=== PATIENT | male | born 1960 | race Caucasian/White ===

== ENCOUNTER 2016-06-24 04:11 | Outpatient (CLI) | payer MEDICAID | END 2016-06-24 04:12 | disposition critical access hospital (66) | DX: R41.0 Disorientation, unspecified (principal); R53.1 Weakness | CPT/HCPCS: A0425; A0427 ==

== ENCOUNTER 2016-06-24 04:16 | Inpatient (IN) | payer MEDICAID ==
[2016-06-24] MEDS ORDERED: POTASSIUM CHLOR 20 MEQ/100 ML 100 ML IV ONE (05:54)
[2016-06-24] MEDS ORDERED: POTASSIUM CHLORIDE INJ 40 MEQ in SODIUM CHLORIDE 0.9% 480 ML IV ONE (05:55)
[2016-06-24] MEDS ORDERED: POTASSIUM CHLOR 10 MEQ/100 ML 100 ML IV ONE ×3 (06:01→06:13)
[2016-06-24] MEDS ORDERED: SODIUM CHLORIDE 0.9% 1,000 ML IV ONE (06:20)
[2016-06-24] MEDS ORDERED: ONDANSETRON 4 MG/2 ML VIAL IVP PRN (06:27)
[2016-06-24] MEDS: NS W/20 MEQ KCL 1,000 ML IV SCH ×2 (07:50→22:11)
[2016-06-24] MEDS: PANTOPRAZOLE 40 MG VIAL IVP SCH (07:59)
[2016-06-24] MEDS: POTASSIUM CHLOR 10 MEQ/100 ML 100 ML IV SCH ×8 (08:00→15:23)
[2016-06-24] MEDS: LACTULOSE 10 GM/15 ML BOTTLE PR SCH ×3 (08:09→22:11)
[2016-06-24] MEDS ORDERED: POTASSIUM PHOSPHATE 15 MMOL in SODIUM CHLORIDE 0.9% 250 ML IV ONE (09:00)
[2016-06-24] MEDS ORDERED: TRACE ELEMENTS V CONC 1 ML VIAL IV SCH (09:00)
[2016-06-24] MEDS: FOLIC ACID IV SCH (09:50)
[2016-06-24] MEDS: [UNRECOGNIZED DRUG - OTHER] IV SCH (09:50)
[2016-06-24] MEDS: THIAMINE IV SCH (09:50)
[2016-06-24] MEDS: MULTIVITAMIN IV SCH (09:50)
[2016-06-24] MEDS: SODIUM CHLORIDE FLUSH 0.9% 10 ML SYRINGE IVP SCH ×2 (18:23→22:07)
[2016-06-25] MEDS ORDERED: MIN OIL/DIMETHICON/COCONUT OIL 92 GM TUBE TOP ONE (04:02)
[2016-06-25] MEDS ORDERED: MIN OIL/DIMETHICON/COCONUT OIL 92 GM TUBE TOP PRN (04:49)
[2016-06-25] MEDS: POTASSIUM CHLOR 10 MEQ/100 ML 100 ML IV SCH ×5 (06:11→09:57)
[2016-06-25] MEDS: LACTULOSE 10 GM/15 ML BOTTLE PR SCH (06:11)
[2016-06-25] MEDS: PANTOPRAZOLE 40 MG VIAL IVP SCH (06:11)
[2016-06-25] MEDS: SODIUM CHLORIDE FLUSH 0.9% 10 ML SYRINGE IVP SCH ×3 (06:11→20:57)
[2016-06-25] MEDS ORDERED: POTASSIUM PHOSPHATE 15 MMOL in SODIUM CHLORIDE 0.9% 250 ML IV ONE (06:26)
[2016-06-25] MEDS: FUROSEMIDE 40 MG/4 ML VIAL IVP SCH (08:54)
[2016-06-25] MEDS: MULTIVITAMIN IV SCH (09:00)
[2016-06-25] MEDS: FOLIC ACID IV SCH (09:00)
[2016-06-25] MEDS: THIAMINE IV SCH (09:00)
[2016-06-25] MEDS ORDERED: POTASSIUM CHLORIDE 20 MEQ TABLET PO SCH (09:00)
[2016-06-25] MEDS: [UNRECOGNIZED DRUG - OTHER] IV SCH (09:00)
[2016-06-25] MEDS ORDERED: PANTOPRAZOLE 40 MG TABLET PO SCH (09:00)
[2016-06-25] MEDS: LACTULOSE 10 GM /15 ML UDC PO SCH ×4 (09:07→20:56)
[2016-06-25] MEDS: NEUTRA-PHOS 250 MG TABLET PO SCH ×2 (09:07→11:56)
[2016-06-25] MEDS: SPIRONOLACTONE 25 MG TABLET PO SCH (09:25)
[2016-06-25] MEDS: POTASSIUM CHLORIDE 10 MEQ CAPSULE PO SCH ×4 (09:56→20:57)
[2016-06-25] MEDS: MORPHINE ER 15 MG TABLET PO SCH (16:51)
[2016-06-25] MEDS: SODIUM CHLORIDE FLUSH 0.9% 10 ML SYRINGE IVP PRN (17:14)
[2016-06-25] MEDS: MIRTAZAPINE 15 MG TABLET PO SCH (20:51)
[2016-06-25] MEDS: PRAMIPEXOLE 0.25 MG TABLET PO SCH (20:52)
[2016-06-25] MEDS: ATORVASTATIN 40 MG TABLET PO SCH (20:52)
[2016-06-25] MEDS: CARVEDILOL 12.5 MG TABLET PO SCH (20:52)
[2016-06-26] MEDS: MORPHINE ER 15 MG TABLET PO SCH ×3 (00:12→17:52)
[2016-06-26] MEDS: SODIUM CHLORIDE FLUSH 0.9% 10 ML SYRINGE IVP SCH ×3 (06:21→21:05)
[2016-06-26] MEDS: PANTOPRAZOLE 40 MG TABLET PO SCH (06:21)
[2016-06-26] MEDS: CARVEDILOL 12.5 MG TABLET PO SCH ×2 (08:24→21:06)
[2016-06-26] MEDS: SPIRONOLACTONE 25 MG TABLET PO SCH (08:24)
[2016-06-26] MEDS: POTASSIUM CHLORIDE 10 MEQ CAPSULE PO SCH ×4 (08:24→21:08)
[2016-06-26] MEDS: FUROSEMIDE 40 MG/4 ML VIAL IVP SCH (08:25)
[2016-06-26] MEDS: SODIUM CHLORIDE FLUSH 0.9% 10 ML SYRINGE IVP PRN (08:25)
[2016-06-26] MEDS: LACTULOSE 10 GM /15 ML UDC PO SCH ×4 (08:25→21:08)
[2016-06-26] MEDS: PRENATAL VITAMIN TABLET PO SCH (12:22)
[2016-06-26] MEDS: FERROUS SULFATE 325 MG TABLET PO SCH (16:52)
[2016-06-26] MEDS: PRAMIPEXOLE 0.25 MG TABLET PO SCH (21:05)
[2016-06-26] MEDS: ATORVASTATIN 40 MG TABLET PO SCH (21:06)
[2016-06-26] MEDS: MIRTAZAPINE 15 MG TABLET PO SCH (21:06)
[2016-06-27] MEDS: MORPHINE ER 15 MG TABLET PO SCH ×3 (01:05→16:32)
[2016-06-27] MEDS: PANTOPRAZOLE 40 MG TABLET PO SCH (06:48)
[2016-06-27] MEDS: SODIUM CHLORIDE FLUSH 0.9% 10 ML SYRINGE IVP SCH ×3 (06:48→21:07)
[2016-06-27] MEDS: SPIRONOLACTONE 25 MG TABLET PO SCH (08:17)
[2016-06-27] MEDS: SODIUM CHLORIDE FLUSH 0.9% 10 ML SYRINGE IVP PRN (08:18)
[2016-06-27] MEDS: CARVEDILOL 12.5 MG TABLET PO SCH ×2 (08:18→21:07)
[2016-06-27] MEDS: PRENATAL VITAMIN TABLET PO SCH (08:18)
[2016-06-27] MEDS: FUROSEMIDE 40 MG/4 ML VIAL IVP SCH (08:18)
[2016-06-27] MEDS: LACTULOSE 10 GM /15 ML UDC PO SCH ×2 (08:18→13:50)
[2016-06-27] MEDS: FERROUS SULFATE 325 MG TABLET PO SCH ×2 (08:18→16:32)
[2016-06-27] MEDS: POTASSIUM CHLORIDE 10 MEQ CAPSULE PO SCH ×2 (09:28→13:51)
[2016-06-27] MEDS: LACTULOSE 10 GM/15 ML BOTTLE PO SCH ×2 (16:33→21:07)
[2016-06-27] MEDS: ATORVASTATIN 40 MG TABLET PO SCH (21:07)
[2016-06-27] MEDS: PRAMIPEXOLE 0.25 MG TABLET PO SCH (21:07)
[2016-06-27] MEDS: MIRTAZAPINE 15 MG TABLET PO SCH (21:07)
[2016-06-28] MEDS: MORPHINE ER 15 MG TABLET PO SCH ×2 (00:19→08:06)
[2016-06-28] MEDS: PANTOPRAZOLE 40 MG TABLET PO SCH (07:19)
[2016-06-28] MEDS: SODIUM CHLORIDE FLUSH 0.9% 10 ML SYRINGE IVP SCH ×2 (07:20→08:18)
[2016-06-28] MEDS: PRENATAL VITAMIN TABLET PO SCH (08:06)
[2016-06-28] MEDS: SPIRONOLACTONE 25 MG TABLET PO SCH (08:06)
[2016-06-28] MEDS: FERROUS SULFATE 325 MG TABLET PO SCH (08:06)
[2016-06-28] MEDS: CARVEDILOL 12.5 MG TABLET PO SCH (08:06)
[2016-06-28] MEDS: FUROSEMIDE 40 MG/4 ML VIAL IVP SCH (08:07)
[2016-06-28] MEDS: LACTULOSE 10 GM/15 ML BOTTLE PO SCH (08:19)
== END 2016-06-28 10:57 | disposition home or self-care (01) | DRG 443 ==
DX: K72.90 Hepatic failure, unspecified without coma (principal); K74.60 Unspecified cirrhosis of liver; F15.10 Other stimulant abuse, uncomplicated; D50.9 Iron deficiency anemia, unspecified; D69.6 Thrombocytopenia, unspecified; E87.6 Hypokalemia; K59.00 Constipation, unspecified; K76.0 Fatty (change of) liver, not elsewhere classified; E66.01 Morbid (severe) obesity due to excess calories; I10 Essential (primary) hypertension; E78.5 Hyperlipidemia, unspecified; I25.10 Atherosclerotic heart disease of native coronary artery without angina pectoris; J44.9 Chronic obstructive pulmonary disease, unspecified; K21.9 Gastro-esophageal reflux disease without esophagitis; F41.8 Other specified anxiety disorders; G25.81 Restless legs syndrome; G89.29 Other chronic pain; M54.9 Dorsalgia, unspecified; G47.33 Obstructive sleep apnea (adult) (pediatric); F17.210 Nicotine dependence, cigarettes, uncomplicated; I25.2 Old myocardial infarction; Z79.82 Long term (current) use of aspirin; Z79.891 Long term (current) use of opiate analgesic; Z86.79 Personal history of other diseases of the circulatory system; Z68.38 Body mass index [BMI] 38.0-38.9, adult; Z63.72 Alcoholism and drug addiction in family; Z87.898 Personal history of other specified conditions

== ENCOUNTER 2016-07-19 15:09 | Outpatient (CLI) | payer MEDICAID | END 2016-07-19 15:10 | disposition home or self-care (01) | DX: E87.6 Hypokalemia (principal); E83.42 Hypomagnesemia ==

== ENCOUNTER 2016-07-30 16:14 | Outpatient (CLI) | payer MEDICAID | END 2016-07-30 16:15 | disposition home or self-care (01) | DX: F11.20 Opioid dependence, uncomplicated (principal); E87.6 Hypokalemia ==

== ENCOUNTER 2016-08-10 16:11 | Outpatient (CLI) | payer MEDICAID | END 2016-08-10 16:12 | disposition home or self-care (01) | DX: E87.6 Hypokalemia (principal); R79.89 Other specified abnormal findings of blood chemistry ==

== ENCOUNTER 2016-10-23 13:41 | Outpatient (CLI) | payer MEDICAID | END 2016-10-23 13:42 | disposition critical access hospital (66) | DX: M54.5 Low back pain (principal) | CPT/HCPCS: A0425; A0429 ==

== ENCOUNTER 2016-10-23 13:48 | Emergency (ER) | payer MEDICAID ==
[2016-10-23 13:57] VITALS: BP 112/67
--- NOTE | 2016-10-23 14:29 | ED Physician Documentation ---
History of Present Illness - Stated complaint Stated Complaint: BACK PX - Chief complaint Chief Complaint: Back Pain - History obtained from History obtained from: Patient, Family - History of Present Illness Timing: Chronic Pain level max: 10 Pain level now: 10 Improved by: morphine, oxycodone Worsened by: movement Associated symptoms: no numbness, no tingling - Additonal information Additional information: Patient states that he was recently released from [facility] [place] [place] for liver issues and states that he was not prescribed his usual morphine and oxycodone. Now out of pain meds. Has chronic back pain. No recent injuries. No new pain. No fevers. Patient's arrived in the emergency department and states that he sees a new primary care provider tomorrow and on Friday sees a new pain management clinic. Review of Systems Constitutional: denies: Fever, Chills Cardiac: denies: Chest pain / pressure Respiratory: denies: Cough GI: denies: Abdominal Pain, Nausea, Vomiting : denies: Dysuria, Frequency, Hesitancy, Incontinent Musculoskeletal: reports: Back pain (chronic) PD PAST MEDICAL HISTORY - Past Medical History Past Medical History: Yes Cardiovascular: Congestive heart failure, Hypertension, High cholesterol, Coronary artery disease, Angina, [place] Respiratory: COPD, Sleep apnea Neuro: None Endocrine/Autoimmune: None GI: GERD, Cirrhosis, Other : None HEENT: None Psych: Depression Musculoskeletal: Chronic back pain Derm: None - Past Surgical History Past Surgical History: Yes Ortho: Spine surgery - Present Medications Home Medications: Ambulatory Orders Medication Instructions Recorded Confirmed ALPRAZolam [Xanax] 2 mg PO BID PRN 06/24/16 06/24/16 Carvedilol 12.5 mg PO BID 06/24/16 10/23/16 Docusate Sodium 250Mg Capsule 250 mg PO BID 06/24/16 06/24/16 [Colace 250Mg Capsule] Furosemide 40 mg PO BID 06/24/16 10/23/16 Mirtazapine 15 mg PO QPM 06/24/16 10/23/16 Nortriptyline [Pamelor] 150 mg PO QPM 06/24/16 10/23/16 Omeprazole 20 mg PO DAILY 06/24/16 10/23/16 Potassium Chloride 8 meq PO TIDWM 06/24/16 06/24/16 Pramipexole Di-HCl [Mirapex] 0.25 mg PO QPM 06/24/16 10/23/16 Senna [Senokot] 17.2 mg PO BID 06/24/16 06/24/16 Temazepam 30 mg PO QPM 06/24/16 10/23/16 Ferrous Sulfate [Feosol] 325 mg PO BIDWM #60 tablet 06/28/16 10/23/16 Lactulose 40 gm PO QID #475 ml 06/28/16 Vitamin [Trinatal Rx 1] 1 tab PO DAILYWM tablet 06/28/16 Carvedilol 10/23/16 oxyCODONE [Roxicodone] 5 - 10 mg PO Q6H PRN #10 tablet 10/23/16 - Allergies Allergies/Adverse Reactions: Allergies Allergy/AdvReac Type Severity Reaction Status Date / Time No Known Drug Allergies Allergy Verified 07/06/15 08:57 - Social History Does the pt smoke?: Yes Smoking Status: Current every day smoker Does the pt drink ETOH?: No Does the pt have substance abuse?: No - Immunizations Immunizations are current?: No - POLST Patient has POLST: No PD ED PE NORMAL - Vitals Vital signs reviewed: Yes - General General: Alert and oriented X 3, Well developed/nourished - HEENT HEENT: Moist mucous membranes - Neck Neck: Supple, no meningeal sign, No bony TTP - Cardiac Cardiac: RRR - Respiratory Respiratory: No respiratory distress, Clear bilaterally - Abdomen Abdomen: Soft, Non tender, Non distended - Back Back: No spinal TTP - Derm Derm: Warm and dry - Extremities Extremities: No tenderness to palpate - Neuro Neuro: Alert and oriented X 3, No motor deficit, No sensory deficit - Psych Psych: Normal mood, Normal affect Results - Vitals Vitals: Vital Signs - 24 hr 10/23/16 13:54 Temperature 36.7 C Heart Rate 72 Respiratory 16 Rate Blood Pressure 112/67 O2 Saturation 96 Oxygen O2 Source [With Activity] Nasal cannula O2 Source [Without Activity] Nasal cannula O2 Source Room air PD MEDICAL DECISION MAKING - ED course Complexity details: reviewed old records, re-evaluated patient, considered differential (no cauda equina, no spinal epidural abscess, no fracture, no aortic dissection or evidence of aneursym rupture), d/w patient, d/w family ED course: Patient is a 55-year-old gentleman with chronic back pain. Out of his pain medications. Does see a new primary care provider tomorrow and a new pain management clinic on Friday. He has been on these pain medications since 2008. Will prescribe a small amount of pain medications to last him until he sees pain management. Patient and were informed that this will not be a regular occurrence and that we normally do not refill pain medications for people. Patient is ambulating quite well in the emergency department. Patient and family counseled regarding signs and symptoms for which I believe and urgent re-evaluation would be necessary. Patient with good understanding of and agreement to plan and is comfortable going home at this time This document was made in part using voice recognition software. While efforts are made to proofread this document, sound alike and grammatical errors may occur. Departure - Departure Disposition: Home, Self Care Clinical Impression: Back pain Qualifiers: Back pain location: low back pain Chronicity: chronic Back pain laterality: bilateral Sciatica presence: without sciatica Qualified Code(s): M54.5 - Low back pain Condition: Good Instructions: ED Chronic Pain Management Follow-Up: DAMION HART [Physician No Access] - Tomorrow Prescriptions: oxyCODONE [Roxicodone] 5 - 10 mg PO Q6H PRN #10 tablet PRN Reason: back pain Comments: Return if you worsen. You need to follow-up with your doctor tomorrow as scheduled as well as her pain management doctor on Friday as scheduled for further pain medication refills. As we discussed we do not typically refill narcotic pain prescriptions for people, but will make an exception for you this 1 time. Do not drink alcohol or drive while on narcotic pain medicine. Note that many narcotic pain relievers also contain tylenol/acetaminophen. Please ensure that your total dose of acetaminophen from all sources does not exceed 3 grams (3000mg) per day. You may constipated on this medication, take a stool softener such as "Colace" twice a day while you are on it. Also recommend a dmie-bcj-alupfle laxative such as senna or MiraLAX any day that you do not have a bowel movement. If you received narcotic pain medication in the emergency department, do not drive or operate machinery for the next 24 hours. Discharge Date/Time: 10/23/16 15:10
[2016-10-23] MEDS ORDERED: oxyCODONE 5 MG TABLET PO STA (15:03)
[2016-10-23] MEDS ORDERED: oxyCODONE 5 MG TABLET ONE (15:04)
== END 2016-10-23 15:10 | disposition home or self-care (01) ==
LOC: EDUNIT# → ED 13:48
DX: M54.5 Low back pain (principal); G89.29 Other chronic pain; I11.0 Hypertensive heart disease with heart failure; I50.9 Heart failure, unspecified; E78.00 Pure hypercholesterolemia, unspecified; I25.10 Atherosclerotic heart disease of native coronary artery without angina pectoris; I25.2 Old myocardial infarction; J44.9 Chronic obstructive pulmonary disease, unspecified; G47.30 Sleep apnea, unspecified; K21.9 Gastro-esophageal reflux disease without esophagitis; K74.60 Unspecified cirrhosis of liver; F17.200 Nicotine dependence, unspecified, uncomplicated
CPT/HCPCS: 99283; 99284; A9270

== ENCOUNTER 2016-11-16 16:14 | Outpatient (CLI) | payer MEDICAID | END 2016-11-16 16:15 | disposition critical access hospital (66) | LOC: EMS 16:14 | PROVIDERS: ATTEND Surgery | DX: R40.4 Transient alteration of awareness (principal) | CPT/HCPCS: A0425; A0429 ==

== ENCOUNTER 2016-11-16 16:19 | Inpatient (IN) | payer MEDICAID ==
--- NOTE | 2016-11-16 16:41 | ED Physician Documentation ---
History of Present Illness - Stated complaint Stated Complaint: ALOC - Chief complaint Chief Complaint: General - History obtained from History obtained from: Patient, EMS - History of Present Illness Timing: Other (55-year-old gentleman arrives by ambulance for altered mental status. History from him is basically unobtainable, I did review the chart and took report from the paramedics. He has a history of it looks like cirrhosis for unclear reasons and hepatic encephalopathy. He also has a history of drug use. He is not taking his lactulose per report from the paramedics from the who is not available on initial arrival.) Review of Systems Unable to obtain: Confused PD PAST MEDICAL HISTORY - Past Medical History Cardiovascular: Congestive heart failure, Hypertension, High cholesterol, Coronary artery disease, Angina, [place] Respiratory: COPD, Sleep apnea Neuro: None Endocrine/Autoimmune: None GI: GERD, Cirrhosis, Other : None HEENT: None Psych: Depression Musculoskeletal: Chronic back pain Derm: None - Past Surgical History Past Surgical History: Yes Ortho: Spine surgery - Present Medications Home Medications: Ambulatory Orders Medication Instructions Recorded Confirmed ALPRAZolam [Xanax] 2 mg PO BID PRN 06/24/16 06/24/16 Carvedilol 12.5 mg PO BID 06/24/16 10/23/16 Docusate Sodium 250Mg Capsule 250 mg PO BID 06/24/16 06/24/16 [Colace 250Mg Capsule] Furosemide 40 mg PO BID 06/24/16 10/23/16 Mirtazapine 15 mg PO QPM 06/24/16 10/23/16 Nortriptyline [Pamelor] 150 mg PO QPM 06/24/16 10/23/16 Omeprazole 20 mg PO DAILY 06/24/16 10/23/16 Potassium Chloride 8 meq PO TIDWM 06/24/16 06/24/16 Pramipexole Di-HCl [Mirapex] 0.25 mg PO QPM 06/24/16 10/23/16 Senna [Senokot] 17.2 mg PO BID 06/24/16 06/24/16 Temazepam 30 mg PO QPM 06/24/16 10/23/16 Ferrous Sulfate [Feosol] 325 mg PO BIDWM #60 tablet 06/28/16 10/23/16 Lactulose 40 gm PO QID #475 ml 06/28/16 Vitamin [Trinatal Rx 1] 1 tab PO DAILYWM tablet 06/28/16 Carvedilol 10/23/16 oxyCODONE [Roxicodone] 5 - 10 mg PO Q6H PRN #10 tablet 10/23/16 - Allergies Allergies/Adverse Reactions: Allergies Allergy/AdvReac Type Severity Reaction Status Date / Time No Known Drug Allergies Allergy Verified 07/06/15 08:57 - Social History Does the pt smoke?: Yes Smoking Status: Current every day smoker Does the pt drink ETOH?: No Does the pt have substance abuse?: No - Immunizations Immunizations are current?: No - POLST Patient has POLST: No PD ED PE NORMAL - Vitals Vital signs reviewed: Yes - General General: Other (Lethargic, oriented to person only. Very slow to answer questions.) - HEENT HEENT: PERRL, Other (Unable to check extraocular movements because he is not cooperative with it.) - Neck Neck: Supple, no meningeal sign, No bony TTP - Cardiac Cardiac: RRR, No murmur - Respiratory Respiratory: No respiratory distress, Clear bilaterally - Abdomen Abdomen: Soft, Non tender - Back Back: No CVA TTP, No spinal TTP - Derm Derm: Normal color, Warm and dry, Other (Nonicteric) - Extremities Extremities: No deformity, No tenderness to palpate, Other (Moderate pitting pedal edema) - Neuro Neuro: Other (Slow to answer questions but does follow commands, I do not see clear asterixis, but both his hands drop fairly rapidly. He does move all 4 extremities with at least some strength. Seems symmetric.) Results - Vitals Vitals: Vital Signs - 24 hr 11/16/16 11/16/16 16:20 17:07 Temperature 36.7 C Heart Rate 76 66 Respiratory 12 10 L Rate Blood Pressure 108/56 L 92/45 L O2 Saturation 96 96 Oxygen O2 Source [With Activity] Nasal cannula O2 Source [Without Activity] Nasal cannula O2 Source Room air - Labs Labs: Laboratory Tests 11/16/16 11/16/16 11/16/16 16:48 16:48 16:48 WBC 5.7 RBC 3.83 L Hgb 13.4 L Hct 38.9 L MCV 101.5 H MCH 34.9 H MCHC 34.4 RDW 16.2 H Plt Count 88 L MPV 9.1 Neut # 2.9 Lymph # 1.9 Dougherty # 0.6 Eos # 0.2 Baso # 0.0 Absolute Nucleated RBC 0.00 Nucleated RBCs 0.1 PT 16.6 H INR 1.5 H Sodium 137 Potassium 2.5 L* Chloride 100 L Carbon Dioxide 32 Anion Gap 5.0 L BUN 6 Creatinine 0.9 Estimated GFR (MDRD) 87 L Glucose 117 H Calcium 8.2 L Total Bilirubin 2.9 H AST 143 H ALT 54 Alkaline Phosphatase 174 H Ammonia Total Protein 6.7 Albumin 2.8 L Globulin 3.9 Albumin/Globulin Ratio 0.7 L Lipase 21 L Urine Color Urine Clarity Urine pH Ur Specific [place] Urine Protein Urine Glucose (UA) Urine Ketones Urine Occult Blood Urine Nitrite Urine Bilirubin Urine Urobilinogen Ur Leukocyte Esterase Ur Microscopic Review Urine Culture Comments Ethyl Alcohol < 5.0 11/16/16 11/16/16 16:48 17:01 WBC RBC Hgb Hct MCV MCH MCHC RDW Plt Count MPV Neut # Lymph # [place] # Eos # Baso # Absolute Nucleated RBC Nucleated RBCs PT INR Sodium Potassium Chloride Carbon Dioxide Anion Gap BUN Creatinine Estimated GFR (MDRD) Glucose Calcium Total Bilirubin AST ALT Alkaline Phosphatase Ammonia 109.9 H* Total Protein Albumin Globulin Albumin/Globulin Ratio Lipase Urine Color YELLOW Urine Clarity CLEAR Urine pH 7.5 Ur Specific [place] 1.010 Urine Protein NEGATIVE Urine Glucose (UA) NEGATIVE Urine Ketones NEGATIVE Urine Occult Blood NEGATIVE Urine Nitrite NEGATIVE Urine Bilirubin NEGATIVE Urine Urobilinogen 0.2 (NORMAL) Ur Leukocyte Esterase NEGATIVE Ur Microscopic Review NOT INDICATED Urine Culture Comments NOT INDICATED Ethyl Alcohol PD MEDICAL DECISION MAKING - ED course ED course: 55-year-old gentleman with history of cirrhosis, hepatic encephalopathy presents with altered mental status, likely due to hepatic encephalopathy, ammonia 109. Given lactulose and IV potassium. Called to Dr. Lancaster, the hospitalist for admission at 5:25 PM. Departure - Departure Disposition: 66 [facility] DC/Xfer Clinical Impression: Confusion, Encephalopathy, Hepatic encephalopathy, Hypokalemia Altered mental status Qualifiers: Altered mental status type: delirium Qualified Code(s): R41.0 - Disorientation , unspecified Condition: Serious
[2016-11-16 16:55] LABS: BASOPHILS % (AUTO) 0.8 %; EOSINOPHILS # (AUTO) 0.2 10^3/uL (0.0-0.7); EOSINOPHILS % (AUTO) 4.3 %; HCT - HEMATOCRIT 38.9 % (42.0-52.0); HGB - HEMOGLOBIN 13.4 g/dL (14.0-18.0); LYMPHOCYTES # (AUTO) 1.9 10^3/uL (1.5-3.5); LYMPHOCYTES % (AUTO) 32.9 %; MEAN CORPUSCULAR HEMOGLOBIN 34.9 pg (27.0-31.0); MEAN CORPUSCULAR HGB CONC 34.4 g/dL (32.0-36.0); MEAN CORPUSCULAR VOLUME 101.5 fL (80.0-94.0); MEAN PLATELET VOLUME 9.1 fL (7.4-11.4); MONOCYTES # (AUTO) 0.6 10^3/uL (0.0-1.0); MONOCYTES % (AUTO) 10.6 %; NEUTROPHILS # (AUTO) 2.9 10^3/uL (1.5-6.6); NEUTROPHILS % (AUTO) 51.4 %; NUCLEATED RED BLOOD CELLS AUTO 0.1 /100WBC; RED BLOOD COUNT 3.83 10^6/uL (4.70-6.10); RED CELL DISTRIBUTION WIDTH 16.2 % (12.0-15.0); UNCORRECTED WHITE BLOOD COUNT 5.7 x10^3/uL; WHITE BLOOD COUNT 5.7 x10^3/uL (4.8-10.8)
[2016-11-16 17:01] LABS: INR 1.5 (0.8-1.2); PT - PROTHROMBIN TIME 16.6 secs (9.9-12.6)
[2016-11-16] MEDS ORDERED: SODIUM CHLORIDE 0.9% 500 ML IV ONE (17:05)
[2016-11-16 17:17] LABS: ALBUMIN/GLOBULIN RATIO 0.7 (1.0-2.2); BILIRUBIN,TOTAL 2.9 mg/dL (0.2-1.0); BUN - BLOOD UREA NITROGEN 6 mg/dL (6-20); CALCIUM 8.2 mg/dL (8.5-10.3); CARBON DIOXIDE - CO2 32 mmol/L (21-32); CHLORIDE 100 mmol/L (101-111); CREATININE 0.9 mg/dL (0.6-1.2); GFR - MDRD 87 (>89); GLUCOSE 117 mg/dL (70-100); LIPASE 21 U/L (22-51); SODIUM 137 mmol/L (135-145); TOTAL PROTEIN 6.7 g/dL (6.7-8.2)
[2016-11-16 17:18] LABS: BILIRUBIN,URINE NEGATIVE (NEGATIVE); PH,URINE 7.5 PH (5.0-7.5)
[2016-11-16 17:18] LABS: POTASSIUM 2.5 mmol/L (3.5-5.0)
[2016-11-16 17:20] LABS: UA CHARGE (STRIP ONLY) YES; UR CULTURE IF IND NOT INDICATED
[2016-11-16] MEDS ORDERED: POTASSIUM CHLOR 20 MEQ/100 ML 100 ML IV ONE (17:24)
[2016-11-16] MEDS ORDERED: LACTULOSE 10 GM /15 ML UDC PO STA (17:24)
--- NOTE | 2016-11-16 17:37 | CT Preliminary Report ---
Exam: CT Head W/O IMPRESSION: 1. No acute intracranial abnormality is identified. 2. Parenchymal volume loss and chronic white matter changes. [facility] SITE ID: [id number]
--- NOTE | 2016-11-16 17:39 | CT Report ---
EXAM: CT HEAD EXAM DATE: 11/16/2016 05:20 PM. CLINICAL HISTORY: Altered mental status. COMPARISON: 06/24/2016. 03/24/2016. TECHNIQUE: Multiaxial CT images were obtained from the foramen magnum to the vertex. IV contrast: Non e. Reformats: Coronal. In accordance with CT protocol optimization, one or more of the following dose reduction techniques w ere utilized for this exam: automated exposure control, adjustment of mA and/or KV based on patient s ize, or use of iterative reconstructive technique. FINDINGS: Parenchyma: Parenchymal volume loss with periventricular regions of low attenuation. No evidence of a n acute vascular insult or acute parenchymal hemorrhage. No midline shift. No mass effect. Extraaxial Spaces: Extra-axial spaces are prominent. No acute extra-axial fluid collections. Ventricles: Ventricles are symmetric. No hydrocephalus. Sinuses: Imaged paranasal sinuses, orbits, and mastoids show no significant abnormality. Bones: No evidence of fracture or calvarial defect. Other: Globes and orbits are unremarkable. IMPRESSION: 1. No acute intracranial abnormality is identified. 2. Parenchymal volume loss and chronic white matter changes. [facility] Referring Provider Line: [phone] SITE ID: [id number]
--- NOTE | 2016-11-16 17:40 | HISTORY & PHYSICAL EXAMINATION ---
Chief Complaint - Chief Complaint Chief Complaint: altered mental status with liver chirrosis History of Present Illness - Admitted From Admitted From:: ER - History Obtained From Records Reviewed: yes History obtained from: patient and records Exam Limitations: altered from elevated ammonia level - History of Present Illness HPI Comment/Other: Patient is a 55 year male who looks older than stated age who stopped taking his lactulose about 3 days ago. His medical history includes chronic hepatic encephalopathy, cirrhosis of liver, low potassium, iron deficiency anemai, tobacco abuse, depression and chronic pain. He was a past drinker and abuses marajuana, benzos and other unknown substances. He was brought to the ER by his . She was not present at bedside when patient was evaluated. He states he does not remember coming to the hospital but does know his name and his wifes name. he was being given lactulose by the ER staff during assessment. He admits to belly discomfort. He denies chest pain or shortness of breath. He is jaundiced and admits to having a past drinking problem. He will be admitted for AMS due to hepatic encephalopathy. Review of Systems - Constitutional Constitutional: reports: Fatigue, Malaise, Weakness - Gastrointestinal Gastrointestinal: reports: Abdominal pain, Abdominal distention, Change in bowel habits - Genitourinary Genitourinary: reports: Incontinence - Neurological Neurological: reports: General weakness. denies: Seizures - Psychiatric Psychiatric: reports: Depression, Anxiety - Hematologic/Lymphatic Hematologic/Lymphatic: reports: Bleeding tendencies - All Other Systems All Other Systems: reports: Reviewed and negative, Other (reviewed with records and staff) History - Past Medical History Cardiovascular: reports: Congestive heart failure, Hypertension, High cholesterol, Coronary artery disease, Angina, [place] Respiratory: reports: COPD, Sleep apnea Neuro: reports: None Endocrine/Autoimmune: reports: None GI: reports: GERD, GI bleed, Cirrhosis, Other : reports: None HEENT: reports: None Psych: reports: Depression, Anxiety Musculoskeletal: reports: Chronic back pain Derm: reports: None MRSA Hx?: No - Past Surgical History Ortho: reports: Spine surgery - Family & Social History Family History: Mother: , Obesity, Father: Obesity, Sister: Alive and Well Living arrangement: At home Living Situation: With spouse/s.o. - Substance History Use: Uses substance without health or social issues: Tobacco, Alcohol, Amphetamine, Cannabis, Opioid, Sedative Use Issues: Anxiety Disorder, Opioid Induced Psychotic, Other Abuse: Recurrent use of substance despite neg consequences: Alcohol, Cannabis, Sedative Abuse Issues: Intoxication, Anxiety Disorder, Opioid Induced Psychotic Dependence: Experiences withdrawal or developed tolerances: Tobacco, Alcohol, Cannabis, Opioid, Sedative Dependence Issues: Intoxication, Anxiety Disorder, Opioid Induced Psychotic, Withdrawal Tobacco Details: Cigarettes - POLST Patient has POLST: No POLST Status: Full Code Meds/Allgy - Home Medications Home Medications: Ambulatory Orders Medication Instructions Recorded Confirmed ALPRAZolam [Xanax] 2 mg PO BID PRN 06/24/16 06/24/16 Carvedilol 12.5 mg PO BID 06/24/16 10/23/16 Docusate Sodium 250Mg Capsule 250 mg PO BID 06/24/16 06/24/16 [Colace 250Mg Capsule] Furosemide 40 mg PO BID 06/24/16 10/23/16 Mirtazapine 15 mg PO QPM 06/24/16 10/23/16 Nortriptyline [Pamelor] 150 mg PO QPM 06/24/16 10/23/16 Omeprazole 20 mg PO DAILY 06/24/16 10/23/16 Potassium Chloride 8 meq PO TIDWM 06/24/16 06/24/16 Pramipexole Di-HCl [Mirapex] 0.25 mg PO QPM 06/24/16 10/23/16 Senna [Senokot] 17.2 mg PO BID 06/24/16 06/24/16 Temazepam 30 mg PO QPM 06/24/16 10/23/16 Ferrous Sulfate [Feosol] 325 mg PO BIDWM #60 tablet 06/28/16 10/23/16 Lactulose 40 gm PO QID #475 ml 06/28/16 Vitamin [Trinatal Rx 1] 1 tab PO DAILYWM tablet 06/28/16 Carvedilol 10/23/16 oxyCODONE [Roxicodone] 5 - 10 mg PO Q6H PRN #10 tablet 10/23/16 - Allergies Allergies/Adverse Reactions: Allergies Allergy/AdvReac Type Severity Reaction Status Date / Time No Known Drug Allergies Allergy Verified 07/06/15 08:57 Exam - Vital Signs Reviewed Vital Signs: Yes Vital Signs: Vital Signs x48h Temp Pulse Resp BP Pulse Ox 11/16/16 17:07 66 10 L 92/45 L 96 11/16/16 16:20 36.7 C 76 12 108/56 L 96 - Physical Exam General Appearance: positive: No acute distress, Alert, Lethargic Eyes Bilateral: positive: PERRL, Other (yellow jaundice). negative: No scleral icterus ENT: positive: Pharynx nml, No signs of dehydration Neck: positive: Thyroid nml, Trachea midline Respiratory: positive: Chest non-tender, Breath sounds nml Cardiovascular: positive: Regular rate & rhythm, No murmur Peripheral Pulses: positive: 2+ Abdomen: positive: Tenderness, Hepatomegaly, Splenomegaly, Abnml bowel sounds. negative: Guarding, Rebound Rectal: negative: Bloody stool Back: negative: CVA tenderness (R) Skin: positive: No rash, Warm, Dry, Other (jaundiced). negative: Decubitus Extremities: positive: Full ROM. negative: Calf tenderness Neurologic/Psychiatric: positive: Disoriented to time, Weakness. negative: Facial droop, Slurred/abnml speech Conclusion/Plan - Problem List (1) Hepatic encephalopathy Conclusion/Plan: acute on chronic. with elevated ammonia levels. give lactulose and continue to monitor mental status. IVF for hydration. continue to monitor electrolytes and replace. CIWA (2) Hypokalemia Conclusion/Plan: acute on chronic. plan to replace with potassium oral and IV and repeat lab values with daily lab draws. (3) Polysubstance abuse Conclusion/Plan: acute on chronic secondary to electrolyte imbalances. cotinue to monitor kidney function and counseling recommended. social work support - Lab Results Lab results reviewed: Yes Fish Bones: 11/17/16 07:41 11/16/16 16:48 Other Lab Results: Abnormal Lab Results 11/16/16 11/16/16 11/16/16 16:48 16:48 16:48 RBC 3.83 10^6/uL L 10^6/uL (4.70-6.10) Hgb 13.4 g/dL L g/dL (14.0-18.0) Hct 38.9 % L % (42.0-52.0) MCV 101.5 fL H fL (80.0-94.0) MCH 34.9 pg H pg (27.0-31.0) RDW 16.2 % H % (12.0-15.0) Plt Count 88 10^3/uL L 10^3/uL (130-450) PT 16.6 secs H secs (9.9-12.6) INR 1.5 H (0.8-1.2) Potassium 2.5 mmol/L L* mmol/L (3.5-5.0) Chloride 100 mmol/L L mmol/L (101-111) Anion Gap 5.0 L (6-13) Estimated GFR (MDRD) 87 L (>89) Glucose 117 mg/dL H mg/dL (70-100) Calcium 8.2 mg/dL L mg/dL (8.5-10.3) Total Bilirubin 2.9 mg/dL H mg/dL (0.2-1.0) AST 143 IU/L H IU/L (10-42) Alkaline Phosphatase 174 IU/L H IU/L (42-121) Ammonia Albumin 2.8 g/dL L g/dL (3.2-5.5) Albumin/Globulin Ratio 0.7 L (1.0-2.2) Lipase 21 U/L L U/L (22-51) Urine Opiates Screen Ur Tricyclics Screen U Benzodiazepines Scrn U Cannabinoids Screen 11/16/16 11/16/16 16:48 17:01 RBC Hgb Hct MCV MCH RDW Plt Count PT INR Potassium Chloride Anion Gap Estimated GFR (MDRD) Glucose Calcium Total Bilirubin AST Alkaline Phosphatase Ammonia 109.9 umol/L H* umol/L (7-35) Albumin Albumin/Globulin Ratio Lipase Urine Opiates Screen POSITIVE H (NEGATIVE) Ur Tricyclics Screen POSITIVE H (NEGATIVE) U Benzodiazepines Scrn POSITIVE H (NEGATIVE) U Cannabinoids Screen POSITIVE H (NEGATIVE) - EKG Results EKG Interpreted Independently: No Issues/Core Measures - Anticipated LOS Anticipated Stay Length: 2 or more midnights - Issues Hospital Issues and Management Plan: Patient has been seen multiple times in the ER and inpatient. will need social work consult and counseling with outpatient if available. Time spent with patient for assessment and planning was 40 minutes. - DVT/VTE - Prophylaxis VTE/DVT Device ordered at admit?: Yes VTE/DVT Prophylaxis med ordered at admit?: No Not Ordered - Medical Reason: Contraindicated (liver and alcohol abuse)
[2016-11-16] MEDS ORDERED: LACTULOSE 10 GM /15 ML UDC ONE ×2 (17:43→20:40)
[2016-11-16] MEDS ORDERED: POTASSIUM CHLOR 10 MEQ/100 ML 100 ML IV ONE ×2 (18:04→18:08)
[2016-11-16] MEDS ORDERED: ONDANSETRON ODT 4 MG TABLET TL PRN (18:19)
[2016-11-16] MEDS ORDERED: SODIUM CHLORIDE FLUSH 0.9% 10 ML SYRINGE IVP PRN (18:19)
[2016-11-16] MEDS ORDERED: ALPRAZolam 0.25 MG TABLET PO PRN (18:24)
[2016-11-16] MEDS ORDERED: NICOTINE 21 MG PATCH TOP STA ×2 (18:27)
[2016-11-16] MEDS ORDERED: PANTOPRAZOLE 40 MG VIAL IVP SCH (19:00)
[2016-11-16] MEDS ORDERED: LACTULOSE 10 GM/15 ML BOTTLE PO SCH (19:00)
[2016-11-16] MEDS ORDERED: NS W/20 MEQ KCL 1,000 ML IV SCH (19:00)
[2016-11-16] MEDS: NS W/20 MEQ KCL 1,000 ML IV SCH (20:41)
[2016-11-16] MEDS: CARVEDILOL 12.5 MG TABLET PO SCH (20:48)
[2016-11-16] MEDS: FUROSEMIDE 40 MG TABLET PO SCH (20:48)
[2016-11-16] MEDS: LACTULOSE 10 GM/15 ML BOTTLE PO SCH (20:49)
[2016-11-16] MEDS: SODIUM CHLORIDE FLUSH 0.9% 10 ML SYRINGE IVP SCH (20:49)
[2016-11-16] MEDS ORDERED: FUROSEMIDE 40 MG TABLET PO SCH (21:00)
[2016-11-16] MEDS ORDERED: CARVEDILOL 12.5 MG PO SCH (21:00)
[2016-11-16] MEDS ORDERED: SODIUM CHLORIDE FLUSH 0.9% 10 ML SYRINGE IVP SCH (22:00)
[2016-11-17] MEDS: PANTOPRAZOLE 40 MG VIAL IVP SCH ×2 (06:05→17:41)
[2016-11-17] MEDS: SODIUM CHLORIDE FLUSH 0.9% 10 ML SYRINGE IVP SCH ×3 (06:05→20:53)
[2016-11-17] MEDS: NS W/20 MEQ KCL 1,000 ML IV SCH (06:05)
[2016-11-17 07:48] LABS: BASOPHILS % (AUTO) 0.7 %; EOSINOPHILS # (AUTO) 0.2 10^3/uL (0.0-0.7); EOSINOPHILS % (AUTO) 4.4 %; HGB - HEMOGLOBIN 12.2 g/dL (14.0-18.0); LYMPHOCYTES # (AUTO) 1.6 10^3/uL (1.5-3.5); LYMPHOCYTES % (AUTO) 32.2 %; MEAN CORPUSCULAR HEMOGLOBIN 34.5 pg (27.0-31.0); MEAN CORPUSCULAR HGB CONC 33.9 g/dL (32.0-36.0); MEAN CORPUSCULAR VOLUME 101.9 fL (80.0-94.0); MEAN PLATELET VOLUME 9.6 fL (7.4-11.4); MONOCYTES # (AUTO) 0.5 10^3/uL (0.0-1.0); MONOCYTES % (AUTO) 11.2 %; NEUTROPHILS # (AUTO) 2.5 10^3/uL (1.5-6.6); NEUTROPHILS % (AUTO) 51.5 %; NUCLEATED RED BLOOD CELLS AUTO 0.1 /100WBC; RED BLOOD COUNT 3.53 10^6/uL (4.70-6.10); RED CELL DISTRIBUTION WIDTH 16.3 % (12.0-15.0); UNCORRECTED WHITE BLOOD COUNT 4.8 x10^3/uL; WHITE BLOOD COUNT 4.8 x10^3/uL (4.8-10.8)
[2016-11-17 07:59] LABS: MAGNESIUM 1.7 mg/dL (1.7-2.8); PHOSPHORUS 2.5 mg/dL (2.5-4.6)
[2016-11-17] MEDS ORDERED: FERROUS SULFATE 325 MG TABLET PO SCH (08:00)
[2016-11-17] MEDS ORDERED: PRENATAL VITAMIN TABLET PO SCH (08:00)
[2016-11-17] MEDS ORDERED: POLYETHYLENE GLYCOL 3350 17 GM PACKET PO SCH (09:00)
[2016-11-17] MEDS: FERROUS SULFATE 325 MG TABLET PO SCH ×2 (09:08→17:41)
[2016-11-17] MEDS: POLYETHYLENE GLYCOL 3350 17 GM PACKET PO SCH (09:08)
[2016-11-17] MEDS: CARVEDILOL 12.5 MG TABLET PO SCH ×2 (09:09→20:45)
[2016-11-17] MEDS: PRENATAL VITAMIN TABLET PO SCH (09:09)
[2016-11-17] MEDS: FUROSEMIDE 40 MG TABLET PO SCH ×2 (09:09→20:45)
[2016-11-17] MEDS: LACTULOSE 10 GM/15 ML BOTTLE PO SCH ×4 (09:15→20:51)
--- NOTE | 2016-11-17 15:47 | PROVIDER PROGRESS NOTE ---
Assessment/Plan - Problem List (1) Hepatic encephalopathy Assessment/Plan: acute.continue with lactulose and monitoring of liver enzymes and ammonia level (2) Transaminitis Assessment/Plan: acute on chronic. patient has history of alcohol abuse and drug usage and has elevated liver enzymes on most occassions. will continue to follow with daily lab draws. continue to monitor ammonia levels. (3) Hypokalemia Assessment/Plan: acute. give replacement of potassium with oral and IV and recheck levels in daily labs (4) Polysubstance abuse Assessment/Plan: acute on chronic. patient is on marajuana, benzos and opiods. He has been noncompliant with medications for years and in assisted for selling. counseling attempted with each admission. monitor for withdrawal and ativan ordered as needed (5) Low blood magnesium level Assessment/Plan: acute on chronic. continue to monitor levels in daily labs and replace with IV magnesium (6) Obesity (BMI 30-39.9) Assessment/Plan: chronic. low fat low calorie diet and encourage ambulation. daily weights - Current Meds Current Meds: Current Medications Generic Name Dose Route Start Last Admin Trade Name Jaydenq PRN Reason Stop Dose Admin Carvedilol 12.5 mg 11/16/16 21:00 11/17/16 09:09 Coreg PO 12.5 mg BID NILE Administration Ferrous Sulfate 325 mg 11/17/16 08:00 11/17/16 09:08 Feosol PO 325 mg BIDWM NILE Administration Furosemide 40 mg 11/16/16 21:00 11/17/16 09:09 Lasix PO 40 mg BID NILE Administration Potassium Chloride/Sodium Chloride 1,000 mls @ 100 mls/hr 11/16/16 19:00 06:05 Normal Saline 0.9% W/20 Meq Kcl IV 100 mls/hr .Q10H NILE Administration Lactulose 40 gm 11/16/16 19:00 11/17/16 13:43 Lactulose PO 40 gm QID NILE Administration Pantoprazole Sodium 40 mg 11/16/16 19:00 11/17/16 06:05 Protonix IVP 40 mg BIDAC NILE Administration Polyethylene Glycol 17 gm 11/17/16 09:00 11/17/16 09:08 Miralax PO 17 gm DAILY NILE Administration Multivit/Folic Acid/Iron 1 tab 11/17/16 08:00 11/17/16 09:09 Trinatal Rx 1 PO 1 tab DAILYWM NILE Administration Sodium Chloride 10 ml 11/16/16 22:00 11/17/16 13:43 Normal Saline Flush 0.9% IVP Not Given Q8HR NILE - Lab Result Lab results reviewed: Yes Fish Bone Diagrams: 11/17/16 07:41 11/16/16 16:48 Other Lab Results: Abnormal Lab Results 11/16/16 11/16/16 11/16/16 16:48 16:48 16:48 RBC 3.83 10^6/uL L 10^6/uL (4.70-6.10) Hgb 13.4 g/dL L g/dL (14.0-18.0) Hct 38.9 % L % (42.0-52.0) MCV 101.5 fL H fL (80.0-94.0) MCH 34.9 pg H pg (27.0-31.0) RDW 16.2 % H % (12.0-15.0) Plt Count 88 10^3/uL L 10^3/uL (130-450) PT 16.6 secs H secs (9.9-12.6) INR 1.5 H (0.8-1.2) Potassium 2.5 mmol/L L* mmol/L (3.5-5.0) Chloride 100 mmol/L L mmol/L (101-111) Anion Gap 5.0 L (6-13) Estimated GFR (MDRD) 87 L (>89) Glucose 117 mg/dL H mg/dL (70-100) Calcium 8.2 mg/dL L mg/dL (8.5-10.3) Total Bilirubin 2.9 mg/dL H mg/dL (0.2-1.0) AST 143 IU/L H IU/L (10-42) Alkaline Phosphatase 174 IU/L H IU/L (42-121) Ammonia Total Creatine Kinase Albumin 2.8 g/dL L g/dL (3.2-5.5) Albumin/Globulin Ratio 0.7 L (1.0-2.2) Lipase 21 U/L L U/L (22-51) Urine Opiates Screen Ur Tricyclics Screen U Benzodiazepines Scrn U Cannabinoids Screen 11/16/16 11/16/1617 16:48 16:48 17:01 RBC Hgb Hct MCV MCH RDW Plt Count PT INR Potassium Chloride Anion Gap Estimated GFR (MDRD) Glucose Calcium Total Bilirubin AST Alkaline Phosphatase Ammonia 109.9 umol/L H* umol/L (7-35) Total Creatine Kinase 423 IU/L H IU/L (22-269) Albumin Albumin/Globulin Ratio Lipase Urine Opiates Screen POSITIVE H (NEGATIVE) Ur Tricyclics Screen POSITIVE H (NEGATIVE) U Benzodiazepines Scrn POSITIVE H (NEGATIVE) U Cannabinoids Screen POSITIVE H (NEGATIVE) 11/17/16 11/17/16 07:41 09:41 RBC 3.53 10^6/uL L 10^6/uL (4.70-6.10) Hgb 12.2 g/dL L g/dL (14.0-18.0) Hct 36.0 % L % (42.0-52.0) MCV 101.9 fL H fL (80.0-94.0) MCH 34.5 pg H pg (27.0-31.0) RDW 16.3 % H % (12.0-15.0) Plt Count 75 10^3/uL L 10^3/uL (130-450) PT INR Potassium Chloride Anion Gap Estimated GFR (MDRD) Glucose Calcium Total Bilirubin AST Alkaline Phosphatase Ammonia 118.4 umol/L H* umol/L (7-35) Total Creatine Kinase Albumin Albumin/Globulin Ratio Lipase Urine Opiates Screen Ur Tricyclics Screen U Benzodiazepines Scrn U Cannabinoids Screen - EKG Results EKG Interpreted Independently: Yes - Additional Planning Condition/Complexity: Stable My Orders: My Active Orders 11/16/16 18:20 Activity Orders [RC] Routine IO [RC] IOSHIFT Initiate Bowel Care Protocol [RC] .protocol Initiate Line Care Protocol [RC] .protocol Initiate Personal Care Protoco [RC] .protocol Vital Signs [RC] Q8HR Code Status [OTHERS] Routine Condition of Patient [OTHERS] Routine DVT Prophylaxis [OTHERS] Routine 11/16/16 18:22 SCDs [RC] QSHIFT Evaluate and Treat OT [OT] Routine Evaluate and Treat PT [PT] Routine 11/16/16 19:00 Lactulose 40 gm PO QID Ns W/20 Meq KCl [Normal Saline 0.9% W/20 Meq KCl] 1,000 ml IV 100 mls/hr Pantoprazole [Protonix] 40 mg IVP BIDAC 11/16/16 19:08 ALPRAZolam [Xanax] 2 mg PO BID PRN Ondansetron Odt [Zofran Odt] 4 mg TL Q6HR PRN Sodium Chloride Flush 0.9% [Normal Saline Flush 0.9%] 10 ml IVP PRN PRN 11/16/16 21:00 Carvedilol [Coreg] 12.5 mg PO BID Furosemide [Lasix] 40 mg PO BID 11/16/16 22:00 Sodium Chloride Flush 0.9% [Normal Saline Flush 0.9%] 10 ml IVP Q8HR 11/17/16 08:00 Ferrous Sulfate [Feosol] 325 mg PO BIDWM Vitamin [Trinatal Rx 1] 1 tab PO DAILYWM 11/17/16 09:00 Polyethylene Glycol 3350 [Miralax] 17 gm PO DAILY 11/17/16 15:45 MAGNESIUM SULFATE 2 GRAMS IV X1 Magnesium Sulfate 2 Gram [Magnesium Sulfate] 50 ml IV ONCE Consult/Specialty: OT, PT Plan Discussed with:: Patient, Case Management Time Spent: 31-60 minutes Subjective - Subjective Patient Reports: Abdominal Pain, Pain Nursing Reports: Confused (patient still is confused and having abdominal pain with distention today. has not had a BM today), Pain Objective Vital Signs: Vital Signs - 24 hr 11/16/16 11/16/16 11/16/16 17:39 17:52 18:19 Temperature Heart Rate 66 65 65 Heart Rate [ Brachial] Heart Rate [ Sitting] Heart Rate [ Standing] Heart Rate [ Supine] Respiratory 12 12 12 Rate Blood Pressure 105/64 102/55 L 96/58 L Blood Pressure [Left Brachial artery] Blood Pressure [Sitting] Blood Pressure [Standing] Blood Pressure [Supine] O2 Saturation 96 96 96 O2 Saturation [ With Activity] 11/16/16 11/16/16 11/17/16 18:33 19:14 01:52 Temperature 36.5 C 36.4 C L Heart Rate 68 Heart Rate [ 64 91 Brachial] Heart Rate [ Sitting] Heart Rate [ Standing] Heart Rate [ Supine] Respiratory 18 Rate Blood Pressure 117/66 Blood Pressure 110/67 121/67 [Left Brachial artery] Blood Pressure [Sitting] Blood Pressure [Standing] Blood Pressure [Supine] O2 Saturation 96 99 O2 Saturation [ With Activity] 11/17/16 11/17/16 11/17/16 08:00 10:15 11:01 Temperature Heart Rate Heart Rate [ 76 Brachial] Heart Rate [ 84 Sitting] Heart Rate [ 91 Standing] Heart Rate [ 83 Supine] Respiratory 16 Rate Blood Pressure Blood Pressure 102/58 L 119/80 [Left Brachial artery] Blood Pressure 110/49 L [Sitting] Blood Pressure 119/80 [Standing] Blood Pressure 104/58 L [Supine] O2 Saturation 95 O2 Saturation [ 96 With Activity] 11/17/16 13:37 Temperature 36.6 C Heart Rate Heart Rate [ 77 Brachial] Heart Rate [ Sitting] Heart Rate [ Standing] Heart Rate [ Supine] Respiratory 16 Rate Blood Pressure Blood Pressure 112/76 [Left Brachial artery] Blood Pressure [Sitting] Blood Pressure [Standing] Blood Pressure [Supine] O2 Saturation 95 O2 Saturation [ With Activity] Oxygen O2 Source [With Activity] Room air O2 Source Room air I&O (Last 24 Hrs): Intake and Output Totals x24h 11/15/16 11/16/16 11/17/16 23:59 23:59 23:59 Intake Total 270 2643 Output Total 925 Balance 270 1718 General: Alert, Cooperative, No acute distress HEENT: PERRLA Neck: Supple, No JVD, No thyromegaly Lymphatic: no adenopathy Neuro: Alert, Disoriented Cardiovascular: Normal S1, Normal S2 Respiratory: Chest non-tender, No respiratory distress, Breath sounds nml Abdomen: Other (tenden with distention and hypoactive bowel sounds.) Genitourinary: No Mass Rectal: Tenderness, Stool - Heme NEG Extremities: No clubbing, No cyanosis, Normal pulses, Other (edema to lower extremitites) Skin: No rashes, No breakdown, No significant lesion - Results Results: Laboratory Results WBC 4.8 x10^3/uL (4.8-10.8) 11/17/16 07:41 RBC 3.53 10^6/uL (4.70-6.10) L 11/17/16 07:41 Hgb 12.2 g/dL (14.0-18.0) L 11/17/16 07:41 Hct 36.0 % (42.0-52.0) L 11/17/16 07:41 MCV 101.9 fL (80.0-94.0) H 11/17/16 07:41 MCH 34.5 pg (27.0-31.0) H 11/17/16 07:41 MCHC 33.9 g/dL (32.0-36.0) 11/17/16 07:41 RDW 16.3 % (12.0-15.0) H 11/17/16 07:41 Plt Count 75 10^3/uL (130-450) L 11/17/16 07:41 MPV 9.6 fL (7.4-11.4) 11/17/16 07:41 Neut # 2.5 10^3/uL (1.5-6.6) 11/17/16 07:41 Lymph # 1.6 10^3/uL (1.5-3.5) 11/17/16 07:41 [place] # 0.5 10^3/uL (0.0-1.0) 11/17/16 07:41 Eos # 0.2 10^3/uL (0.0-0.7) 11/17/16 07:41 Baso # 0.0 10^3/uL (0.0-0.1) 11/17/16 07:41 Absolute Nucleated RBC 0.00 x10^3/uL 11/17/16 07:41 Nucleated RBCs 0.1 /100WBC 11/17/16 07:41 PT 16.6 secs (9.9-12.6) H 11/16/16 16:48 INR 1.5 (0.8-1.2) H 11/16/16 16:48 Sodium 137 mmol/L (135-145) 11/16/16 16:48 Potassium 2.5 mmol/L (3.5-5.0) L* 11/16/16 16:48 Chloride 100 mmol/L (101-111) L 11/16/16 16:48 Carbon Dioxide 32 mmol/L (21-32) 11/16/16 16:48 Anion Gap 5.0 (6-13) L 11/16/16 16:48 BUN 6 mg/dL (6-20) 11/16/16 16:48 Creatinine 0.9 mg/dL (0.6-1.2) 11/16/16 16:48 Estimated GFR (MDRD) 87 (>89) L 11/16/16 16:48 Glucose 117 mg/dL (70-100) H 11/16/16 16:48 Calcium 8.2 mg/dL (8.5-10.3) L 11/16/16 16:48 Phosphorus 2.5 mg/dL (2.5-4.6) 11/17/16 07:41 Magnesium 1.7 mg/dL (1.7-2.8) 11/17/16 07:41 Total Bilirubin 2.9 mg/dL (0.2-1.0) H 11/16/16 16:48 AST 143 IU/L (10-42) H 11/16/16 16:48 ALT 54 IU/L (10-60) 11/16/16 16:48 Alkaline Phosphatase 174 IU/L (42-121) H 11/16/16 16:48 Ammonia 118.4 umol/L (7-35) H* 11/17/16 09:41 Total Creatine Kinase 423 IU/L (22-269) H 11/16/16 16:48 Total Protein 6.7 g/dL (6.7-8.2) 11/16/16 16:48 Albumin 2.8 g/dL (3.2-5.5) L 11/16/16 16:48 Globulin 3.9 g/dL (2.1-4.2) 11/16/16 16:48 Albumin/Globulin Ratio 0.7 (1.0-2.2) L 11/16/16 16:48 Lipase 21 U/L (22-51) L 11/16/16 16:48 Urine Color YELLOW 11/16/16 17:01 Urine Clarity CLEAR (CLEAR) 11/16/16 17:01 Urine pH 7.5 PH (5.0-7.5) 11/16/16 17:01 Ur Specific [place] 1.010 (1.002-1.030) 11/16/16 17:01 Urine Protein NEGATIVE mg/dL (NEGATIVE) 11/16/16 17:01 Urine Glucose (UA) NEGATIVE mg/dL (NEGATIVE) 11/16/16 17:01 Urine Ketones NEGATIVE mg/dL (NEGATIVE) 11/16/16 17:01 Urine Occult Blood NEGATIVE (NEGATIVE) 11/16/16 17:01 Urine Nitrite NEGATIVE (NEGATIVE) 11/16/16 17:01 Urine Bilirubin NEGATIVE (NEGATIVE) 11/16/16 17:01 Urine Urobilinogen 0.2 (NORMAL) E.U./dL (NORMAL) 11/16/16 17:01 Ur Leukocyte Esterase NEGATIVE (NEGATIVE) 11/16/16 17:01 Ur Microscopic Review NOT INDICATED 11/16/16 17:01 Urine Culture Comments NOT INDICATED 11/16/16 17:01 Urine Opiates Screen POSITIVE (NEGATIVE) H 11/16/16 17:01 Ur Oxycodone Screen NEGATIVE (NEGATIVE) 11/16/16 17:01 Urine Methadone Screen NEGATIVE (NEGATIVE) 11/16/16 17:01 Ur Propoxyphene Screen NEGATIVE (NEGATIVE) 11/16/16 17:01 Ur Barbiturates Screen NEGATIVE (NEGATIVE) 11/16/16 17:01 Ur Tricyclics Screen POSITIVE (NEGATIVE) H 11/16/16 17:01 Ur Phencyclidine Scrn NEGATIVE (NEGATIVE) 11/16/16 17:01 Ur Amphetamine Screen NEGATIVE (NEGATIVE) 11/16/16 17:01 U Methamphetamines Scrn NEGATIVE (NEGATIVE) 11/16/16 17:01 U Benzodiazepines Scrn POSITIVE (NEGATIVE) H 11/16/16 17:01 Urine Cocaine Screen NEGATIVE (NEGATIVE) 11/16/16 17:01 U Cannabinoids Screen POSITIVE (NEGATIVE) H 11/16/16 17:01 Ethyl Alcohol < 5.0 mg/dL 11/16/16 16:48 - Procedures Procedures: Procedures DRAINAGE OF RIGHT WRIST REGION, PERCUTANEOUS APPROACH (07/04/15) EXTRACTION OF RIGHT HAND SKIN, EXTERNAL APPROACH (07/04/15) INSERTION OF INFUSION DEV INTO SUP VENA CAVA, PERC APPROACH (04/02/16)
[2016-11-17 16:12] LABS: EOSINOPHILS # (AUTO) 0.2 10^3/uL (0.0-0.7); EOSINOPHILS % (AUTO) 3.9 %; HCT - HEMATOCRIT 36.8 % (42.0-52.0); HGB - HEMOGLOBIN 12.4 g/dL (14.0-18.0); LYMPHOCYTES # (AUTO) 1.4 10^3/uL (1.5-3.5); LYMPHOCYTES % (AUTO) 29.7 %; MEAN CORPUSCULAR HEMOGLOBIN 34.5 pg (27.0-31.0); MEAN CORPUSCULAR HGB CONC 33.7 g/dL (32.0-36.0); MEAN CORPUSCULAR VOLUME 102.4 fL (80.0-94.0); MEAN PLATELET VOLUME 9.8 fL (7.4-11.4); MONOCYTES # (AUTO) 0.5 10^3/uL (0.0-1.0); MONOCYTES % (AUTO) 10.2 %; NEUTROPHILS # (AUTO) 2.6 10^3/uL (1.5-6.6); NEUTROPHILS % (AUTO) 55.2 %; NUCLEATED RED BLOOD CELLS AUTO 0.1 /100WBC; RED CELL DISTRIBUTION WIDTH 16.3 % (12.0-15.0); UNCORRECTED WHITE BLOOD COUNT 4.7 x10^3/uL; WHITE BLOOD COUNT 4.7 x10^3/uL (4.8-10.8)
[2016-11-17 16:27] LABS: ALBUMIN/GLOBULIN RATIO 0.6 (1.0-2.2); BILIRUBIN,TOTAL 2.3 mg/dL (0.2-1.0); CALCIUM 8.4 mg/dL (8.5-10.3); CREATININE 0.8 mg/dL (0.6-1.2); TOTAL PROTEIN 6.4 g/dL (6.7-8.2)
[2016-11-17 16:56] LABS: HEMOGLOBIN A1C 0.36 g/dL
[2016-11-17] MEDS ORDERED: LACTULOSE 10 GM /15 ML UDC PO SCH (17:00)
[2016-11-17] MEDS ORDERED: MAGNESIUM SULFATE 2 GRAM 50 ML IV SCH (17:00)
[2016-11-17] MEDS: INSULIN ASPART 300 UNIT/3 ML PEN SUBQ SCH ×2 (17:25→20:51)
[2016-11-17] MEDS: POTASSIUM CHLOR 10 MEQ/100 ML 100 ML IV SCH ×4 (17:41→21:56)
[2016-11-17] MEDS: ALPRAZolam 0.25 MG TABLET PO PRN (17:53)
[2016-11-18] MEDS: NS W/20 MEQ KCL 1,000 ML IV SCH ×4 (00:08→20:51)
[2016-11-18] MEDS: ONDANSETRON ODT 4 MG TABLET TL PRN (01:34)
[2016-11-18] MEDS: SODIUM CHLORIDE FLUSH 0.9% 10 ML SYRINGE IVP SCH ×3 (05:20→20:51)
[2016-11-18 05:54] LABS: BASOPHILS % (AUTO) 0.6 %; EOSINOPHILS # (AUTO) 0.2 10^3/uL (0.0-0.7); EOSINOPHILS % (AUTO) 2.6 %; HCT - HEMATOCRIT 34.2 % (42.0-52.0); HGB - HEMOGLOBIN 11.6 g/dL (14.0-18.0); LYMPHOCYTES % (AUTO) 32.1 %; MEAN CORPUSCULAR HEMOGLOBIN 34.7 pg (27.0-31.0); MEAN CORPUSCULAR HGB CONC 33.9 g/dL (32.0-36.0); MEAN CORPUSCULAR VOLUME 102.1 fL (80.0-94.0); MONOCYTES # (AUTO) 0.6 10^3/uL (0.0-1.0); MONOCYTES % (AUTO) 9.4 %; NEUTROPHILS # (AUTO) 3.4 10^3/uL (1.5-6.6); NEUTROPHILS % (AUTO) 55.3 %; RED BLOOD COUNT 3.35 10^6/uL (4.70-6.10); RED CELL DISTRIBUTION WIDTH 16.1 % (12.0-15.0); UNCORRECTED WHITE BLOOD COUNT 6.2 x10^3/uL; WHITE BLOOD COUNT 6.2 x10^3/uL (4.8-10.8)
[2016-11-18 06:05] LABS: ALBUMIN/GLOBULIN RATIO 0.7 (1.0-2.2); BILIRUBIN,TOTAL 1.7 mg/dL (0.2-1.0); BUN - BLOOD UREA NITROGEN 5 mg/dL (6-20); CARBON DIOXIDE - CO2 26 mmol/L (21-32); CHLORIDE 106 mmol/L (101-111); CREATININE 0.8 mg/dL (0.6-1.2); GFR - MDRD 100 (>89); GLUCOSE 135 mg/dL (70-100); PHOSPHORUS 1.8 mg/dL (2.5-4.6); POTASSIUM 2.8 mmol/L (3.5-5.0); SODIUM 138 mmol/L (135-145); TOTAL PROTEIN 5.9 g/dL (6.7-8.2)
[2016-11-18 06:14] LABS: CALCIUM, IONIZED 1.08 mmol/L (1.15-1.33); VBG PH 7.466 (7.31-7.41)
[2016-11-18] MEDS: PANTOPRAZOLE 40 MG VIAL IVP SCH ×2 (06:26→16:37)
[2016-11-18] MEDS: SODIUM CHLORIDE FLUSH 0.9% 10 ML SYRINGE IVP PRN (06:26)
[2016-11-18] MEDS: ALPRAZolam 0.25 MG TABLET PO PRN ×2 (06:26→17:08)
[2016-11-18] MEDS: POLYETHYLENE GLYCOL 3350 17 GM PACKET PO SCH (07:57)
[2016-11-18] MEDS: LACTULOSE 10 GM/15 ML BOTTLE PO SCH ×5 (07:58→20:51)
[2016-11-18] MEDS: FERROUS SULFATE 325 MG TABLET PO SCH ×2 (08:00→16:38)
[2016-11-18] MEDS: FUROSEMIDE 40 MG TABLET PO SCH ×2 (08:01→20:50)
[2016-11-18] MEDS: INSULIN ASPART 300 UNIT/3 ML PEN SUBQ SCH ×4 (08:01→20:49)
[2016-11-18] MEDS: CARVEDILOL 12.5 MG TABLET PO SCH ×2 (08:01→20:50)
[2016-11-18] MEDS: PRENATAL VITAMIN TABLET PO SCH (08:01)
--- NOTE | 2016-11-18 08:25 | PROVIDER PROGRESS NOTE ---
Assessment/Plan - Problem List (1) Hepatic encephalopathy Assessment/Plan: acute with monitoring of ammonia levels. continue on lactulose oral daily. will give an additional dosage this morning. (2) Transaminitis Assessment/Plan: acute. patient is a chronic alcoholic and LFT will change. continue to monitor with daily lab draws. (3) Hypophosphatasia Assessment/Plan: aute. replace with neutraphos and continue to monitor with daily lab draws. (4) Hypokalemia Assessment/Plan: acute and ongoing. continue to monitor potassium level with daily lab draws. will give an additional dosage of oral 40meq and monitor (5) Polysubstance abuse Assessment/Plan: chronic. continue to offer counseling and education regarding cessation. Ativan for agitation and monitor for withdrawal (6) Low blood magnesium level Assessment/Plan: resolved. continue to monitor magnesium level with daily lab draws (7) Obesity (BMI 30-39.9) Assessment/Plan: chronic. stable. continue on low fat lower calorie diet and monitor daily weight - Current Meds Current Meds: Current Medications Generic Name Dose Route Start Last Admin Trade Name Freq PRN Reason Stop Dose Admin Alprazolam 2 mg 11/16/16 19:08 11/18/16 06:26 Xanax PO 2 mg BID PRN Administration Anxiety Carvedilol 12.5 mg 11/16/16 21:00 11/18/16 08:01 Coreg PO 12.5 mg BID NILE Administration Ferrous Sulfate 325 mg 11/17/16 08:00 11/18/16 08:00 Feosol PO 325 mg BIDWM NILE Administration Furosemide 40 mg 11/16/16 21:00 11/18/16 08:01 Lasix PO 40 mg BID NILE Administration Potassium Chloride/Sodium Chloride 1,000 mls @ 100 mls/hr 11/16/16 19:00 00:08 Normal Saline 0.9% W/20 Meq Kcl IV 100 mls/hr .Q10H NILE Administration Insulin Aspart 1 - 5 unit 11/17/16 17:00 11/18/16 08:01 Novolog SUBQ Not Given 0800,1200,1700,2100 NILE Protocol Lactulose 40 gm 11/16/16 19:00 11/18/16 07:58 Lactulose PO 40 gm QID NILE Administration Ondansetron HCl 4 mg 11/16/16 19:08 11/18/16 01:34 Zofran Odt TL 4 mg Q6HR PRN Administration Nausea / Vomiting Pantoprazole Sodium 40 mg 11/16/16 19:00 11/18/16 06:26 Protonix IVP 40 mg BIDAC NILE Administration Polyethylene Glycol 17 gm 11/17/16 09:00 11/18/16 07:57 Miralax PO 17 gm DAILY NILE Administration Multivit/Folic Acid/Iron 1 tab 11/17/16 08:00 11/18/16 08:01 Trinatal Rx 1 PO 1 tab DAILYWM NILE Administration Sodium Chloride 10 ml 11/16/16 19:08 11/18/16 06:26 Normal Saline Flush 0.9% IVP 10 ml PRN PRN Administration NEEDED PER PROVIDER ORDERS Sodium Chloride 10 ml 11/16/16 22:00 11/18/16 05:20 Normal Saline Flush 0.9% IVP Not Given Q8HR NILE - Lab Result Lab results reviewed: Yes Fish Bone Diagrams: 11/18/16 05:45 11/18/16 05:45 Other Lab Results: Abnormal Lab Results 11/16/16 11/16/16 11/16/16 16:48 16:48 16:48 WBC RBC 3.83 10^6/uL L 10^6/uL (4.70-6.10) Hgb 13.4 g/dL L g/dL (14.0-18.0) Hct 38.9 % L % (42.0-52.0) MCV 101.5 fL H fL (80.0-94.0) MCH 34.9 pg H pg (27.0-31.0) RDW 16.2 % H % (12.0-15.0) Plt Count 88 10^3/uL L 10^3/uL (130-450) Lymph # PT 16.6 secs H secs (9.9-12.6) INR 1.5 H (0.8-1.2) VBG pH Ionized Calcium Potassium 2.5 mmol/L L* mmol/L (3.5-5.0) Chloride 100 mmol/L L mmol/L (101-111) Anion Gap 5.0 L (6-13) BUN Estimated GFR (MDRD) 87 L (>89) Glucose 117 mg/dL H mg/dL (70-100) Calcium 8.2 mg/dL L mg/dL (8.5-10.3) Phosphorus Total Bilirubin 2.9 mg/dL H mg/dL (0.2-1.0) AST 143 IU/L H IU/L (10-42) Alkaline Phosphatase 174 IU/L H IU/L (42-121) Ammonia Total Creatine Kinase Total Protein Albumin 2.8 g/dL L g/dL (3.2-5.5) Albumin/Globulin Ratio 0.7 L (1.0-2.2) Lipase 21 U/L L U/L (22-51) Urine Opiates Screen Ur Tricyclics Screen U Benzodiazepines Scrn U Cannabinoids Screen 11/16/16 11/16/16 11/16/16 16:48 16:48 17:01 WBC RBC Hgb Hct MCV MCH RDW Plt Count Lymph # PT INR VBG pH Ionized Calcium Potassium Chloride Anion Gap BUN Estimated GFR (MDRD) Glucose Calcium Phosphorus Total Bilirubin AST Alkaline Phosphatase Ammonia 109.9 umol/L H* umol/L (7-35) Total Creatine Kinase 423 IU/L H IU/L (22-269) Total Protein Albumin Albumin/Globulin Ratio Lipase Urine Opiates Screen POSITIVE H (NEGATIVE) Ur Tricyclics Screen POSITIVE H (NEGATIVE) U Benzodiazepines Scrn POSITIVE H (NEGATIVE) U Cannabinoids Screen POSITIVE H (NEGATIVE) 11/17/16 11/17/16 11/17/16 07:41 09:41 16:03 WBC 4.7 x10^3/uL L x10^3/uL (4.8-10.8) RBC 3.53 10^6/uL L 10^6/uL 3.60 10^6/uL L 10^6/uL (4.70-6.10) (4.70-6.10) Hgb 12.2 g/dL L g/dL 12.4 g/dL L g/dL (14.0-18.0) (14.0-18.0) Hct 36.0 % L % 36.8 % L % (42.0-52.0) (42.0-52.0) MCV 101.9 fL H fL 102.4 fL H fL (80.0-94.0) (80.0-94.0) MCH 34.5 pg H pg 34.5 pg H pg (27.0-31.0) (27.0-31.0) RDW 16.3 % H % 16.3 % H % (12.0-15.0) (12.0-15.0) Plt Count 75 10^3/uL L 10^3/uL 89 10^3/uL L 10^3/uL (130-450) (130-450) Lymph # 1.4 10^3/uL L 10^3/uL (1.5-3.5) PT INR VBG pH Ionized Calcium Potassium Chloride Anion Gap BUN Estimated GFR (MDRD) Glucose Calcium Phosphorus Total Bilirubin AST Alkaline Phosphatase Ammonia 118.4 umol/L H* umol/L (7-35) Total Creatine Kinase Total Protein Albumin Albumin/Globulin Ratio Lipase Urine Opiates Screen Ur Tricyclics Screen U Benzodiazepines Scrn U Cannabinoids Screen 11/17/16 11/18/16 11/18/16 16:03 05:45 05:45 WBC RBC 3.35 10^6/uL L 10^6/uL (4.70-6.10) Hgb 11.6 g/dL L g/dL (14.0-18.0) Hct 34.2 % L % (42.0-52.0) MCV 102.1 fL H fL (80.0-94.0) MCH 34.7 pg H pg (27.0-31.0) RDW 16.1 % H % (12.0-15.0) Plt Count 78 10^3/uL L 10^3/uL (130-450) Lymph # PT INR VBG pH Ionized Calcium Potassium 3.0 mmol/L L mmol/L 2.8 mmol/L L mmol/L (3.5-5.0) (3.5-5.0) Chloride Anion Gap BUN 5 mg/dL L mg/dL 5 mg/dL L mg/dL (6-20) (6-20) Estimated GFR (MDRD) Glucose 155 mg/dL H mg/dL 135 mg/dL H mg/dL (70-100) (70-100) Calcium 8.4 mg/dL L mg/dL 8.0 mg/dL L mg/dL (8.5-10.3) (8.5-10.3) Phosphorus 1.8 mg/dL L mg/dL (2.5-4.6) Total Bilirubin 2.3 mg/dL H mg/dL 1.7 mg/dL H mg/dL (0.2-1.0) (0.2-1.0) AST 144 IU/L H IU/L 113 IU/L H IU/L (10-42) (10-42) Alkaline Phosphatase 170 IU/L H IU/L 156 IU/L H IU/L (42-121) (42-121) Ammonia Total Creatine Kinase Total Protein 6.4 g/dL L g/dL 5.9 g/dL L g/dL (6.7-8.2) (6.7-8.2) Albumin 2.5 g/dL L g/dL 2.4 g/dL L g/dL (3.2-5.5) (3.2-5.5) Albumin/Globulin Ratio 0.6 L 0.7 L (1.0-2.2) (1.0-2.2) Lipase Urine Opiates Screen Ur Tricyclics Screen U Benzodiazepines Scrn U Cannabinoids Screen 11/18/16 11/18/16 05:45 05:45 WBC RBC Hgb Hct MCV MCH RDW Plt Count Lymph # PT INR VBG pH 7.466 H (7.31-7.41) Ionized Calcium 1.08 mmol/L L mmol/L (1.15-1.33) Potassium Chloride Anion Gap BUN Estimated GFR (MDRD) Glucose Calcium Phosphorus Total Bilirubin AST Alkaline Phosphatase Ammonia 75.7 umol/L H umol/L (7-35) Total Creatine Kinase Total Protein Albumin Albumin/Globulin Ratio Lipase Urine Opiates Screen Ur Tricyclics Screen U Benzodiazepines Scrn U Cannabinoids Screen - EKG Results EKG Interpreted Independently: No - Additional Planning Condition/Complexity: Stable My Orders: My Active Orders 11/17/16 08:00 Ferrous Sulfate [Feosol] 325 mg PO BIDWM Vitamin [Trinatal Rx 1] 1 tab PO DAILYWM 11/17/16 09:00 Polyethylene Glycol 3350 [Miralax] 17 gm PO DAILY 11/17/16 16:29 Blood Glucose Checks - Eating [RC] 0800,1200,1700,2100 Initiate Hypoglycemia Protocol [RC] .protocol 11/17/16 17:00 Insulin Aspart [NovoLOG] 1 - 5 unit SUBQ 0800,1200,1700,2100 Consult/Specialty: OT, PT Plan Discussed with:: Case Management Time Spent: 31-60 minutes (patient is improving and will need another 24-48 hours of inpatient stay. His ammonia is decreasing and becoming more alert.) Subjective - Subjective Patient Reports: Resting Comfortably, Other (patient still having some memory problems and a little disoriented. he is on the phone with . no chest pain or shortness of breath) Nursing Reports: No Complaints, Confused Objective Vital Signs: Vital Signs - 24 hr 11/17/16 11/17/16 11/17/16 10:15 11:01 13:37 Temperature 36.6 C Heart Rate [ 77 Brachial] Heart Rate [ 84 Sitting] Heart Rate [ 91 Standing] Heart Rate [ 83 Supine] Respiratory 16 Rate Blood Pressure 119/80 112/76 [Left Brachial artery] Blood Pressure 110/49 L [Sitting] Blood Pressure 119/80 [Standing] Blood Pressure 104/58 L [Supine] O2 Saturation 95 O2 Saturation [ 96 With Activity] 11/17/16 11/17/16 11/18/16 16:33 23:50 07:32 Temperature 36.5 C 36.8 C 36.7 C Heart Rate [ 85 86 81 Brachial] Heart Rate [ Sitting] Heart Rate [ Standing] Heart Rate [ Supine] Respiratory 16 18 20 Rate Blood Pressure 106/67 115/54 L 109/56 L [Left Brachial artery] Blood Pressure [Sitting] Blood Pressure [Standing] Blood Pressure [Supine] O2 Saturation 100 97 95 O2 Saturation [ With Activity] Oxygen O2 Source [With Activity] Room air O2 Source Room air I&O (Last 24 Hrs): Intake and Output Totals x24h 11/16/16 11/17/16 11/18/16 23:59 23:59 23:59 Intake Total 270 7423 674 Output Total 925 Balance 270 2348 674 General: Alert, Cooperative, No acute distress HEENT: PERRLA Neck: Supple, No JVD Lymphatic: no adenopathy Neuro: Alert, Disoriented, Non Focal Cardiovascular: Regular rate, Normal S1, Normal S2 Respiratory: Chest non-tender, No respiratory distress, Breath sounds nml Abdomen: No masses, Other (distended and nontender with palpation) Genitourinary: Normal Inspection Extremities: No clubbing, No cyanosis, Normal pulses, Other (edema to lower extremities) Skin: No rashes, No breakdown, No significant lesion - Results Results: Laboratory Results WBC 6.2 x10^3/uL (4.8-10.8) 11/18/16 05:45 RBC 3.35 10^6/uL (4.70-6.10) L 11/18/16 05:45 Hgb 11.6 g/dL (14.0-18.0) L 11/18/16 05:45 Hct 34.2 % (42.0-52.0) L 11/18/16 05:45 MCV 102.1 fL (80.0-94.0) H 11/18/16 05:45 MCH 34.7 pg (27.0-31.0) H 11/18/16 05:45 MCHC 33.9 g/dL (32.0-36.0) 11/18/16 05:45 RDW 16.1 % (12.0-15.0) H 11/18/16 05:45 Plt Count 78 10^3/uL (130-450) L 11/18/16 05:45 MPV 9.0 fL (7.4-11.4) 11/18/16 05:45 Neut # 3.4 10^3/uL (1.5-6.6) 11/18/16 05:45 Lymph # 2.0 10^3/uL (1.5-3.5) 11/18/16 05:45 [place] # 0.6 10^3/uL (0.0-1.0) 11/18/16 05:45 Eos # 0.2 10^3/uL (0.0-0.7) 11/18/16 05:45 Baso # 0.0 10^3/uL (0.0-0.1) 11/18/16 05:45 Absolute Nucleated RBC 0.00 x10^3/uL 11/18/16 05:45 Nucleated RBCs 0.0 /100WBC 11/18/16 05:45 PT 16.6 secs (9.9-12.6) H 11/16/16 16:48 INR 1.5 (0.8-1.2) H 11/16/16 16:48 VBG pH 7.466 (7.31-7.41) H 11/18/16 05:45 Ionized Calcium 1.08 mmol/L (1.15-1.33) L 11/18/16 05:45 Sodium 138 mmol/L (135-145) 11/18/16 05:45 Potassium 2.8 mmol/L (3.5-5.0) L 11/18/16 05:45 Chloride 106 mmol/L (101-111) 11/18/16 05:45 Carbon Dioxide 26 mmol/L (21-32) 11/18/16 05:45 Anion Gap 6.0 (6-13) 11/18/16 05:45 BUN 5 mg/dL (6-20) L 11/18/16 05:45 Creatinine 0.8 mg/dL (0.6-1.2) 11/18/16 05:45 Estimated GFR (MDRD) 100 (>89) 11/18/16 05:45 Glucose 135 mg/dL (70-100) H 11/18/16 05:45 Glycated Hemoglobin 4.7 % (4.6-6.2) 11/17/16 16:03 Estim Average Glucose 88 (70-100) 11/17/16 16:03 Calcium 8.0 mg/dL (8.5-10.3) L 11/18/16 05:45 Ionized Calcium YES 11/18/16 05:45 Phosphorus 1.8 mg/dL (2.5-4.6) L 11/18/16 05:45 Magnesium 2.0 mg/dL (1.7-2.8) 11/18/16 05:45 Total Bilirubin 1.7 mg/dL (0.2-1.0) H 11/18/16 05:45 AST 113 IU/L (10-42) H 11/18/16 05:45 ALT 46 IU/L (10-60) 11/18/16 05:45 Alkaline Phosphatase 156 IU/L (42-121) H 11/18/16 05:45 Ammonia 75.7 umol/L (7-35) H 11/18/16 05:45 Total Creatine Kinase 423 IU/L (22-269) H 11/16/16 16:48 Total Protein 5.9 g/dL (6.7-8.2) L 11/18/16 05:45 Albumin 2.4 g/dL (3.2-5.5) L 11/18/16 05:45 Globulin 3.5 g/dL (2.1-4.2) 11/18/16 05:45 Albumin/Globulin Ratio 0.7 (1.0-2.2) L 11/18/16 05:45 Lipase 21 U/L (22-51) L 11/16/16 16:48 Urine Color YELLOW 11/16/16 17:01 Urine Clarity CLEAR (CLEAR) 11/16/16 17:01 Urine pH 7.5 PH (5.0-7.5) 11/16/16 17:01 Ur Specific [place] 1.010 (1.002-1.030) 11/16/16 17:01 Urine Protein NEGATIVE mg/dL (NEGATIVE) 11/16/16 17:01 Urine Glucose (UA) NEGATIVE mg/dL (NEGATIVE) 11/16/16 17:01 Urine Ketones NEGATIVE mg/dL (NEGATIVE) 11/16/16 17:01 Urine Occult Blood NEGATIVE (NEGATIVE) 11/16/16 17:01 Urine Nitrite NEGATIVE (NEGATIVE) 11/16/16 17:01 Urine Bilirubin NEGATIVE (NEGATIVE) 11/16/16 17:01 Urine Urobilinogen 0.2 (NORMAL) E.U./dL (NORMAL) 11/16/16 17:01 Ur Leukocyte Esterase NEGATIVE (NEGATIVE) 11/16/16 17:01 Ur Microscopic Review NOT INDICATED 11/16/16 17:01 Urine Culture Comments NOT INDICATED 11/16/16 17:01 Urine Opiates Screen POSITIVE (NEGATIVE) H 11/16/16 17:01 Ur Oxycodone Screen NEGATIVE (NEGATIVE) 11/16/16 17:01 Urine Methadone Screen NEGATIVE (NEGATIVE) 11/16/16 17:01 Ur Propoxyphene Screen NEGATIVE (NEGATIVE) 11/16/16 17:01 Ur Barbiturates Screen NEGATIVE (NEGATIVE) 11/16/16 17:01 Ur Tricyclics Screen POSITIVE (NEGATIVE) H 11/16/16 17:01 Ur Phencyclidine Scrn NEGATIVE (NEGATIVE) 11/16/16 17:01 Ur Amphetamine Screen NEGATIVE (NEGATIVE) 11/16/16 17:01 U Methamphetamines Scrn NEGATIVE (NEGATIVE) 11/16/16 17:01 U Benzodiazepines Scrn POSITIVE (NEGATIVE) H 07/29/17 17:01 Urine Cocaine Screen NEGATIVE (NEGATIVE) 11/16/16 17:01 U Cannabinoids Screen POSITIVE (NEGATIVE) H 11/16/16 17:01 Ethyl Alcohol < 5.0 mg/dL 11/16/16 16:48 - Procedures Procedures: Procedures DRAINAGE OF RIGHT WRIST REGION, PERCUTANEOUS APPROACH (07/04/15) EXTRACTION OF RIGHT HAND SKIN, EXTERNAL APPROACH (07/04/15) INSERTION OF INFUSION DEV INTO SUP VENA CAVA, PERC APPROACH (04/02/16)
[2016-11-18] MEDS ORDERED: LACTULOSE 10 GM /15 ML UDC PO SCH (09:00)
[2016-11-18] MEDS ORDERED: POTASSIUM CHLORIDE 20 MEQ/15 ML UDC PO SCH (09:00)
[2016-11-18] MEDS: NEUTRA-PHOS 250 MG TABLET PO SCH ×2 (12:36→16:38)
[2016-11-18] MEDS ORDERED: OLANZapine 10 MG VIAL IM SCH (21:48)
[2016-11-18] MEDS ORDERED: WATER FOR INJECTION,STERILE 10 ML ONE (21:55)
[2016-11-18] MEDS ORDERED: LORazepam 2 MG/ML SYRINGE IVP SCH (23:01)
[2016-11-19] MEDS: SODIUM CHLORIDE FLUSH 0.9% 10 ML SYRINGE IVP PRN (00:11)
[2016-11-19] MEDS: PANTOPRAZOLE 40 MG VIAL IVP SCH ×2 (06:23→16:47)
[2016-11-19] MEDS: SODIUM CHLORIDE FLUSH 0.9% 10 ML SYRINGE IVP SCH ×3 (06:23→16:47)
[2016-11-19] MEDS: NS W/20 MEQ KCL 1,000 ML IV SCH ×2 (06:32→17:44)
[2016-11-19 06:49] LABS: BASOPHILS % (AUTO) 0.5 %; EOSINOPHILS # (AUTO) 0.1 10^3/uL (0.0-0.7); EOSINOPHILS % (AUTO) 2.3 %; HCT - HEMATOCRIT 34.3 % (42.0-52.0); HGB - HEMOGLOBIN 11.6 g/dL (14.0-18.0); LYMPHOCYTES # (AUTO) 1.9 10^3/uL (1.5-3.5); LYMPHOCYTES % (AUTO) 33.3 %; MEAN CORPUSCULAR HEMOGLOBIN 35.1 pg (27.0-31.0); MEAN CORPUSCULAR HGB CONC 33.9 g/dL (32.0-36.0); MEAN CORPUSCULAR VOLUME 103.5 fL (80.0-94.0); MEAN PLATELET VOLUME 9.8 fL (7.4-11.4); MONOCYTES # (AUTO) 0.5 10^3/uL (0.0-1.0); MONOCYTES % (AUTO) 9.6 %; NEUTROPHILS # (AUTO) 3.1 10^3/uL (1.5-6.6); NEUTROPHILS % (AUTO) 54.3 %; NUCLEATED RED BLOOD CELLS AUTO 0.1 /100WBC; RED BLOOD COUNT 3.31 10^6/uL (4.70-6.10); RED CELL DISTRIBUTION WIDTH 16.2 % (12.0-15.0); UNCORRECTED WHITE BLOOD COUNT 5.7 x10^3/uL; WHITE BLOOD COUNT 5.7 x10^3/uL (4.8-10.8)
[2016-11-19 07:10] LABS: ALBUMIN/GLOBULIN RATIO 0.7 (1.0-2.2); BILIRUBIN,TOTAL 3.2 mg/dL (0.2-1.0); BUN - BLOOD UREA NITROGEN 5 mg/dL (6-20); CALCIUM 8.1 mg/dL (8.5-10.3); CARBON DIOXIDE - CO2 23 mmol/L (21-32); CHLORIDE 109 mmol/L (101-111); CREATININE 0.7 mg/dL (0.6-1.2); GFR - MDRD 116 (>89); GLUCOSE 98 mg/dL (70-100); MAGNESIUM 1.8 mg/dL (1.7-2.8); PHOSPHORUS 2.7 mg/dL (2.5-4.6); POTASSIUM 3.1 mmol/L (3.5-5.0); SODIUM 140 mmol/L (135-145); TOTAL PROTEIN 6.3 g/dL (6.7-8.2)
[2016-11-19 07:30] LABS: CALCIUM, IONIZED 1.05 mmol/L (1.15-1.33); VBG PH 7.503 (7.31-7.41)
[2016-11-19] MEDS: INSULIN ASPART 300 UNIT/3 ML PEN SUBQ SCH ×4 (07:41→21:25)
[2016-11-19] MEDS ORDERED: POTASSIUM CHLORIDE 20 MEQ TABLET PO SCH (09:00)
[2016-11-19] MEDS ORDERED: LACTULOSE 10 GM /15 ML UDC ONE (10:07)
[2016-11-19] MEDS: PRENATAL VITAMIN TABLET PO SCH (10:21)
[2016-11-19] MEDS: POLYETHYLENE GLYCOL 3350 17 GM PACKET PO SCH (10:21)
[2016-11-19] MEDS: FERROUS SULFATE 325 MG TABLET PO SCH ×2 (10:21→17:36)
[2016-11-19] MEDS: CARVEDILOL 12.5 MG TABLET PO SCH ×2 (10:21→21:24)
[2016-11-19] MEDS: FUROSEMIDE 40 MG TABLET PO SCH ×2 (10:21→21:24)
[2016-11-19] MEDS: NEUTRA-PHOS 250 MG TABLET PO SCH ×3 (10:21→17:36)
[2016-11-19] MEDS: LACTULOSE 10 GM/15 ML BOTTLE PO SCH ×4 (10:23→21:25)
--- NOTE | 2016-11-19 17:26 | PROVIDER PROGRESS NOTE ---
Subjective - Subjective Pt reports feeling: No change Subjective: patient state he want to D/C to home. Patient denies chest pain, SOB, headache, abdominal pain, fever, chill, nausea, vomiting, diarrhea. Objective - Vital Signs/Intake & Output Vital Signs: Vital Signs x48h Temp Pulse Resp BP Pulse Ox 11/19/16 16:00 36.5 C 71 16 123/50 L 100 Intake & Output: Intake & Output 11/16/16 11/17/16 11/18/16 11/19/16 23:59 23:59 23:59 23:59 Intake Total 270 3533 2877 2327 Output Total 925 575 Balance 270 2608 2877 1752 - Objective General Appearance: positive: No acute distress, Alert, Anxious. negative: Lethargic Eyes Bilateral: positive: Normal inspection, PERRL. negative: No lid inflammation, Conjunctivae nml ENT: positive: ENT inspection nml, Pharynx nml, No signs of dehydration. negative: Purulent nasal drainage, Pharyngeal erythema, Oral lesions Neck: positive: Nml inspection, Thyroid nml, Trachea midline. negative: Lymphadenopathy (R), Lymphadenopathy (L), Stiff neck Respiratory: positive: Chest non-tender, No respiratory distress, Breath sounds nml. negative: Wheezes, Rales, Rhonchi Cardiovascular: positive: Regular rate & rhythm, No murmur, No gallop. negative : Tachycardia, Bradycardia, Systolic murmur, Diastolic murmur Peripheral Pulses: 2+ Radial (R), 2+ Radial (L), 2+ Dorsalis pedis (R), 2+ Dorsalis pedis (L) Abdomen: positive: Non-tender, Nml bowel sounds. negative: Tenderness, Guarding , Rebound, Other (mild to moderate distention) Back: positive: Nml inspection. negative: CVA tenderness (R), CVA tenderness (L ) Skin: positive: Color nml, No rash, Warm. negative: Diaphoresis, Laceration (cm ) Extremities: positive: Non-tender, Full ROM, Nml appearance, Pedal edema. negative: Calf tenderness, Joint swelling, Arthur's sign/cords Neurologic/Psychiatric: positive: CN's nml (2-12), Motor nml, Sensation nml, Disoriented to place, Disoriented to time. negative: Sensory loss, Facial droop , Slurred/abnml speech - Lab Results Fish Bones: 11/19/16 06:00 11/19/16 06:00 Other Labs: Lab Results x24hrs 11/19/16 11/19/16 11/19/16 Range/Units 06:40 06:00 06:00 WBC (4.8-10.8) x10^3/uL RBC (4.70-6.10) 10^6/uL Hgb (14.0-18.0) g/dL Hct (42.0-52.0) % MCV (80.0-94.0) fL MCH (27.0-31.0) pg MCHC (32.0-36.0) g/dL RDW (12.0-15.0) % Plt Count (130-450) 10^3/uL MPV (7.4-11.4) fL Neut # (1.5-6.6) 10^3/uL Lymph # (1.5-3.5) 10^3/uL [place] # (0.0-1.0) 10^3/uL Eos # (0.0-0.7) 10^3/uL Baso # (0.0-0.1) 10^3/uL Absolute Nucleated RBC x10^3/uL Nucleated RBCs /100WBC VBG pH 7.503 H (7.31-7.41) Ionized Calcium 1.05 L YES (1.15-1.33) mmol/L Sodium 140 (135-145) mmol/L Potassium 3.1 L (3.5-5.0) mmol/L Chloride 109 (101-111) mmol/L Carbon Dioxide 23 (21-32) mmol/L Anion Gap 8.0 (6-13) BUN 5 L (6-20) mg/dL Creatinine 0.7 (0.6-1.2) mg/dL Estimated GFR (MDRD) 116 (>89) Glucose 98 (70-100) mg/dL Calcium 8.1 L (8.5-10.3) mg/dL Phosphorus 2.7 (2.5-4.6) mg/dL Magnesium 1.8 (1.7-2.8) mg/dL Total Bilirubin 3.2 H (0.2-1.0) mg/dL AST 104 H (10-42) IU/L ALT 45 (10-60) IU/L Alkaline Phosphatase 151 H (42-121) IU/L Ammonia 49.8 H (7-35) umol/L Total Protein 6.3 L (6.7-8.2) g/dL Albumin 2.6 L (3.2-5.5) g/dL Globulin 3.7 (2.1-4.2) g/dL Albumin/Globulin Ratio 0.7 L (1.0-2.2) 11/19/16 Range/Units 06:00 WBC 5.7 (4.8-10.8) x10^3/uL RBC 3.31 L (4.70-6.10) 10^6/uL Hgb 11.6 L (14.0-18.0) g/dL Hct 34.3 L (42.0-52.0) % MCV 103.5 H (80.0-94.0) fL MCH 35.1 H (27.0-31.0) pg MCHC 33.9 (32.0-36.0) g/dL RDW 16.2 H (12.0-15.0) % Plt Count 82 L (130-450) 10^3/uL MPV 9.8 (7.4-11.4) fL Neut # 3.1 (1.5-6.6) 10^3/uL Lymph # 1.9 (1.5-3.5) 10^3/uL [place] # 0.5 (0.0-1.0) 10^3/uL Eos # 0.1 (0.0-0.7) 10^3/uL Baso # 0.0 (0.0-0.1) 10^3/uL Absolute Nucleated RBC 0.01 x10^3/uL Nucleated RBCs 0.1 /100WBC VBG pH (7.31-7.41) Ionized Calcium (1.15-1.33) mmol/L Sodium (135-145) mmol/L Potassium (3.5-5.0) mmol/L Chloride (101-111) mmol/L Carbon Dioxide (21-32) mmol/L Anion Gap (6-13) BUN (6-20) mg/dL Creatinine (0.6-1.2) mg/dL Estimated GFR (MDRD) (>89) Glucose (70-100) mg/dL Calcium (8.5-10.3) mg/dL Phosphorus (2.5-4.6) mg/dL Magnesium (1.7-2.8) mg/dL Total Bilirubin (0.2-1.0) mg/dL AST (10-42) IU/L ALT (10-60) IU/L Alkaline Phosphatase (42-121) IU/L Ammonia (7-35) umol/L Total Protein (6.7-8.2) g/dL Albumin (3.2-5.5) g/dL Globulin (2.1-4.2) g/dL Albumin/Globulin Ratio (1.0-2.2) Assessment/Plan - Problem List (1) Encephalopathy Impression: patient's ammonia lever is continuing drop, today it is 49.8, continue treating with lactose, daily test ammonia lever, CMP, CBC, neurological check (2) Hypokalemia Impression: replace potassium, daily check CMP (3) Chronic alcohol abuse Impression: consult with social work add CIWA, folic acid and B1 daily check liver function, CBC, CMP (4) Elevated bilirubin Impression: closely monitor daily with CMP, CBC, advise pt void alcohol
[2016-11-19] MEDS: ALPRAZolam 0.25 MG TABLET PO PRN (17:36)
[2016-11-19] MEDS ORDERED: LORazepam 2 MG/ML SYRINGE IVP SCH (23:44)
[2016-11-20] MEDS: NS W/20 MEQ KCL 1,000 ML IV SCH (03:27)
[2016-11-20] MEDS: ALPRAZolam 0.25 MG TABLET PO PRN ×2 (05:41→15:50)
[2016-11-20] MEDS: SODIUM CHLORIDE FLUSH 0.9% 10 ML SYRINGE IVP SCH ×2 (05:46→13:44)
[2016-11-20] MEDS: PANTOPRAZOLE 40 MG VIAL IVP SCH ×2 (05:46→18:51)
[2016-11-20 06:32] LABS: BASOPHILS % (AUTO) 0.6 %; EOSINOPHILS # (AUTO) 0.2 10^3/uL (0.0-0.7); EOSINOPHILS % (AUTO) 2.6 %; HCT - HEMATOCRIT 35.7 % (42.0-52.0); HGB - HEMOGLOBIN 12.2 g/dL (14.0-18.0); LYMPHOCYTES # (AUTO) 2.1 10^3/uL (1.5-3.5); LYMPHOCYTES % (AUTO) 33.5 %; MEAN CORPUSCULAR HEMOGLOBIN 35.2 pg (27.0-31.0); MEAN CORPUSCULAR HGB CONC 34.1 g/dL (32.0-36.0); MEAN CORPUSCULAR VOLUME 103.2 fL (80.0-94.0); MONOCYTES # (AUTO) 0.6 10^3/uL (0.0-1.0); MONOCYTES % (AUTO) 10.4 %; NEUTROPHILS # (AUTO) 3.3 10^3/uL (1.5-6.6); NEUTROPHILS % (AUTO) 52.9 %; RED BLOOD COUNT 3.46 10^6/uL (4.70-6.10); RED CELL DISTRIBUTION WIDTH 16.4 % (12.0-15.0); UNCORRECTED WHITE BLOOD COUNT 6.2 x10^3/uL; WHITE BLOOD COUNT 6.2 x10^3/uL (4.8-10.8)
[2016-11-20 06:36] LABS: INR 1.6 (0.8-1.2); PT - PROTHROMBIN TIME 18.3 secs (9.9-12.6)
[2016-11-20 06:38] LABS: ALBUMIN/GLOBULIN RATIO 0.6 (1.0-2.2); BILIRUBIN,TOTAL 3.2 mg/dL (0.2-1.0); BUN - BLOOD UREA NITROGEN 5 mg/dL (6-20); CALCIUM 8.1 mg/dL (8.5-10.3); CARBON DIOXIDE - CO2 23 mmol/L (21-32); CHLORIDE 111 mmol/L (101-111); CREATININE 0.7 mg/dL (0.6-1.2); GFR - MDRD 116 (>89); GLUCOSE 92 mg/dL (70-100); MAGNESIUM 1.8 mg/dL (1.7-2.8); PHOSPHORUS 2.5 mg/dL (2.5-4.6); SODIUM 140 mmol/L (135-145); TOTAL PROTEIN 6.4 g/dL (6.7-8.2)
[2016-11-20 06:45] LABS: VBG PH 7.486 (7.31-7.41)
[2016-11-20 06:46] LABS: CALCIUM, IONIZED 1.04 mmol/L (1.15-1.33)
[2016-11-20] MEDS ORDERED: POTASSIUM CHLORIDE 20 MEQ TABLET PO SCH (08:00)
[2016-11-20] MEDS: THIAMINE 100 MG TABLET PO SCH (08:36)
[2016-11-20] MEDS: CARVEDILOL 12.5 MG TABLET PO SCH ×2 (08:36→21:22)
[2016-11-20] MEDS: FERROUS SULFATE 325 MG TABLET PO SCH ×2 (08:36→18:51)
[2016-11-20] MEDS: POLYETHYLENE GLYCOL 3350 17 GM PACKET PO SCH (08:36)
[2016-11-20] MEDS: FUROSEMIDE 20 MG TABLET PO SCH (08:36)
[2016-11-20] MEDS: NEUTRA-PHOS 250 MG TABLET PO SCH ×3 (08:36→19:43)
[2016-11-20] MEDS: PRENATAL VITAMIN TABLET PO SCH (08:36)
[2016-11-20] MEDS: INSULIN ASPART 300 UNIT/3 ML PEN SUBQ SCH ×4 (08:37→21:27)
[2016-11-20] MEDS: LACTULOSE 10 GM/15 ML BOTTLE PO SCH ×4 (08:39→21:24)
[2016-11-20] MEDS ORDERED: LORazepam 2 MG/ML SYRINGE IVP PRN (13:46)
--- NOTE | 2016-11-20 13:56 | PROVIDER PROGRESS NOTE ---
Subjective - Subjective Pt reports feeling: No change Subjective: Pt state he feel better, and want to d/c to home. Pt denies chest pain, Short of breathing, headache, nausea, vomiting, diarrhea, fever, chill. Pt report he had chronic upper mild epigastric pain for many years, no changing. pt wants to D/C to home. explain pt his Ammonia level is still high now, advise pt to stay hospital now. Pt is alert but oriented only himself Objective - Vital Signs/Intake & Output Vital Signs: Vital Signs x48h Temp Pulse Resp BP Pulse Ox 11/20/16 12:08 82 124/64 11/20/16 07:51 37.1 C 76 20 115/48 L 96 Intake & Output: Intake & Output 11/17/16 11/18/16 11/19/16 11/20/16 23:59 23:59 23:59 23:59 Intake Total 3533 2877 2627 2306 Output Total 925 575 Balance 2608 2877 2052 2306 - Objective General Appearance: positive: No acute distress, Alert, Anxious Eyes Bilateral: positive: Normal inspection, PERRL, EOMI. negative: No lid inflammation, Conjunctivae nml ENT: positive: ENT inspection nml, Pharynx nml, No signs of dehydration. negative: Purulent nasal drainage, Pharyngeal erythema, Oral lesions, Dry mucous membranes Neck: positive: Nml inspection, Thyroid nml, Trachea midline. negative: Lymphadenopathy (R), Lymphadenopathy (L), Stiff neck Respiratory: positive: Chest non-tender, No respiratory distress, Breath sounds nml. negative: Wheezes, Rales, Rhonchi Cardiovascular: positive: Regular rate & rhythm, No murmur, No gallop. negative : Irregularly irregular, Tachycardia, Bradycardia, Systolic murmur, Diastolic murmur Peripheral Pulses: 2+ Radial (R), 2+ Radial (L), 2+ Dorsalis pedis (R), 2+ Dorsalis pedis (L) Abdomen: positive: Non-tender, Nml bowel sounds, No distention. negative: Tenderness, Guarding, Rebound Back: positive: Nml inspection. negative: CVA tenderness (R), CVA tenderness (L ) Skin: positive: Color nml, Warm, Dry. negative: Diaphoresis, Skin rash Extremities: positive: Non-tender, Full ROM, Nml appearance. negative: No pedal edema, Calf tenderness Neurologic/Psychiatric: positive: Motor nml, Sensation nml, Disoriented to person. negative: Disoriented to place, Disoriented to time, Facial droop, Slurred/abnml speech - Lab Results Fish Bones: 11/20/16 06:18 11/20/16 06:18 Other Labs: Lab Results x24hrs 11/20/16 11/20/16 11/20/16 Range/Units 06:18 06:18 06:18 WBC (4.8-10.8) x10^3/uL RBC (4.70-6.10) 10^6/uL Hgb (14.0-18.0) g/dL Hct (42.0-52.0) % MCV (80.0-94.0) fL MCH (27.0-31.0) pg MCHC (32.0-36.0) g/dL RDW (12.0-15.0) % Plt Count (130-450) 10^3/uL MPV (7.4-11.4) fL Neut # (1.5-6.6) 10^3/uL Lymph # (1.5-3.5) 10^3/uL [place] # (0.0-1.0) 10^3/uL Eos # (0.0-0.7) 10^3/uL Baso # (0.0-0.1) 10^3/uL Absolute Nucleated RBC x10^3/uL Nucleated RBCs /100WBC PT 18.3 H (9.9-12.6) secs INR 1.6 H (0.8-1.2) VBG pH 7.486 H (7.31-7.41) Ionized Calcium 1.04 L (1.15-1.33) mmol/L Sodium (135-145) mmol/L Potassium (3.5-5.0) mmol/L Chloride (101-111) mmol/L Carbon Dioxide (21-32) mmol/L Anion Gap (6-13) BUN (6-20) mg/dL Creatinine (0.6-1.2) mg/dL Estimated GFR (MDRD) (>89) Glucose (70-100) mg/dL Calcium (8.5-10.3) mg/dL Phosphorus (2.5-4.6) mg/dL Magnesium (1.7-2.8) mg/dL Total Bilirubin (0.2-1.0) mg/dL AST (10-42) IU/L ALT (10-60) IU/L Alkaline Phosphatase (42-121) IU/L Ammonia 60.9 H (7-35) umol/L Total Protein (6.7-8.2) g/dL Albumin (3.2-5.5) g/dL Globulin (2.1-4.2) g/dL Albumin/Globulin Ratio (1.0-2.2) 11/20/16 11/20/16 Range/Units 06:18 06:18 WBC 6.2 (4.8-10.8) x10^3/uL RBC 3.46 L (4.70-6.10) 10^6/uL Hgb 12.2 L (14.0-18.0) g/dL Hct 35.7 L (42.0-52.0) % MCV 103.2 H (80.0-94.0) fL MCH 35.2 H (27.0-31.0) pg MCHC 34.1 (32.0-36.0) g/dL RDW 16.4 H (12.0-15.0) % Plt Count 81 L (130-450) 10^3/uL MPV 9.0 (7.4-11.4) fL Neut # 3.3 (1.5-6.6) 10^3/uL Lymph # 2.1 (1.5-3.5) 10^3/uL [place] # 0.6 (0.0-1.0) 10^3/uL Eos # 0.2 (0.0-0.7) 10^3/uL Baso # 0.0 (0.0-0.1) 10^3/uL Absolute Nucleated RBC 0.00 x10^3/uL Nucleated RBCs 0.0 /100WBC PT (9.9-12.6) secs INR (0.8-1.2) VBG pH (7.31-7.41) Ionized Calcium YES (1.15-1.33) mmol/L Sodium 140 (135-145) mmol/L Potassium 3.0 L (3.5-5.0) mmol/L Chloride 111 (101-111) mmol/L Carbon Dioxide 23 (21-32) mmol/L Anion Gap 6.0 (6-13) BUN 5 L (6-20) mg/dL Creatinine 0.7 (0.6-1.2) mg/dL Estimated GFR (MDRD) 116 (>89) Glucose 92 (70-100) mg/dL Calcium 8.1 L (8.5-10.3) mg/dL Phosphorus 2.5 (2.5-4.6) mg/dL Magnesium 1.8 (1.7-2.8) mg/dL Total Bilirubin 3.2 H (0.2-1.0) mg/dL AST 98 H (10-42) IU/L ALT 45 (10-60) IU/L Alkaline Phosphatase 153 H (42-121) IU/L Ammonia (7-35) umol/L Total Protein 6.4 L (6.7-8.2) g/dL Albumin 2.5 L (3.2-5.5) g/dL Globulin 3.9 (2.1-4.2) g/dL Albumin/Globulin Ratio 0.6 L (1.0-2.2) Assessment/Plan - Problem List (1) Encephalopathy Impression: pt's ammonia level is increased although keep the same regime medication Lactulose to him, pt is still confused. pt need continue to be monitored in hospital. add rifaximin 550mg daily continue to monitor ammonia level (2) Hypokalemia Impression: replacement of potassium, daily CMP (3) Chronic alcohol abuse Impression: continue treatment with folic acid, B1, CIWA (4) Elevated bilirubin Impression: chronic, continue monitor (5) Anxiety Impression: pt is confused, want to d/c to home, ativan could cause pt more confused. hold it now
[2016-11-20] MEDS: rifAXIMin 550 MG TABLET PO SCH (19:43)
[2016-11-21] MEDS: SODIUM CHLORIDE FLUSH 0.9% 10 ML SYRINGE IVP SCH ×2 (00:23→05:46)
[2016-11-21] MEDS: ONDANSETRON ODT 4 MG TABLET TL PRN (01:42)
[2016-11-21] MEDS: PANTOPRAZOLE 40 MG VIAL IVP SCH (05:46)
[2016-11-21 06:25] LABS: BASOPHILS % (AUTO) 0.6 %; EOSINOPHILS # (AUTO) 0.2 10^3/uL (0.0-0.7); EOSINOPHILS % (AUTO) 2.8 %; HCT - HEMATOCRIT 35.1 % (42.0-52.0); HGB - HEMOGLOBIN 12.1 g/dL (14.0-18.0); LYMPHOCYTES # (AUTO) 1.9 10^3/uL (1.5-3.5); LYMPHOCYTES % (AUTO) 34.8 %; MEAN CORPUSCULAR HEMOGLOBIN 35.1 pg (27.0-31.0); MEAN CORPUSCULAR HGB CONC 34.3 g/dL (32.0-36.0); MEAN CORPUSCULAR VOLUME 102.2 fL (80.0-94.0); MEAN PLATELET VOLUME 9.1 fL (7.4-11.4); MONOCYTES # (AUTO) 0.6 10^3/uL (0.0-1.0); MONOCYTES % (AUTO) 10.7 %; NEUTROPHILS # (AUTO) 2.7 10^3/uL (1.5-6.6); NEUTROPHILS % (AUTO) 51.1 %; NUCLEATED RED BLOOD CELLS AUTO 0.1 /100WBC; RED BLOOD COUNT 3.44 10^6/uL (4.70-6.10); RED CELL DISTRIBUTION WIDTH 15.4 % (12.0-15.0); UNCORRECTED WHITE BLOOD COUNT 5.4 x10^3/uL; WHITE BLOOD COUNT 5.4 x10^3/uL (4.8-10.8)
[2016-11-21 06:40] LABS: ALBUMIN/GLOBULIN RATIO 0.7 (1.0-2.2); BILIRUBIN,TOTAL 3.6 mg/dL (0.2-1.0); BUN - BLOOD UREA NITROGEN 5 mg/dL (6-20); CALCIUM 8.4 mg/dL (8.5-10.3); CARBON DIOXIDE - CO2 23 mmol/L (21-32); CHLORIDE 111 mmol/L (101-111); CREATININE 0.7 mg/dL (0.6-1.2); GFR - MDRD 116 (>89); GLUCOSE 92 mg/dL (70-100); MAGNESIUM 1.8 mg/dL (1.7-2.8); PHOSPHORUS 3.2 mg/dL (2.5-4.6); POTASSIUM 3.3 mmol/L (3.5-5.0); SODIUM 140 mmol/L (135-145); TOTAL PROTEIN 6.5 g/dL (6.7-8.2)
[2016-11-21] MEDS: INSULIN ASPART 300 UNIT/3 ML PEN SUBQ SCH (07:47)
[2016-11-21] MEDS: POLYETHYLENE GLYCOL 3350 17 GM PACKET PO SCH (07:51)
[2016-11-21] MEDS ORDERED: POTASSIUM CHLORIDE 20 MEQ TABLET PO SCH (08:00)
[2016-11-21] MEDS: FUROSEMIDE 20 MG TABLET PO SCH (08:29)
[2016-11-21] MEDS: FERROUS SULFATE 325 MG TABLET PO SCH (08:29)
[2016-11-21] MEDS: THIAMINE 100 MG TABLET PO SCH (08:29)
[2016-11-21] MEDS: CARVEDILOL 12.5 MG TABLET PO SCH (08:29)
[2016-11-21] MEDS: NEUTRA-PHOS 250 MG TABLET PO SCH (08:29)
[2016-11-21] MEDS: PRENATAL VITAMIN TABLET PO SCH (08:29)
[2016-11-21] MEDS: rifAXIMin 550 MG TABLET PO SCH (08:29)
[2016-11-21] MEDS: LACTULOSE 10 GM/15 ML BOTTLE PO SCH (08:31)
[2016-11-21 09:39] VITALS: BP 122/71
--- NOTE | 2016-11-21 10:37 | Discharge Plan ---
Discharge Plan Disposition: 01 Home, Self Care Condition: Stable Diet: Cardiac Activity Restrictions: Activity as Tolerated Shower Restrictions: No Weight Bearing: Full Weight Follow-Up Care: Dietitian, [facility] - Cardiac, Home Health - RN, [facility] - PT, Home Health - OT No Smoking: If you smoke, Please STOP! Call for help.
--- NOTE | 2016-11-21 15:39 | DISCHARGE SUMMARY ---
DATE OF ADMISSION: 11/16/2016 DATE OF DISCHARGE: 11/21/2016 DISCHARGE DIAGNOSES: 1. Hepatic encephalopathy. 2. Patient has chronic congestive heart failure. 3. Hypertension. 4. Hyperlipidemia. 5. Coronary artery disease. 6. Angina. 7. Myocardial infarction. For hepatic encephalopathy his ammonia level down to 46.7 from 110. HOSPITAL COURSE: This is a 56-year-old male. He refused to take his lactulose 3 days at home and then patient more confused. The patient's significant other cannot take care of the patient because he chinchilla s refused to take the medication, confused, so patient was sent to the emergency department. On the edical floor service patient continued schedule for his home dosage of lactulose. Patient's ammonia l melyssa went from 110 down to today 46.7. Patient had baseline confused and today patient's significant other came to have the meeting and she is willing to take care of patient, and therefore, scheduled t he patient's medications, and also patient agreed to take his medication as scheduled. HOME MEDICATIONS: 1. Morphine 30 mg p.o. t.i.d. 2. Potassium 10 meq p.o. t.i.d. 3. Ferrous sulfate 325 mg p.o. b.i.d. 4. Docusate 250 mg b.i.d. 5. Carvedilol 12.5 mg p.o. daily. 6. Xanax 2 mg p.o. b.i.d. 7. Mirapex 0.25 mg p.o. q. p.m. 8. Omeprazole 20 mg p.o. daily. 9. Pamelor 150 p.o. q. p.m. 10. Lactulose 40 grams p.o. q.i.d. 11. Lasix 40 mg p.o. b.i.d. 12. Roxicodone 5 to 10 mg p.o. q. 6 p.r.n. 13. Temazepam 30 mg p.o. q. p.m. DISCHARGE PLANNING: The patient advised see PCP and blood work in 1 week. Patient will arrange for [facility] with physical therapy. The patient will be discharged to home. The patient and patient's si gnificant others all questions were answered. JOB #: [id number] EXT JOB #:[id number]
== END 2016-11-21 11:06 | disposition home or self-care (01) | DRG 442 ==
LOC: EDUNIT# → ED 16:19 → MS2 17:37 → ED 18:53
PROVIDERS: ADMIT Nurse Practitioner; ATTEND Nurse Practitioner Gerontology
DX: K72.00 Acute and subacute hepatic failure without coma (principal); F11.259 Opioid dependence with opioid-induced psychotic disorder, unspecified; F13.280 Sedative, hypnotic or anxiolytic dependence with sedative, hypnotic or anxiolytic-induced anxiety disorder; E87.6 Hypokalemia; T47.3X6A Underdosing of saline and osmotic laxatives, initial encounter; E83.39 Other disorders of phosphorus metabolism; F12.280 Cannabis dependence with cannabis-induced anxiety disorder; I11.0 Hypertensive heart disease with heart failure; I50.9 Heart failure, unspecified; I25.119 Atherosclerotic heart disease of native coronary artery with unspecified angina pectoris; J44.9 Chronic obstructive pulmonary disease, unspecified; K21.9 Gastro-esophageal reflux disease without esophagitis; E78.5 Hyperlipidemia, unspecified; K74.60 Unspecified cirrhosis of liver; F32.9 Major depressive disorder, single episode, unspecified; E66.9 Obesity, unspecified; F17.210 Nicotine dependence, cigarettes, uncomplicated; D50.9 Iron deficiency anemia, unspecified; G89.29 Other chronic pain; M54.9 Dorsalgia, unspecified; I25.2 Old myocardial infarction; Z87.898 Personal history of other specified conditions; Z68.34 Body mass index [BMI] 34.0-34.9, adult; Z72.89 Other problems related to lifestyle
CPT/HCPCS: 36415; 51701; 70450; 80053; 80306; 80320; 81001; 81003; 82140; 82330; 82550; 83036; 83690; 83735; 84100; 85025; 85610; 87086; 96361; 96374; 99284; 99285

== ENCOUNTER 2016-12-03 13:37 | Outpatient (CLI) | payer MEDICAID | END 2016-12-03 13:38 | disposition critical access hospital (66) | LOC: EMS 13:37 | PROVIDERS: ATTEND Surgery | DX: R53.1 Weakness (principal) | CPT/HCPCS: A0425; A0429 ==

== ENCOUNTER 2016-12-03 13:39 | Inpatient (IN) | payer MEDICAID ==
[2016-12-03] MEDS ORDERED: THIAMINE INJ 100 MG, FOLIC ACID INJ 1 MG in SODIUM CHLORIDE 0.9% 100ML 100 ML IV STA (13:59)
[2016-12-03] MEDS ORDERED: MAGNESIUM SULFATE 2 GRAM 50 ML IV STA (13:59)
--- NOTE | 2016-12-03 14:00 | ED Physician Documentation ---
History of Present Illness - Stated complaint Stated Complaint: WEAK - Chief complaint Chief Complaint: Abd Pain - History obtained from History obtained from: Patient, EMS - History of Present Illness Timing: Today - Additonal information Additional information: 56-year-old male with cirrhosis has developed weakness and his girlfriend called the ambulance when he was not willing to go on a walk today. At least that is the history given by the patient. He appears somewhat encephalopathic and he is not able to provide adequate history. He has not been taking his lactulose and he has had 2 falls in the past week. He has similar presentations for encephalopathy over the past 3 years.His cirrhosis is presumed to be due to a past alcohol problem which the patient denies. The patient's is not present for history here she did provide some history at the scene at home and this is conveyed by medics. He also has a sound assistant at [facility] who indicates that he is aware the patient has not been taking his lactulose, he is confused and that he has had falls. Review of Systems Unable to obtain: Confused Constitutional: denies: Fever Eyes: denies: Decreased vision Ears: denies: Ear pain Nose: denies: Congestion Throat: denies: Sore throat Cardiac: denies: Chest pain / pressure, Palpitations Respiratory: denies: Dyspnea, Cough GI: denies: Abdominal Pain, Nausea, Vomiting : denies: Dysuria, Frequency Skin: denies: Rash Musculoskeletal: denies: Neck pain, Back pain PD PAST MEDICAL HISTORY - Past Medical History Cardiovascular: Congestive heart failure, Hypertension, High cholesterol, Coronary artery disease, Angina, [place] Respiratory: COPD, Sleep apnea Neuro: None Endocrine/Autoimmune: None GI: GERD, GI bleed, Cirrhosis, Other : None HEENT: None Psych: Depression, Anxiety Musculoskeletal: Chronic back pain Derm: None - Past Surgical History Past Surgical History: Yes Ortho: Spine surgery - Present Medications Home Medications: Ambulatory Orders Medication Instructions Recorded Confirmed ALPRAZolam [Xanax] 2 mg PO BID PRN 06/24/16 11/18/16 Carvedilol 12.5 mg PO BID 06/24/16 12/03/16 Docusate Sodium 250Mg Capsule 250 mg PO BID 06/24/16 11/18/16 [Colace 250Mg Capsule] Furosemide 40 mg PO BID 06/24/16 12/03/16 Nortriptyline [Pamelor] 150 mg PO QPM 06/24/16 12/03/16 Omeprazole 20 mg PO DAILY 06/24/16 12/03/16 Pramipexole Di-HCl [Mirapex] 0.25 mg PO QPM 06/24/16 12/03/16 Temazepam 30 mg PO QPM 06/24/16 12/03/16 Ferrous Sulfate [Feosol] 325 mg PO BIDWM #60 tablet 06/28/16 12/03/16 Lactulose 40 gm PO QID #475 ml 06/28/16 11/18/16 oxyCODONE [Roxicodone] 5 - 10 mg PO Q6H PRN #10 tablet 10/23/16 12/03/16 Morphine Sulfate [Morphine Sulfate 30 mg PO TID 11/18/16 12/03/16 ER] Potassium Chloride 10 meq PO TID 11/18/16 12/03/16 - Allergies Allergies/Adverse Reactions: Allergies Allergy/AdvReac Type Severity Reaction Status Date / Time No Known Drug Allergies Allergy Verified 07/06/15 08:57 - Social History Does the pt smoke?: Yes Smoking Status: Current every day smoker Does the pt drink ETOH?: No Does the pt have substance abuse?: No - Immunizations Immunizations are current?: No - POLST Patient has POLST: No POLST Status: Full Code PD ED PE NORMAL - Vitals Vital signs reviewed: Yes (tachy ) - General General: No acute distress, Well developed/nourished - HEENT HEENT: Atraumatic, PERRL, EOMI - Neck Neck: Supple, no meningeal sign - Cardiac Cardiac: No murmur, Other (tachy to 100) - Respiratory Respiratory: No respiratory distress, Clear bilaterally - Abdomen Abdomen: Soft, Non tender, Other (umbilical hernia is present. There is not tense acites. ) - Back Back: No CVA TTP, No spinal TTP - Derm Derm: Normal color, Warm and dry, No rash - Extremities Extremities: No deformity, No edema - Neuro Neuro: No motor deficit, No sensory deficit, Other (mild dysarthria of hepatic encephalopathy. ) - Psych Psych: Normal mood, Normal affect Results - Vitals Vitals: Vital Signs - 24 hr 12/03/16 13:44 Temperature 37.2 C Heart Rate 103 H Respiratory 16 Rate Blood Pressure 120/75 O2 Saturation 98 Oxygen O2 Source [] Room air O2 Source [] Nasal cannula O2 Source Room air - Labs Labs: Laboratory Tests 12/03/16 12/03/16 12/03/16 14:15 14:15 14:15 WBC 7.3 RBC 3.72 L Hgb 12.9 L Hct 37.5 L MCV 100.8 H MCH 34.6 H MCHC 34.4 RDW 15.7 H Plt Count 93 L MPV 8.9 Neut # 4.8 Lymph # 1.6 [place] # 0.6 Eos # 0.2 Baso # 0.1 Absolute Nucleated RBC 0.00 Nucleated RBCs 0.0 PT 16.1 H INR 1.4 H Sodium 138 Potassium 2.7 L Chloride 102 Carbon Dioxide 27 Anion Gap 9.0 BUN 6 Creatinine 0.8 Estimated GFR (MDRD) 100 Glucose 132 H Calcium 8.4 L Total Bilirubin 3.8 H AST 86 H ALT 43 Alkaline Phosphatase 179 H Ammonia Troponin I Total Protein 7.1 Albumin 2.7 L Globulin 4.4 H Albumin/Globulin Ratio 0.6 L Lipase 27 12/03/16 12/03/16 14:15 14:15 WBC RBC Hgb Hct MCV MCH MCHC RDW Plt Count MPV Neut # Lymph # [place] # Eos # Baso # Absolute Nucleated RBC Nucleated RBCs PT INR Sodium Potassium Chloride Carbon Dioxide Anion Gap BUN Creatinine Estimated GFR (MDRD) Glucose Calcium Total Bilirubin AST ALT Alkaline Phosphatase Ammonia 92.1 H* Troponin I < 0.04 Total Protein Albumin Globulin Albumin/Globulin Ratio Lipase Procedures - IVC sono (time) 1400 Bedside IVC sono: IVC measures (cm) (0.99), IVC collapsed c insp (cm) (complete) , Dehydration (mild) PD MEDICAL DECISION MAKING - ED course Complexity details: reviewed old records, reviewed results, re-evaluated patient , considered differential, d/w patient ED course: 56-year-old male with cirrhosis and prior episodes of hepatic encephalopathy has developed encephalopathy again and does admit to not taking his lactulose. Here in the emergency department he is administered lactulose and potassium as well as IV fluid in the form of a banana bag. Departure - Departure Disposition: 66 [facility] DC/Xfer Clinical Impression: Hepatic encephalopathy, Hypokalemia, Weakness generalized, Dehydration
[2016-12-03 14:24] LABS: BASOPHILS # (AUTO) 0.1 10^3/uL (0.0-0.1); BASOPHILS % (AUTO) 0.9 %; EOSINOPHILS # (AUTO) 0.2 10^3/uL (0.0-0.7); EOSINOPHILS % (AUTO) 2.5 %; HCT - HEMATOCRIT 37.5 % (42.0-52.0); HGB - HEMOGLOBIN 12.9 g/dL (14.0-18.0); LYMPHOCYTES # (AUTO) 1.6 10^3/uL (1.5-3.5); LYMPHOCYTES % (AUTO) 22.4 %; MEAN CORPUSCULAR HEMOGLOBIN 34.6 pg (27.0-31.0); MEAN CORPUSCULAR HGB CONC 34.4 g/dL (32.0-36.0); MEAN CORPUSCULAR VOLUME 100.8 fL (80.0-94.0); MEAN PLATELET VOLUME 8.9 fL (7.4-11.4); MONOCYTES # (AUTO) 0.6 10^3/uL (0.0-1.0); MONOCYTES % (AUTO) 8.3 %; NEUTROPHILS # (AUTO) 4.8 10^3/uL (1.5-6.6); NEUTROPHILS % (AUTO) 65.9 %; RED BLOOD COUNT 3.72 10^6/uL (4.70-6.10); RED CELL DISTRIBUTION WIDTH 15.7 % (12.0-15.0); UNCORRECTED WHITE BLOOD COUNT 7.3 x10^3/uL; WHITE BLOOD COUNT 7.3 x10^3/uL (4.8-10.8)
[2016-12-03 14:30] LABS: INR 1.4 (0.8-1.2); PT - PROTHROMBIN TIME 16.1 secs (9.9-12.6)
[2016-12-03 14:34] LABS: ALBUMIN/GLOBULIN RATIO 0.6 (1.0-2.2); BILIRUBIN,TOTAL 3.8 mg/dL (0.2-1.0); CALCIUM 8.4 mg/dL (8.5-10.3); CREATININE 0.8 mg/dL (0.6-1.2); POTASSIUM 2.7 mmol/L (3.5-5.0); TOTAL PROTEIN 7.1 g/dL (6.7-8.2)
[2016-12-03] MEDS: MULTIVITAMIN 10 ML in SODIUM CHLORIDE 0.9% 1,000 ML IV STA ×2 (15:05→15:08)
[2016-12-03] MEDS ORDERED: POTASSIUM BICARB 25 MEQ TABLET PO STA (15:15)
[2016-12-03] MEDS ORDERED: LACTULOSE 10 GM /15 ML UDC PO STA (15:15)
[2016-12-03] MEDS ORDERED: LACTULOSE 10 GM /15 ML UDC ONE (15:52)
[2016-12-03] MEDS ORDERED: SODIUM BICARBONATE ABBOJECT 50 MEQ/50 ML SYRINGE ONE (15:52)
[2016-12-03] MEDS ORDERED: MAGNESIUM SULFATE 2 GM IV ONE (15:53)
[2016-12-03] MEDS ORDERED: MAGNESIUM SULFATE 2 GRAM 50 ML IV ONE (15:53)
[2016-12-03] MEDS ORDERED: POTASSIUM BICARB 25 MEQ TABLET PO ONE (16:02)
[2016-12-03] MEDS ORDERED: SODIUM CHLORIDE FLUSH 0.9% 10 ML SYRINGE IVP PRN (17:02)
[2016-12-03] MEDS ORDERED: ONDANSETRON 4 MG/2 ML VIAL IVP PRN (17:02)
[2016-12-03] MEDS ORDERED: POTASSIUM CHLORIDE 20 MEQ TABLET PO SCH (17:31)
--- NOTE | 2016-12-03 18:11 | HISTORY & PHYSICAL EXAMINATION ---
Chief Complaint - Chief Complaint Chief Complaint: altered mental status with elevated ammonia level History of Present Illness - Admitted From Admitted From:: emergence department - History Obtained From Records Reviewed: yes History obtained from: patient - History of Present Illness HPI Comment/Other: This is a 56-year-old male with significant past medical history of chronic hepatic encephalopathy, medical non-compliance, cirrhosis, chronic hypokalemia, tobacco abuse, depression, chronic pain, who present emergence department for evaluation of altered mental status. Patient is alert but oriented only himself. He is not able to provide adequate history. Patient does state he did not take lactulose for two days because "it was nasty taste." patient is familiar with our service because of his medical non-compliance with the similar problem and symptoms. Patient has developed weakness in the recent several days. Patient's girlfriend called the ambulance when he was not willing to go on a walk today. Patient also report in the emergence department he had two falls in the home. Patient denies any injury or pain from the fall. Patient denies to drink any alcohol recently " not even any beer." His cirrhosis is presumed to be due to a past alcohol problem but the patient denies. Patient also has a construction electrician at [facility] who present at emergence department with ED provider, and indicates that he is aware the patient has not been taking his lactulose, he is confused and that he has had falls. Patient denies chest pain, shortness of breathing, headache. Lab test reveal patient has significant elevated ammonia to 92, potassium level at 2.7, Plt 93, elevated bilibrubin 3.8, elevated liver enzyme which is similar as previous admission. Patient is admitted for elevation of altered metal status Review of Systems - Constitutional Constitutional: denies: Fever, Chills, Night sweats, Weight gain, Weight loss - Eyes Eyes: denies: Pain, Irritation, Blurred vision - Ears, Nose & Throat Ears, Nose & Throat: reports: Mouth lesions. denies: Ear pain, Hearing loss, Hearing aids, Tinnitus, Vertigo, Nosebleeds - Cardiovascular Cariovascular: denies: Irregular heart rate, Palpitations, Chest pain, Lightheadedness, Syncope, Exertional dyspnea, Orthopnea - Respiratory Respiratory: denies: Cough, Sputum production, Wheezing, Hemoptysis, Orthopnea, SOB at rest, SOB with exertion, Apnea - Gastrointestinal Gastrointestinal: denies: Abdominal pain, Abdominal distention, Constipation, Diarrhea, Rectal bleeding, Black stools, Bloody stools, Nausea, Vomiting, Mendel blood emesis, Coffee grounds emesis - Genitourinary Genitourinary: denies: Dysuria, Frequency, Urgency, Hematuria, Incontinence, Flank pain - Musculoskeletal Musculoskeletal: reports: Back pain. denies: Muscle pain, Muscle aches, Stiffness, Limited range of motion, Gout, Joint pain, Joint swelling - Integumentary Integumentary: denies: Rash, Pruritis, Lesions, Pigment changes - Neurological Neurological: denies: General weakness, Focal weakness, Headache, Dizziness, Numbness, Abnormal gait, Seizures, Slurred speech - Psychiatric Psychiatric: denies: Anxiety, Suicidal, Hallucinations, Homicidal - Endocrine Endocrine: denies: Polyuria, Polydypsia, Polyphagia - Hematologic/Lymphatic Hematologic/Lymphatic: denies: Bruising, Petechiae, Lymphadenopathy History - Past Medical History Cardiovascular: reports: Congestive heart failure, Hypertension, High cholesterol, Coronary artery disease, Angina, [place] Respiratory: reports: COPD, Sleep apnea Neuro: reports: None Endocrine/Autoimmune: reports: None GI: reports: GERD, GI bleed, Cirrhosis, Other : reports: None HEENT: reports: None Psych: reports: Depression, Anxiety Musculoskeletal: reports: Chronic back pain Derm: reports: None MRSA Hx?: No - Past Surgical History Ortho: reports: Spine surgery - Substance History Use: Uses substance without health or social issues: Tobacco, Alcohol, Amphetamine, Cannabis, Opioid, Sedative - POLST Patient has POLST: No POLST Status: Full Code Meds/Allgy - Home Medications Home Medications: Ambulatory Orders Medication Instructions Recorded Confirmed ALPRAZolam [Xanax] 2 mg PO BID PRN 06/24/16 12/03/16 Carvedilol 12.5 mg PO BID 06/24/16 12/03/16 Docusate Sodium 250Mg Capsule 250 mg PO BID 06/24/16 11/18/16 [Colace 250Mg Capsule] Furosemide 40 mg PO BID 06/24/16 12/03/16 Nortriptyline [Pamelor] 150 mg PO QPM 06/24/16 12/03/16 Omeprazole 20 mg PO DAILY 06/24/16 12/03/16 Pramipexole Di-HCl [Mirapex] 0.25 mg PO QPM 06/24/16 12/03/16 Temazepam 15 mg PO QPM 06/24/16 12/03/16 Ferrous Sulfate [Feosol] 325 mg PO BIDWM #60 tablet 06/28/16 12/03/16 Lactulose 40 gm PO QID #475 ml 06/28/16 11/18/16 oxyCODONE [Roxicodone] 5 - 10 mg PO Q6H PRN #10 tablet 10/23/16 12/03/16 Morphine Sulfate [Morphine Sulfate 30 mg PO TID 11/18/16 12/03/16 ER] Potassium Chloride 10 meq PO TID 11/18/16 12/03/16 - Allergies Allergies/Adverse Reactions: Allergies Allergy/AdvReac Type Severity Reaction Status Date / Time No Known Drug Allergies Allergy Verified 07/06/15 08:57 Exam - Vital Signs Reviewed Vital Signs: Yes Vital Signs: Vital Signs x48h Temp Pulse Pulse Resp BP BP Pulse Ox 12/03/16 17:55 36.8 C 95 18 136/75 H 97 12/03/16 16:53 101 H 16 130/82 H 97 12/03/16 13:44 37.2 C 103 H 16 120/75 98 - Physical Exam General Appearance: positive: No acute distress, Alert. negative: Lethargic Eyes Bilateral: positive: Normal inspection, PERRL. negative: No lid inflammation, Conjunctivae nml ENT: positive: ENT inspection nml, Pharynx nml, No signs of dehydration. negative: Purulent nasal drainage, Pharyngeal erythema, Oral lesions Neck: positive: Nml inspection, Thyroid nml, No JVD, Trachea midline. negative : Lymphadenopathy (R), Lymphadenopathy (L), Stiff neck, Carotid bruit Respiratory: positive: Chest non-tender, No respiratory distress, Breath sounds nml. negative: Wheezes, Rales, Rhonchi Cardiovascular: positive: Regular rate & rhythm, No murmur, No gallop. negative : Irregularly irregular, Tachycardia, Bradycardia, Systolic murmur, Diastolic murmur Peripheral Pulses: positive: 2+ Abdomen: positive: Non-tender, No organomegaly, Nml bowel sounds, No distention. negative: Tenderness, Guarding, Rebound Back: positive: Nml inspection. negative: CVA tenderness (R), CVA tenderness (L ) Skin: positive: Color nml, No rash, Warm, Dry. negative: Diaphoresis, Skin rash Extremities: positive: Non-tender, Full ROM, Nml appearance. negative: Calf tenderness, Arthur's sign/cords Neurologic/Psychiatric: positive: Motor nml, Sensation nml, Disoriented to time. negative: Disoriented to person, Disoriented to place, Sensory loss, Facial droop, Slurred/abnml speech, Depressed mood/affect Conclusion/Plan - Problem List (1) Hepatic encephalopathy Conclusion/Plan: pt did not take Lactulose at home, Ammonia level is elevated to 92 resume home lactulose schedule continue monitor Ammonia level CMP liver enzyme level neurological check, vital check (2) Hypokalemia Conclusion/Plan: pt's K is 2.7, asymptomatic EKG PRN replacement K recheck BNP (3) Altered mental status Conclusion/Plan: it appear etiology from hepatic encephalopathy, neurocheck, vital check continue to treat with Lactulose continue to check ammonia level daily CMP check Qualifiers: Altered mental status type: delirium Qualified Code(s): R41.0 - Disorientation, unspecified (4) Medical non-compliance Conclusion/Plan: set up home health RN to manage pt's medication schedule advise pt the importance, and following medical management plan (5) Anxiety Conclusion/Plan: stable, continue home medication Xanax (6) Back pain Conclusion/Plan: chronic back pain, continue home pain medication Qualifiers: Back pain location: low back pain Chronicity: chronic Back pain laterality: bilateral Sciatica presence: without sciatica Qualified Code(s) : M54.5 - Low back pain; G89.29 - Other chronic pain (7) Elevated bilirubin Conclusion/Plan: stable at the bili level, hepatic cirrhosis, daily CMP monitor (8) Transaminitis Conclusion/Plan: chronic, stable at liver enzyme level. history of alcoholic abuse, hepatic cirrhosis. daily lab monitor - Lab Results Fish Bones: 12/03/16 14:15 12/03/16 14:15 Issues/Core Measures - Anticipated LOS Anticipated Stay Length: 2 or more midnights - Issues Hospital Issues and Management Plan: pt with SCD now, since pt's plt is lower, and pt walks and not bed-bound. - DVT/VTE - Prophylaxis VTE/DVT Device ordered at admit?: Yes
[2016-12-03] MEDS: LACTULOSE 10 GM/15 ML BOTTLE PO SCH ×2 (18:25→22:03)
[2016-12-03] MEDS: SODIUM CHLORIDE FLUSH 0.9% 10 ML SYRINGE IVP SCH (21:14)
[2016-12-03] MEDS: PRAMIPEXOLE 0.25 MG TABLET PO SCH (21:31)
[2016-12-03] MEDS: CARVEDILOL 12.5 MG TABLET PO SCH (21:31)
[2016-12-03] MEDS: FUROSEMIDE 40 MG TABLET PO SCH (21:31)
[2016-12-03] MEDS: NORTRIPTYLINE 25 MG CAPSULE PO SCH (21:32)
[2016-12-03] MEDS: POTASSIUM CHLORIDE 10 MEQ CAPSULE PO SCH (21:32)
[2016-12-03] MEDS: TEMAZEPAM 15 MG CAPSULE PO SCH (21:32)
[2016-12-03] MEDS: oxyCODONE 5 MG TABLET PO PRN (22:03)
[2016-12-03] MEDS ORDERED: MIN OIL/DIMETHICON/COCONUT OIL 92 GM TUBE TOP PRN (22:35)
[2016-12-04 03:52] LABS: BILIRUBIN,URINE NEGATIVE (NEGATIVE)
[2016-12-04 04:10] LABS: UR CULTURE IF IND NOT INDICATED; WBC,URINE 0-3 /HPF (0-3)
[2016-12-04] MEDS: FUROSEMIDE 40 MG TABLET PO SCH ×2 (05:49→14:04)
[2016-12-04] MEDS: POTASSIUM CHLORIDE 10 MEQ CAPSULE PO SCH ×3 (05:49→21:04)
[2016-12-04] MEDS: SODIUM CHLORIDE FLUSH 0.9% 10 ML SYRINGE IVP SCH ×3 (05:50→21:11)
[2016-12-04] MEDS ORDERED: ALPRAZolam 0.25 MG TABLET PO PRN (08:32)
--- NOTE | 2016-12-04 08:44 | PROVIDER PROGRESS NOTE ---
Subjective - Prog Note Date Prog Note Date: 12/04/16 - Subjective Pt reports feeling: Improved Subjective: pt is comfortably sleeping at bed. no events is reported from last night. check morning ammonia level test result Current Medications - Current Medications Current Medications: Active Medications Alprazolam (Xanax) 2 mg PO BID PRN PRN Reason: Anxiety Carvedilol (Coreg) 12.5 mg PO BID [facility] Last Admin: 12/03/16 21:31 Dose: 12.5 mg Famotidine (Pepcid) 20 mg PO DAILY [facility] Ferrous Sulfate (Feosol) 325 mg PO BIDWM [facility] Folic Acid () 1 mg PO DAILY [facility] Furosemide (Lasix) 40 mg PO BIDDIURETIC [facility] Last Admin: 12/04/16 05:49 Dose: 40 mg Lactulose (Lactulose) 40 gm PO QID [facility] Last Admin: 12/03/16 22:03 Dose: 40 gm Mineral Oil (Cavilon) 1 applic TOP PRN PRN PRN Reason: Skin Care Nortriptyline HCl (Pamelor) 150 mg PO QPM [facility] Last Admin: 12/03/16 21:32 Dose: 150 mg Ondansetron HCl (Zofran Inj) 4 mg IVP Q6HR PRN PRN Reason: Nausea / Vomiting Oxycodone HCl (Roxicodone) 10 mg PO Q6H PRN PRN Reason: back pain Last Admin: 12/03/16 22:03 Dose: 10 mg Polyethylene Glycol (Miralax) 17 gm PO DAILY [facility] Potassium Chloride (Micro-K) 10 meq PO TID [facility] Last Admin: 12/04/16 05:49 Dose: 10 meq Pramipexole Dihydrochloride (Mirapex) 0.25 mg PO QPM [facility] Last Admin: 12/03/16 21:31 Dose: 0.25 mg Sodium Chloride (Normal Saline Flush 0.9%) 10 ml IVP PRN PRN PRN Reason: NEEDED PER PROVIDER ORDERS Sodium Chloride (Normal Saline Flush 0.9%) 10 ml IVP Q8HR [facility] Last Admin: 12/04/16 05:50 Dose: 10 ml Temazepam (Restoril) 30 mg PO QPM [facility] Last Admin: 12/03/16 21:32 Dose: 30 mg Thiamine HCl (Vitamin B-1) 100 mg PO DAILY [facility] ALPRAZolam [Xanax] 2 mg PO BID PRN 06/24/16 Carvedilol 12.5 mg PO BID 06/24/16 Docusate Sodium 250Mg Capsule [Colace 250Mg Capsule] 250 mg PO BID 06/24/16 Furosemide 40 mg PO BID 06/24/16 Nortriptyline [Pamelor] 150 mg PO QPM 06/24/16 Omeprazole 20 mg PO DAILY 06/24/16 Pramipexole Di-HCl [Mirapex] 0.25 mg PO QPM 06/24/16 Temazepam 15 mg PO QPM 06/24/16 Morphine Sulfate [Morphine Sulfate ER] 30 mg PO TID 11/18/16 Potassium Chloride 10 meq PO TID 11/18/16 Objective - Vital Signs/Intake & Output Vital Signs: Vital Signs x48h Temp Pulse Resp BP Pulse Ox 12/04/16 07:58 36.4 C L 80 17 100/50 L 97 12/04/16 05:59 36.6 C 69 18 111/56 L 96 Intake & Output: Intake & Output 12/01/16 12/02/16 12/03/16 12/04/16 23:59 23:59 23:59 23:59 Intake Total 1644 650 Output Total 350 Balance 1644 300 - Objective General Appearance: positive: No acute distress, Alert. negative: Lethargic Eyes Bilateral: positive: Normal inspection, PERRL. negative: No lid inflammation, Conjunctivae nml ENT: positive: ENT inspection nml, Pharynx nml. negative: Purulent nasal drainage, Pharyngeal erythema Neck: positive: Nml inspection, Thyroid nml, Trachea midline. negative: Lymphadenopathy (R), Lymphadenopathy (L), Stiff neck, Swelling/bruising, Tracheal deviation Respiratory: positive: Chest non-tender, No respiratory distress, Breath sounds nml. negative: Wheezes, Rales, Rhonchi Cardiovascular: positive: Regular rate & rhythm, No murmur, No gallop. negative : Tachycardia, Bradycardia, Systolic murmur, Diastolic murmur Peripheral Pulses: 2+ Radial (R), 2+ Radial (L), 2+ Dorsalis pedis (R), 2+ Dorsalis pedis (L) Abdomen: positive: Non-tender, Nml bowel sounds, No distention. negative: Tenderness, Guarding, Rebound Back: positive: Nml inspection. negative: CVA tenderness (R), CVA tenderness (L ) Skin: positive: Color nml, Warm, Dry. negative: Diaphoresis Extremities: positive: Non-tender, Full ROM, Nml appearance. negative: Calf tenderness, Arthur's sign/cords Neurologic/Psychiatric: positive: Motor nml, Sensation nml, Disoriented to time. negative: Disoriented to person, Disoriented to place, Weakness, Sensory loss, Facial droop, Slurred/abnml speech - Lab Results Fish Bones: 12/04/16 09:27 12/04/16 09:27 Other Labs: Lab Results x24hrs 12/04/16 Range/Units 02:27 Urine Color ORANGE Urine Clarity HAZY (CLEAR) Urine pH 6.0 (5.0-7.5) PH Ur Specific [place] 1.020 (1.002-1.030) Urine Protein NEGATIVE (NEGATIVE) mg/dL Urine Glucose (UA) NEGATIVE (NEGATIVE) mg/dL Urine Ketones NEGATIVE (NEGATIVE) mg/dL Urine Occult Blood NEGATIVE (NEGATIVE) Urine Nitrite NEGATIVE (NEGATIVE) Urine Bilirubin NEGATIVE (NEGATIVE) Urine Urobilinogen 1 (NORMAL) (NORMAL) E.U./dL Ur Leukocyte Esterase NEGATIVE (NEGATIVE) Urine RBC 0-5 (0-5) /HPF Urine WBC 0-3 (0-3) /HPF Ur Squamous Epith Cells NONE SEEN (<= Few) Urine Crystals 3-5 Calcium Oxalate /LPF Amorphous Sediment Rare /LPF Urine Bacteria None Seen (None Seen) /HPF Urine Casts 3-5 Hyaline Casts /LPF Urine Starch PRESENT Urine Mucus Few Strands Urine Culture Comments NOT INDICATED Urine Opiates Screen NEGATIVE (NEGATIVE) Ur Oxycodone Screen POSITIVE H (NEGATIVE) Urine Methadone Screen NEGATIVE (NEGATIVE) Ur Propoxyphene Screen NEGATIVE (NEGATIVE) Ur Barbiturates Screen NEGATIVE (NEGATIVE) Ur Tricyclics Screen POSITIVE H (NEGATIVE) Ur Phencyclidine Scrn NEGATIVE (NEGATIVE) Ur Amphetamine Screen NEGATIVE (NEGATIVE) U Methamphetamines Scrn NEGATIVE (NEGATIVE) U Benzodiazepines Scrn POSITIVE H (NEGATIVE) Urine Cocaine Screen NEGATIVE (NEGATIVE) U Cannabinoids Screen POSITIVE H (NEGATIVE) Assessment/Plan - Problem List (1) Hepatic encephalopathy Impression: since pt is more oriented today. today ammonia level down to 76, continue to treat with lactulose, check ammonia, cautionary add lower dosage of Xifaxan to pt due to recurrent hepatic encephalopathy, continue to monitor liver enzyme and ammonia level (2) Hypokalemia Impression: pt is chronic hypokalemia, pt take lasix for fluid retention continue to lower but asymptomatic, PRN EKG IV of potassium 40 meq per protocol monitor potassium level timely (3) Altered mental status Impression: better today, more oriented, continue monitor, continue lactulose Qualifiers: Altered mental status type: delirium Qualified Code(s): R41.0 - Disorientation, unspecified (4) Medical non-compliance Impression: discuss this issue at meeting, order manager case and social security benefits interviewer to find any possible resource to manage pt's this problem. (5) Anxiety Impression: stable, resume home Xanax medication (6) Back pain Impression: chronic, stable, resume home pain medications Qualifiers: Back pain location: low back pain Chronicity: chronic Back pain laterality: bilateral Sciatica presence: without sciatica Qualified Code(s) : M54.5 - Low back pain; G89.29 - Other chronic pain
[2016-12-04] MEDS: POLYETHYLENE GLYCOL 3350 17 GM PACKET PO SCH (09:37)
[2016-12-04] MEDS: CARVEDILOL 12.5 MG TABLET PO SCH ×2 (09:37→21:04)
[2016-12-04] MEDS: THIAMINE 100 MG TABLET PO SCH (09:37)
[2016-12-04] MEDS: FOLIC ACID 1 MG TABLET PO SCH (09:37)
[2016-12-04] MEDS: FERROUS SULFATE 325 MG TABLET PO SCH ×2 (09:37→16:17)
[2016-12-04] MEDS: FAMOTIDINE 20 MG TABLET PO SCH (09:37)
[2016-12-04 09:39] LABS: BASOPHILS # (AUTO) 0.1 10^3/uL (0.0-0.1); EOSINOPHILS # (AUTO) 0.3 10^3/uL (0.0-0.7); EOSINOPHILS % (AUTO) 5.3 %; HCT - HEMATOCRIT 35.2 % (42.0-52.0); HGB - HEMOGLOBIN 12.1 g/dL (14.0-18.0); LYMPHOCYTES # (AUTO) 1.6 10^3/uL (1.5-3.5); LYMPHOCYTES % (AUTO) 26.6 %; MEAN CORPUSCULAR HEMOGLOBIN 34.9 pg (27.0-31.0); MEAN CORPUSCULAR HGB CONC 34.3 g/dL (32.0-36.0); MEAN CORPUSCULAR VOLUME 101.8 fL (80.0-94.0); MEAN PLATELET VOLUME 8.9 fL (7.4-11.4); MONOCYTES # (AUTO) 0.4 10^3/uL (0.0-1.0); MONOCYTES % (AUTO) 7.3 %; NEUTROPHILS # (AUTO) 3.5 10^3/uL (1.5-6.6); NEUTROPHILS % (AUTO) 59.8 %; RED BLOOD COUNT 3.46 10^6/uL (4.70-6.10); RED CELL DISTRIBUTION WIDTH 15.8 % (12.0-15.0); UNCORRECTED WHITE BLOOD COUNT 5.9 x10^3/uL; WHITE BLOOD COUNT 5.9 x10^3/uL (4.8-10.8)
[2016-12-04 09:49] LABS: ALBUMIN/GLOBULIN RATIO 0.6 (1.0-2.2); BILIRUBIN,TOTAL 3.7 mg/dL (0.2-1.0); CALCIUM 7.9 mg/dL (8.5-10.3); CREATININE 0.9 mg/dL (0.6-1.2); POTASSIUM 2.6 mmol/L (3.5-5.0); TOTAL PROTEIN 6.5 g/dL (6.7-8.2)
[2016-12-04] MEDS: LACTULOSE 10 GM/15 ML BOTTLE PO SCH ×4 (09:54→21:07)
[2016-12-04] MEDS ORDERED: POTASSIUM CHLORIDE INJ 40 MEQ in SODIUM CHLORIDE 0.9% 1,000 ML IV SCH (11:00)
[2016-12-04] MEDS: rifAXIMin 550 MG TABLET PO SCH (11:22)
[2016-12-04] MEDS: NS W/40 MEQ KCL 1,000 ML IV SCH ×2 (11:23→21:09)
[2016-12-04] MEDS: NORTRIPTYLINE 25 MG CAPSULE PO SCH (21:03)
[2016-12-04] MEDS: PRAMIPEXOLE 0.25 MG TABLET PO SCH (21:04)
[2016-12-04] MEDS: TEMAZEPAM 15 MG CAPSULE PO SCH (21:04)
[2016-12-04] MEDS: oxyCODONE 5 MG TABLET PO PRN (21:43)
[2016-12-05] MEDS: SODIUM CHLORIDE FLUSH 0.9% 10 ML SYRINGE IVP SCH (05:07)
[2016-12-05] MEDS: POTASSIUM CHLORIDE 10 MEQ CAPSULE PO SCH ×2 (06:04→12:39)
[2016-12-05] MEDS: FUROSEMIDE 40 MG TABLET PO SCH ×2 (06:04→12:39)
[2016-12-05] MEDS: NS W/40 MEQ KCL 1,000 ML IV SCH (06:04)
[2016-12-05 06:26] LABS: ALBUMIN/GLOBULIN RATIO 0.6 (1.0-2.2); BILIRUBIN,TOTAL 2.2 mg/dL (0.2-1.0); CALCIUM 7.8 mg/dL (8.5-10.3); CREATININE 0.9 mg/dL (0.6-1.2); POTASSIUM 3.4 mmol/L (3.5-5.0); TOTAL PROTEIN 6.2 g/dL (6.7-8.2)
[2016-12-05 06:29] LABS: BASOPHILS # (AUTO) 0.1 10^3/uL (0.0-0.1); BASOPHILS % (AUTO) 0.7 %; EOSINOPHILS # (AUTO) 0.4 10^3/uL (0.0-0.7); EOSINOPHILS % (AUTO) 4.8 %; HCT - HEMATOCRIT 34.2 % (42.0-52.0); HGB - HEMOGLOBIN 11.6 g/dL (14.0-18.0); LYMPHOCYTES # (AUTO) 2.3 10^3/uL (1.5-3.5); LYMPHOCYTES % (AUTO) 29.7 %; MEAN CORPUSCULAR HEMOGLOBIN 35.1 pg (27.0-31.0); MEAN CORPUSCULAR VOLUME 103.4 fL (80.0-94.0); MEAN PLATELET VOLUME 9.6 fL (7.4-11.4); MONOCYTES # (AUTO) 0.7 10^3/uL (0.0-1.0); NEUTROPHILS # (AUTO) 4.4 10^3/uL (1.5-6.6); NEUTROPHILS % (AUTO) 55.8 %; RED BLOOD COUNT 3.31 10^6/uL (4.70-6.10); RED CELL DISTRIBUTION WIDTH 15.7 % (12.0-15.0); UNCORRECTED WHITE BLOOD COUNT 7.8 x10^3/uL; WHITE BLOOD COUNT 7.8 x10^3/uL (4.8-10.8)
[2016-12-05] MEDS ORDERED: POTASSIUM CHLORIDE 20 MEQ TABLET PO ONE ×2 (08:00→09:00)
[2016-12-05] MEDS: rifAXIMin 550 MG TABLET PO SCH (08:12)
[2016-12-05] MEDS: THIAMINE 100 MG TABLET PO SCH (08:12)
[2016-12-05] MEDS: FAMOTIDINE 20 MG TABLET PO SCH (08:12)
[2016-12-05] MEDS: POLYETHYLENE GLYCOL 3350 17 GM PACKET PO SCH (08:12)
[2016-12-05] MEDS: FOLIC ACID 1 MG TABLET PO SCH (08:12)
[2016-12-05] MEDS: FERROUS SULFATE 325 MG TABLET PO SCH (08:12)
[2016-12-05] MEDS: CARVEDILOL 12.5 MG TABLET PO SCH (08:12)
[2016-12-05] MEDS: LACTULOSE 10 GM/15 ML BOTTLE PO SCH ×2 (08:13→12:39)
--- NOTE | 2016-12-05 11:31 | Discharge Plan ---
Discharge Plan Disposition: 01 Home, Self Care Condition: Stable Diet: Regular Activity Restrictions: Activity as Tolerated Shower Restrictions: No Driving Restrictions: Yes Additional Instructions or Follow Up instructions: may see PCP in one week. It is very important for patient to take his medications as scheduled Follow-Up Care: [facility] - Medical No Smoking: If you smoke, Please STOP! Call for help.
[2016-12-05 12:06] VITALS: BP 92/75
--- NOTE | 2016-12-05 12:48 | DISCHARGE SUMMARY ---
Discharge Summary Admit Date: 12/03/16 Discharge Date: 12/05/16 Discharging Provider: GIRON Primary Care Provider: Felipe Escudero Code Status: Do Not Attempt Resuscitation Condition at Discharge: Stable Discharge Disposition: 01 Home, Self Care - DIAGNOSES Admission Diagnoses: (1) Hepatic encephalopathy (2) Hypokalemia (3) Altered mental status (4) Medical non-compliance (5) Anxiety (6) Back pain Discharge Diagnoses with Status of Each Condition: (1) Hepatic encephalopathy: after treatment, ammonia level returns to the baseline (2) Hypokalemia: resolved after replacement. pt took tid of 10 meq potassium at home but has chronic hypokalemia, increase to QID of 10 meq k (3) Altered mental status: pt is more clear, alert, oriented plus 2 (4) Medical non-compliance: discuss pt and his partner for pt's medical non- compliance issue. pt and his partner promise to take his home meds as scheduled. we also request pt's health insurance company to have medical management plan for pt (5) Anxiety, stable (6) Back pain, stable with pain control - HPI History of Present Illness: please refer my HPI done at 12/03/16 his is a 56-year-old male with significant past medical history of chronic hepatic encephalopathy, medical non-compliance, cirrhosis, chronic hypokalemia, tobacco abuse, depression, chronic pain, who present emergence department for evaluation of altered mental status. Patient is alert but oriented only himself. He is not able to provide adequate history. Patient does state he did not take lactulose for two days because "it was nasty taste." patient is familiar with our service because of his medical non-compliance with the similar problem and symptoms. Patient has developed weakness in the recent several days. Patient's girlfriend called the ambulance when he was not willing to go on a walk today. Patient also report in the emergence department he had two falls in the home. Patient denies any injury or pain from the fall. Patient denies to drink any alcohol recently " not even any beer." His cirrhosis is presumed to be due to a past alcohol problem but the patient denies. Patient also has a etcher electrolytic at [facility] who present at emergence department with ED provider, and indicates that he is aware the patient has not been taking his lactulose, he is confused and that he has had falls. Patient denies chest pain, shortness of breathing, headache. Lab test reveal patient has significant elevated ammonia to 92, potassium level at 2.7, Plt 93, elevated bilibrubin 3.8, elevated liver enzyme which is similar as previous admission. Patient is admitted for elevation of altered metal status - CONSULTS | PROCEDURES Procedures: admit pt in medical surgery floor, follow all protocol - HOSPITAL COURSE Hospital Course: pt has elevated ammonia to 92, potassium level at 2.7. Pt reported to me and ER provider he did not take lactulose only two days because the nasty taste. Actually pt did not lactulose for 13 days after discharge from hospital per pt' s partner report, in the face of pt. pt then say he did not take lactulose for 13 days. pt did have issue for medical non-compliance. Our hospital team call pt 's health insurance company to try set up the medication management plan to pt, per report, it is in the way for pt. - ALLERGIES Allergies/Adverse Reactions: Allergies Allergy/AdvReac Type Severity Reaction Status Date / Time No Known Drug Allergies Allergy Verified 07/06/15 08:57 - MEDICATIONS Home Medications: Ambulatory Orders Medication Instructions Recorded Confirmed ALPRAZolam [Xanax] 2 mg PO BID PRN 06/24/16 12/03/16 Carvedilol 12.5 mg PO BID 06/24/16 12/03/16 Docusate Sodium 250Mg Capsule 250 mg PO BID 06/24/16 12/04/16 [Colace 250Mg Capsule] Furosemide 40 mg PO BID 06/24/16 12/03/16 Nortriptyline [Pamelor] 150 mg PO QPM 06/24/16 12/03/16 Omeprazole 20 mg PO DAILY 06/24/16 12/03/16 Pramipexole Di-HCl [Mirapex] 0.25 mg PO QPM 06/24/16 12/03/16 Temazepam 15 mg PO QPM 06/24/16 12/03/16 Ferrous Sulfate [Feosol] 325 mg PO BIDWM #60 tablet 06/28/16 12/03/16 Lactulose 40 gm PO QID #475 ml 06/28/16 12/04/16 oxyCODONE [Roxicodone] 5 - 10 mg PO Q6H PRN #10 tablet 10/23/16 12/03/16 Morphine Sulfate [Morphine Sulfate 30 mg PO TID 11/18/16 12/03/16 ER] rifAXIMin [Xifaxan] 550 mg PO DAILY 12/04/16 12/04/16 Potassium Chloride 10 meq PO QID #0 12/05/16 12/03/16 - PHYSICAL EXAM AT DISCHARGE General Appearance: positive: No acute distress, Alert. negative: Lethargic Eyes Bilateral: positive: Normal inspection, PERRL. negative: No lid inflammation, Conjunctivae nml ENT: positive: ENT inspection nml, Pharynx nml, No signs of dehydration. negative: Purulent nasal drainage, Pharyngeal erythema Neck: positive: Nml inspection, Thyroid nml, No JVD, Trachea midline. negative : Thyromegaly, Lymphadenopathy (R), Lymphadenopathy (L), Swelling/bruising Respiratory: positive: Chest non-tender, No respiratory distress, Breath sounds nml. negative: Wheezes, Rales, Rhonchi Cardiovascular: positive: Regular rate & rhythm, No murmur, No gallop. negative : Tachycardia, Bradycardia, Systolic murmur, Diastolic murmur Peripheral Pulses: positive: 2+ Abdomen: positive: Non-tender, Nml bowel sounds, No distention. negative: Tenderness, Guarding, Rebound Back: positive: Nml inspection. negative: CVA tenderness (R), CVA tenderness (L ) Skin: positive: Color nml, No rash, Warm, Dry. negative: Diaphoresis, Skin rash , Puncture wound Extremities: positive: Non-tender, Full ROM, Nml appearance. negative: Pedal edema, Calf tenderness, Arthur's sign/cords Neurologic/Psychiatric: positive: Motor nml, Sensation nml, Mood/affect nml. negative: Disoriented to person, Disoriented to place, Sensory loss, Facial droop, Slurred/abnml speech - LABS Result Diagrams: 12/05/16 06:00 12/05/16 06:00 - FOLLOW UP Follow Up: may follow up PCP in the one week, take medication as scheduled, keep the medical compliance.
== END 2016-12-05 13:18 | disposition home or self-care (01) | DRG 443 ==
LOC: EDUNIT# → ED 13:39 → MS2 17:02
PROVIDERS: ADMIT Nurse Practitioner Gerontology; ATTEND Nurse Practitioner Gerontology
DX: K72.10 Chronic hepatic failure without coma (principal); E87.6 Hypokalemia; T47.3X6A Underdosing of saline and osmotic laxatives, initial encounter; Z91.128 Patient's intentional underdosing of medication regimen for other reason; F41.9 Anxiety disorder, unspecified; G89.29 Other chronic pain; M54.5 Low back pain; E86.0 Dehydration; K70.30 Alcoholic cirrhosis of liver without ascites; F32.9 Major depressive disorder, single episode, unspecified; I11.0 Hypertensive heart disease with heart failure; I50.9 Heart failure, unspecified; E78.00 Pure hypercholesterolemia, unspecified; I25.119 Atherosclerotic heart disease of native coronary artery with unspecified angina pectoris; J44.9 Chronic obstructive pulmonary disease, unspecified; G47.30 Sleep apnea, unspecified; K21.9 Gastro-esophageal reflux disease without esophagitis; I25.2 Old myocardial infarction; Z72.0 Tobacco use; Z91.81 History of falling; Z79.891 Long term (current) use of opiate analgesic; Z87.898 Personal history of other specified conditions
CPT/HCPCS: 36415; 80053; 80306; 80320; 81001; 82140; 83690; 84484; 85025; 85610; 87086; 96365; 96375; 99284; 99285

== ENCOUNTER 2017-01-19 19:13 | Outpatient (CLI) | payer MEDICAID | END 2017-01-19 19:14 | disposition home or self-care (01) | LOC: EMS 19:13 | PROVIDERS: ATTEND Surgery | DX: R41.82 Altered mental status, unspecified (principal) | CPT/HCPCS: A0425; A0429 ==

== ENCOUNTER 2017-01-19 19:18 | Inpatient (IN) | payer MEDICAID ==
--- NOTE | 2017-01-19 19:25 | ED Physician Documentation ---
PD HPI ALTERED MENTAL STATUS - Stated complaint Stated Complaint: AMS - History obtained from History obtained from: Patient, EMS - History of Present Illness Timing - onset: Other (56-year-old gentleman with history of cirrhosis and hepatic encephalopathy with recurrent issues with medical noncompliance has not been taking his lactulose and today he was asleep all day and difficult to arouse for the girlfriend. The girlfriend is not here on initial arrival but I presume she will arrive soon.) Review of Systems Unable to obtain: Confused PD PAST MEDICAL HISTORY - Past Medical History Cardiovascular: Congestive heart failure, Hypertension, High cholesterol, Coronary artery disease, Angina, [place] Respiratory: COPD, Sleep apnea Neuro: None Endocrine/Autoimmune: None GI: GERD, GI bleed, Cirrhosis, Other : None HEENT: None Psych: Depression, Anxiety Musculoskeletal: Chronic back pain Derm: None - Past Surgical History Past Surgical History: Yes Ortho: Spine surgery - Present Medications Home Medications: Ambulatory Orders Medication Instructions Recorded Confirmed ALPRAZolam [Xanax] 2 mg PO BID PRN 06/24/16 01/19/17 Carvedilol 12.5 mg PO BID 06/24/16 01/19/17 Docusate Sodium 250Mg Capsule 250 mg PO BID 06/24/16 12/04/16 [Colace 250Mg Capsule] Furosemide 40 mg PO BID 06/24/16 12/03/16 Nortriptyline [Pamelor] 150 mg PO QPM 06/24/16 01/19/17 Omeprazole 20 mg PO DAILY 06/24/16 01/19/17 Pramipexole Di-HCl [Mirapex] 0.25 mg PO QPM 06/24/16 01/19/17 Temazepam 15 mg PO QPM 06/24/16 01/19/17 Ferrous Sulfate [Feosol] 325 mg PO BIDWM #60 tablet 06/28/16 01/19/17 oxyCODONE [Roxicodone] 5 - 10 mg PO Q6H PRN #10 tablet 10/23/16 01/19/17 Morphine Sulfate [Morphine Sulfate 30 mg PO TID 11/18/16 01/19/17 ER] rifAXIMin [Xifaxan] 550 mg PO DAILY 12/04/16 01/19/17 Albuterol 1 puffs INH Q6HR PRN 01/19/17 01/19/17 Lactulose 30 ml PO QID 01/19/17 01/19/17 Mirtazapine 1 tab PO DAILY 01/19/17 01/19/17 Nitroglycerin 1 tab PO PRN PRN 01/19/17 01/19/17 - Allergies Allergies/Adverse Reactions: Allergies Allergy/AdvReac Type Severity Reaction Status Date / Time No Known Drug Allergies Allergy Verified 07/06/15 08:57 - Social History Does the pt smoke?: Yes Smoking Status: Current every day smoker Does the pt drink ETOH?: No Does the pt have substance abuse?: No - Immunizations Immunizations are current?: No - POLST Patient has POLST: No POLST Status: Full Code PD ED PE NORMAL - Vitals Vital signs reviewed: Yes - General General: No acute distress, Well developed/nourished, Other (Alert cooperative) - HEENT HEENT: PERRL, EOMI, Other (icteric) - Neck Neck: Supple, no meningeal sign, No bony TTP - Cardiac Cardiac: RRR, No murmur - Respiratory Respiratory: No respiratory distress, Clear bilaterally - Abdomen Abdomen: Other (Distended with ascites) - Back Back: No CVA TTP, No spinal TTP - Extremities Extremities: Other (moderate BLE pitting pedal edema) - Neuro Neuro: No motor deficit, No sensory deficit, Other (A/O x2, not date. Mod asterixis) - Psych Psych: Normal mood, Normal affect Results - Vitals Vitals: Vital Signs - 24 hr 01/19/17 01/19/17 19:24 19:58 Temperature 36.6 C Heart Rate 113 H 118 H Respiratory 18 18 Rate Blood Pressure 136/66 H 117/58 L O2 Saturation 95 94 Oxygen O2 Source [With Activity] Room air O2 Source [Without Activity] Nasal cannula O2 Source Room air - Labs Labs: Laboratory Tests 01/19/17 01/19/17 01/19/17 19:40 19:40 19:40 WBC 6.7 RBC 3.78 L Hgb 13.0 L Hct 38.1 L MCV 100.9 H MCH 34.3 H MCHC 34.0 RDW 15.9 H Plt Count 92 L MPV 8.2 Neut # 4.8 Lymph # 1.1 L [place] # 0.7 Eos # 0.0 Baso # 0.0 Absolute Nucleated RBC 0.00 Nucleated RBC % 0.0 Sodium 137 Potassium 2.8 L Chloride 101 Carbon Dioxide 26 Anion Gap 10.0 BUN 9 Creatinine 1.1 Estimated GFR (MDRD) 69 L Glucose 150 H Calcium 8.2 L Total Bilirubin 4.8 H AST 110 H ALT 41 Alkaline Phosphatase 159 H Ammonia 143.3 H* Total Protein 7.5 Albumin 2.7 L Globulin 4.8 H Albumin/Globulin Ratio 0.6 L Lipase 19 L PD MEDICAL DECISION MAKING - ED course ED course: 56-year-old gentleman presents with an acute exacerbation of hepatic encephalopathy due to medical noncompliance. Unsurprisingly his ammonia level is quite high and his potassium is low. He is given IV potassium and oral lactulose. Spoke with Dr. Vargas, the hospitalist for admission at 8:20 PM. Departure - Departure Disposition: 66 [facility] DC/Xfer Clinical Impression: Hepatic encephalopathy Cirrhosis of liver with ascites Qualifiers: Hepatic cirrhosis type: alcoholic cirrhosis Qualified Code(s): K70.31 - Alcoholic cirrhosis of liver with ascites Condition: Stable
[2017-01-19 19:56] LABS: BASOPHILS % (AUTO) 0.6 %; EOSINOPHILS % (AUTO) 0.6 %; HCT - HEMATOCRIT 38.1 % (42.0-52.0); LYMPHOCYTES # (AUTO) 1.1 10^3/uL (1.5-3.5); LYMPHOCYTES % (AUTO) 16.3 %; MEAN CORPUSCULAR HEMOGLOBIN 34.3 pg (27.0-31.0); MEAN CORPUSCULAR VOLUME 100.9 fL (80.0-94.0); MEAN PLATELET VOLUME 8.2 fL (7.4-11.4); MONOCYTES # (AUTO) 0.7 10^3/uL (0.0-1.0); MONOCYTES % (AUTO) 10.3 %; NEUTROPHILS # (AUTO) 4.8 10^3/uL (1.5-6.6); NEUTROPHILS % (AUTO) 72.2 %; RED BLOOD COUNT 3.78 10^6/uL (4.70-6.10); RED CELL DISTRIBUTION WIDTH 15.9 % (12.0-15.0); UNCORRECTED WHITE BLOOD COUNT 6.7 x10^3/uL; WHITE BLOOD COUNT 6.7 x10^3/uL (4.8-10.8)
[2017-01-19 20:02] LABS: ALBUMIN/GLOBULIN RATIO 0.6 (1.0-2.2); BILIRUBIN,TOTAL 4.8 mg/dL (0.2-1.0); CALCIUM 8.2 mg/dL (8.5-10.3); CREATININE 1.1 mg/dL (0.6-1.2); POTASSIUM 2.8 mmol/L (3.5-5.0); TOTAL PROTEIN 7.5 g/dL (6.7-8.2)
[2017-01-19 20:16] LABS: INR 1.5 (0.8-1.2); PT - PROTHROMBIN TIME 16.7 secs (9.9-12.6)
[2017-01-19] MEDS ORDERED: LACTULOSE 10 GM /15 ML UDC PO STA (20:18)
[2017-01-19] MEDS ORDERED: POTASSIUM CHLOR 10 MEQ/100 ML 10 MEQ/100 ML BAG IV ONE ×2 (20:18→20:33)
[2017-01-19] MEDS ORDERED: LACTULOSE 10 GM /15 ML UDC ONE (20:33)
[2017-01-19] MEDS ORDERED: NITROGLYCERIN SL 0.4 MG TABLET SL PRN (21:41)
[2017-01-19] MEDS ORDERED: ALPRAZolam 0.25 MG TABLET PO PRN (21:41)
[2017-01-19] MEDS ORDERED: ALBUTEROL NEB 2.5 MG/3 ML INH PRN (21:41)
[2017-01-19] MEDS ORDERED: ONDANSETRON 4 MG/2 ML VIAL IVP PRN (21:55)
[2017-01-19] MEDS ORDERED: IBUPROFEN 600 MG TABLET PO PRN (21:55)
[2017-01-19] MEDS ORDERED: SODIUM CHLORIDE FLUSH 0.9% 10 ML SYRINGE IVP PRN (21:55)
[2017-01-19] MEDS ORDERED: POTASSIUM CHLOR 20 MEQ/100 ML 20 MEQ/100 ML BAG IV SCH (22:10)
[2017-01-19] MEDS ORDERED: LORazepam 2 MG/ML SYRINGE IVP PRN (22:15)
[2017-01-19] MEDS ORDERED: IPRATROPIUM/ALBUTEROL 3 ML NEB INH PRN (22:48)
[2017-01-19] MEDS ORDERED: POTASSIUM CHLORIDE 20 MEQ/15 ML UDC PO SCH (23:00)
[2017-01-19] MEDS: LACTATED RINGERS 1,000 ML IV SCH (23:51)
[2017-01-19] MEDS: CYANOCOBALAMIN 500 MCG TABLET PO SCH (23:51)
[2017-01-19] MEDS: SODIUM CHLORIDE FLUSH 0.9% 10 ML SYRINGE IVP SCH (23:52)
[2017-01-19] MEDS: FOLIC ACID 1 MG TABLET PO SCH (23:52)
[2017-01-20] MEDS: NICOTINE 21 MG PATCH TOP SCH ×2 (00:04→08:27)
--- NOTE | 2017-01-20 00:33 | HISTORY & PHYSICAL EXAMINATION ---
DATE OF ADMISSION: 01/19/2017 HISTORY OF PRESENT ILLNESS: The patient was seen at 9 p.m. CODE STATUS is A FULL CODE. PCP is Mikal Escudero. The exam limitations were patient confusion. The medical records were reviewed. The source of information was the patient. The patient does not have an advanced directive. The chief complaint was confusion. The patient, a 56-year-old white male, was admitted with confusion that he states began yesterday. He states that he has difficulty functioning. He stopped taking his lactulose on Friday and at this time he is unable to provide an adequate history. DRUG ALLERGIES: NO KNOWN DRUG ALLERGIES. HOME MEDICATIONS: 1. Albuterol 1 puff every 6 hours. 2. Alprazolam 2 mg p.o. twice a day. 3. Coreg 12.5 mg 1 tab p.o. twice a day. 4. Colace 250 mg 1 tab p.o. twice a day. 5. Ferrous sulfate 325 mg 1 tab p.o. twice a day. 6. Furosemide 40 mg 1 tab p.o. twice a day. 7. Lactulose 30 mL p.o. 4 times a day. 8. Mirtazapine 1 tab p.o. every day. 9. Morphine sulfate 30 mg p.o. 3 times a day. 10. Sublingual nitroglycerin 0.4 mg p.r.n. chest pain. 11. Nortriptyline 150 mg 1 tab p.o. at bedtime. 12. Omeprazole 20 mg 1 tab p.o. every day. 13. Oxycodone 5-10 mg p.o. q.6h. 14. Mirapex 0.25 mg 1 tab p.o. at bedtime. 15. Xifaxan 550 mg 1 tab p.o. every day. 16. Temazepam 50 mg 1 tab p.o. at bedtime. PAST MEDICAL HISTORY: Chronic hepatic encephalopathy, medical noncompliance, cirrhosis, chronic hypokalemia, tobacco abuse, depression, chronic pain, congestive heart failure, hypertension, hyperlipidemia, coronary artery disease , angina, myocardial infarction, COPD, sleep apnea, gastroesophageal reflux disease, GI bleed, anxiety, restless leg syndrome, chronic back pain, fatty liver, aortic regurgitation, mitral regurgitation, umbilical hernia. PAST SURGICAL HISTORY:Spine Surgery with a spinal cord stimulator in place. FAMILY HISTORY: Noncontributory. SOCIAL HISTORY: He has 5 children and lives with his girlfriend. 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 He smoked 2 packs per day for 30 years and continues smoking. He states that he does not drink alcohol. His recreational drug abuse history includes marijuana, opioids, sedatives and amphetamines. REVIEW OF SYSTEMS: RESPIRATORY: He complains of no coughing or shortness of breath. HEART: No chest pain or palpitations. ABDOMEN: No constipation, diarrhea, nausea or vomiting. No abdominal pain. URINARY: No burning urine, no frequency. HEAD: No headaches. EYES: No blurred vision. EARS: No ear pain. NOSE: No runny nose. THROAT: No pain or redness. MUSCULOSKELETAL: No proximal muscle weakness. He complains of lower back pain. JOINTS: No joint pain. NEUROLOGIC: He is confused and is only oriented to self. Weakness and fatigue is yes and fevers is no. PHYSICAL EXAMINATION: VITAL SIGNS: Temperature of 36.6 degrees Celsius, pulse of 113, a respiratory rate of 18, blood pressure of 136/66, and an O2 saturation of 95% on room air. GENERAL APPEARANCE: He is disoriented, alert and has a flat affect. HEENT: His head is atraumatic, normocephalic. Eyes are PERRLA, EOMI. NECK: Supple. No JVD, no bruits, no thyroid enlargement. No adenopathy. HEART: RRR with a 3/6 systolic murmur at the left sternal border and second right intercostal space. Tachycardia. LUNGS: Clear to auscultation. ABDOMEN: Distended, plus bowel sounds, soft, nontender. No rebound, no guarding. EXTREMITIES: Warm. There is no edema. There is +2 pedal pulses. He has 5/5 muscle strength in upper and lower extremities. NEUROLOGICAL: He is oriented to person only, follows commands. Cranial nerves 2- 12 are intact. He has slurred speech. SKIN: He has onychomycoses on his toenails, ichthyosis on his feet and he has a suspected tinea corpus infection on his face and neck. LABORATORY DATA: Sodium is 137, potassium is 2.8, chloride is 101, bicarbonate 26, BUN is 9, creatinine is 1.1, glucose is 150, MCV is 100.9, MCH is 34.3. PT is 16.7, INR is 1.5. AST is 110, ALT is 41, alkaline phosphatase is 159. Ammonia is 143.3 and lipase is 19. EKG findings show a sinus tachycardia. ASSESSMENT AND PLAN: He has hepatic encephalopathy that will be treated with lactulose and he will be on Xifaxan to prevent further episodes of hepatic encephalopathy. Hypokalemia will be treated with potassium chloride. Pernicious anemia will be treated with folic acid and cyanocobalamin. His back pain will be treated with Motrin. His COPD will be treated with albuterol and DuoNebs p.r.n. shortness of breath/wheezing. His history of coronary artery disease, SC and angina will be treated with Coreg and sublingual nitroglycerin p.r.n. chest pain. Suspected ascites secondary to cirrhosis will be treated with Lasix and spironolactone. Anxiety will be treated with Xanax. Agitation and prevention of seizures will be treated with Ativan p.r.n. Restless leg will be treated with Mirapex. Depression will be treated with mirtazapine. He will be on IV Protonix for gastroesophageal reflux disease and to prevent stress ulcers. He will have SCDs for DVT prevention. The thrombocytopenia will be monitored. He will get a CBC, CMP, and ammonia level in a.m. His anticipated length of stay is 3-4 days. The VTE and DVT prophylaxis has been ordered in the form of SCDs. JOB #: [id number] EXT JOB #:[id number] TAHIR
[2017-01-20] MEDS: SPIRONOLACTONE 25 MG TABLET PO SCH ×2 (01:33→08:27)
[2017-01-20] MEDS: SODIUM CHLORIDE FLUSH 0.9% 10 ML SYRINGE IVP SCH ×3 (04:33→20:48)
[2017-01-20 06:17] LABS: BASOPHILS % (AUTO) 0.8 %; EOSINOPHILS # (AUTO) 0.1 10^3/uL (0.0-0.7); EOSINOPHILS % (AUTO) 2.1 %; HCT - HEMATOCRIT 33.5 % (42.0-52.0); HGB - HEMOGLOBIN 11.5 g/dL (14.0-18.0); LYMPHOCYTES # (AUTO) 1.5 10^3/uL (1.5-3.5); LYMPHOCYTES % (AUTO) 29.3 %; MEAN CORPUSCULAR HEMOGLOBIN 34.7 pg (27.0-31.0); MEAN CORPUSCULAR HGB CONC 34.5 g/dL (32.0-36.0); MEAN CORPUSCULAR VOLUME 100.6 fL (80.0-94.0); MEAN PLATELET VOLUME 8.2 fL (7.4-11.4); MONOCYTES # (AUTO) 0.5 10^3/uL (0.0-1.0); MONOCYTES % (AUTO) 10.3 %; NEUTROPHILS % (AUTO) 57.5 %; RED BLOOD COUNT 3.33 10^6/uL (4.70-6.10); RED CELL DISTRIBUTION WIDTH 15.8 % (12.0-15.0); UNCORRECTED WHITE BLOOD COUNT 5.3 x10^3/uL; WHITE BLOOD COUNT 5.3 x10^3/uL (4.8-10.8)
[2017-01-20 06:37] LABS: ALBUMIN/GLOBULIN RATIO 0.6 (1.0-2.2); BILIRUBIN,TOTAL 4.4 mg/dL (0.2-1.0); CALCIUM 8.2 mg/dL (8.5-10.3); POTASSIUM 3.4 mmol/L (3.5-5.0); TOTAL PROTEIN 6.3 g/dL (6.7-8.2)
[2017-01-20] MEDS: PANTOPRAZOLE 40 MG VIAL IVP SCH (06:37)
[2017-01-20] MEDS ORDERED: POTASSIUM CHLORIDE 20 MEQ TABLET PO SCH (08:00)
[2017-01-20] MEDS: THIAMINE 100 MG TABLET PO SCH (08:25)
[2017-01-20] MEDS: FOLIC ACID 1 MG TABLET PO SCH (08:25)
[2017-01-20] MEDS: CARVEDILOL 12.5 MG TABLET PO SCH ×2 (08:25→20:45)
[2017-01-20] MEDS: DOCUSATE SODIUM 250 MG CAPSULE PO SCH ×2 (08:27→20:46)
[2017-01-20] MEDS: CYANOCOBALAMIN 500 MCG TABLET PO SCH (08:27)
[2017-01-20] MEDS: POLYETHYLENE GLYCOL 3350 17 GM PACKET PO SCH (08:28)
[2017-01-20] MEDS: LACTULOSE 10 GM /15 ML UDC PO SCH ×4 (08:37→20:46)
[2017-01-20] MEDS: FUROSEMIDE 40 MG TABLET PO SCH ×2 (08:37→20:46)
[2017-01-20] MEDS ORDERED: rifAXIMin 550 MG TABLET PO SCH (09:00)
[2017-01-20] MEDS ORDERED: NON FORMULARY MED (Omeprazole [Omeprazole] 20 MG) PO SCH (09:00)
[2017-01-20] MEDS: KETOCONAZOLE 2% CREAM 15 GM TUBE TOP SCH ×2 (13:41→20:54)
--- NOTE | 2017-01-20 14:47 | PROVIDER PROGRESS NOTE ---
Subjective - Prog Note Date Prog Note Date: 01/20/17 - Subjective Pt reports feeling: Improved Subjective: pt report he did not take medication, because he need sleep. pt denies other complaints Current Medications - Current Medications Current Medications: Active Medications Albuterol () 2.5 mg INH Q6HR PRN PRN Reason: sob Albuterol/Ipratropium (Duoneb) 3 ml INH RTQID PRN PRN Reason: Shortness of Air/Wheezing Alprazolam (Xanax) 2 mg PO BID PRN PRN Reason: Anxiety Carvedilol (Coreg) 12.5 mg PO BID [facility] Last Admin: 01/20/17 08:25 Dose: 12.5 mg Cyanocobalamin (Vitamin B-12) 1,000 mcg PO DAILY [facility] Last Admin: 01/20/17 08:27 Dose: 1,000 mcg Docusate Sodium (Colace 250mg Capsule) 250 mg PO BID [facility] Last Admin: 01/20/17 08:27 Dose: 250 mg Folic Acid () 1 mg PO DAILY [facility] Last Admin: 01/20/17 08:25 Dose: 1 mg Furosemide (Lasix) 40 mg PO BID [facility] Last Admin: 01/20/17 08:37 Dose: 40 mg Lactated Ringer's (Lr) 1,000 mls @ 50 mls/hr IV .Q20H [facility] Last Admin: 01/19/17 23:51 Dose: 50 mls/hr Ibuprofen (Motrin) 600 mg PO Q6HR PRN PRN Reason: Pain 1 to 4 Last Admin: 01/20/17 13:52 Dose: 600 mg Ketoconazole (Nizoral 2% Cream) 1 applic TOP BID [facility] Last Admin: 01/20/17 13:41 Dose: Not Given Lactulose (Enulose) 20 gm PO QID [facility] Last Admin: 01/20/17 12:55 Dose: 20 gm Lorazepam (Ativan Inj) 0.5 mg IVP PRN PRN PRN Reason: Agitation Mirtazapine (Remeron) 15 mg PO QPM [facility] Nicotine (Nicoderm) 1 patch TOP DAILY [facility] Last Admin: 01/20/17 08:27 Dose: 1 patch Nitroglycerin (Nitrostat) 0.4 mg SL PRN PRN PRN Reason: PAIN Nortriptyline HCl (Pamelor) 150 mg PO QPM [facility] Ondansetron HCl (Zofran Inj) 4 mg IVP Q6HR PRN PRN Reason: Nausea / Vomiting Pantoprazole Sodium (Protonix) 40 mg IVP QDAC [facility] Last Admin: 01/20/17 06:37 Dose: 40 mg Polyethylene Glycol (Miralax) 17 gm PO DAILY [facility] Last Admin: 01/20/17 08:28 Dose: 17 gm Potassium Chloride (K-Dur) 20 meq PO DAILYWM [facility] Last Admin: 01/20/17 08:25 Dose: 20 meq Pramipexole Dihydrochloride (Mirapex) 0.25 mg PO QPM [facility] Rifaximin (Xifaxan) 550 mg PO BID [facility] Sodium Chloride (Normal Saline Flush 0.9%) 10 ml IVP PRN PRN PRN Reason: NEEDED PER PROVIDER ORDERS Last Admin: 01/20/17 06:37 Dose: 10 ml Sodium Chloride (Normal Saline Flush 0.9%) 10 ml IVP Q8HR [facility] Last Admin: 01/20/17 10:54 Dose: Not Given Spironolactone (Aldactone) 25 mg PO DAILY [facility] Last Admin: 01/20/17 08:27 Dose: 25 mg Thiamine HCl (Vitamin B-1) 100 mg PO DAILY [facility] Last Admin: 01/20/17 08:25 Dose: 100 mg ALPRAZolam [Xanax] 2 mg PO BID PRN 06/24/16 Carvedilol 12.5 mg PO BID 06/24/16 Docusate Sodium 250Mg Capsule [Colace 250Mg Capsule] 250 mg PO BID 06/24/16 Furosemide 40 mg PO BID 06/24/16 Nortriptyline [Pamelor] 150 mg PO QPM 06/24/16 Omeprazole 20 mg PO DAILY 06/24/16 Pramipexole Di-HCl [Mirapex] 0.25 mg PO QPM 06/24/16 Temazepam 15 mg PO QPM 06/24/16 Morphine Sulfate [Morphine Sulfate ER] 30 mg PO BID 11/18/16 rifAXIMin [Xifaxan] 550 mg PO BID 12/04/16 Albuterol 1 puffs INH Q6HR PRN 01/19/17 Lactulose 30 ml PO QID 01/19/17 Mirtazapine 15 mg PO DAILY 01/19/17 Nitroglycerin 0.4 mg SL Q1H PRN 01/20/17 Potassium Chloride 20 meq PO BID 01/20/17 Sennosides [Senna] 17.2 mg PO BID 01/20/17 Objective - Vital Signs/Intake & Output Reviewed Vital Signs: Yes Vital Signs: Vital Signs x48h Temp Pulse Resp BP Pulse Ox 01/20/17 13:03 36.6 C 86 16 123/73 99 01/20/17 08:14 36.8 C 90 18 125/62 94 Intake & Output: Intake & Output 01/17/17 01/18/17 01/19/17 01/20/17 23:59 23:59 23:59 23:59 Intake Total 1330 Balance 1330 - Objective General Appearance: positive: No acute distress, Alert. negative: Lethargic Eyes Bilateral: positive: Normal inspection, PERRL, EOMI, No lid inflammation, Conjunctivae nml ENT: positive: ENT inspection nml, Pharynx nml, No signs of dehydration. negative: Purulent nasal drainage, Pharyngeal erythema, Oral lesions Neck: positive: Nml inspection, Thyroid nml, Trachea midline. negative: Thyromegaly, Lymphadenopathy (R), Lymphadenopathy (L), Stiff neck, Swelling/ bruising, Tracheal deviation Respiratory: positive: Chest non-tender, No respiratory distress, Breath sounds nml. negative: Wheezes, Rales, Rhonchi Cardiovascular: positive: Regular rate & rhythm, No murmur. negative: Irregularly irregular, Extrasystoles, Tachycardia, Bradycardia, Systolic murmur Peripheral Pulses: 2+ Radial (R), 2+ Radial (L), 2+ Dorsalis pedis (R), 2+ Dorsalis pedis (L) Abdomen: positive: Non-tender, Nml bowel sounds. negative: Tenderness, Guarding , Rebound Back: positive: Nml inspection. negative: CVA tenderness (R), CVA tenderness (L ) Skin: positive: Color nml, Warm, Dry. negative: Cyanosis, Diaphoresis, Pallor Extremities: positive: Non-tender, Full ROM, Nml appearance. negative: Calf tenderness, Arthur's sign/cords Neurologic/Psychiatric: positive: Motor nml, Sensation nml, Disoriented to time. negative: Disoriented to person, Disoriented to place, Sensory loss, Facial droop, Slurred/abnml speech, Depressed mood/affect - Lab Results Fish Bones: 01/20/17 06:04 01/20/17 06:04 Other Labs: Lab Results x24hrs 01/20/17 01/20/17 01/20/17 Range/Units 06:04 06:04 06:04 WBC 5.3 (4.8-10.8) x10^3/uL RBC 3.33 L (4.70-6.10) 10^6/uL Hgb 11.5 L (14.0-18.0) g/dL Hct 33.5 L (42.0-52.0) % MCV 100.6 H (80.0-94.0) fL MCH 34.7 H (27.0-31.0) pg MCHC 34.5 (32.0-36.0) g/dL RDW 15.8 H (12.0-15.0) % Plt Count 78 L (130-450) 10^3/uL MPV 8.2 (7.4-11.4) fL Neut # 3.0 (1.5-6.6) 10^3/uL Lymph # 1.5 (1.5-3.5) 10^3/uL [place] # 0.5 (0.0-1.0) 10^3/uL Eos # 0.1 (0.0-0.7) 10^3/uL Baso # 0.0 (0.0-0.1) 10^3/uL Absolute Nucleated RBC 0.00 x10^3/uL Nucleated RBC % 0.0 /100WBC Sodium 139 (135-145) mmol/L Potassium 3.4 L (3.5-5.0) mmol/L Chloride 103 (101-111) mmol/L Carbon Dioxide 27 (21-32) mmol/L Anion Gap 9.0 (6-13) BUN 10 (6-20) mg/dL Creatinine 1.0 (0.6-1.2) mg/dL Estimated GFR (MDRD) 77 L (>89) Glucose 88 (70-100) mg/dL Calcium 8.2 L (8.5-10.3) mg/dL Total Bilirubin 4.4 H (0.2-1.0) mg/dL AST 89 H (10-42) IU/L ALT 34 (10-60) IU/L Alkaline Phosphatase 133 H (42-121) IU/L Ammonia 108.2 H* (7-35) umol/L Total Protein 6.3 L (6.7-8.2) g/dL Albumin 2.3 L (3.2-5.5) g/dL Globulin 4.0 (2.1-4.2) g/dL Albumin/Globulin Ratio 0.6 L (1.0-2.2) Assessment/Plan - Problem List (1) Hepatic encephalopathy Impression: elevated Ammonia from 143 down to 108 after overnight at hospital treated, medical non-compliant continue home meds: Luctulose and Xifrixam daily monitor ammonia neurological check daily lab, vital monitor (2) Medical non-compliance Impression: pt was frequently admitted to this hospital, for medical non-compliance to his home medication. Pt report he did not take medications, because he wants to sleep. This is a main issue for pt, medical non-compliance. We set up the monitor for pt for medical non compliance, but pt needs be motivated to do that. educate pt for medical compliance we will continue to discuss in the morning meeting to see what we can further help pt (3) Hypokalemia Impression: chronic problem, replacement with Potassium, spironolactone daily lab monitor (4) Hx of coronary artery disease Impression: stable, resume of home meds Coreg, nitro PRN tele, vital monitor (5) COPD (chronic obstructive pulmonary disease) Impression: albuteral and Duoneb PRN INH treatment with RT (6) Cirrhosis of liver with ascites Impression: stable, denies shortness of breath Lasix, spironolactone daily lab, vital monitor Qualifiers: Hepatic cirrhosis type: alcoholic cirrhosis Qualified Code(s): K70.31 - Alcoholic cirrhosis of liver with ascites (7) Hx of seizure disorder Impression: stable, no seizure, Ativan PRN (8) Anxiety Impression: xanax PRN (9) Restless leg Impression: resume of home meds: mirapex (10) Depression Impression: resume of home meds of mirtazapine
[2017-01-20] MEDS: LACTATED RINGERS 1,000 ML IV SCH (17:22)
[2017-01-20] MEDS: rifAXIMin 550 MG TABLET PO SCH (20:46)
[2017-01-20] MEDS ORDERED: PRAMIPEXOLE 0.25 MG TABLET PO SCH (21:00)
[2017-01-20] MEDS ORDERED: NORTRIPTYLINE 25 MG CAPSULE PO SCH (21:00)
[2017-01-20] MEDS ORDERED: MIRTAZAPINE 15 MG TABLET PO SCH (21:00)
[2017-01-21] MEDS: PANTOPRAZOLE 40 MG VIAL IVP SCH (06:15)
[2017-01-21] MEDS: SODIUM CHLORIDE FLUSH 0.9% 10 ML SYRINGE IVP SCH ×2 (06:15→15:01)
[2017-01-21 06:42] LABS: BASOPHILS # (AUTO) 0.1 10^3/uL (0.0-0.1); BASOPHILS % (AUTO) 1.1 %; EOSINOPHILS # (AUTO) 0.2 10^3/uL (0.0-0.7); EOSINOPHILS % (AUTO) 4.7 %; HCT - HEMATOCRIT 33.8 % (42.0-52.0); HGB - HEMOGLOBIN 11.3 g/dL (14.0-18.0); LYMPHOCYTES # (AUTO) 1.8 10^3/uL (1.5-3.5); LYMPHOCYTES % (AUTO) 38.1 %; MEAN CORPUSCULAR HEMOGLOBIN 34.3 pg (27.0-31.0); MEAN CORPUSCULAR HGB CONC 33.5 g/dL (32.0-36.0); MEAN CORPUSCULAR VOLUME 102.4 fL (80.0-94.0); MEAN PLATELET VOLUME 8.6 fL (7.4-11.4); MONOCYTES # (AUTO) 0.5 10^3/uL (0.0-1.0); MONOCYTES % (AUTO) 10.8 %; NEUTROPHILS # (AUTO) 2.2 10^3/uL (1.5-6.6); NEUTROPHILS % (AUTO) 45.3 %; NUCLEATED RED BLOOD CELLS AUTO 0.3 /100WBC; RED CELL DISTRIBUTION WIDTH 16.1 % (12.0-15.0); UNCORRECTED WHITE BLOOD COUNT 4.8 x10^3/uL; WHITE BLOOD COUNT 4.8 x10^3/uL (4.8-10.8)
[2017-01-21 06:51] LABS: ALBUMIN/GLOBULIN RATIO 0.6 (1.0-2.2); BILIRUBIN,TOTAL 4.3 mg/dL (0.2-1.0); CREATININE 0.8 mg/dL (0.6-1.2); MAGNESIUM 1.7 mg/dL (1.7-2.8); POTASSIUM 2.8 mmol/L (3.5-5.0)
[2017-01-21 08:08] VITALS: BP 112/67
[2017-01-21] MEDS ORDERED: POTASSIUM CHLORIDE 20 MEQ TABLET PO SCH ×2 (09:00→13:00)
[2017-01-21] MEDS: CYANOCOBALAMIN 500 MCG TABLET PO SCH (10:05)
[2017-01-21] MEDS: THIAMINE 100 MG TABLET PO SCH (10:05)
[2017-01-21] MEDS: CARVEDILOL 12.5 MG TABLET PO SCH (10:05)
[2017-01-21] MEDS: NICOTINE 21 MG PATCH TOP SCH (10:05)
[2017-01-21] MEDS: SPIRONOLACTONE 25 MG TABLET PO SCH (10:06)
[2017-01-21] MEDS: FUROSEMIDE 40 MG TABLET PO SCH (10:06)
[2017-01-21] MEDS: FOLIC ACID 1 MG TABLET PO SCH (10:06)
[2017-01-21] MEDS: rifAXIMin 550 MG TABLET PO SCH (10:06)
[2017-01-21] MEDS: POLYETHYLENE GLYCOL 3350 17 GM PACKET PO SCH (10:06)
[2017-01-21] MEDS: DOCUSATE SODIUM 250 MG CAPSULE PO SCH (10:07)
[2017-01-21] MEDS: LACTULOSE 10 GM /15 ML UDC PO SCH ×2 (10:07→13:25)
[2017-01-21] MEDS: KETOCONAZOLE 2% CREAM 15 GM TUBE TOP SCH (10:13)
--- NOTE | 2017-01-21 12:34 | Discharge Plan ---
Discharge Plan Disposition: Home, Self Care Condition: Stable Diet: Low Sodium Activity Restrictions: use walker Shower Restrictions: No Driving Restrictions: Yes (have Tea do the driving) Assistance Devices: Walker Weight Bearing: Full Weight Additional Instructions or Follow Up instructions: You came to the hospital with confusion delerium due to "hepatic encephalopathy ( elevated ammonia level) as you had not taken your lactulose Your ammonia level was 143 on admission and your mentation (thought processes) continues to improve as your ammonia level goes down(108 on 01/20 and 66 on 01/21 and should continue to improve back on your home meds Goal stool output 3-4 loose bowel movements daily (on the lactulose) to keep your ammonia level down Keep your upcoming GI (gastroenterology appt) and CT scan endoscopy as previously scheduled (per Tea) potassium level by Wednesday 01/24 in lab to be sure your level is not low as long as you take your potassium 20 meq twice daily the level should remain in a reasonable range on the lasix potassium was repleted here (was 2.8) you had an additional 120 meq orally on 01/21 No change in your home medications Try to minimize the xanax if possible as you are on a fairly high dose, this gets metabolized by the liver, and could contribute to drowsiness No Smoking: If you smoke, Please STOP! Call for help. Follow-up with: DAMION HART [Physician No Access] - 1 Week (hospitalization follow up and lab check friday (potassium level))
--- NOTE | 2017-01-22 02:52 | DISCHARGE SUMMARY ---
DATE OF ADMISSION: 01/19/2017 DATE OF DISCHARGE: 01/21/2017 PRIMARY CARE PROVIDER: Mikal Escudero MD. PRIMARY DISCHARGE DIAGNOSES: Confusion and delirium due to hepatic encephalopathy due to medical noncompliance. SECONDARY DIAGNOSES: 1. Hypokalemia. 2. Cirrhosis of the liver. 3. Chronic thrombocytopenia related to cirrhosis. CONSULTATIONS: None. PROCEDURES: None. NONDIAGNOSTIC IMAGING STUDIES: None. DIAGNOSTIC STUDIES: Admission INR was 1.5. Admission CBC: White count 6.7, hemoglobin 13.0, hematocrit 38.1, 92,000 platelets. On discharge, white count 4.8, hemoglobin and hematocrit are 11.3 and 33.8, and 78,000 platelets. Admission chemistries, sodium 137, potassium 2.8, chloride 101, bicarbonate 26, BUN 9, creatinine 1.1, glucose 150, total bilirubin 4.8, AST 110, ALT 41. Ammonia level 143, albumin 2.7, total protein 7.5. On discharge, the ammonia had decreased to 66.3. Potassium had been 3.4 followed by 2.8, which does not yet reflect an additional 20 mEq potassium p.o., creatinine 6.0 and 7 respectively. Total bilirubin 4.3, AST 91, ALT 34 and albumin 2.2. Hepatitis serology sent on 01/19/2017: Hepatitis A IgM nonreactive, hepatitis B surface antigen nonreactive, hepatitis B core IgM nonreactive, hepatitis C antibody nonreactive. DISCHARGE MEDICATIONS: Of note, there is no change in preadmission medications . 1. Albuterol inhaler 1-2 puffs every 6 hours if needed for wheezing. 2. Alprazolam 2 mg 1 tablet twice daily if needed for anxiety. 3. Carvedilol 12.5 mg 1 tablet twice daily. 4. Ferrous sulfate 325 mg 1 tablet twice daily. 5. Furosemide 40 mg 1 tablet twice daily. 6. Lactulose 30 mL 3 times daily with a goal of 3-4 loose bowel movements daily. 7. Mirtazapine 15 mg 1 tablet at bedtime. 8. Morphine sulfate extended release 30 mg 1 tablet twice daily. 9. Nitroglycerin 0.4 mg sublingually if needed for Chest pain. 10. Nortriptyline 150 mg at bedtime that is three 50 mg tablets. 11. Omeprazole 20 mg once daily. 12. Pramipexole 0.25 mg daily at bedtime for restless leg syndrome. 13. Temazepam 15 mg at bedtime daily. 14. Xifaxan or rifaximin 500 mg orally twice daily. 15. Potassium chloride 20 mEq orally twice daily. 16. Oxycodone 5-10 mg every 6 hours if needed for back pain. BRIEF HOSPITAL COURSE BY PROBLEMS: 1. Hepatic encephalopathy due to missed doses of lactulose and Xifaxan. The patient is a 56-year-old male who came in to the hospital with confusion and delirium and was found to have an ammonia level of 166. He acknowledged having missed his medications. Evidently this was due to his desire to have some better sleep at night. At the time of presentation, his history was obtained primarily from his long-term girlfriend, Tea. There are no signs of infection at the time of presentation. He was resumed on his home medications and his mentation improved correspondingly with the reduction in his ammonia. After 2 days, his ammonia was down to 66 and he was much clearer knowing the situation and the time and place, although he was occasionally still mildly confused. He is aware that he needs to be taking his medications as they are prescribed. Regarding some of his other medications which if elevated in his system could also can be contributing to confusion. He does take a relatively high dose of prn alprazolam which is hepatically metabolized he is advised to hold off on that much as possible if he is able to reduce that dose. 2. Cirrhosis. There were no changes made in his home medications here. Currently based on his current bilirubin of 4.3, normal creatinine, INR 1.5 and a normal sodium his MELD score currently is 16, which corresponds with an estimated 6% 3 month mortality. The girlfriend reports that he does have followup scheduled with the cytogenetics technologist of unknown name for an EGD and a CT scan in the future and he is advised to keep that. 3. Hypokalemia. On presentation, his potassium was 2.9. This is likely related to him not taking his home supplementation of 20 mEq twice daily along with his Lasix. He was repleted orally here. On the day of discharge note, his morning potassium was 2.9. He was given an additional 120 mEq orally on the day. He is to resume his home supplementation with 20 mEq twice daily as prescribed. He has paperwork to get a potassium checked on Friday01/24/2017 to ensure that he is maintaining an adequate potassium level if he is indeed taking his Lasix and supplemental potassium as prescribed. 4. Thrombocytopenia related to his cirrhosis. His platelets remained stable [id number] and [id number]. PHYSICAL EXAMINATION ON THE DAY OF DISCHARGE: VITAL SIGNS: Afebrile at 36.6, heart rate mid 70s, blood pressure 98/55-112/67, respiratory rate 18, 91-92% oxygenation on room air. GENERAL: The patient is a heavy set, disheveled looking man with shoulder length graying hair pulled into a ponytail. He is pleasant, sitting up in a chair today with assistance to the bathroom with a walker and able to answer orientation questions including the date, the president, situation with occasional need for reminder of the year, which is markedly improved from yesterday according to the documentation. He also been able to feed himself with no difficulty and use a walker getting to the bathroom. HEAD, EARS, EYES, NOSE AND THROAT: despite the bilirubin of 4.3 his sclerae are anicteric. I do not appreciate tears of his mucous membranes. Extraocular movements are intact. He has upper dentures. CHEST: Clear to auscultation with unlabored respirations. HEART: Regular S1, S2 with a 3/6 systolic murmur best heard on the left sternal border. ABDOMEN: Obese, rounded and soft with no appreciable clear fluid wave at this time. There is an approximately golf ball sized umbilical hernia. There is no tenderness at the right upper quadrant. I do appreciate the liver edge at this time, there is no appreciable lower extremity edema and as above he was witnessed using his walker to get to the bathroom. FOLLOWUP: The patient as above need a potassium level checked on Friday, possibly will need an adjustment in his home potassium supplementation if he is indeed taking it as prescribed. He will need followup with his cytogenetics technologist for a previously scheduled followup with his cirrhosis. Consider followup with Dr. Escudero in approximately 1 week just to ensure he continues to not have new problems with his chronic illnesses. JOB #: [id number] EXT JOB #:[id number] TAHIR
== END 2017-01-21 15:41 | disposition home or self-care (01) | DRG 434 ==
LOC: EDUNIT# → ED 19:18 → MS2 21:56
PROVIDERS: ATTEND Nurse Practitioner
DX: K70.40 Alcoholic hepatic failure without coma (principal); K70.31 Alcoholic cirrhosis of liver with ascites; D69.59 Other secondary thrombocytopenia; Z91.14 Patient's other noncompliance with medication regimen; E87.6 Hypokalemia; F32.9 Major depressive disorder, single episode, unspecified; I11.0 Hypertensive heart disease with heart failure; I50.9 Heart failure, unspecified; I25.119 Atherosclerotic heart disease of native coronary artery with unspecified angina pectoris; I08.0 Rheumatic disorders of both mitral and aortic valves; E78.5 Hyperlipidemia, unspecified; J44.9 Chronic obstructive pulmonary disease, unspecified; F17.210 Nicotine dependence, cigarettes, uncomplicated; G47.30 Sleep apnea, unspecified; K21.9 Gastro-esophageal reflux disease without esophagitis; F41.9 Anxiety disorder, unspecified; G25.81 Restless legs syndrome; G89.29 Other chronic pain; M54.9 Dorsalgia, unspecified; I25.2 Old myocardial infarction; Z79.51 Long term (current) use of inhaled steroids; Z79.891 Long term (current) use of opiate analgesic; Z79.899 Other long term (current) drug therapy
CPT/HCPCS: 36415; 80053; 80074; 82140; 82270; 83690; 83735; 85025; 85610; 96365; 99284; 99285

== ENCOUNTER 2017-01-30 10:59 | Outpatient (CLI) | payer MEDICAID ==
[~2017-01-30 10:59] MED LIST: IOPAMIDOL-300 100 ML VIAL ONE
[2017-01-30] MEDS ORDERED: IOPAMIDOL-300 100 ML VIAL IVP ONE (12:24)
--- NOTE | 2017-01-30 17:51 | CT Report ---
CT ABDOMEN WITH CONTRAST: 01/30/2017 CLINICAL INDICATION: Cirrhosis. TECHNIQUE: Axial CT images of the abdomen were obtained in portal venous and delayed phases. Arteri al phase is suboptimal, as scanning was performed before arterial enhancement. COMPARISON: 04/03/2016 FINDINGS: The liver again demonstrates nodularity of contour, compatible with cirrhosis. Small calc ification in the right lobe is stable. No suspicious mass is identified. Varices are again noted, a nd ascites appears increased from previous. Recanalization of the umbilical vein is stable. No sandra l dilatation or free gas is seen. No abdominal adenopathy is appreciated. The spleen, pancreas and adrenal glands are unremarkable. A right renal cyst is incidentally noted. The left kidney is unrem arkable. Osseous structures demonstrate degenerative changes. IMPRESSION: CIRRHOSIS, WITH SLIGHT INCREASE IN ASCITES FROM PREVIOUS. STABLE VARICES. NO FOCAL KERON ER LESION IS APPRECIATED. In accordance with CT protocol optimization, one or more of the following dose reduction techniques w ere utilized for this exam: automated exposure control, adjustment of mA and/or KV based on patient size, or use of iterative reconstructive technique. JOB #: [id number] EXT JOB #:[id number]
== END 2017-01-30 11:00 | disposition home or self-care (01) ==
LOC: DI 10:59
PROVIDERS: ATTEND Internal Medicine Gastroenterology
DX: K74.60 Unspecified cirrhosis of liver (principal); R18.8 Other ascites
CPT/HCPCS: 74160; Q9967

== ENCOUNTER 2017-03-13 18:51 | Outpatient (CLI) | payer MEDICAID | END 2017-03-13 18:52 | disposition critical access hospital (66) | LOC: EMS 18:51 | PROVIDERS: ATTEND Surgery | DX: R41.82 Altered mental status, unspecified (principal) | CPT/HCPCS: A0425; A0429 ==

== ENCOUNTER 2017-03-13 18:54 | Inpatient (IN) | payer MEDICAID ==
[2017-03-13 19:20] LABS: BASOPHILS % (AUTO) 0.6 %; EOSINOPHILS # (AUTO) 0.2 10^3/uL (0.0-0.7); EOSINOPHILS % (AUTO) 2.7 %; HCT - HEMATOCRIT 35.6 % (42.0-52.0); LYMPHOCYTES # (AUTO) 1.7 10^3/uL (1.5-3.5); LYMPHOCYTES % (AUTO) 25.9 %; MEAN CORPUSCULAR HEMOGLOBIN 35.1 pg (27.0-31.0); MEAN CORPUSCULAR HGB CONC 33.8 g/dL (32.0-36.0); MEAN CORPUSCULAR VOLUME 103.8 fL (80.0-94.0); MEAN PLATELET VOLUME 8.7 fL (7.4-11.4); MONOCYTES # (AUTO) 0.6 10^3/uL (0.0-1.0); MONOCYTES % (AUTO) 9.1 %; NEUTROPHILS % (AUTO) 61.7 %; RED BLOOD COUNT 3.43 10^6/uL (4.70-6.10); UNCORRECTED WHITE BLOOD COUNT 6.6 x10^3/uL; WHITE BLOOD COUNT 6.6 x10^3/uL (4.8-10.8)
[2017-03-13 19:35] LABS: ALBUMIN/GLOBULIN RATIO 0.4 (1.0-2.2); BILIRUBIN,TOTAL 4.3 mg/dL (0.2-1.0); CALCIUM 8.2 mg/dL (8.5-10.3); POTASSIUM 2.8 mmol/L (3.5-5.0)
--- NOTE | 2017-03-13 20:16 | ED Physician Documentation ---
PD HPI ALTERED MENTAL STATUS - Stated complaint Stated Complaint: AMS - Chief complaint Chief Complaint: Neuro - History obtained from History obtained from: Patient - History of Present Illness Timing - onset: Unknown Timing - details: Other (unknown (AMS)) Quality / character: Unresponsive, Confused Basline status: Ambulatory, Independent Similar symptoms before: Diagnosis (hepatic encephalopathy) Recently seen: Emergency Dept, Admitted - Additional information Additional information: h/o cirrhosis and poor compliance with medications leading to exacerbations of his hepatic encephalopathy (he told triage nurse markell that he does not take his lactulose); BIBA for AMS. He is severely altered and thus is unable to contribute to HPI/ROS on my H+P Review of Systems Unable to obtain: AMS PD PAST MEDICAL HISTORY - Past Medical History Past Medical History: Yes Cardiovascular: Congestive heart failure, Hypertension, High cholesterol, Coronary artery disease, Angina, [place] Respiratory: COPD, Sleep apnea Neuro: None Endocrine/Autoimmune: None GI: GERD, GI bleed, Cirrhosis, Other : None HEENT: None Psych: Depression, Anxiety Musculoskeletal: Chronic back pain Derm: None - Past Surgical History Past Surgical History: Yes Ortho: Spine surgery - Present Medications Home Medications: Ambulatory Orders Medication Instructions Recorded Confirmed ALPRAZolam [Xanax] 2 mg PO BID 06/24/16 02/21/17 Carvedilol 12.5 mg PO BID 06/24/16 02/21/17 Docusate Sodium 250Mg Capsule 250 mg PO BID 06/24/16 02/20/17 [Colace 250Mg Capsule] Furosemide 40 mg PO BID 06/24/16 02/21/17 Nortriptyline [Pamelor] 150 mg PO QPM 06/24/16 02/21/17 Omeprazole 20 mg PO QDAC 06/24/16 02/21/17 Pramipexole Di-HCl [Mirapex] 0.25 mg PO QPM 06/24/16 02/21/17 Temazepam 30 mg PO QPM PRN 06/24/16 02/21/17 Ferrous Sulfate [Feosol] 325 mg PO BIDWM #60 tablet 06/28/16 02/21/17 rifAXIMin [Xifaxan] 550 mg PO BID 12/04/16 02/21/17 Mirtazapine 15 mg PO QPM 01/19/17 02/21/17 Nitroglycerin 0.4 mg SL Q5M PRN 01/20/17 02/21/17 Potassium Chloride 20 meq PO BID 01/20/17 02/21/17 Sennosides [Senna] 17.2 mg PO BID 01/20/17 02/21/17 Albuterol Sulfate [Proventil Hfa 1 - 2 puffs INH Q6H PRN 02/21/17 02/21/17 Inhaler] Lactulose 60 gm PO QID 02/21/17 02/21/17 Morphine Sulfate [Morphine Sulfate 30 mg PO TID 02/21/17 02/21/17 ER] oxyCODONE [Roxicodone] 10 mg PO QID 02/21/17 02/21/17 Mupirocin Calcium [Bactroban] 15 gm TP DAILY #2 cream..g. 02/24/17 cephALEXin [Keflex] 500 mg PO Q12H #10 capsule 02/24/17 - Allergies Allergies/Adverse Reactions: Allergies Allergy/AdvReac Type Severity Reaction Status Date / Time No Known Drug Allergies Allergy Verified 03/13/17 18:59 - Social History Does the pt smoke?: Yes Smoking Status: Current every day smoker Does the pt drink ETOH?: No Does the pt have substance abuse?: No - Immunizations Immunizations are current?: No - POLST Patient has POLST: No POLST Status: Full Code PD ED PE NORMAL - Vitals Vital signs reviewed: Yes - General General: No acute distress, Well developed/nourished - HEENT HEENT: PERRL, Other (dry mucous membranes) - Cardiac Cardiac: RRR - Respiratory Respiratory: No respiratory distress, Clear bilaterally - Abdomen Abdomen: Soft, Non tender, Non distended, Other (soft, easily reducible umbilical hernia) - Derm Derm: Warm and dry - Neuro Eye Opening: To Pain Motor: Localizes to Pain Verbal: Incomprehensible GCS Score: 9 PD ED PE EXPANDED - General General: Lethargic - Cardiac Cardiac: Murmur Present (2/6 JAY at cardiac base) - Derm Derm: Jaundiced - Extremities Extremities: Pedal edema bilateral Results - Vitals Vitals: Vital Signs - 24 hr 03/13/17 18:57 Temperature 36.5 C Heart Rate 104 H Respiratory 20 Rate Blood Pressure 129/78 O2 Saturation 96 Oxygen O2 Source [With Activity] Room air O2 Source [Without Activity] Nasal cannula O2 Source Room air Oxygen Flow Rate 2 - Labs Labs: Laboratory Tests 03/13/17 03/13/17 03/13/17 19:15 19:15 19:15 WBC 6.6 RBC 3.43 L Hgb 12.0 L Hct 35.6 L MCV 103.8 H MCH 35.1 H MCHC 33.8 RDW 17.0 H Plt Count 86 L MPV 8.7 Neut # 4.0 Lymph # 1.7 [place] # 0.6 Eos # 0.2 Baso # 0.0 Absolute Nucleated RBC 0.00 Nucleated RBC % 0.0 Sodium 140 Potassium 2.8 L Chloride 101 Carbon Dioxide 28 Anion Gap 11.0 BUN 8 Creatinine 1.0 Estimated GFR (MDRD) 77 L Glucose 105 H Calcium 8.2 L Total Bilirubin 4.3 H AST 103 H ALT 37 Alkaline Phosphatase 134 H Ammonia 87.0 H* Total Protein 7.0 Albumin 2.1 L Globulin 4.8 H Albumin/Globulin Ratio 0.4 L Lipase 21 L PD MEDICAL DECISION MAKING - ED course Complexity details: reviewed old records, reviewed results, re-evaluated patient , considered differential ED course: Patient remained significantly altered (in mental status) during ED stay, difficult to awaken and not able to speak intelligibly to me. Departure - Departure Disposition: 66 [facility] DC/Xfer Clinical Impression: Hepatic encephalopathy, Hypokalemia Condition: Stable Discharge Date/Time: 03/13/17 21:39
[2017-03-13] MEDS ORDERED: NITROGLYCERIN SL 0.4 MG TABLET SL PRN (20:41)
[2017-03-13] MEDS ORDERED: PROCHLORPERAZINE 10 MG/2 ML VIAL IVP PRN (20:45)
[2017-03-13] MEDS ORDERED: PROMETHAZINE 25 MG/1 ML VIAL IM PRN (20:45)
[2017-03-13] MEDS ORDERED: MORPHINE 2 MG/ML SYRINGE IVP PRN (20:45)
[2017-03-13] MEDS ORDERED: ONDANSETRON 4 MG/2 ML VIAL IVP PRN (20:45)
[2017-03-13] MEDS ORDERED: oxyCODONE 5 MG TABLET PO PRN ×2 (20:45)
[2017-03-13] MEDS ORDERED: LACTULOSE 10 GM/15 ML BOTTLE PO SCH (21:00)
[2017-03-13] MEDS: NS W/20 MEQ KCL 1,000 ML IV SCH (22:16)
[2017-03-13] MEDS: SODIUM CHLORIDE FLUSH 0.9% 10 ML SYRINGE IVP SCH (22:17)
[2017-03-13] MEDS: ALPRAZolam 0.25 MG TABLET PO SCH (22:17)
[2017-03-13] MEDS: FUROSEMIDE 40 MG TABLET PO SCH (22:17)
[2017-03-13] MEDS: CARVEDILOL 12.5 MG TABLET PO SCH (22:17)
[2017-03-13] MEDS: cephALEXin 250 MG CAPSULE PO SCH (22:17)
[2017-03-13] MEDS: NORTRIPTYLINE 25 MG CAPSULE PO SCH (22:18)
[2017-03-13] MEDS: PRAMIPEXOLE 0.25 MG TABLET PO SCH (22:18)
[2017-03-13] MEDS: rifAXIMin 550 MG TABLET PO SCH (22:18)
[2017-03-13] MEDS: MIRTAZAPINE 15 MG TABLET PO SCH (22:18)
[2017-03-13] MEDS: oxyCODONE 5 MG TABLET PO SCH (22:18)
[2017-03-13] MEDS: POTASSIUM CHLORIDE 20 MEQ TABLET PO SCH (22:18)
[2017-03-13] MEDS: MORPHINE ER 15 MG TABLET PO SCH (22:57)
[2017-03-14] MEDS ORDERED: LACTULOSE 10 GM /15 ML UDC ONE (00:04)
[2017-03-14] MEDS: LACTULOSE 10 GM/15 ML BOTTLE PR SCH ×5 (00:06→22:33)
--- NOTE | 2017-03-14 02:07 | HISTORY & PHYSICAL EXAMINATION ---
Chief Complaint - Chief Complaint Chief Complaint: Altered mental status History of Present Illness - Admitted From Admitted From:: Emergency department - History Obtained From Records Reviewed: Yes History obtained from: Patient and medical record Exam Limitations: Patient unable to provide history secondary to encephalopathy - History of Present Illness HPI Comment/Other: Patient is a 56-year-old gentleman with a past medical history significant for liver cirrhosis secondary to alcohol abuse, coronary artery disease, hypertension, hyperlipidemia and COPD who has been admitted to the hospital 2 times in the last 6 weeks for hepatic encephalopathy and presents again to the hospital today with altered mental status. The patient has a long history of noncompliance with lactulose. Many efforts have been made in the past 2 attempts to get the patient home health and even to place him in a [facility] facility however despite all of our efforts the patient continues to go back home with his and due to noncompliance returns very frequently to the hospital for hepatic encephalopathy. The patient is not accompanied by his today but like most of his recent hospitalizations the patient presents with altered mental status. The patient has a decreased level of consciousness on presentation he does state to the nurse that he has not been taking his lactulose and when asked why he states it tastes terrible. The patient has no apparent fevers, cough, abdominal pain or tenderness to suggest any other etiology for his encephalopathy other than hepatic encephalopathy from noncompliance with medication. The patient has also not been having any recent bloody or black stools. He has not been having any hematemesis. The patient continues to doze off when asked questions and cannot appropriately provide an adequate history or inadequate review of systems. On presentation to the emergency department the patient is afebrile is mildly tachycardic with a heart rate of 104 his blood pressure is stable and his respiratory rate is normal. The patient was saturating well on room air and did not appear to be in any significant distress but was very lethargic and did not answer questions appropriately when aroused. The patient's lab work did not reveal any leukocytosis, it did reveal a chronic anemia, chronic thrombocytopenia, chronic hyperbilirubinemia and an elevated ammonia level of 87. The patient also was found to have a low potassium of 2.8. Given the patient's presentation and previous presentations with the same the patient did not undergo extensive infectious workup and was admitted to the hospital for treatment of hepatic encephalopathy with lactulose and rifaximin. If the patient does show any signs of infection such as fever, elevated WBC, cough, abdominal pain or any other symptoms we will do a more extensive workup for infection at that time. History - Past Medical History Cardiovascular: reports: Congestive heart failure, Hypertension, High cholesterol, Coronary artery disease, Angina, [place] Respiratory: reports: COPD, Sleep apnea Neuro: reports: None Endocrine/Autoimmune: reports: None GI: reports: GERD, GI bleed, Cirrhosis, Other : reports: None HEENT: reports: None Psych: reports: Depression, Anxiety Musculoskeletal: reports: Chronic back pain Derm: reports: None MRSA Hx?: No - Past Surgical History Ortho: reports: Spine surgery - Family & Social History Family History: Mother: (Mom at 50 years of age of unknown causes) , Sister: Alive and Well, Mental Illness (1 sister with depression) Living arrangement: At home Living Situation: With spouse/s.o. Social History Notes: The patient lives in [place] with his common-law whom he has been with for 17 years. According to previous records patient apparently has 11 children. 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 On several occasions in the past the patient's has stated that she is afraid to take him home because he does become violent when he does become encephalopathic. The patient does continue to smoke tobacco he smokes half a pack per day has been smoking for over 30 years. The patient denies any alcohol use. The patient does have a history of methamphetamine use and marijuana use. - Substance History Use: Uses substance without health or social issues: Tobacco, Alcohol, Amphetamine, Cannabis, Opioid, Sedative - POLST Patient has POLST: No POLST Status: Full Code Meds/Allgy - Home Medications Home Medications: Ambulatory Orders Medication Instructions Recorded Confirmed ALPRAZolam [Xanax] 2 mg PO BID 06/24/16 02/21/17 Carvedilol 12.5 mg PO BID 06/24/16 02/21/17 Docusate Sodium 250Mg Capsule 250 mg PO BID 06/24/16 02/20/17 [Colace 250Mg Capsule] Furosemide 40 mg PO BID 06/24/16 02/21/17 Nortriptyline [Pamelor] 150 mg PO QPM 06/24/16 02/21/17 Omeprazole 20 mg PO QDAC 06/24/16 02/21/17 Pramipexole Di-HCl [Mirapex] 0.25 mg PO QPM 06/24/16 02/21/17 Temazepam 30 mg PO QPM PRN 06/24/16 02/21/17 Ferrous Sulfate [Feosol] 325 mg PO BIDWM #60 tablet 06/28/16 02/21/17 rifAXIMin [Xifaxan] 550 mg PO BID 12/04/16 02/21/17 Mirtazapine 15 mg PO QPM 01/19/17 02/21/17 Nitroglycerin 0.4 mg SL Q5M PRN 01/20/17 02/21/17 Potassium Chloride 20 meq PO BID 01/20/17 02/21/17 Sennosides [Senna] 17.2 mg PO BID 01/20/17 02/21/17 Albuterol Sulfate [Proventil Hfa 1 - 2 puffs INH Q6H PRN 02/21/17 02/21/17 Inhaler] Lactulose 60 gm PO QID 02/21/17 02/21/17 Morphine Sulfate [Morphine Sulfate 30 mg PO TID 02/21/17 02/21/17 ER] oxyCODONE [Roxicodone] 10 mg PO QID 02/21/17 02/21/17 Mupirocin Calcium [Bactroban] 15 gm TP DAILY #2 cream..g. 02/24/17 cephALEXin [Keflex] 500 mg PO Q12H #10 capsule 02/24/17 - Allergies Allergies/Adverse Reactions: Allergies Allergy/AdvReac Type Severity Reaction Status Date / Time No Known Drug Allergies Allergy Verified 03/13/17 18:59 Review of Systems - Other Findings Other Findings: Unable to obtain a copy of the review of systems secondary to the patient's altered mental status and inability to answer questions appropriately. Exam - Vital Signs Reviewed Vital Signs: Yes Vital Signs: Vital Signs x48h Temp Pulse Pulse Resp BP BP Pulse Ox 03/13/17 23:48 36.2 C L 95 16 114/66 96 03/13/17 21:30 36.5 C 101 H 12 128/76 98 03/13/17 21:21 101 H 12 123/76 100 - Physical Exam General Appearance: positive: Lethargic, Other (Patient does open eyes to verbal stimuli but is unable to answer questions and when he speaks it is unintelligible. The patient appears disheveled looking) Eyes Bilateral: positive: Normal inspection, PERRL, EOMI, No lid inflammation, Conjunctivae nml, Other (Scleral icterus) ENT: positive: ENT inspection nml, Pharynx nml, Dry mucous membranes. negative : Purulent nasal drainage, Pharyngeal erythema, Oral lesions Neck: positive: Nml inspection, Thyroid nml, No JVD, Trachea midline. negative : Thyromegaly, Lymphadenopathy (R), Lymphadenopathy (L), Stiff neck, Carotid bruit, Tracheal deviation Respiratory: positive: Chest non-tender, No respiratory distress, Breath sounds nml. negative: Wheezes, Rales, Rhonchi Cardiovascular: positive: No murmur, No gallop, Tachycardia Peripheral Pulses: positive: 2+ Abdomen: positive: Non-tender, Nml bowel sounds, Other (Abdomen is distended with positive fluid wave test. Patient has a umbilical hernia that is protruding.). negative: Guarding, Rebound Back: positive: Nml inspection. negative: CVA tenderness (R), CVA tenderness (L ) Skin: positive: No rash, Other (Jaundiced). negative: Cyanosis, Pallor Extremities: positive: Non-tender, Full ROM, Nml appearance, Pedal edema ( Bilateral 4+ pitting edema) Neurologic/Psychiatric: positive: CN's nml (2-12), Motor nml, Sensation nml, Disoriented to place, Disoriented to time, Other (Patient has altered mentation with decreased level of consciousness.) Conclusion/Plan - Problem List (1) Hepatic encephalopathy Conclusion/Plan: The patient presents with hepatic encephalopathy. This is his third hospitalization in just over a month for hepatic encephalopathy. Patient has a long history of noncompliance with medication. The patient again admits to being noncompliant to the emergency room RN. The patient does not show any signs or symptoms of infection aside from the altered mental status and given our previous experience at this time patient does not warrant a full workup for GI bleed or infection. The patient is not showing any signs or symptoms of pneumonia, UTI or spontaneous bacterial peritonitis. The patient also does not have any black or bloody stools and his hemoglobin is stable. Plan: Patient will be placed on p.o. and MA lactulose 4 times daily and he will be continued on rifaximin we will titrate the patient's medications to 3-4 bowel movements a day Monitor ammonia level (2) Hypokalemia Conclusion/Plan: Patient presents with a potassium of 2.8. Patient is on Lasix which could explain why he is hypokalemic on presentation. The patient has had hypokalemia in the past. Treat patient's hypokalemia with IV and p.o. potassium replacement. Monitor potassium (3) Cirrhosis Conclusion/Plan: The patient has end-stage liver disease with cirrhosis. Patient is not a candidate for liver transplant due to his poor social situation and poor history of compliance. The patient's most recent meld score is 18 which gives him a 6% estimated 3 month mortality. The patient does appear to have ascites on examination but does not appear to be in any distress therefore does not need a therapeutic paracentesis. The patient does not appear to be having a GI bleed his anemia is stable. The patient does have bilateral lower extremity edema which is 4+. The patient is appropriately on Lasix and Aldactone for his ascites and lower extremity edema. The patient presented with hepatic encephalopathy due to noncompliance with lactulose. Qualifiers: Hepatic cirrhosis type: unspecified hepatic cirrhosis (4) Anxiety Conclusion/Plan: The patient has history of anxiety and often once he does return to his normal baseline mental status the patient will become agitated and even violent at times. The patient is on nortriptyline and Xanax. Patient will be continued on his home medication and we will place him on Ativan as needed in case he does become anxious. (5) Hypertension Conclusion/Plan: Patient's blood pressure is stable on presentation. Patient is on Coreg, Lasix , Aldactone at home. We will continue the patient's home regimen for blood pressure control. We will monitor blood pressure closely Qualifiers: Hypertension type: essential hypertension Qualified Code(s): I10 - Essential (primary) hypertension (6) Anemia Conclusion/Plan: The patient has a history of iron deficiency and anemia and is on iron at home. Patient's hemoglobin is stable at this time We will continue to give patient his home dose of iron. Qualifiers: Anemia type: iron deficiency (7) Back pain Conclusion/Plan: The patient has chronic back pain for which he is on extended release morphine. Although this may not be the most appropriate treatment for him given that he is on it long-term we will not stop it here in the hospital as the patient could go through severe withdrawal. Continue to monitor for further pain. Qualifiers: Back pain location: low back pain Chronicity: chronic Back pain laterality: bilateral Sciatica presence: without sciatica Qualified Code(s) : M54.5 - Low back pain; G89.29 - Other chronic pain (8) Prophylactic use of low molecular weight heparin for venous thromboembolism Conclusion/Plan: Placed on Lovenox while hospitalized for DVT prophylaxis - Lab Results Fish Bones: 03/13/17 19:15 03/13/17 19:15 Other Lab Results: Laboratory Results WBC 6.6 x10^3/uL (4.8-10.8) 03/13/17 19:15 RBC 3.43 10^6/uL (4.70-6.10) L 03/13/17 19:15 Hgb 12.0 g/dL (14.0-18.0) L 03/13/17 19:15 Hct 35.6 % (42.0-52.0) L 03/13/17 19:15 MCV 103.8 fL (80.0-94.0) H 03/13/17 19:15 MCH 35.1 pg (27.0-31.0) H 03/13/17 19:15 MCHC 33.8 g/dL (32.0-36.0) 03/13/17 19:15 RDW 17.0 % (12.0-15.0) H 03/13/17 19:15 Plt Count 86 10^3/uL (130-450) L 03/13/17 19:15 MPV 8.7 fL (7.4-11.4) 03/13/17 19:15 Neut # 4.0 10^3/uL (1.5-6.6) 03/13/17 19:15 Lymph # 1.7 10^3/uL (1.5-3.5) 03/13/17 19:15 [place] # 0.6 10^3/uL (0.0-1.0) 03/13/17 19:15 Eos # 0.2 10^3/uL (0.0-0.7) 03/13/17 19:15 Baso # 0.0 10^3/uL (0.0-0.1) 03/13/17 19:15 Absolute Nucleated RBC 0.00 x10^3/uL 03/13/17 19:15 Nucleated RBC % 0.0 /100WBC 03/13/17 19:15 Sodium 140 mmol/L (135-145) 03/13/17 19:15 Potassium 2.8 mmol/L (3.5-5.0) L 03/13/17 19:15 Chloride 101 mmol/L (101-111) 03/13/17 19:15 Carbon Dioxide 28 mmol/L (21-32) 03/13/17 19:15 Anion Gap 11.0 (6-13) 03/13/17 19:15 BUN 8 mg/dL (6-20) 03/13/17 19:15 Creatinine 1.0 mg/dL (0.6-1.2) 03/13/17 19:15 Estimated GFR (MDRD) 77 (>89) L 03/13/17 19:15 Glucose 105 mg/dL (70-100) H 03/13/17 19:15 Calcium 8.2 mg/dL (8.5-10.3) L 03/13/17 19:15 Total Bilirubin 4.3 mg/dL (0.2-1.0) H 03/13/17 19:15 AST 103 IU/L (10-42) H 03/13/17 19:15 ALT 37 IU/L (10-60) 03/13/17 19:15 Alkaline Phosphatase 134 IU/L (42-121) H 03/13/17 19:15 Ammonia 87.0 umol/L (7-35) H* 03/13/17 19:15 Total Protein 7.0 g/dL (6.7-8.2) 03/13/17 19:15 Albumin 2.1 g/dL (3.2-5.5) L 03/13/17 19:15 Globulin 4.8 g/dL (2.1-4.2) H 03/13/17 19:15 Albumin/Globulin Ratio 0.4 (1.0-2.2) L 03/13/17 19:15 Lipase 21 U/L (22-51) L 03/13/17 19:15 Issues/Core Measures - Anticipated LOS Anticipated Stay Length: 2 or more midnights - DVT/VTE - Prophylaxis VTE/DVT Prophylaxis med ordered at admit?: Yes
[2017-03-14 03:28] LABS: BILIRUBIN,URINE NEGATIVE (NEGATIVE)
[2017-03-14 03:30] LABS: UA CHARGE (STRIP ONLY) YES; UR CULTURE IF IND NOT INDICATED
[2017-03-14] MEDS: PANTOPRAZOLE 40 MG TABLET PO SCH (05:45)
[2017-03-14] MEDS: MORPHINE ER 15 MG TABLET PO SCH ×3 (05:45→22:32)
[2017-03-14] MEDS: SODIUM CHLORIDE FLUSH 0.9% 10 ML SYRINGE IVP SCH ×3 (05:46→22:34)
[2017-03-14] MEDS ORDERED: PANTOPRAZOLE 40 MG TABLET ONE (05:48)
[2017-03-14 06:19] LABS: INR 1.9 (0.8-1.2); PT - PROTHROMBIN TIME 21.4 secs (9.9-12.6)
[2017-03-14 06:22] LABS: BASOPHILS % (AUTO) 0.7 %; EOSINOPHILS # (AUTO) 0.2 10^3/uL (0.0-0.7); EOSINOPHILS % (AUTO) 2.7 %; HCT - HEMATOCRIT 35.7 % (42.0-52.0); LYMPHOCYTES # (AUTO) 1.3 10^3/uL (1.5-3.5); LYMPHOCYTES % (AUTO) 22.2 %; MEAN CORPUSCULAR HEMOGLOBIN 35.1 pg (27.0-31.0); MEAN CORPUSCULAR HGB CONC 33.7 g/dL (32.0-36.0); MEAN CORPUSCULAR VOLUME 104.3 fL (80.0-94.0); MEAN PLATELET VOLUME 8.7 fL (7.4-11.4); MONOCYTES # (AUTO) 0.6 10^3/uL (0.0-1.0); MONOCYTES % (AUTO) 10.6 %; NEUTROPHILS # (AUTO) 3.8 10^3/uL (1.5-6.6); NEUTROPHILS % (AUTO) 63.8 %; NUCLEATED RED BLOOD CELLS AUTO 0.1 /100WBC; RED BLOOD COUNT 3.42 10^6/uL (4.70-6.10); RED CELL DISTRIBUTION WIDTH 17.5 % (12.0-15.0)
[2017-03-14 06:30] LABS: ALBUMIN/GLOBULIN RATIO 0.4 (1.0-2.2); BILIRUBIN,TOTAL 4.9 mg/dL (0.2-1.0); CREATININE 0.8 mg/dL (0.6-1.2); MAGNESIUM 1.7 mg/dL (1.7-2.8); POTASSIUM 2.7 mmol/L (3.5-5.0); TOTAL PROTEIN 6.8 g/dL (6.7-8.2)
[2017-03-14] MEDS ORDERED: MUPIROCIN CALCIUM 15 GM TP SCH (09:00)
[2017-03-14] MEDS: oxyCODONE 5 MG TABLET PO SCH ×4 (09:20→22:36)
[2017-03-14] MEDS: POTASSIUM CHLOR 10 MEQ/100 ML 10 MEQ/100 ML BAG IV SCH ×4 (09:20→13:04)
[2017-03-14] MEDS: FERROUS SULFATE 325 MG TABLET PO SCH ×2 (09:20→16:46)
[2017-03-14] MEDS: FUROSEMIDE 40 MG TABLET PO SCH ×2 (09:20→22:32)
[2017-03-14] MEDS: POLYETHYLENE GLYCOL 3350 17 GM PACKET PO SCH (09:20)
[2017-03-14] MEDS: POTASSIUM CHLORIDE 20 MEQ TABLET PO SCH ×2 (09:20→12:20)
[2017-03-14] MEDS: ENOXAPARIN 40 MG/0.4 ML SYRINGE SUBQ SCH (09:20)
[2017-03-14] MEDS: CARVEDILOL 12.5 MG TABLET PO SCH ×2 (09:20→22:33)
[2017-03-14] MEDS: ALPRAZolam 0.25 MG TABLET PO SCH ×2 (09:30→22:31)
[2017-03-14] MEDS: rifAXIMin 550 MG TABLET PO SCH ×2 (10:20→22:32)
[2017-03-14] MEDS: MUPIROCIN 2% CREAM 30 GM TUBE TOP SCH (10:20)
[2017-03-14] MEDS: cephALEXin 250 MG CAPSULE PO SCH ×2 (10:20→22:32)
--- NOTE | 2017-03-14 11:50 | PROVIDER PROGRESS NOTE ---
Subjective - Prog Note Date Prog Note Date: 03/14/17 Prog Note Time: 11:50 - Subjective Pt reports feeling: No change Subjective: Papa wishes to have the phone so that he can leave during his exam. He denies SOB, chest pain, N/V or a new cough. He notes that his swelling feels about the same as usual. Current Medications - Current Medications Current Medications: Active Medications Alprazolam (Xanax) 2 mg PO BID [facility] Last Admin: 03/14/17 09:30 Dose: 2 mg Carvedilol (Coreg) 12.5 mg PO BID [facility] Last Admin: 03/14/17 09:20 Dose: 12.5 mg Cephalexin (Keflex) 500 mg PO Q12H [facility] Last Admin: 03/14/17 10:20 Dose: 500 mg Enoxaparin Sodium (Lovenox) 40 mg SUBQ DAILY [facility] Last Admin: 03/14/17 09:20 Dose: 40 mg Ferrous Sulfate (Feosol) 325 mg PO BIDWM [facility] Last Admin: 03/14/17 09:20 Dose: 325 mg Furosemide (Lasix) 40 mg PO BID [facility] Last Admin: 03/14/17 09:20 Dose: 40 mg Potassium Chloride/Sodium Chloride (Normal Saline 0.9% W/20 Meq Kcl) 1,000 mls @ 100 mls/hr IV .Q10H [facility] Last Infusion: 03/14/17 06:15 Dose: 100 mls/hr Lactulose (Lactulose) 60 gm SC QID [facility] Last Admin: 03/14/17 09:21 Dose: 60 gm Lorazepam (Ativan Inj) 0.5 mg IVP Q2HR PRN PRN Reason: Anxiety Mirtazapine (Remeron) 15 mg PO QPM [facility] Last Admin: 03/13/17 22:18 Dose: Not Given Morphine Sulfate (Morphine) 2 mg IVP Q2H PRN PRN Reason: Pain 8 to 10 Morphine Sulfate () 30 mg PO TID [facility] Last Admin: 03/14/17 05:45 Dose: 30 mg Mupirocin (Bactroban 2% Cream) 1 applic TOP DAILY [facility] Last Admin: 03/14/17 10:20 Dose: 1 applic Nitroglycerin (Nitrostat) 0.4 mg SL Q5M PRN PRN Reason: Chest Pain Nortriptyline HCl (Pamelor) 150 mg PO QPM [facility] Last Admin: 03/13/17 22:18 Dose: Not Given Ondansetron HCl (Zofran Inj) 4 mg IVP Q6HR PRN PRN Reason: Nausea / Vomiting Oxycodone HCl (Roxicodone) 10 mg PO QID [facility] Last Admin: 03/14/17 09:20 Dose: 10 mg Oxycodone HCl (Roxicodone) 5 mg PO Q4HR PRN PRN Reason: Pain 5 to 7 Oxycodone HCl (Roxicodone) 10 mg PO Q4HR PRN PRN Reason: Pain 8 to 10 Pantoprazole Sodium (Protonix) 40 mg PO QDAC [facility] Last Admin: 03/14/17 05:45 Dose: 40 mg Polyethylene Glycol (Miralax) 17 gm PO DAILY [facility] Last Admin: 03/14/17 09:20 Dose: 17 gm Potassium Chloride (K-Dur) 20 meq PO BID [facility] Last Admin: 03/14/17 09:20 Dose: 20 meq Potassium [facility] Pramipexole Dihydrochloride (Mirapex) 0.25 mg PO QPM [facility] Last Admin: 03/13/17 22:18 Dose: Not Given Prochlorperazine Edisylate (Compazine Inj) 10 mg IVP Q6HR PRN PRN Reason: Nausea / Vomiting Promethazine HCl (Phenergan Inj) 25 mg IM Q6HR PRN PRN Reason: Nausea / Vomiting Rifaximin (Xifaxan) 550 mg PO BID [facility] Last Admin: 03/14/17 10:20 Dose: 550 mg Sodium Chloride (Normal Saline Flush 0.9%) 10 ml IVP PRN PRN PRN Reason: NEEDED PER PROVIDER ORDERS Sodium Chloride (Normal Saline Flush 0.9%) 10 ml IVP Q8HR [facility] Last Admin: 03/14/17 05:46 Dose: Not Given Temazepam (Restoril) 30 mg PO QPM PRN PRN Reason: SLEEP ALPRAZolam [Xanax] 2 mg PO BID 06/24/16 Carvedilol 12.5 mg PO BID 06/24/16 Docusate Sodium 250Mg Capsule [Colace 250Mg Capsule] 250 mg PO BID 06/24/16 Furosemide 40 mg PO DAILY 06/24/16 Nortriptyline [Pamelor] 150 mg PO QPM 06/24/16 Omeprazole 20 mg PO QDAC 06/24/16 Pramipexole Di-HCl [Mirapex] 0.25 mg PO QPM 06/24/16 Temazepam 30 mg PO QPM PRN 06/24/16 rifAXIMin [Xifaxan] 550 mg PO BID 12/04/16 Mirtazapine 15 mg PO QPM 01/19/17 Nitroglycerin 0.4 mg SL Q5M PRN 01/20/17 Potassium Chloride 20 meq PO BID 01/20/17 Sennosides [Senna] 17.2 mg PO BID 01/20/17 Albuterol Sulfate [Proventil Hfa Inhaler] 1 puffs INH Q4H PRN 02/21/17 Lactulose 60 gm PO QID 02/21/17 Morphine Sulfate [Morphine Sulfate ER] 30 mg PO TID 02/21/17 oxyCODONE [Roxicodone] 10 mg PO QID 02/21/17 Objective - Vital Signs/Intake & Output Reviewed Vital Signs: Yes Vital Signs: Vital Signs x48h Temp Pulse Resp BP Pulse Ox 03/14/17 09:25 36.6 C 98 14 125/93 H 97 Intake & Output: Intake & Output 03/11/17 03/12/17 03/13/17 03/14/17 23:59 23:59 23:59 23:59 Intake Total 70 1528.333 Output Total 875 Balance 70 653.333 - Objective General Appearance: positive: No acute distress, Alert Eyes Bilateral: positive: Normal inspection, Other (chronic scleral icterus) ENT: positive: ENT inspection nml, Pharynx nml, Dry mucous membranes Neck: positive: Nml inspection, Thyroid nml, No JVD, Trachea midline Respiratory: positive: Chest non-tender, No respiratory distress, Rhonchi Cardiovascular: positive: Regular rate & rhythm, Systolic murmur, Gallop/S3 Peripheral Pulses: 1+ Dorsalis pedis (R), 1+ Dorsalis pedis (L), 2+ Radial (R), 2+ Radial (L) Abdomen: positive: Tenderness, Guarding, Rebound, Hepatomegaly, Splenomegaly, Abnml bowel sounds Back: positive: Nml inspection Skin: positive: No rash, Warm, Dry, Other (mild jaundice) Extremities: positive: Pedal edema (+2-3 pitting BLE), Calf tenderness, Joint swelling Reflexes: Ankle (R): 1+, Ankle (L): 1+ - Lab Results Fish Bones: 03/15/17 05:19 03/15/17 05:19 Other Labs: Lab Results x24hrs 03/14/17 03/14/17 03/14/17 Range/Units 06:04 06:04 06:04 WBC (4.8-10.8) x10^3/uL RBC (4.70-6.10) 10^6/uL Hgb (14.0-18.0) g/dL Hct (42.0-52.0) % MCV (80.0-94.0) fL MCH (27.0-31.0) pg MCHC (32.0-36.0) g/dL RDW (12.0-15.0) % Plt Count (130-450) 10^3/uL MPV (7.4-11.4) fL Neut # (1.5-6.6) 10^3/uL Lymph # (1.5-3.5) 10^3/uL [place] # (0.0-1.0) 10^3/uL Eos # (0.0-0.7) 10^3/uL Baso # (0.0-0.1) 10^3/uL Absolute Nucleated RBC x10^3/uL Nucleated RBC % /100WBC PT 21.4 H (9.9-12.6) secs INR 1.9 H (0.8-1.2) Sodium 139 (135-145) mmol/L Potassium 2.7 L (3.5-5.0) mmol/L Chloride 104 (101-111) mmol/L Carbon Dioxide 28 (21-32) mmol/L Anion Gap 7.0 (6-13) BUN 9 (6-20) mg/dL Creatinine 0.8 (0.6-1.2) mg/dL Estimated GFR (MDRD) 100 (>89) Glucose 113 H (70-100) mg/dL Calcium 8.0 L (8.5-10.3) mg/dL Phosphorus 2.0 L (2.5-4.6) mg/dL Magnesium 1.7 (1.7-2.8) mg/dL Total Bilirubin 4.9 H (0.2-1.0) mg/dL AST 103 H (10-42) IU/L ALT 38 (10-60) IU/L Alkaline Phosphatase 130 H (42-121) IU/L Ammonia 95.6 H* (7-35) umol/L Total Protein 6.8 (6.7-8.2) g/dL Albumin 2.1 L (3.2-5.5) g/dL Globulin 4.7 H (2.1-4.2) g/dL Albumin/Globulin Ratio 0.4 L (1.0-2.2) 03/14/17 Range/Units 06:04 WBC 6.0 (4.8-10.8) x10^3/uL RBC 3.42 L (4.70-6.10) 10^6/uL Hgb 12.0 L (14.0-18.0) g/dL Hct 35.7 L (42.0-52.0) % MCV 104.3 H (80.0-94.0) fL MCH 35.1 H (27.0-31.0) pg MCHC 33.7 (32.0-36.0) g/dL RDW 17.5 H (12.0-15.0) % Plt Count 79 L (130-450) 10^3/uL MPV 8.7 (7.4-11.4) fL Neut # 3.8 (1.5-6.6) 10^3/uL Lymph # 1.3 L (1.5-3.5) 10^3/uL [place] # 0.6 (0.0-1.0) 10^3/uL Eos # 0.2 (0.0-0.7) 10^3/uL Baso # 0.0 (0.0-0.1) 10^3/uL Absolute Nucleated RBC 0.00 x10^3/uL Nucleated RBC % 0.1 /100WBC PT (9.9-12.6) secs INR (0.8-1.2) Sodium (135-145) mmol/L Potassium (3.5-5.0) mmol/L Chloride (101-111) mmol/L Carbon Dioxide (21-32) mmol/L Anion Gap (6-13) BUN (6-20) mg/dL Creatinine (0.6-1.2) mg/dL Estimated GFR (MDRD) (>89) Glucose (70-100) mg/dL Calcium (8.5-10.3) mg/dL Phosphorus (2.5-4.6) mg/dL Magnesium (1.7-2.8) mg/dL Total Bilirubin (0.2-1.0) mg/dL AST (10-42) IU/L ALT (10-60) IU/L Alkaline Phosphatase (42-121) IU/L Ammonia (7-35) umol/L Total Protein (6.7-8.2) g/dL Albumin (3.2-5.5) g/dL Globulin (2.1-4.2) g/dL Albumin/Globulin Ratio (1.0-2.2) - Diagnostic Imaging Diagnostic Imaging Results: positive: Final report reviewed Assessment/Plan - Problem List (1) Hepatic encephalopathy Impression: The patient presented with hepatic encephalopathy. This is his third hospitalization in just over a month for hepatic encephalopathy. Patient has a long history of noncompliance with medication. The patient admits to being noncompliant upon admission. Plan: PO and SC lactulose 4 times daily and he will be continued on rifaximin. We will titrate the patient's medications to 3-4 bowel movements a day. Monitor ammonia levels. (2) Hypokalemia Impression: Patient presents with a potassium of 2.8. Patient is on Lasix which could explain why he is hypokalemic on presentation. The patient has a history of hypokalemia. Plan: Treat patient's hypokalemia with IV and p.o. potassium replacement. Monitor electrolytes. (3) Cirrhosis Qualifiers: Hepatic cirrhosis type: unspecified hepatic cirrhosis (4) Anxiety Impression: The patient has history of anxiety and often once he does return to his normal baseline mental status the patient will become agitated and even violent at times. The patient is on nortriptyline and Xanax. Plan: Patient will be continued on his home medication and we will place him on Ativan as needed for agitation. (5) Hypertension Impression: Patient's blood pressure is stable on presentation. Patient is on Coreg, Lasix , Aldactone at home. We will continue the patient's home regimen for blood pressure control. Plan: We will monitor vital signs every 4 hours. Qualifiers: Hypertension type: essential hypertension Qualified Code(s): I10 - Essential (primary) hypertension (6) Anemia Impression: The patient has a history of iron deficiency and anemia and is on iron at home. H/H has been stable. Plan: We will continue to give patient his home dose of iron and monitor labs. Qualifiers: Anemia type: iron deficiency
[2017-03-14] MEDS: NS W/20 MEQ KCL 1,000 ML IV SCH ×3 (13:03→22:53)
[2017-03-14] MEDS: MIRTAZAPINE 15 MG TABLET PO SCH (22:32)
[2017-03-14] MEDS: NORTRIPTYLINE 25 MG CAPSULE PO SCH (22:33)
[2017-03-14] MEDS: PRAMIPEXOLE 0.25 MG TABLET PO SCH (22:36)
[2017-03-15 05:31] LABS: BASOPHILS % (AUTO) 0.8 %; EOSINOPHILS # (AUTO) 0.3 10^3/uL (0.0-0.7); HCT - HEMATOCRIT 32.1 % (42.0-52.0); LYMPHOCYTES # (AUTO) 1.6 10^3/uL (1.5-3.5); LYMPHOCYTES % (AUTO) 25.7 %; MEAN CORPUSCULAR HEMOGLOBIN 35.9 pg (27.0-31.0); MEAN CORPUSCULAR HGB CONC 34.2 g/dL (32.0-36.0); MEAN PLATELET VOLUME 9.5 fL (7.4-11.4); MONOCYTES # (AUTO) 0.6 10^3/uL (0.0-1.0); MONOCYTES % (AUTO) 10.4 %; NEUTROPHILS # (AUTO) 3.6 10^3/uL (1.5-6.6); NEUTROPHILS % (AUTO) 58.1 %; RED BLOOD COUNT 3.06 10^6/uL (4.70-6.10); RED CELL DISTRIBUTION WIDTH 17.5 % (12.0-15.0); UNCORRECTED WHITE BLOOD COUNT 6.2 x10^3/uL; WHITE BLOOD COUNT 6.2 x10^3/uL (4.8-10.8)
[2017-03-15] MEDS: MORPHINE ER 15 MG TABLET PO SCH ×3 (05:38→21:57)
[2017-03-15 05:42] LABS: ALBUMIN/GLOBULIN RATIO 0.5 (1.0-2.2); BILIRUBIN,TOTAL 3.5 mg/dL (0.2-1.0); CREATININE 0.8 mg/dL (0.6-1.2); MAGNESIUM 1.8 mg/dL (1.7-2.8); PHOSPHORUS 2.1 mg/dL (2.5-4.6); POTASSIUM 3.3 mmol/L (3.5-5.0)
[2017-03-15] MEDS: SODIUM CHLORIDE FLUSH 0.9% 10 ML SYRINGE IVP SCH ×3 (05:43→22:00)
[2017-03-15] MEDS: PANTOPRAZOLE 40 MG TABLET PO SCH (05:46)
[2017-03-15] MEDS: FERROUS SULFATE 325 MG TABLET PO SCH ×2 (10:53→16:15)
[2017-03-15] MEDS: ENOXAPARIN 40 MG/0.4 ML SYRINGE SUBQ SCH (10:53)
[2017-03-15] MEDS: FUROSEMIDE 40 MG TABLET PO SCH ×2 (10:54→21:56)
[2017-03-15] MEDS: ALPRAZolam 0.25 MG TABLET PO SCH ×3 (10:54→22:45)
[2017-03-15] MEDS: CARVEDILOL 12.5 MG TABLET PO SCH ×2 (10:54→21:53)
[2017-03-15] MEDS: POTASSIUM CHLORIDE 20 MEQ TABLET PO SCH (10:54)
[2017-03-15] MEDS: oxyCODONE 5 MG TABLET PO SCH ×4 (10:54→21:57)
[2017-03-15] MEDS: MUPIROCIN 2% CREAM 30 GM TUBE TOP SCH (10:55)
[2017-03-15] MEDS: POLYETHYLENE GLYCOL 3350 17 GM PACKET PO SCH (10:55)
[2017-03-15] MEDS: LACTULOSE 10 GM/15 ML BOTTLE PR SCH ×4 (10:55→21:56)
[2017-03-15] MEDS: rifAXIMin 550 MG TABLET PO SCH ×2 (11:24→21:57)
[2017-03-15] MEDS: cephALEXin 250 MG CAPSULE PO SCH ×2 (11:25→21:56)
--- NOTE | 2017-03-15 11:55 | Discharge Plan ---
Discharge Plan Disposition: Home, Self Care Condition: Good Prescriptions: Potassium Chloride [K-Dur] 20 meq PO DAILYWM #30 tablet Diet: Low Sodium Activity Restrictions: No Restrictions Shower Restrictions: No Driving Restrictions: Yes (chronic driving restrictions) Weight Bearing: Full Weight Additional Instructions or Follow Up instructions: You have had several problems this year with getting behind on your lactulose which leads to a horrible consequence of hepatic encephalopathy. When your ammonia levels become high this affects the way you think. When this happens too much within 6 months or less, it can cause permanent problems with your thinking! During your hospital stay, we did the usual with IV support, giving you the lactulose and monitoring labs. It is entirely possible to stay clear of the hospital by just taking your lactulose as directed. Please see your primary care provider early next week as a follow up to this hospital stay. Take all of your medications as they are prescribed, in addition to potassium that I have recommended. Please rest if you are tired. No Smoking: If you smoke, Please STOP! Call for help. Follow-up with: DAMION HART [Primary Care Provider] -
--- NOTE | 2017-03-15 12:03 | DISCHARGE SUMMARY ---
Discharge Summary Admit Date: 03/13/17 Discharge Date: 03/15/17 Discharging Provider: ROOSEVELT Morocho Primary Care Provider: Mikal Escudero Code Status: Attempt Resuscitation Condition at Discharge: Good Discharge Disposition: 01 Home, Self Care - DIAGNOSES Admission Diagnoses: Hepatic encephalopathy Hypokalemia Cirrhosis Anxiety Hypertension Anemia Discharge Diagnoses with Status of Each Condition: (1) Hepatic encephalopathy Impression: The patient presented with hepatic encephalopathy. This is his third hospitalization in just over a month for hepatic encephalopathy. Patient has a long history of noncompliance with medication. The patient admits to being noncompliant upon admission. Plan: PO and HI lactulose 4 times daily and he will be continued on rifaximin. We will titrate the patient's medications to 3-4 bowel movements a day. Monitor ammonia levels. (2) Hypokalemia Impression: Patient presents with a potassium of 2.8. Patient is on Lasix which could explain why he is hypokalemic on presentation. The patient has a history of hypokalemia. Plan: Treat patient's hypokalemia with IV and p.o. potassium replacement. Monitor electrolytes. (3) Cirrhosis Qualifiers: Hepatic cirrhosis type: unspecified hepatic cirrhosis (4) Anxiety Impression: The patient has history of anxiety and often once he does return to his normal baseline mental status the patient will become agitated and even violent at times. The patient is on nortriptyline and Xanax. Plan: Patient will be continued on his home medication and we will place him on Ativan as needed for agitation. (5) Hypertension Impression: Patient's blood pressure is stable on presentation. Patient is on Coreg, Lasix , Aldactone at home. We will continue the patient's home regimen for blood pressure control. Plan: We will monitor vital signs every 4 hours. Qualifiers: Hypertension type: essential hypertension Qualified Code(s): I10 - Essential (primary) hypertension (6) Anemia Impression: The patient has a history of iron deficiency and anemia and is on iron at home. H/H has been stable. Plan: We will continue to give patient his home dose of iron and monitor labs. Qualifiers: Anemia type: iron deficiency - HPI History of Present Illness: HPI per Dr. Barlow: Patient is a 56-year-old gentleman with a past medical history significant for liver cirrhosis secondary to alcohol abuse, coronary artery disease, hypertension, hyperlipidemia and COPD who has been admitted to the hospital 2 times in the last 6 weeks for hepatic encephalopathy and presents again to the hospital today with altered mental status. The patient has a long history of noncompliance with lactulose. Many efforts have been made in the past 2 attempts to get the patient home health and even to place him in a half-way facility however despite all of our efforts the patient continues to go back home with his and due to noncompliance returns very frequently to the hospital for hepatic encephalopathy. The patient is not accompanied by his today but like most of his recent hospitalizations the patient presents with altered mental status. The patient has a decreased level of consciousness on presentation he does state to the nurse that he has not been taking his lactulose and when asked why he states it tastes terrible. The patient has no apparent fevers, cough, abdominal pain or tenderness to suggest any other etiology for his encephalopathy other than hepatic encephalopathy from noncompliance with medication. The patient has also not been having any recent bloody or black stools. He has not been having any hematemesis. The patient continues to doze off when asked questions and cannot appropriately provide an adequate history or inadequate review of systems. On presentation to the emergency department the patient is afebrile is mildly tachycardic with a heart rate of 104 his blood pressure is stable and his respiratory rate is normal. The patient was saturating well on room air and did not appear to be in any significant distress but was very lethargic and did not answer questions appropriately when aroused. The patient's lab work did not reveal any leukocytosis, it did reveal a chronic anemia, chronic thrombocytopenia, chronic hyperbilirubinemia and an elevated ammonia level of 87. The patient also was found to have a low potassium of 2.8. Given the patient's presentation and previous presentations with the same the patient did not undergo extensive infectious workup and was admitted to the hospital for treatment of hepatic encephalopathy with lactulose and rifaximin. If the patient does show any signs of infection such as fever, elevated WBC, cough, abdominal pain or any other symptoms we will do a more extensive workup for infection at that time. - ALLERGIES Allergies/Adverse Reactions: Allergies Allergy/AdvReac Type Severity Reaction Status Date / Time No Known Drug Allergies Allergy Verified 03/13/17 18:59 - MEDICATIONS Home Medications: Ambulatory Orders Medication Instructions Recorded Confirmed ALPRAZolam [Xanax] 2 mg PO BID 06/24/16 03/14/17 Carvedilol 12.5 mg PO BID 06/24/16 03/14/17 Docusate Sodium 250Mg Capsule 250 mg PO BID 06/24/16 03/14/17 [Colace 250Mg Capsule] Furosemide 40 mg PO DAILY 06/24/16 03/14/17 Nortriptyline [Pamelor] 150 mg PO QPM 06/24/16 03/14/17 Omeprazole 20 mg PO QDAC 06/24/16 03/14/17 Pramipexole Di-HCl [Mirapex] 0.25 mg PO QPM 06/24/16 03/14/17 Temazepam 30 mg PO QPM PRN 06/24/16 03/14/17 Ferrous Sulfate [Feosol] 325 mg PO BIDWM #60 tablet 06/28/16 03/14/17 rifAXIMin [Xifaxan] 550 mg PO BID 12/04/16 03/14/17 Mirtazapine 15 mg PO QPM 01/19/17 03/14/17 Nitroglycerin 0.4 mg SL Q5M PRN 01/20/17 03/14/17 Potassium Chloride 20 meq PO BID 01/20/17 03/14/17 Sennosides [Senna] 17.2 mg PO BID 01/20/17 03/14/17 Albuterol Sulfate [Proventil Hfa 1 puffs INH Q4H PRN 02/21/17 03/14/17 Inhaler] Lactulose 60 gm PO QID 02/21/17 03/14/17 Morphine Sulfate [Morphine Sulfate 30 mg PO TID 02/21/17 03/14/17 ER] oxyCODONE [Roxicodone] 10 mg PO QID 02/21/17 03/14/17 Mupirocin Calcium [Bactroban] 15 gm TP DAILY #2 cream..g. 02/24/17 03/14/17 - PHYSICAL EXAM AT DISCHARGE General Appearance: positive: No acute distress, Lethargic Eyes Bilateral: positive: Normal inspection (chronic scleral icterus), Other ENT: positive: ENT inspection nml, Pharynx nml, Dry mucous membranes Neck: positive: Nml inspection, Thyroid nml, Trachea midline Respiratory: positive: Chest non-tender, No respiratory distress, Rhonchi Cardiovascular: positive: Irregularly irregular, Systolic murmur, Gallop/S3 Peripheral Pulses: positive: 1+ Abdomen: positive: Guarding, Rebound, Hepatomegaly, Abnml bowel sounds Back: positive: Nml inspection Skin: positive: No rash, Warm, Dry, Other (mild jaundice) Extremities: positive: Pedal edema (chronic BLE +2-3 pitting) Neurologic/Psychiatric: positive: Disoriented to time, Weakness, Sensory loss, Depressed mood/affect Reflexes: Bicep (R): 2+, Bicep (L): 2+ - LABS Result Diagrams: 03/15/17 05:19 03/15/17 05:19 - DIAGNOSTIC IMAGING Diagnostic Imaging Results: Final report reviewed - TIME SPENT Time Spent in Discharge (Minutes): 30
[2017-03-15] MEDS ORDERED: NALOXONE 0.4 MG/ML VIAL IVP SCH (14:16)
--- NOTE | 2017-03-15 15:34 | PROVIDER PROGRESS NOTE ---
Subjective - Prog Note Date Prog Note Date: 03/15/17 Prog Note Time: 15:33 - Subjective Pt reports feeling: Worse Subjective: Papa was enjoying his breakfast this AM and was agreeable to returning home. He states that he slept well. He denies SOB, chest pain, N/V or a new cough. Objective - Vital Signs/Intake & Output Reviewed Vital Signs: Yes Vital Signs: Vital Signs x48h Temp Pulse Resp BP BP Pulse Ox 03/15/17 14:03 78 14 104/62 91 L 03/15/17 07:42 36.5 C 72 16 95/53 L 92 Intake & Output: Intake & Output 03/12/17 03/13/17 03/14/17 03/15/17 23:59 23:59 23:59 23:59 Intake Total 70 3660.000 1950 Output Total 1876 Balance 70 2592.382 7370 - Objective General Appearance: positive: Moderate distress, Lethargic Eyes Bilateral: positive: Normal inspection ENT: positive: ENT inspection nml, Pharynx nml, Dry mucous membranes Neck: positive: Nml inspection, Thyroid nml, Thyromegaly Respiratory: positive: Chest non-tender, No respiratory distress, Rhonchi Cardiovascular: positive: Irregularly irregular, JVD present, Systolic murmur, Gallop/S4 Peripheral Pulses: 1+ Radial (R), 1+ Radial (L) Abdomen: positive: Guarding, Hepatomegaly, Splenomegaly, Other (tympanic) Back: positive: Nml inspection Skin: positive: No rash, Warm, Dry, Other (mild jaundice-chronic) Extremities: positive: Pedal edema, Calf tenderness, Joint swelling Neurologic/Psychiatric: positive: Disoriented to place, Disoriented to time, Weakness, Sensory loss, Depressed mood/affect Reflexes: Bicep (R): 1+, Bicep (L): 1+ - Lab Results Fish Bones: 03/17/17 04:56 03/17/17 04:56 Other Labs: Lab Results x24hrs 03/15/17 03/15/17 03/15/17 Range/Units 05:19 05:19 05:19 WBC (4.8-10.8) x10^3/uL RBC (4.70-6.10) 10^6/uL Hgb (14.0-18.0) g/dL Hct (42.0-52.0) % MCV (80.0-94.0) fL MCH (27.0-31.0) pg MCHC (32.0-36.0) g/dL RDW (12.0-15.0) % Plt Count (130-450) 10^3/uL MPV (7.4-11.4) fL Neut # (1.5-6.6) 10^3/uL Lymph # (1.5-3.5) 10^3/uL [place] # (0.0-1.0) 10^3/uL Eos # (0.0-0.7) 10^3/uL Baso # (0.0-0.1) 10^3/uL Absolute Nucleated RBC x10^3/uL Nucleated RBC % /100WBC PT 22.0 H (9.9-12.6) secs INR 2.0 H (0.8-1.2) Sodium 139 (135-145) mmol/L Potassium 3.3 L (3.5-5.0) mmol/L Chloride 106 (101-111) mmol/L Carbon Dioxide 26 (21-32) mmol/L Anion Gap 7.0 (6-13) BUN 8 (6-20) mg/dL Creatinine 0.8 (0.6-1.2) mg/dL Estimated GFR (MDRD) 100 (>89) Glucose 96 (70-100) mg/dL Calcium 8.0 L (8.5-10.3) mg/dL Phosphorus 2.1 L (2.5-4.6) mg/dL Magnesium 1.8 (1.7-2.8) mg/dL Total Bilirubin 3.5 H (0.2-1.0) mg/dL AST 91 H (10-42) IU/L ALT 33 (10-60) IU/L Alkaline Phosphatase 115 (42-121) IU/L Ammonia 61.6 H (7-35) umol/L Total Protein 6.0 L (6.7-8.2) g/dL Albumin 1.9 L (3.2-5.5) g/dL Globulin 4.1 (2.1-4.2) g/dL Albumin/Globulin Ratio 0.5 L (1.0-2.2) 11/25/17 Range/Units 05:19 WBC 6.2 (4.8-10.8) x10^3/uL RBC 3.06 L (4.70-6.10) 10^6/uL Hgb 11.0 L (14.0-18.0) g/dL Hct 32.1 L (42.0-52.0) % MCV 105.0 H (80.0-94.0) fL MCH 35.9 H (27.0-31.0) pg MCHC 34.2 (32.0-36.0) g/dL RDW 17.5 H (12.0-15.0) % Plt Count 77 L (130-450) 10^3/uL MPV 9.5 (7.4-11.4) fL Neut # 3.6 (1.5-6.6) 10^3/uL Lymph # 1.6 (1.5-3.5) 10^3/uL [place] # 0.6 (0.0-1.0) 10^3/uL Eos # 0.3 (0.0-0.7) 10^3/uL Baso # 0.0 (0.0-0.1) 10^3/uL Absolute Nucleated RBC 0.00 x10^3/uL Nucleated RBC % 0.0 /100WBC PT (9.9-12.6) secs INR (0.8-1.2) Sodium (135-145) mmol/L Potassium (3.5-5.0) mmol/L Chloride (101-111) mmol/L Carbon Dioxide (21-32) mmol/L Anion Gap (6-13) BUN (6-20) mg/dL Creatinine (0.6-1.2) mg/dL Estimated GFR (MDRD) (>89) Glucose (70-100) mg/dL Calcium (8.5-10.3) mg/dL Phosphorus (2.5-4.6) mg/dL Magnesium (1.7-2.8) mg/dL Total Bilirubin (0.2-1.0) mg/dL AST (10-42) IU/L ALT (10-60) IU/L Alkaline Phosphatase (42-121) IU/L Ammonia (7-35) umol/L Total Protein (6.7-8.2) g/dL Albumin (3.2-5.5) g/dL Globulin (2.1-4.2) g/dL Albumin/Globulin Ratio (1.0-2.2) - Diagnostic Imaging Diagnostic Imaging Results: positive: Prelim report reviewed Assessment/Plan - Problem List (1) Hepatic encephalopathy Impression: The patient presented with hepatic encephalopathy. This is his third hospitalization in just over a month for hepatic encephalopathy. Patient has a long history of noncompliance with medication. The patient admits to being noncompliant upon admission. Patient became more lethargic and was given narcan x1 due to decreased mental status and difficult to arouse. Plan: PO lactulose 4 times daily and he will be continued on rifaximin. Monitor ammonia levels and mental status. Discharge cancelled. (2) Hypokalemia Impression: Patient presented with a potassium of 2.8. The patient has a history of hypokalemia, and is likely chronically due to diuretic use. Plan: Treat patient's hypokalemia with IV and p.o. potassium replacement. Monitor electrolytes. (3) Cirrhosis Impression: The patient has chronic jaundice. LFTs are unstable, but improved since admission. Patient should follow his home medication instructions, but does not. Plan: We will continue to administer lactulose while in the hospital. Qualifiers: Hepatic cirrhosis type: unspecified hepatic cirrhosis (4) Anxiety Impression: The patient has history of anxiety and often once he does return to his normal baseline mental status the patient will become agitated and even violent at times. The patient is on nortriptyline and Xanax. Plan: Patient will be continued on his home medication he can have Ativan as needed for agitation. (5) Hypertension Impression: Patient's blood pressure is stable on presentation. Patient is on Coreg, Lasix , Aldactone at home. We will continue the patient's home regimen for blood pressure control. Plan: We will monitor vital signs every 4 hours. Qualifiers: Hypertension type: essential hypertension Qualified Code(s): I10 - Essential (primary) hypertension (6) Anemia Impression: The patient has a history of iron deficiency and anemia and is on iron at home. H/H has been stable. Plan: We will continue to give patient his home dose of iron and monitor labs. Qualifiers: Anemia type: iron deficiency (7) Non compliance with medical treatment Impression: Patient has a known history of frequent hospital stays. Plan: We will continue patient teaching.
[2017-03-15] MEDS ORDERED: NS W/20 MEQ KCL 1,000 ML IV SCH (16:00)
[2017-03-15] MEDS: LORazepam 2 MG/ML SYRINGE IVP PRN ×2 (16:49→22:30)
[2017-03-15 17:08] LABS: BASOPHILS % (AUTO) 0.7 %; EOSINOPHILS # (AUTO) 0.3 10^3/uL (0.0-0.7); EOSINOPHILS % (AUTO) 6.2 %; HCT - HEMATOCRIT 34.4 % (42.0-52.0); HGB - HEMOGLOBIN 11.5 g/dL (14.0-18.0); LYMPHOCYTES # (AUTO) 1.2 10^3/uL (1.5-3.5); LYMPHOCYTES % (AUTO) 21.6 %; MEAN CORPUSCULAR HEMOGLOBIN 34.8 pg (27.0-31.0); MEAN CORPUSCULAR HGB CONC 33.4 g/dL (32.0-36.0); MEAN CORPUSCULAR VOLUME 104.3 fL (80.0-94.0); MEAN PLATELET VOLUME 9.2 fL (7.4-11.4); MONOCYTES # (AUTO) 0.5 10^3/uL (0.0-1.0); MONOCYTES % (AUTO) 9.2 %; NEUTROPHILS # (AUTO) 3.4 10^3/uL (1.5-6.6); NEUTROPHILS % (AUTO) 62.3 %; NUCLEATED RED BLOOD CELLS AUTO 0.2 /100WBC; RED CELL DISTRIBUTION WIDTH 17.5 % (12.0-15.0); UNCORRECTED WHITE BLOOD COUNT 5.4 x10^3/uL; WHITE BLOOD COUNT 5.4 x10^3/uL (4.8-10.8)
[2017-03-15 17:25] LABS: CALCIUM 8.2 mg/dL (8.5-10.3); CREATININE 0.9 mg/dL (0.6-1.2); POTASSIUM 3.6 mmol/L (3.5-5.0)
[2017-03-15] MEDS: PRAMIPEXOLE 0.25 MG TABLET PO SCH (21:57)
[2017-03-15] MEDS: MIRTAZAPINE 15 MG TABLET PO SCH (21:57)
[2017-03-15] MEDS: NORTRIPTYLINE 25 MG CAPSULE PO SCH (21:58)
[2017-03-16] MEDS: TEMAZEPAM 15 MG CAPSULE PO PRN (00:29)
[2017-03-16] MEDS ORDERED: LORazepam 2 MG/ML SYRINGE IVP PRN (02:11)
[2017-03-16] MEDS: SODIUM CHLORIDE FLUSH 0.9% 10 ML SYRINGE IVP PRN ×2 (02:30→20:43)
[2017-03-16 05:38] LABS: BASOPHILS % (AUTO) 0.7 %; EOSINOPHILS # (AUTO) 0.3 10^3/uL (0.0-0.7); EOSINOPHILS % (AUTO) 5.4 %; HGB - HEMOGLOBIN 10.8 g/dL (14.0-18.0); LYMPHOCYTES # (AUTO) 1.9 10^3/uL (1.5-3.5); MEAN CORPUSCULAR HEMOGLOBIN 35.5 pg (27.0-31.0); MEAN CORPUSCULAR HGB CONC 33.9 g/dL (32.0-36.0); MEAN CORPUSCULAR VOLUME 104.8 fL (80.0-94.0); MEAN PLATELET VOLUME 9.3 fL (7.4-11.4); MONOCYTES # (AUTO) 0.6 10^3/uL (0.0-1.0); MONOCYTES % (AUTO) 11.1 %; NEUTROPHILS # (AUTO) 2.7 10^3/uL (1.5-6.6); NEUTROPHILS % (AUTO) 48.8 %; NUCLEATED RED BLOOD CELLS AUTO 0.2 /100WBC; RED BLOOD COUNT 3.05 10^6/uL (4.70-6.10); RED CELL DISTRIBUTION WIDTH 17.5 % (12.0-15.0); UNCORRECTED WHITE BLOOD COUNT 5.6 x10^3/uL; WHITE BLOOD COUNT 5.6 x10^3/uL (4.8-10.8)
[2017-03-16 05:39] LABS: PT - PROTHROMBIN TIME 21.5 secs (9.9-12.6)
[2017-03-16 05:42] LABS: ALBUMIN/GLOBULIN RATIO 0.5 (1.0-2.2); BILIRUBIN,TOTAL 2.7 mg/dL (0.2-1.0); CALCIUM 7.8 mg/dL (8.5-10.3); CREATININE 0.7 mg/dL (0.6-1.2); MAGNESIUM 1.6 mg/dL (1.7-2.8); PHOSPHORUS 2.1 mg/dL (2.5-4.6); POTASSIUM 3.1 mmol/L (3.5-5.0); TOTAL PROTEIN 5.9 g/dL (6.7-8.2)
[2017-03-16] MEDS: MORPHINE ER 15 MG TABLET PO SCH ×3 (07:28→23:00)
[2017-03-16] MEDS: PANTOPRAZOLE 40 MG TABLET PO SCH (07:28)
[2017-03-16] MEDS: SODIUM CHLORIDE FLUSH 0.9% 10 ML SYRINGE IVP SCH ×3 (07:29→17:19)
[2017-03-16] MEDS: oxyCODONE 5 MG TABLET PO SCH ×4 (08:43→21:45)
[2017-03-16] MEDS: FUROSEMIDE 40 MG TABLET PO SCH ×2 (08:43→21:45)
[2017-03-16] MEDS: FERROUS SULFATE 325 MG TABLET PO SCH ×2 (08:43→17:17)
[2017-03-16] MEDS: POTASSIUM CHLORIDE 20 MEQ TABLET PO SCH (08:43)
[2017-03-16] MEDS: cephALEXin 250 MG CAPSULE PO SCH ×2 (08:44→21:43)
[2017-03-16] MEDS: CARVEDILOL 12.5 MG TABLET PO SCH ×2 (08:44→21:45)
[2017-03-16] MEDS: MUPIROCIN 2% CREAM 30 GM TUBE TOP SCH (08:45)
[2017-03-16] MEDS: rifAXIMin 550 MG TABLET PO SCH ×2 (08:45→21:43)
[2017-03-16] MEDS: POLYETHYLENE GLYCOL 3350 17 GM PACKET PO SCH (08:45)
[2017-03-16] MEDS: ENOXAPARIN 40 MG/0.4 ML SYRINGE SUBQ SCH (08:46)
[2017-03-16] MEDS: LACTULOSE 10 GM/15 ML BOTTLE PR SCH ×2 (08:46→14:08)
[2017-03-16] MEDS: ALPRAZolam 0.25 MG TABLET PO SCH ×2 (09:09→21:41)
[2017-03-16] MEDS ORDERED: LORazepam 2 MG/ML VIAL IVP PRN (09:49)
[2017-03-16] MEDS: LACTULOSE 10 GM/15 ML BOTTLE PO SCH ×2 (17:17→21:45)
[2017-03-16] MEDS: NS W/20 MEQ KCL 1,000 ML IV SCH (17:18)
--- NOTE | 2017-03-16 19:55 | PROVIDER PROGRESS NOTE ---
Subjective - Prog Note Date Prog Note Date: 03/16/17 Prog Note Time: 10:00 - Subjective Pt reports feeling: No change Subjective: Elvira has a sitter at his bed side and cannot answer questions appropriately. He appears comfortable, but states he wants to go home. He denies SOB, chest pain, N/V or a new cough. Current Medications - Current Medications Current Medications: Active Medications Alprazolam (Xanax) 2 mg PO BID [facility] Last Admin: 03/16/17 21:41 Dose: 2 mg Carvedilol (Coreg) 12.5 mg PO BID [facility] Last Admin: 03/16/17 21:45 Dose: Not Given Cephalexin (Keflex) 500 mg PO Q12H [facility] Last Admin: 03/16/17 21:43 Dose: 500 mg Enoxaparin Sodium (Lovenox) 40 mg SUBQ DAILY [facility] Last Admin: 03/16/17 08:46 Dose: Not Given Ferrous Sulfate (Feosol) 325 mg PO BIDWM [facility] Last Admin: 03/16/17 17:17 Dose: 325 mg Furosemide (Lasix) 40 mg PO BID [facility] Last Admin: 03/16/17 21:45 Dose: Not Given Potassium Chloride/Sodium Chloride (Normal Saline 0.9% W/20 Meq Kcl) 1,000 mls @ 125 mls/hr IV .Q8H [facility] Last Admin: 03/17/17 01:27 Dose: 125 mls/hr Lactulose (Lactulose) 60 gm PO QID [facility] Last Admin: 03/16/17 21:45 Dose: 60 gm Lorazepam (Ativan Inj (Vial)) 0.5 mg IVP Q2H PRN PRN Reason: Anxiety Last Admin: 03/17/17 04:41 Dose: 0.5 mg Magnesium Oxide (Mag Ox) 400 mg PO BID ONE Stop: 03/17/17 08:01 Mirtazapine (Remeron) 15 mg PO QPM [facility] Last Admin: 03/16/17 21:44 Dose: 15 mg Morphine Sulfate () 15 mg PO TID [facility] Last Admin: 03/16/17 23:00 Dose: Not Given Mupirocin (Bactroban 2% Cream) 1 applic TOP DAILY [facility] Last Admin: 03/16/17 08:45 Dose: 1 applic Nitroglycerin (Nitrostat) 0.4 mg SL Q5M PRN PRN Reason: Chest Pain Nortriptyline HCl (Pamelor) 150 mg PO QPM [facility] Last Admin: 03/16/17 21:58 Dose: Not Given Ondansetron HCl (Zofran Inj) 4 mg IVP Q6HR PRN PRN Reason: Nausea / Vomiting Last Admin: 03/15/17 07:05 Dose: 4 mg Oxycodone HCl (Roxicodone) 10 mg PO QID [facility] Last Admin: 03/16/17 21:45 Dose: Not Given Oxycodone HCl (Roxicodone) 5 mg PO Q4HR PRN PRN Reason: Pain 5 to 7 Last Admin: 03/17/17 01:32 Dose: 5 mg Pantoprazole Sodium (Protonix) 40 mg PO QDAC [facility] Last Admin: 03/16/17 07:28 Dose: 40 mg Polyethylene Glycol (Miralax) 17 gm PO DAILY [facility] Last Admin: 03/16/17 08:45 Dose: Not Given Potassium Chloride (K-Dur) 60 meq PO DAILYWM [facility] Last Admin: 03/16/17 08:43 Dose: 60 meq Potassium Chloride (K-Dur) 20 meq PO DAILYWM [facility] Pramipexole Dihydrochloride (Mirapex) 0.25 mg PO QPM [facility] Last Admin: 03/16/17 21:49 Dose: 0.25 mg Prochlorperazine Edisylate (Compazine Inj) 10 mg IVP Q6HR PRN PRN Reason: Nausea / Vomiting Promethazine HCl (Phenergan Inj) 25 mg IM Q6HR PRN PRN Reason: Nausea / Vomiting Rifaximin (Xifaxan) 550 mg PO BID [facility] Last Admin: 03/16/17 21:43 Dose: 550 mg Sodium Chloride (Normal Saline Flush 0.9%) 10 ml IVP PRN PRN PRN Reason: NEEDED PER PROVIDER ORDERS Last Admin: 03/16/17 20:43 Dose: 10 ml Sodium Chloride (Normal Saline Flush 0.9%) 10 ml IVP Q8HR [facility] Last Admin: 03/16/17 17:19 Dose: 10 ml Temazepam (Restoril) 30 mg PO QPM PRN PRN Reason: SLEEP Last Admin: 03/16/17 00:29 Dose: 30 mg ALPRAZolam [Xanax] 2 mg PO BID 06/24/16 Carvedilol 12.5 mg PO BID 06/24/16 Docusate Sodium 250Mg Capsule [Colace 250Mg Capsule] 250 mg PO BID 06/24/16 Furosemide 40 mg PO DAILY 06/24/16 Nortriptyline [Pamelor] 150 mg PO QPM 06/24/16 Omeprazole 20 mg PO QDAC 06/24/16 Pramipexole Di-HCl [Mirapex] 0.25 mg PO QPM 06/24/16 Temazepam 30 mg PO QPM PRN 06/24/16 rifAXIMin [Xifaxan] 550 mg PO BID 12/04/16 Mirtazapine 15 mg PO QPM 01/19/17 Nitroglycerin 0.4 mg SL Q5M PRN 01/20/17 Potassium Chloride 20 meq PO BID 01/20/17 Sennosides [Senna] 17.2 mg PO BID 01/20/17 Albuterol Sulfate [Proventil Hfa Inhaler] 1 puffs INH Q4H PRN 02/21/17 Lactulose 60 gm PO QID 02/21/17 Morphine Sulfate [Morphine Sulfate ER] 30 mg PO TID 02/21/17 oxyCODONE [Roxicodone] 10 mg PO QID 02/21/17 Objective - Vital Signs/Intake & Output Vital Signs: Vital Signs x48h Temp Pulse Resp BP Pulse Ox 03/16/17 15:46 36.5 C 78 16 95/49 L 96 Intake & Output: Intake & Output 03/13/17 03/14/17 03/15/17 03/16/17 23:59 23:59 23:59 23:59 Intake Total 70 3660.000 2410 2491.663 Output Total 1876 665 200 Balance 70 0756.293 8699 2291.663 - Objective General Appearance: positive: Moderate distress, Anxious Eyes Bilateral: positive: Normal inspection ENT: positive: ENT inspection nml, Pharynx nml, Dry mucous membranes Neck: positive: Nml inspection, Thyroid nml Respiratory: positive: Chest non-tender, No respiratory distress, Rhonchi Cardiovascular: positive: Regular rate & rhythm, JVD present, Systolic murmur, Gallop/S4 Peripheral Pulses: 1+ Radial (R), 1+ Radial (L) Abdomen: positive: Guarding, Rebound, Hepatomegaly, Other (tympanic) Back: positive: Nml inspection Skin: positive: No rash, Warm, Dry, Other (chronic jaundice.) Extremities: positive: Pedal edema, Calf tenderness, Joint swelling Neurologic/Psychiatric: positive: Disoriented to place, Disoriented to time, Weakness, Sensory loss Reflexes: Bicep (R): 2+, Bicep (L): 2+ - Lab Results Fish Bones: 03/17/17 04:56 03/17/17 04:56 Other Labs: Lab Results x24hrs 03/16/17 03/16/17 03/16/17 Range/Units 05:10 05:10 05:10 WBC (4.8-10.8) x10^3/uL RBC (4.70-6.10) 10^6/uL Hgb (14.0-18.0) g/dL Hct (42.0-52.0) % MCV (80.0-94.0) fL MCH (27.0-31.0) pg MCHC (32.0-36.0) g/dL RDW (12.0-15.0) % Plt Count (130-450) 10^3/uL MPV (7.4-11.4) fL Neut # (1.5-6.6) 10^3/uL Lymph # (1.5-3.5) 10^3/uL [place] # (0.0-1.0) 10^3/uL Eos # (0.0-0.7) 10^3/uL Baso # (0.0-0.1) 10^3/uL Absolute Nucleated RBC x10^3/uL Nucleated RBC % /100WBC PT 21.5 H (9.9-12.6) secs INR 2.0 H (0.8-1.2) Sodium 137 (135-145) mmol/L Potassium 3.1 L (3.5-5.0) mmol/L Chloride 103 (101-111) mmol/L Carbon Dioxide 27 (21-32) mmol/L Anion Gap 7.0 (6-13) BUN 6 (6-20) mg/dL Creatinine 0.7 (0.6-1.2) mg/dL Estimated GFR (MDRD) 116 (>89) Glucose 101 H (70-100) mg/dL Calcium 7.8 L (8.5-10.3) mg/dL Phosphorus 2.1 L (2.5-4.6) mg/dL Magnesium 1.6 L (1.7-2.8) mg/dL Total Bilirubin 2.7 H (0.2-1.0) mg/dL AST 93 H (10-42) IU/L ALT 35 (10-60) IU/L Alkaline Phosphatase 112 (42-121) IU/L Ammonia 65.0 H (7-35) umol/L Total Protein 5.9 L (6.7-8.2) g/dL Albumin 1.9 L (3.2-5.5) g/dL Globulin 4.0 (2.1-4.2) g/dL Albumin/Globulin Ratio 0.5 L (1.0-2.2) 03/16/ Range/Units 05:10 WBC 5.6 (4.8-10.8) x10^3/uL RBC 3.05 L (4.70-6.10) 10^6/uL Hgb 10.8 L (14.0-18.0) g/dL Hct 32.0 L (42.0-52.0) % MCV 104.8 H (80.0-94.0) fL MCH 35.5 H (27.0-31.0) pg MCHC 33.9 (32.0-36.0) g/dL RDW 17.5 H (12.0-15.0) % Plt Count 71 L (130-450) 10^3/uL MPV 9.3 (7.4-11.4) fL Neut # 2.7 (1.5-6.6) 10^3/uL Lymph # 1.9 (1.5-3.5) 10^3/uL [place] # 0.6 (0.0-1.0) 10^3/uL Eos # 0.3 (0.0-0.7) 10^3/uL Baso # 0.0 (0.0-0.1) 10^3/uL Absolute Nucleated RBC 0.01 x10^3/uL Nucleated RBC % 0.2 /100WBC PT (9.9-12.6) secs INR (0.8-1.2) Sodium (135-145) mmol/L Potassium (3.5-5.0) mmol/L Chloride (101-111) mmol/L Carbon Dioxide (21-32) mmol/L Anion Gap (6-13) BUN (6-20) mg/dL Creatinine (0.6-1.2) mg/dL Estimated GFR (MDRD) (>89) Glucose (70-100) mg/dL Calcium (8.5-10.3) mg/dL Phosphorus (2.5-4.6) mg/dL Magnesium (1.7-2.8) mg/dL Total Bilirubin (0.2-1.0) mg/dL AST (10-42) IU/L ALT (10-60) IU/L Alkaline Phosphatase (42-121) IU/L Ammonia (7-35) umol/L Total Protein (6.7-8.2) g/dL Albumin (3.2-5.5) g/dL Globulin (2.1-4.2) g/dL Albumin/Globulin Ratio (1.0-2.2) - Diagnostic Imaging Diagnostic Imaging Results: positive: Final report reviewed Assessment/Plan - Problem List (1) Hepatic encephalopathy Impression: The patient presented with hepatic encephalopathy. This is his third hospitalization in just over a month for hepatic encephalopathy. Patient has a long history of noncompliance with medication. The patient admits to being noncompliant upon admission. Patient became more lethargic and was given narcan x1 due to decreased mental status and difficult to arouse. Plan: PO lactulose 4 times daily and he will be continued on rifaximin. Monitor ammonia levels and mental status. Discharge on hold and case management will assist with possible placement since home health services are intolerable socially. (2) Hypokalemia Impression: Patient presented with a potassium of 2.8. The patient has a history of hypokalemia, and is likely chronically due to diuretic use. Plan: Treat patient's hypokalemia with IV and p.o. potassium replacement. Monitor electrolytes. (3) Cirrhosis Impression: The patient has chronic jaundice. LFTs are unstable, but improved since admission. Patient should follow his home medication instructions, but does not. Ammonia level today was 65, which is the patient's high normal range. In this respect he may be appropriate for discharge, but lethargy and agitation have been a barrier. Plan: We will continue to administer lactulose, and diuretics while in the hospital. Qualifiers: Hepatic cirrhosis type: unspecified hepatic cirrhosis (4) Anxiety Impression: The patient has history of anxiety and often once he does return to his normal baseline mental status the patient will become agitated and even violent at times. The patient is on nortriptyline and Xanax. The patient has had a sitter for the last several shifts due to elopement threats. Plan: Patient will be continued on his home medication he can have Ativan as needed for agitation. (5) Hypertension Impression: Patient's blood pressure has been mildly low for his normal and the last reading was 94/62. Patient is on Coreg, Lasix, Aldactone at home. We will continue the patient's home regimen for blood pressure control. Plan: We will monitor vital signs every 4 hours and give scheduled medications. Gentle IV hydration as needed. Qualifiers: Hypertension type: essential hypertension Qualified Code(s): I10 - Essential (primary) hypertension (6) Anemia Impression: The patient has a history of iron deficiency and anemia and is on iron at home. H/H was 10.8 and 32.0 today. Plan: We will continue to give patient his home dose of iron and monitor labs. Qualifiers: Anemia type: iron deficiency (7) Non compliance with medical treatment Impression: Patient has a known history of frequent hospital stays. Plan: We will continue patient teaching and contact as needed for support.
[2017-03-16] MEDS ORDERED: NORTRIPTYLINE 25 MG CAPSULE PO ONE (21:28)
[2017-03-16] MEDS ORDERED: NORTRIPTYLINE 10 MG CAPSULE PO ONE (21:28)
[2017-03-16] MEDS: MIRTAZAPINE 15 MG TABLET PO SCH (21:44)
[2017-03-16] MEDS: PRAMIPEXOLE 0.25 MG TABLET PO SCH (21:49)
[2017-03-16] MEDS: NORTRIPTYLINE 25 MG CAPSULE PO SCH (21:58)
[2017-03-16] MEDS ORDERED: LORazepam 2 MG/ML SYRINGE IVP STA (23:31)
[2017-03-16] MEDS ORDERED: HALOPERIDOL 5 MG/ML VIAL IVP ONE (23:31)
[2017-03-16] MEDS: LORazepam 2 MG/ML VIAL IVP PRN (23:36)
[2017-03-16] MEDS ORDERED: LORazepam 2 MG/ML VIAL ONE (23:39)
[2017-03-17] MEDS ORDERED: LORazepam 2 MG/ML VIAL IVP SCH (00:20)
[2017-03-17] MEDS ORDERED: HALOPERIDOL 5 MG/ML VIAL IVP SCH (00:21)
[2017-03-17] MEDS: NS W/20 MEQ KCL 1,000 ML IV SCH ×2 (01:27→09:21)
[2017-03-17] MEDS: LORazepam 2 MG/ML VIAL IVP PRN ×3 (02:30→06:48)
[2017-03-17 05:07] LABS: BASOPHILS % (AUTO) 0.9 %; EOSINOPHILS # (AUTO) 0.2 10^3/uL (0.0-0.7); EOSINOPHILS % (AUTO) 4.6 %; HCT - HEMATOCRIT 34.6 % (42.0-52.0); HGB - HEMOGLOBIN 11.7 g/dL (14.0-18.0); LYMPHOCYTES # (AUTO) 1.6 10^3/uL (1.5-3.5); MEAN CORPUSCULAR HEMOGLOBIN 35.3 pg (27.0-31.0); MEAN CORPUSCULAR HGB CONC 33.8 g/dL (32.0-36.0); MEAN CORPUSCULAR VOLUME 104.4 fL (80.0-94.0); MEAN PLATELET VOLUME 9.3 fL (7.4-11.4); MONOCYTES # (AUTO) 0.6 10^3/uL (0.0-1.0); NEUTROPHILS # (AUTO) 2.8 10^3/uL (1.5-6.6); NEUTROPHILS % (AUTO) 52.5 %; NUCLEATED RED BLOOD CELLS AUTO 0.1 /100WBC; RED BLOOD COUNT 3.32 10^6/uL (4.70-6.10); RED CELL DISTRIBUTION WIDTH 17.5 % (12.0-15.0); UNCORRECTED WHITE BLOOD COUNT 5.3 x10^3/uL; WHITE BLOOD COUNT 5.3 x10^3/uL (4.8-10.8)
[2017-03-17 05:14] LABS: INR 1.8 (0.8-1.2); PT - PROTHROMBIN TIME 20.1 secs (9.9-12.6)
[2017-03-17 05:18] LABS: ALBUMIN/GLOBULIN RATIO 0.5 (1.0-2.2); BILIRUBIN,TOTAL 2.6 mg/dL (0.2-1.0); CALCIUM 8.2 mg/dL (8.5-10.3); CREATININE 0.9 mg/dL (0.6-1.2); MAGNESIUM 1.7 mg/dL (1.7-2.8); PHOSPHORUS 2.3 mg/dL (2.5-4.6); POTASSIUM 3.6 mmol/L (3.5-5.0); TOTAL PROTEIN 6.4 g/dL (6.7-8.2)
[2017-03-17] MEDS ORDERED: POTASSIUM CHLORIDE 20 MEQ TABLET PO SCH (06:00)
[2017-03-17] MEDS: MORPHINE ER 15 MG TABLET PO SCH ×3 (06:46→21:04)
[2017-03-17] MEDS: PANTOPRAZOLE 40 MG TABLET PO SCH (06:47)
[2017-03-17] MEDS: SODIUM CHLORIDE FLUSH 0.9% 10 ML SYRINGE IVP SCH ×3 (07:28→20:59)
[2017-03-17] MEDS ORDERED: MAGNESIUM OXIDE 400 MG TABLET PO ONE (08:00)
[2017-03-17] MEDS: ENOXAPARIN 40 MG/0.4 ML SYRINGE SUBQ SCH (08:13)
[2017-03-17] MEDS: POLYETHYLENE GLYCOL 3350 17 GM PACKET PO SCH (09:22)
[2017-03-17] MEDS: POTASSIUM CHLORIDE 20 MEQ TABLET PO SCH (09:25)
[2017-03-17] MEDS: FERROUS SULFATE 325 MG TABLET PO SCH ×2 (09:25→17:52)
[2017-03-17] MEDS: ALPRAZolam 0.25 MG TABLET PO SCH ×2 (09:29→20:47)
[2017-03-17] MEDS: CARVEDILOL 12.5 MG TABLET PO SCH ×3 (09:31→20:51)
[2017-03-17] MEDS: oxyCODONE 5 MG TABLET PO SCH ×4 (09:32→20:50)
[2017-03-17] MEDS: MAGNESIUM OXIDE 400 MG TABLET PO SCH ×2 (09:32→20:50)
[2017-03-17] MEDS: rifAXIMin 550 MG TABLET PO SCH ×2 (09:33→20:51)
[2017-03-17] MEDS: MUPIROCIN 2% CREAM 30 GM TUBE TOP SCH (09:33)
[2017-03-17] MEDS: cephALEXin 250 MG CAPSULE PO SCH ×2 (09:33→20:49)
[2017-03-17] MEDS: FUROSEMIDE 40 MG TABLET PO SCH ×3 (09:48→20:51)
[2017-03-17] MEDS: LACTULOSE 10 GM/15 ML BOTTLE PO SCH ×4 (09:49→20:56)
--- NOTE | 2017-03-17 11:45 | PROVIDER PROGRESS NOTE ---
Subjective - Prog Note Date Prog Note Date: 03/17/17 Prog Note Time: 11:45 - Subjective Pt reports feeling: No change Subjective: Sienna was sitting at the edge of the bed and wheeping at times. He denies chest pain or shortness of breath. Current Medications - Current Medications Current Medications: Active Medications Alprazolam (Xanax) 2 mg PO BID [facility] Last Admin: 03/17/17 09:29 Dose: 2 mg Carvedilol (Coreg) 12.5 mg PO BID [facility] Last Admin: 03/17/17 09:31 Dose: Not Given Cephalexin (Keflex) 500 mg PO Q12H [facility] Last Admin: 03/17/17 09:33 Dose: 500 mg Enoxaparin Sodium (Lovenox) 40 mg SUBQ DAILY [facility] Last Admin: 03/17/17 08:13 Dose: Not Given Ferrous Sulfate (Feosol) 325 mg PO BIDWM [facility] Last Admin: 03/17/17 09:25 Dose: 325 mg Furosemide (Lasix) 40 mg PO BID [facility] Last Admin: 03/17/17 09:48 Dose: Not Given Potassium Chloride/Sodium Chloride (Normal Saline 0.9% W/20 Meq Kcl) 1,000 mls @ 125 mls/hr IV .Q8H [facility] Last Infusion: 03/17/17 09:55 Dose: Infused Lactulose (Lactulose) 60 gm PO QID [facility] Last Admin: 03/17/17 09:49 Dose: 60 gm Lorazepam (Ativan Inj (Vial)) 0.5 mg IVP Q2H PRN PRN Reason: Anxiety Last Admin: 03/17/17 06:48 Dose: 0.5 mg Magnesium Oxide (Mag Ox) 400 mg PO BID [facility] Stop: 03/17/17 21:01 Last Admin: 03/17/17 09:32 Dose: 400 mg Mirtazapine (Remeron) 15 mg PO QPM [facility] Last Admin: 03/16/17 21:44 Dose: 15 mg Morphine Sulfate () 15 mg PO TID [facility] Last Admin: 03/17/17 06:46 Dose: 15 mg Mupirocin (Bactroban 2% Cream) 1 applic TOP DAILY [facility] Last Admin: 03/17/17 09:33 Dose: 1 applic Nitroglycerin (Nitrostat) 0.4 mg SL Q5M PRN PRN Reason: Chest Pain Nortriptyline HCl (Pamelor) 150 mg PO QPM [facility] Last Admin: 03/16/17 21:58 Dose: Not Given Ondansetron HCl (Zofran Inj) 4 mg IVP Q6HR PRN PRN Reason: Nausea / Vomiting Last Admin: 03/15/17 07:05 Dose: 4 mg Oxycodone HCl (Roxicodone) 10 mg PO QID [facility] Last Admin: 03/17/17 09:32 Dose: 10 mg Oxycodone HCl (Roxicodone) 5 mg PO Q4HR PRN PRN Reason: Pain 5 to 7 Last Admin: 03/17/17 01:32 Dose: 5 mg Pantoprazole Sodium (Protonix) 40 mg PO QDAC [facility] Last Admin: 03/17/17 06:47 Dose: 40 mg Polyethylene Glycol (Miralax) 17 gm PO DAILY [facility] Last Admin: 03/17/17 09:22 Dose: Not Given Potassium Chloride (K-Dur) 60 meq PO DAILYWM [facility] Last Admin: 03/17/17 09:25 Dose: 60 meq Pramipexole Dihydrochloride (Mirapex) 0.25 mg PO QPM [facility] Last Admin: 03/16/17 21:49 Dose: 0.25 mg Prochlorperazine Edisylate (Compazine Inj) 10 mg IVP Q6HR PRN PRN Reason: Nausea / Vomiting Promethazine HCl (Phenergan Inj) 25 mg IM Q6HR PRN PRN Reason: Nausea / Vomiting Rifaximin (Xifaxan) 550 mg PO BID [facility] Last Admin: 03/17/17 09:33 Dose: 550 mg Sodium Chloride (Normal Saline Flush 0.9%) 10 ml IVP PRN PRN PRN Reason: NEEDED PER PROVIDER ORDERS Last Admin: 03/16/17 20:43 Dose: 10 ml Sodium Chloride (Normal Saline Flush 0.9%) 10 ml IVP Q8HR [facility] Last Admin: 03/17/17 07:28 Dose: Not Given Temazepam (Restoril) 30 mg PO QPM PRN PRN Reason: SLEEP Last Admin: 03/16/17 00:29 Dose: 30 mg ALPRAZolam [Xanax] 2 mg PO BID 06/24/16 Carvedilol 12.5 mg PO BID 06/24/16 Docusate Sodium 250Mg Capsule [Colace 250Mg Capsule] 250 mg PO BID 06/24/16 Furosemide 40 mg PO DAILY 06/24/16 Nortriptyline [Pamelor] 150 mg PO QPM 06/24/16 Omeprazole 20 mg PO QDAC 06/24/16 Pramipexole Di-HCl [Mirapex] 0.25 mg PO QPM 06/24/16 Temazepam 30 mg PO QPM PRN 06/24/16 rifAXIMin [Xifaxan] 550 mg PO BID 12/04/16 Mirtazapine 15 mg PO QPM 01/19/17 Nitroglycerin 0.4 mg SL Q5M PRN 01/20/17 Potassium Chloride 20 meq PO BID 01/20/17 Sennosides [Senna] 17.2 mg PO BID 01/20/17 Albuterol Sulfate [Proventil Hfa Inhaler] 1 puffs INH Q4H PRN 02/21/17 Lactulose 60 gm PO QID 02/21/17 Morphine Sulfate [Morphine Sulfate ER] 30 mg PO TID 02/21/17 oxyCODONE [Roxicodone] 10 mg PO QID 02/21/17 Objective - Vital Signs/Intake & Output Reviewed Vital Signs: Yes Vital Signs: Vital Signs x48h Temp Pulse Resp BP Pulse Ox 03/17/17 09:38 36.7 C 87 20 122/58 L 98 03/17/17 06:57 37.1 C 86 16 106/61 97 Intake & Output: Intake & Output 03/14/17 03/15/17 03/16/17 03/17/17 23:59 23:59 23:59 23:59 Intake Total 3660.000 2410 2791.663 3437.50 Output Total 1876 665 900 250 Balance 6798.554 5705 9808.731 5702.50 - Objective General Appearance: positive: Mild distress, Anxious Eyes Bilateral: positive: Normal inspection Eyes: OU Scleral icterus ENT: positive: ENT inspection nml, Pharynx nml Neck: positive: Nml inspection, Thyroid nml, Stiff neck Respiratory: positive: Chest non-tender, No respiratory distress, Rhonchi Cardiovascular: positive: Regular rate & rhythm, JVD present, Systolic murmur, Gallop/S3 Peripheral Pulses: 1+ Radial (R), 1+ Radial (L) Abdomen: positive: Non-tender, Guarding, Rebound, Hepatomegaly, Splenomegaly, Abnml bowel sounds Rectal: positive: Non-tender Back: positive: Nml inspection Skin: positive: No rash, Warm, Dry, Other (mild jaundice) Extremities: positive: Pedal edema, Calf tenderness, Joint swelling Neurologic/Psychiatric: positive: Disoriented to time, Weakness, Sensory loss - Lab Results Fish Bones: 03/19/17 05:13 03/19/17 05:13 Other Labs: Lab Results x24hrs 03/17/17 03/17/17 03/17/17 Range/Units 04:56 04:56 04:56 WBC (4.8-10.8) x10^3/uL RBC (4.70-6.10) 10^6/uL Hgb (14.0-18.0) g/dL Hct (42.0-52.0) % MCV (80.0-94.0) fL MCH (27.0-31.0) pg MCHC (32.0-36.0) g/dL RDW (12.0-15.0) % Plt Count (130-450) 10^3/uL MPV (7.4-11.4) fL Neut # (1.5-6.6) 10^3/uL Lymph # (1.5-3.5) 10^3/uL [place] # (0.0-1.0) 10^3/uL Eos # (0.0-0.7) 10^3/uL Baso # (0.0-0.1) 10^3/uL Absolute Nucleated RBC x10^3/uL Nucleated RBC % /100WBC PT 20.1 H (9.9-12.6) secs INR 1.8 H (0.8-1.2) Sodium 140 (135-145) mmol/L Potassium 3.6 (3.5-5.0) mmol/L Chloride 105 (101-111) mmol/L Carbon Dioxide 27 (21-32) mmol/L Anion Gap 8.0 (6-13) BUN 5 L (6-20) mg/dL Creatinine 0.9 (0.6-1.2) mg/dL Estimated GFR (MDRD) 87 L (>89) Glucose 99 (70-100) mg/dL POC Whole Bld Glucose (70 - 100) mg/dL Calcium 8.2 L (8.5-10.3) mg/dL Phosphorus 2.3 L (2.5-4.6) mg/dL Magnesium 1.7 (1.7-2.8) mg/dL Total Bilirubin 2.6 H (0.2-1.0) mg/dL AST 108 H (10-42) IU/L ALT 40 (10-60) IU/L Alkaline Phosphatase 125 H (42-121) IU/L Ammonia 57.4 H (7-35) umol/L Total Protein 6.4 L (6.7-8.2) g/dL Albumin 2.0 L (3.2-5.5) g/dL Globulin 4.4 H (2.1-4.2) g/dL Albumin/Globulin Ratio 0.5 L (1.0-2.2) 03/17/17 03/15/17 Range/Units 04:56 14:12 WBC 5.3 (4.8-10.8) x10^3/uL RBC 3.32 L (4.70-6.10) 10^6/uL Hgb 11.7 L (14.0-18.0) g/dL Hct 34.6 L (42.0-52.0) % MCV 104.4 H (80.0-94.0) fL MCH 35.3 H (27.0-31.0) pg MCHC 33.8 (32.0-36.0) g/dL RDW 17.5 H (12.0-15.0) % Plt Count 73 L (130-450) 10^3/uL MPV 9.3 (7.4-11.4) fL Neut # 2.8 (1.5-6.6) 10^3/uL Lymph # 1.6 (1.5-3.5) 10^3/uL [place] # 0.6 (0.0-1.0) 10^3/uL Eos # 0.2 (0.0-0.7) 10^3/uL Baso # 0.0 (0.0-0.1) 10^3/uL Absolute Nucleated RBC 0.01 x10^3/uL Nucleated RBC % 0.1 /100WBC PT (9.9-12.6) secs INR (0.8-1.2) Sodium (135-145) mmol/L Potassium (3.5-5.0) mmol/L Chloride (101-111) mmol/L Carbon Dioxide (21-32) mmol/L Anion Gap (6-13) BUN (6-20) mg/dL Creatinine (0.6-1.2) mg/dL Estimated GFR (MDRD) (>89) Glucose (70-100) mg/dL POC Whole Bld Glucose 119 H (70 - 100) mg/dL Calcium (8.5-10.3) mg/dL Phosphorus (2.5-4.6) mg/dL Magnesium (1.7-2.8) mg/dL Total Bilirubin (0.2-1.0) mg/dL AST (10-42) IU/L ALT (10-60) IU/L Alkaline Phosphatase (42-121) IU/L Ammonia (7-35) umol/L Total Protein (6.7-8.2) g/dL Albumin (3.2-5.5) g/dL Globulin (2.1-4.2) g/dL Albumin/Globulin Ratio (1.0-2.2) - Diagnostic Imaging Diagnostic Imaging Results: positive: Prelim report reviewed Assessment/Plan - Problem List (1) Hepatic encephalopathy Impression: The patient presented with hepatic encephalopathy. This is his third hospitalization in just over a month for hepatic encephalopathy. Patient has a long history of noncompliance with medication. The patient admits to being noncompliant upon admission. Patient became more lethargic and was given narcan x1 due to decreased mental status and difficult to arouse. Plan: PO lactulose 4 times daily and he will be continued on rifaximin. Monitor ammonia levels and mental status. Discharge on hold and case management will assist with possible placement since home health services are intolerable socially. (2) Hypokalemia Impression: Patient presented with a potassium of 2.8. The patient has a history of hypokalemia, and is likely chronic due to diuretic use. Plan: Treat patient's hypokalemia with IV and p.o. potassium replacement. Monitor electrolytes. (3) Cirrhosis Impression: The patient has chronic, mild jaundice. LFTs are unstable, but improved since admission. Patient should follow his home medication instructions, but does not. Ammonia level today was 57.4, which is the patient's high normal range. In this respect he may be appropriate for discharge, but lethargy and agitation have been a barrier. Plan: We will continue to administer lactulose, and diuretics while in the hospital. Qualifiers: Hepatic cirrhosis type: unspecified hepatic cirrhosis (4) Anxiety Impression: The patient has history of anxiety and often once he does return to his normal baseline mental status the patient will become agitated and even violent at times. The patient is on nortriptyline and Xanax. The patient has had a sitter for the last several shifts due to elopement threats. Plan: Patient will be continued on his home medication he can have Ativan as needed for agitation. (5) Hypertension Impression: Patient's blood pressure has been mildly low for his normal and the last reading was 107/56. Patient is on Coreg, Lasix, Aldactone at home. We will continue the patient's home regimen for blood pressure control. Plan: We will monitor vital signs every 4 hours and give scheduled medications. Gentle IV hydration as needed. Qualifiers: Hypertension type: essential hypertension Qualified Code(s): I10 - Essential (primary) hypertension (6) Anemia Impression: The patient has a history of iron deficiency and anemia and is on iron at home. H/H was 11.7 and 34.6 today. Plan: We will continue to give patient his home dose of iron and monitor labs. Qualifiers: Anemia type: iron deficiency (7) Non compliance with medical treatment Impression: Patient has a known history of frequent hospital stays. Plan: We will continue patient teaching and contact as needed for support.
[2017-03-17] MEDS: MIRTAZAPINE 15 MG TABLET PO SCH (20:51)
[2017-03-17] MEDS: PRAMIPEXOLE 0.25 MG TABLET PO SCH (20:51)
[2017-03-17] MEDS: NORTRIPTYLINE 25 MG CAPSULE PO SCH (20:54)
[2017-03-17] MEDS ORDERED: HALOPERIDOL 5 MG/ML VIAL IM ONE (22:25)
[2017-03-17] MEDS ORDERED: LORazepam 2 MG/ML SYRINGE IVP STA (22:26)
[2017-03-17] MEDS ORDERED: HALOPERIDOL 5 MG/ML VIAL ONE ×2 (22:26→22:28)
[2017-03-17] MEDS ORDERED: LORazepam 2 MG/ML VIAL ONE (22:27)
[2017-03-18 05:24] LABS: BASOPHILS % (AUTO) 0.8 %; EOSINOPHILS # (AUTO) 0.2 10^3/uL (0.0-0.7); EOSINOPHILS % (AUTO) 4.1 %; HGB - HEMOGLOBIN 10.8 g/dL (14.0-18.0); LYMPHOCYTES # (AUTO) 1.7 10^3/uL (1.5-3.5); LYMPHOCYTES % (AUTO) 31.9 %; MEAN CORPUSCULAR HEMOGLOBIN 35.3 pg (27.0-31.0); MEAN CORPUSCULAR HGB CONC 33.7 g/dL (32.0-36.0); MEAN CORPUSCULAR VOLUME 104.8 fL (80.0-94.0); MEAN PLATELET VOLUME 9.2 fL (7.4-11.4); MONOCYTES # (AUTO) 0.6 10^3/uL (0.0-1.0); MONOCYTES % (AUTO) 11.4 %; NEUTROPHILS # (AUTO) 2.8 10^3/uL (1.5-6.6); NEUTROPHILS % (AUTO) 51.8 %; NUCLEATED RED BLOOD CELLS AUTO 0.2 /100WBC; RED BLOOD COUNT 3.06 10^6/uL (4.70-6.10); RED CELL DISTRIBUTION WIDTH 17.9 % (12.0-15.0); UNCORRECTED WHITE BLOOD COUNT 5.4 x10^3/uL; WHITE BLOOD COUNT 5.4 x10^3/uL (4.8-10.8)
[2017-03-18 05:28] LABS: INR 1.9 (0.8-1.2); PT - PROTHROMBIN TIME 20.5 secs (9.9-12.6)
[2017-03-18] MEDS: MORPHINE ER 15 MG TABLET PO SCH (05:32)
[2017-03-18] MEDS: SODIUM CHLORIDE FLUSH 0.9% 10 ML SYRINGE IVP SCH ×3 (05:32→18:00)
[2017-03-18 05:37] LABS: ALBUMIN/GLOBULIN RATIO 0.4 (1.0-2.2); BILIRUBIN,TOTAL 2.5 mg/dL (0.2-1.0); CALCIUM 8.3 mg/dL (8.5-10.3); CREATININE 0.8 mg/dL (0.6-1.2); MAGNESIUM 1.9 mg/dL (1.7-2.8); PHOSPHORUS 2.4 mg/dL (2.5-4.6); POTASSIUM 3.5 mmol/L (3.5-5.0); TOTAL PROTEIN 5.9 g/dL (6.7-8.2)
[2017-03-18] MEDS: LORazepam 2 MG/ML VIAL IVP PRN (05:37)
[2017-03-18] MEDS: PANTOPRAZOLE 40 MG TABLET PO SCH (05:47)
[2017-03-18] MEDS: ALPRAZolam 0.25 MG TABLET PO SCH ×2 (08:53→20:11)
[2017-03-18] MEDS: FUROSEMIDE 40 MG TABLET PO SCH (08:54)
[2017-03-18] MEDS: CARVEDILOL 12.5 MG TABLET PO SCH ×2 (08:54→20:12)
[2017-03-18] MEDS: FERROUS SULFATE 325 MG TABLET PO SCH ×2 (08:54→17:59)
[2017-03-18] MEDS: POTASSIUM CHLORIDE 20 MEQ TABLET PO SCH (08:55)
[2017-03-18] MEDS: oxyCODONE 5 MG TABLET PO SCH (08:55)
[2017-03-18] MEDS: LACTULOSE 10 GM/15 ML BOTTLE PO SCH ×4 (08:55→20:15)
[2017-03-18] MEDS: MUPIROCIN 2% CREAM 30 GM TUBE TOP SCH (08:56)
[2017-03-18] MEDS: POLYETHYLENE GLYCOL 3350 17 GM PACKET PO SCH (08:56)
[2017-03-18] MEDS: cephALEXin 250 MG CAPSULE PO SCH ×2 (09:07→20:20)
[2017-03-18] MEDS: rifAXIMin 550 MG TABLET PO SCH ×2 (09:08→20:20)
--- NOTE | 2017-03-18 10:44 | Ultrasound Report ---
LIMITED ABDOMINAL ULTRASOUND: 03/18/2017 CLINICAL INDICATION: Distended abdomen. TECHNIQUE: Real-time scanning was performed with inventory representative static images obtained. COMPARISON: CT 01/30/2017. FINDINGS: Ultrasound of the four quadrants was performed. A small volume of ascites is present, stable from previous CT. The liver demonstrates nodularity of the surface contour, compatible with cirrhosis. IMPRESSION: NO SIGNIFICANT INTERVAL CHANGE IN SMALL VOLUME OF ASCITES FROM CT OF 01/30/2017. JOB #: [id number] EXT JOB #:[id number]
--- NOTE | 2017-03-18 11:01 | PROVIDER PROGRESS NOTE ---
Objective - Vital Signs/Intake & Output Reviewed Vital Signs: Yes Intake & Output: Intake & Output 03/15/17 03/16/17 03/17/17 03/18/17 23:59 23:59 23:59 23:59 Intake Total 2410 2791.663 5037.50 1450 Output Total 665 900 500 Balance 1745 1949.147 3493.50 1450 - Objective General Appearance: positive: No acute distress, Alert Eyes Bilateral: positive: Normal inspection, PERRL, No lid inflammation, Conjunctivae nml ENT: positive: ENT inspection nml, Pharynx nml, No signs of dehydration. negative: Purulent nasal drainage, Pharyngeal erythema, Oral lesions, Dry mucous membranes Neck: positive: Nml inspection, Thyroid nml, Trachea midline. negative: Thyromegaly, Lymphadenopathy (R), Lymphadenopathy (L), Stiff neck, Carotid bruit , Swelling/bruising, Tracheal deviation Respiratory: positive: Chest non-tender, No respiratory distress, Breath sounds nml. negative: Wheezes, Rales, Rhonchi Cardiovascular: positive: Regular rate & rhythm, No murmur, No gallop. negative : Irregularly irregular, Extrasystoles, Tachycardia, Bradycardia, Systolic murmur, Diastolic murmur Peripheral Pulses: 2+ Radial (R), 2+ Radial (L), 2+ Dorsalis pedis (R), 2+ Dorsalis pedis (L) Abdomen: positive: Non-tender, Other (pt is with distention of abdomen and reduced bowel sounds) Back: positive: Nml inspection. negative: CVA tenderness (R), CVA tenderness (L ) Skin: positive: Color nml, Warm, Dry. negative: Cyanosis, Diaphoresis, Pallor Extremities: positive: Non-tender, Full ROM. negative: Calf tenderness, Joint swelling, Arthur's sign/cords Neurologic/Psychiatric: positive: Sensation nml, Disoriented to person, Disoriented to time. negative: Sensory loss, Facial droop, Slurred/abnml speech , Depressed mood/affect - Lab Results Fish Bones: 03/18/17 05:15 03/18/17 05:15 Other Labs: Lab Results x24hrs 03/18/17 03/18/17 03/18/17 Range/Units 05:15 05:15 05:15 WBC (4.8-10.8) x10^3/uL RBC (4.70-6.10) 10^6/uL Hgb (14.0-18.0) g/dL Hct (42.0-52.0) % MCV (80.0-94.0) fL MCH (27.0-31.0) pg MCHC (32.0-36.0) g/dL RDW (12.0-15.0) % Plt Count (130-450) 10^3/uL MPV (7.4-11.4) fL Neut # (1.5-6.6) 10^3/uL Lymph # (1.5-3.5) 10^3/uL [place] # (0.0-1.0) 10^3/uL Eos # (0.0-0.7) 10^3/uL Baso # (0.0-0.1) 10^3/uL Absolute Nucleated RBC x10^3/uL Nucleated RBC % /100WBC PT 20.5 H (9.9-12.6) secs INR 1.9 H (0.8-1.2) Sodium 140 (135-145) mmol/L Potassium 3.5 (3.5-5.0) mmol/L Chloride 106 (101-111) mmol/L Carbon Dioxide 27 (21-32) mmol/L Anion Gap 7.0 (6-13) BUN 5 L (6-20) mg/dL Creatinine 0.8 (0.6-1.2) mg/dL Estimated GFR (MDRD) 100 (>89) Glucose 96 (70-100) mg/dL Calcium 8.3 L (8.5-10.3) mg/dL Phosphorus 2.4 L (2.5-4.6) mg/dL Magnesium 1.9 (1.7-2.8) mg/dL Total Bilirubin 2.5 H (0.2-1.0) mg/dL AST 130 H (10-42) IU/L ALT 41 (10-60) IU/L Alkaline Phosphatase 115 (42-121) IU/L Ammonia 48.5 H (7-35) umol/L Total Protein 5.9 L (6.7-8.2) g/dL Albumin 1.8 L (3.2-5.5) g/dL Globulin 4.1 (2.1-4.2) g/dL Albumin/Globulin Ratio 0.4 L (1.0-2.2) 03/18/17 Range/Units 05:15 WBC 5.4 (4.8-10.8) x10^3/uL RBC 3.06 L (4.70-6.10) 10^6/uL Hgb 10.8 L (14.0-18.0) g/dL Hct 32.0 L (42.0-52.0) % MCV 104.8 H (80.0-94.0) fL MCH 35.3 H (27.0-31.0) pg MCHC 33.7 (32.0-36.0) g/dL RDW 17.9 H (12.0-15.0) % Plt Count 72 L (130-450) 10^3/uL MPV 9.2 (7.4-11.4) fL Neut # 2.8 (1.5-6.6) 10^3/uL Lymph # 1.7 (1.5-3.5) 10^3/uL [place] # 0.6 (0.0-1.0) 10^3/uL Eos # 0.2 (0.0-0.7) 10^3/uL Baso # 0.0 (0.0-0.1) 10^3/uL Absolute Nucleated RBC 0.01 x10^3/uL Nucleated RBC % 0.2 /100WBC PT (9.9-12.6) secs INR (0.8-1.2) Sodium (135-145) mmol/L Potassium (3.5-5.0) mmol/L Chloride (101-111) mmol/L Carbon Dioxide (21-32) mmol/L Anion Gap (6-13) BUN (6-20) mg/dL Creatinine (0.6-1.2) mg/dL Estimated GFR (MDRD) (>89) Glucose (70-100) mg/dL Calcium (8.5-10.3) mg/dL Phosphorus (2.5-4.6) mg/dL Magnesium (1.7-2.8) mg/dL Total Bilirubin (0.2-1.0) mg/dL AST (10-42) IU/L ALT (10-60) IU/L Alkaline Phosphatase (42-121) IU/L Ammonia (7-35) umol/L Total Protein (6.7-8.2) g/dL Albumin (3.2-5.5) g/dL Globulin (2.1-4.2) g/dL Albumin/Globulin Ratio (1.0-2.2) Assessment/Plan - Problem List (1) Cirrhosis of liver with ascites Impression: (1) ascites of Cirrhosis of liver pt has a significant distended abdomen, and hernia of umbrellium. pt has PT/INR 21/1.9. order cross match of plasma, 2 units of FFP. make sure pt has FFP before paracentesis US with paracentesis, and test to the fluid from paracentesis. vital closely monitor to Q4H (2) Hepatic encephalopathy Impression: ammonia level is down to 48, good progress. pt is still some confused continue PO lactulose 4 times daily and he will be continued on rifaximin. Monitor ammonia levels and mental status. vital monitor The patient presented with hepatic encephalopathy. This is his third hospitalization in just over a month for hepatic encephalopathy. Patient has a long history of noncompliance with medication. The patient admits to being noncompliant upon admission. Patient became more lethargic and was given narcan x1 due to decreased mental status and difficult to arouse. Plan: PO lactulose 4 times daily and he will be continued on rifaximin. Monitor ammonia levels and mental status. Discharge on hold and case management will assist with possible placement since home health services are intolerable socially. (3) Hypokalemia Impression: resolved. chronic hypokalemia Patient presented with a potassium of 2.8. The patient has a history of hypokalemia, and is likely chronically due to diuretic use. Plan: Treat patient's hypokalemia with IV and p.o. potassium replacement. Monitor electrolytes. (4) Cirrhosis Impression: continue lactulose and rifaximin continue lab, and vital monitor The patient has chronic jaundice. LFTs are unstable, but improved since admission. Patient should follow his home medication instructions, but does not. Ammonia level today was 65, which is the patient's high normal range. In this respect he may be appropriate for discharge, but lethargy and agitation have been a barrier. Plan: We will continue to administer lactulose, and diuretics while in the hospital. (5) Anxiety Impression: The patient has history of anxiety and often once he does return to his normal baseline mental status the patient will become agitated and even violent at times. The patient is on nortriptyline and Xanax. The patient has had a sitter for the last several shifts due to elopement threats. Plan: Patient will be continued on his home medication he can have Ativan as needed for agitation. (6) Hypertension Impression: no more hypertension hold BP meds closely monitor pt hypotensive now, change vital to Q4H Patient's blood pressure has been mildly low for his normal and the last reading was 94/62. Patient is on Coreg, Lasix, Aldactone at home. We will continue the patient's home regimen for blood pressure control. Plan: We will monitor vital signs every 4 hours and give scheduled medications. Gentle IV hydration as needed. (7) Anemia Impression: continue home meds, and lab monitor The patient has a history of iron deficiency and anemia and is on iron at home. H/H was 10.8 and 32.0 today. Plan: We will continue to give patient his home dose of iron and monitor labs. (8) Non compliance with medical treatment it is one of major issue to pt. Pt had home health RN to monitor pt for medical compliance on the last d/c plan. But it seems not working well to pt pt's state she is difficult to take care of pt more, and request nurse home or SNF for D/C consult social work Qualifiers: Hepatic cirrhosis type: alcoholic cirrhosis Qualified Code(s): K70.31 - Alcoholic cirrhosis of liver with ascites
[2017-03-18] MEDS ORDERED: IPRATROPIUM/ALBUTEROL 3 ML NEB INH PRN (12:02)
[2017-03-18 12:38] LABS: ABG ANALYSIS TIME 1230; ABG BASE EXCESS -0.2 mmol/L (-2.0-3.0); ABG HCO3 24.7 mmol/L (22.0-26.0); ABG PCO2 41 mmHg (34-45); ABG PO2 85 mmHg (80-100); ABG TCO2 25.9 MMOL/L (21.0-29.0)
[2017-03-18 12:39] LABS: ABG O2 DEVICE NASAL CANNULA; ABG OXYGEN SATURATION 95 % (94-98); ABG SITE OF DRAW RIGHT RADIAL
--- NOTE | 2017-03-18 12:46 | XRAY Report ---
FRONTAL CHEST: 03/18/2017 CLINICAL INDICATION: Shortness of breath. COMPARISON: 02/20/2017 FINDINGS: Frontal view of the chest demonstrates a mildly enlarged cardiac silhouette. Spinal stimu lator is stable. There is pulmonary vascular congestion present, with left worse than right air-spac e disease and likely small left effusion. No pneumothorax. IMPRESSION: PULMONARY VASCULAR CONGESTION WITH LEFT WORSE THAN RIGHT AIR-SPACE DISEASE AND LIKELY LE FT SMALL PLEURAL EFFUSION. THIS MAY REPRESENT ASYMMETRIC CONGESTIVE FAILURE OR INFILTRATE SUPERIMPOS ED UPON CONGESTIVE FAILURE. JOB #: [id number] EXT JOB #:[id number]
[2017-03-18] MEDS ORDERED: AZITHROMYCIN 250 MG TABLET PO SCH (14:00)
[2017-03-18] MEDS: FUROSEMIDE 40 MG/4 ML VIAL IVP SCH (17:59)
--- NOTE | 2017-03-18 18:30 | CT Report ---
CT ABDOMEN AND PELVIS WITHOUT CONTRAST: 03/18/2017 CLINICAL INDICATION: Abdominal distention. Axial CT images of the abdomen and pelvis were obtained without oral or intravenous contrast. In accordance with CT protocol optimization, one or more of the following dose reduction techniques w ere utilized for this exam: automated exposure control, adjustment of mA and/or KV based on patient size, or use of iterative reconstructive technique. COMPARISON: 01/30/2017 Limited evaluation of the lung bases demonstrates left lower lobe infiltrate and left effusion. ABDOMEN: Cirrhotic changes in the liver are stable. A small amount of perihepatic ascites is again seen. There has been interval development of anasarca, with edema of the subcutaneous fat and mesent gianna fat. No bowel dilatation or free gas is seen. No abdominal adenopathy is appreciated, allowing for lack of contrast. PELVIS: A small amount of ascites is again seen in the pelvis. A spinal stimulator pack overlies th e right lower quadrant. There is a periumbilical hernia present, containing fat. No pelvic adenopat hy is appreciated. Osseous structures demonstrate degenerative and post-surgical changes. IMPRESSION: 1. INTERVAL DEVELOPMENT OF ANASARCA, WITH EDEMA OF THE SUBCUTANEOUS FAT AND MESENTERIC FAT, LIKELY C ONTRIBUTING TO THE ABDOMINAL DISTENTION. NO SIGNIFICANT INTERVAL CHANGE IN THE VOLUME OF ASCITES PRE SENT. 2. NEW LEFT LOWER LOBE INFILTRATE. INCREASE IN LEFT EFFUSION. JOB #: [id number] EXT JOB #:[id number]
[2017-03-18] MEDS: PRAMIPEXOLE 0.25 MG TABLET PO SCH (20:12)
[2017-03-18] MEDS: MIRTAZAPINE 15 MG TABLET PO SCH (20:20)
[2017-03-18] MEDS ORDERED: HALOPERIDOL 5 MG/ML VIAL IVP SCH (21:01)
[2017-03-18] MEDS ORDERED: ZIPRASIDONE 20 MG VIAL IM SCH (21:02)
[2017-03-18] MEDS ORDERED: NORTRIPTYLINE 10 MG CAPSULE PO ONE ×2 (21:40→21:44)
[2017-03-18] MEDS ORDERED: NORTRIPTYLINE 25 MG CAPSULE PO ONE (21:40)
[2017-03-18] MEDS: NORTRIPTYLINE 25 MG CAPSULE PO SCH (21:42)
[2017-03-18] MEDS ORDERED: WATER FOR INJECTION,STERILE 10 ML ONE (23:52)
[2017-03-19] MEDS: BENZOCAINE/MENTHOL LOZENGE MM PRN ×2 (00:20→05:38)
[2017-03-19] MEDS: TEMAZEPAM 15 MG CAPSULE PO PRN ×2 (00:54→20:39)
[2017-03-19 05:56] LABS: BASOPHILS % (AUTO) 0.5 %; EOSINOPHILS # (AUTO) 0.1 10^3/uL (0.0-0.7); EOSINOPHILS % (AUTO) 2.7 %; HCT - HEMATOCRIT 32.3 % (42.0-52.0); LYMPHOCYTES # (AUTO) 1.4 10^3/uL (1.5-3.5); LYMPHOCYTES % (AUTO) 27.1 %; MEAN CORPUSCULAR HEMOGLOBIN 35.5 pg (27.0-31.0); MEAN CORPUSCULAR HGB CONC 34.1 g/dL (32.0-36.0); MEAN CORPUSCULAR VOLUME 104.2 fL (80.0-94.0); MEAN PLATELET VOLUME 9.3 fL (7.4-11.4); MONOCYTES # (AUTO) 0.5 10^3/uL (0.0-1.0); MONOCYTES % (AUTO) 9.3 %; NEUTROPHILS # (AUTO) 3.1 10^3/uL (1.5-6.6); NEUTROPHILS % (AUTO) 60.4 %; NUCLEATED RED BLOOD CELLS AUTO 0.1 /100WBC; RED CELL DISTRIBUTION WIDTH 17.8 % (12.0-15.0); UNCORRECTED WHITE BLOOD COUNT 5.1 x10^3/uL; WHITE BLOOD COUNT 5.1 x10^3/uL (4.8-10.8)
[2017-03-19 06:02] LABS: ALBUMIN/GLOBULIN RATIO 0.5 (1.0-2.2); BILIRUBIN,TOTAL 2.8 mg/dL (0.2-1.0); CALCIUM 7.8 mg/dL (8.5-10.3); CREATININE 0.6 mg/dL (0.6-1.2); POTASSIUM 3.3 mmol/L (3.5-5.0); TOTAL PROTEIN 5.9 g/dL (6.7-8.2)
[2017-03-19] MEDS: FUROSEMIDE 40 MG/4 ML VIAL IVP SCH (06:53)
[2017-03-19] MEDS: SODIUM CHLORIDE FLUSH 0.9% 10 ML SYRINGE IVP SCH ×3 (06:53→20:09)
[2017-03-19] MEDS: PANTOPRAZOLE 40 MG TABLET PO SCH (06:53)
[2017-03-19 06:56] LABS: FOLATE 5.42 ng/mL (5.90 - >24.8)
[2017-03-19] MEDS ORDERED: ALBUTEROL NEB 2.5 MG/3 ML INH PRN (07:33)
[2017-03-19] MEDS ORDERED: POTASSIUM CHLORIDE 20 MEQ TABLET PO SCH (08:00)
[2017-03-19] MEDS ORDERED: CALCIUM CITRATE 250 MG TABLET PO SCH (08:00)
[2017-03-19] MEDS: FERROUS SULFATE 325 MG TABLET PO SCH ×2 (08:40→16:32)
[2017-03-19] MEDS: cephALEXin 250 MG CAPSULE PO SCH ×2 (08:40→20:10)
[2017-03-19] MEDS: rifAXIMin 550 MG TABLET PO SCH ×2 (08:40→20:10)
[2017-03-19] MEDS: CARVEDILOL 12.5 MG TABLET PO SCH ×2 (08:40→20:39)
[2017-03-19] MEDS: POTASSIUM CHLORIDE 20 MEQ TABLET PO SCH (08:40)
[2017-03-19] MEDS: POLYETHYLENE GLYCOL 3350 17 GM PACKET PO SCH (08:41)
[2017-03-19] MEDS: MUPIROCIN 2% CREAM 30 GM TUBE TOP SCH (08:41)
[2017-03-19] MEDS: FUROSEMIDE 40 MG TABLET PO SCH ×2 (09:16→13:22)
[2017-03-19] MEDS: ALPRAZolam 0.25 MG TABLET PO SCH ×2 (09:20→20:39)
[2017-03-19] MEDS: LACTULOSE 10 GM/15 ML BOTTLE PO SCH ×4 (09:21→20:09)
[2017-03-19 09:27] LABS: INR 1.9 (0.8-1.2)
[2017-03-19] MEDS: oxyCODONE 5 MG TABLET PO SCH (10:55)
[2017-03-19] MEDS: MORPHINE ER 15 MG TABLET PO SCH (10:55)
[2017-03-19] MEDS ORDERED: ALPRAZolam 0.25 MG TABLET PO PRN (11:34)
[2017-03-19] MEDS: MORPHINE ER 15 MG TABLET PO PRN (11:42)
--- NOTE | 2017-03-19 11:42 | PROVIDER PROGRESS NOTE ---
Subjective - Prog Note Date Prog Note Date: 03/19/17 - Subjective Pt reports feeling: Improved Subjective: pt report he feel much better. pt's alert, but still has some confused as his base line. Pt did not have Lactulose on yesterday because pt's mental status changing. pt's ammonia level is going up. The issue is pt's significant other state she can not take care of him more, request nurse facility for d/c planing. Social work is consulted. There is very difficult to find replacement for pt now. Current Medications - Current Medications Current Medications: Active Medications Albuterol () 2.5 mg INH RTQ4H PRN PRN Reason: Wheezing Albuterol/Ipratropium (Duoneb) 3 ml INH Q4HR PRN PRN Reason: Wheezing Alprazolam (Xanax) 2 mg PO BID [facility] Last Admin: 03/19/17 09:20 Dose: 2 mg Alprazolam (Xanax) 2 mg PO BID PRN PRN Reason: Anxiety Azithromycin (Zithromax) 250 mg PO 1400 [facility] Carvedilol (Coreg) 12.5 mg PO BID [facility] Last Admin: 03/19/17 08:40 Dose: 12.5 mg Cephalexin (Keflex) 500 mg PO Q12H [facility] Last Admin: 03/19/17 08:40 Dose: 500 mg Ferrous Sulfate (Feosol) 325 mg PO BIDWM [facility] Last Admin: 03/19/17 08:40 Dose: 325 mg Furosemide (Lasix) 40 mg PO BIDDIURETIC [facility] Last Admin: 03/19/17 09:16 Dose: Not Given Lactulose (Lactulose) 60 gm PO QID [facility] Last Admin: 03/19/17 09:21 Dose: 60 gm Mirtazapine (Remeron) 15 mg PO QPM [facility] Last Admin: 03/18/17 20:20 Dose: 15 mg Morphine Sulfate () 30 mg PO TID PRN PRN Reason: PAIN Last Admin: 03/19/17 11:42 Dose: 30 mg Mupirocin (Bactroban 2% Cream) 1 applic TOP DAILY [facility] Last Admin: 03/19/17 08:41 Dose: 1 applic Nitroglycerin (Nitrostat) 0.4 mg SL Q5M PRN PRN Reason: Chest Pain Nortriptyline HCl (Pamelor) 150 mg PO QPM [facility] Last Admin: 03/18/17 21:42 Dose: 150 mg Ondansetron HCl (Zofran Inj) 4 mg IVP Q6HR PRN PRN Reason: Nausea / Vomiting Last Admin: 03/15/17 07:05 Dose: 4 mg Oxycodone HCl (Roxicodone) 5 mg PO Q6HR PRN PRN Reason: PAIN Pantoprazole Sodium (Protonix) 40 mg PO QDAC [facility] Last Admin: 03/19/17 06:53 Dose: 40 mg Polyethylene Glycol (Miralax) 17 gm PO DAILY [facility] Last Admin: 03/19/17 08:41 Dose: Not Given Potassium Chloride (K-Dur) 60 meq PO DAILYWM [facility] Last Admin: 03/19/17 08:40 Dose: 60 meq Pramipexole Dihydrochloride (Mirapex) 0.25 mg PO QPM [facility] Last Admin: 03/18/17 20:12 Dose: 0.25 mg Prochlorperazine Edisylate (Compazine Inj) 10 mg IVP Q6HR PRN PRN Reason: Nausea / Vomiting Promethazine HCl (Phenergan Inj) 25 mg IM Q6HR PRN PRN Reason: Nausea / Vomiting Rifaximin (Xifaxan) 550 mg PO BID [facility] Last Admin: 03/19/17 08:40 Dose: 550 mg Sodium Chloride (Normal Saline Flush 0.9%) 10 ml IVP PRN PRN PRN Reason: NEEDED PER PROVIDER ORDERS Last Admin: 03/16/17 20:43 Dose: 10 ml Sodium Chloride (Normal Saline Flush 0.9%) 10 ml IVP Q8HR [facility] Last Admin: 03/19/17 06:53 Dose: 10 ml Temazepam (Restoril) 30 mg PO QPM PRN PRN Reason: SLEEP Last Admin: 03/19/17 00:54 Dose: 30 mg Throat Lozenges (Cepacol) 1 lozenge MM Q2HR PRN PRN Reason: Throat pain Last Admin: 03/19/17 05:38 Dose: 1 lozenge ALPRAZolam [Xanax] 2 mg PO BID 06/24/16 Carvedilol 12.5 mg PO BID 06/24/16 Docusate Sodium 250Mg Capsule [Colace 250Mg Capsule] 250 mg PO BID 06/24/16 Furosemide 40 mg PO DAILY 06/24/16 Nortriptyline [Pamelor] 150 mg PO QPM 06/24/16 Omeprazole 20 mg PO QDAC 06/24/16 Pramipexole Di-HCl [Mirapex] 0.25 mg PO QPM 06/24/16 Temazepam 30 mg PO QPM PRN 06/24/16 rifAXIMin [Xifaxan] 550 mg PO BID 12/04/16 Mirtazapine 15 mg PO QPM 01/19/17 Nitroglycerin 0.4 mg SL Q5M PRN 01/20/17 Potassium Chloride 20 meq PO BID 01/20/17 Sennosides [Senna] 17.2 mg PO BID 01/20/17 Albuterol Sulfate [Proventil Hfa Inhaler] 1 puffs INH Q4H PRN 02/21/17 Lactulose 60 gm PO QID 02/21/17 Morphine Sulfate [Morphine Sulfate ER] 30 mg PO TID 02/21/17 oxyCODONE [Roxicodone] 10 mg PO QID 02/21/17 Objective - Vital Signs/Intake & Output Reviewed Vital Signs: Yes Vital Signs: Vital Signs x48h Temp Pulse Pulse Resp BP Pulse Ox 03/19/17 09:00 36.6 C 82 24 118/74 95 03/19/17 07:45 80 22 03/19/17 05:00 36.7 C 80 18 102/57 L 94 Intake & Output: Intake & Output 03/16/17 03/17/17 03/18/17 03/19/17 23:59 23:59 23:59 23:59 Intake Total 2791.663 5037.50 1970 1000 Output Total 203 797 8579 1350 Balance 1872.770 0090.50 770 -350 - Objective General Appearance: positive: No acute distress, Alert. negative: Lethargic Eyes Bilateral: positive: Normal inspection, PERRL, No lid inflammation, Conjunctivae nml ENT: positive: ENT inspection nml, Pharynx nml, No signs of dehydration. negative: Purulent nasal drainage, Pharyngeal erythema, Oral lesions Neck: positive: Nml inspection, Thyroid nml, No JVD, Trachea midline. negative : Thyromegaly, Stiff neck, Carotid bruit, Swelling/bruising, Tracheal deviation Respiratory: positive: Chest non-tender, No respiratory distress, Breath sounds nml. negative: Wheezes, Rales, Rhonchi Cardiovascular: positive: Regular rate & rhythm, No murmur, No gallop. negative : Irregularly irregular, Extrasystoles, Tachycardia, Bradycardia, Systolic murmur, Diastolic murmur Peripheral Pulses: 2+ Radial (R), 2+ Radial (L), 2+ Dorsalis pedis (R), 2+ Dorsalis pedis (L) - Lab Results Fish Bones: 03/19/17 05:13 03/19/17 05:13 Other Labs: Lab Results x24hrs 03/19/17 03/19/17 03/19/17 Range/Units 09:15 09:15 05:13 WBC (4.8-10.8) x10^3/uL RBC (4.70-6.10) 10^6/uL Hgb (14.0-18.0) g/dL Hct (42.0-52.0) % MCV (80.0-94.0) fL MCH (27.0-31.0) pg MCHC (32.0-36.0) g/dL RDW (12.0-15.0) % Plt Count (130-450) 10^3/uL MPV (7.4-11.4) fL Neut # (1.5-6.6) 10^3/uL Lymph # (1.5-3.5) 10^3/uL [place] # (0.0-1.0) 10^3/uL Eos # (0.0-0.7) 10^3/uL Baso # (0.0-0.1) 10^3/uL Absolute Nucleated RBC x10^3/uL Nucleated RBC % /100WBC PT 21.0 H (9.9-12.6) secs INR 1.9 H (0.8-1.2) Bld Gas Analysis Time Sample Site ABG pH (7.35-7.45) ABG pCO2 (34-45) mmHg ABG pO2 (80-100) mmHg ABG HCO3 (22.0-26.0) mmol/L ABG Total CO2 (21.0-29.0) MMOL/L ABG O2 Saturation (94-98) % ABG Base Excess (-2.0-3.0) mmol/L Juan Test O2 Delivery Device O2 Liters/Min LPM Sodium 138 (135-145) mmol/L Potassium 3.3 L (3.5-5.0) mmol/L Chloride 104 (101-111) mmol/L Carbon Dioxide 29 (21-32) mmol/L Anion Gap 5.0 L (6-13) BUN 7 (6-20) mg/dL Creatinine 0.6 (0.6-1.2) mg/dL Estimated GFR (MDRD) 139 (>89) Glucose 88 (70-100) mg/dL Calcium 7.8 L (8.5-10.3) mg/dL Magnesium 2.0 (1.7-2.8) mg/dL Total Bilirubin 2.8 H (0.2-1.0) mg/dL AST 132 H (10-42) IU/L ALT 43 (10-60) IU/L Alkaline Phosphatase 113 (42-121) IU/L Ammonia 73.6 H (7-35) umol/L Total Protein 5.9 L (6.7-8.2) g/dL Albumin 1.9 L (3.2-5.5) g/dL Globulin 4.0 (2.1-4.2) g/dL Albumin/Globulin Ratio 0.5 L (1.0-2.2) Vitamin B12 (180-914) pg/mL Folate (5.90 - >24.8) ng/mL Blood Type 03/19/17 03/19/17 03/18/17 Range/Units 05:13 05:13 12:30 WBC 5.1 (4.8-10.8) x10^3/uL RBC 3.10 L (4.70-6.10) 10^6/uL Hgb 11.0 L (14.0-18.0) g/dL Hct 32.3 L (42.0-52.0) % MCV 104.2 H (80.0-94.0) fL MCH 35.5 H (27.0-31.0) pg MCHC 34.1 (32.0-36.0) g/dL RDW 17.8 H (12.0-15.0) % Plt Count 68 L (130-450) 10^3/uL MPV 9.3 (7.4-11.4) fL Neut # 3.1 (1.5-6.6) 10^3/uL Lymph # 1.4 L (1.5-3.5) 10^3/uL [place] # 0.5 (0.0-1.0) 10^3/uL Eos # 0.1 (0.0-0.7) 10^3/uL Baso # 0.0 (0.0-0.1) 10^3/uL Absolute Nucleated RBC 0.00 x10^3/uL Nucleated RBC % 0.1 /100WBC PT (9.9-12.6) secs INR (0.8-1.2) Bld Gas Analysis Time 1230 Sample Site RIGHT RADIAL ABG pH 7.40 (7.35-7.45) ABG pCO2 41 (34-45) mmHg ABG pO2 85 (80-100) mmHg ABG HCO3 24.7 (22.0-26.0) mmol/L ABG Total CO2 25.9 (21.0-29.0) MMOL/L ABG O2 Saturation 95 (94-98) % ABG Base Excess -0.2 (-2.0-3.0) mmol/L Juan Test NOT APPLICABLE O2 Delivery Device NASAL CANNULA O2 Liters/Min 4.00 LPM Sodium (135-145) mmol/L Potassium (3.5-5.0) mmol/L Chloride (101-111) mmol/L Carbon Dioxide (21-32) mmol/L Anion Gap (6-13) BUN (6-20) mg/dL Creatinine (0.6-1.2) mg/dL Estimated GFR (MDRD) (>89) Glucose (70-100) mg/dL Calcium (8.5-10.3) mg/dL Magnesium (1.7-2.8) mg/dL Total Bilirubin (0.2-1.0) mg/dL AST (10-42) IU/L ALT (10-60) IU/L Alkaline Phosphatase (42-121) IU/L Ammonia (7-35) umol/L Total Protein (6.7-8.2) g/dL Albumin (3.2-5.5) g/dL Globulin (2.1-4.2) g/dL Albumin/Globulin Ratio (1.0-2.2) Vitamin B12 1207 H (180-914) pg/mL Folate 5.42 L (5.90 - >24.8) ng/mL Blood Type 03/18/17 Range/Units 10:05 WBC (4.8-10.8) x10^3/uL RBC (4.70-6.10) 10^6/uL Hgb (14.0-18.0) g/dL Hct (42.0-52.0) % MCV (80.0-94.0) fL MCH (27.0-31.0) pg MCHC (32.0-36.0) g/dL RDW (12.0-15.0) % Plt Count (130-450) 10^3/uL MPV (7.4-11.4) fL Neut # (1.5-6.6) 10^3/uL Lymph # (1.5-3.5) 10^3/uL [place] # (0.0-1.0) 10^3/uL Eos # (0.0-0.7) 10^3/uL Baso # (0.0-0.1) 10^3/uL Absolute Nucleated RBC x10^3/uL Nucleated RBC % /100WBC PT (9.9-12.6) secs INR (0.8-1.2) Bld Gas Analysis Time Sample Site ABG pH (7.35-7.45) ABG pCO2 (34-45) mmHg ABG pO2 (80-100) mmHg ABG HCO3 (22.0-26.0) mmol/L ABG Total CO2 (21.0-29.0) MMOL/L ABG O2 Saturation (94-98) % ABG Base Excess (-2.0-3.0) mmol/L Juan Test O2 Delivery Device O2 Liters/Min LPM Sodium (135-145) mmol/L Potassium (3.5-5.0) mmol/L Chloride (101-111) mmol/L Carbon Dioxide (21-32) mmol/L Anion Gap (6-13) BUN (6-20) mg/dL Creatinine (0.6-1.2) mg/dL Estimated GFR (MDRD) (>89) Glucose (70-100) mg/dL Calcium (8.5-10.3) mg/dL Magnesium (1.7-2.8) mg/dL Total Bilirubin (0.2-1.0) mg/dL AST (10-42) IU/L ALT (10-60) IU/L Alkaline Phosphatase (42-121) IU/L Ammonia (7-35) umol/L Total Protein (6.7-8.2) g/dL Albumin (3.2-5.5) g/dL Globulin (2.1-4.2) g/dL Albumin/Globulin Ratio (1.0-2.2) Vitamin B12 (180-914) pg/mL Folate (5.90 - >24.8) ng/mL Blood Type A POSITIVE Assessment/Plan - Problem List (1) Cirrhosis of liver with ascites Impression: (1) Cirrhosis of liver with ascites CT reveals anasarca. No paracentesis IV of albumin, continue lasix daily lab, vital monitor pt has a significant distended abdomen, and hernia of umbrellium. pt has PT/INR 21/1.9. order cross match of plasma, 2 units of FFP. make sure pt has FFP before paracentesis US with paracentesis, and test to the fluid from paracentesis. vital closely monitor to Q4H (2) Hepatic encephalopathy Impression: ammonia level is going up 73. pt did not have lactulose on yesterday because pt' s altered mental status continue Lactulose and Xifime daily ammonia, lab test vital monitor ammonia level is down to 48, good progress. pt is still some confused continue PO lactulose 4 times daily and he will be continued on rifaximin. Monitor ammonia levels and mental status. vital monitor The patient presented with hepatic encephalopathy. This is his third hospitalization in just over a month for hepatic encephalopathy. Patient has a long history of noncompliance with medication. The patient admits to being noncompliant upon admission. Patient became more lethargic and was given narcan x1 due to decreased mental status and difficult to arouse. Plan: PO lactulose 4 times daily and he will be continued on rifaximin. Monitor ammonia levels and mental status. Discharge on hold and case management will assist with possible placement since home health services are intolerable socially. (3) Hypokalemia Impression: replacement of potassium daily lab monitor resolved. chronic hypokalemia Patient presented with a potassium of 2.8. The patient has a history of hypokalemia, and is likely chronically due to diuretic use. Plan: Treat patient's hypokalemia with IV and p.o. potassium replacement. Monitor electrolytes. (4) Cirrhosis Impression: continue lactulose and rifaximin continue lab, and vital monitor The patient has chronic jaundice. LFTs are unstable, but improved since admission. Patient should follow his home medication instructions, but does not. Ammonia level today was 65, which is the patient's high normal range. In this respect he may be appropriate for discharge, but lethargy and agitation have been a barrier. Plan: We will continue to administer lactulose, and diuretics while in the hospital. (5) Anxiety Impression: stable, resume home meds Xanax PRN The patient has history of anxiety and often once he does return to his normal baseline mental status the patient will become agitated and even violent at times. The patient is on nortriptyline and Xanax. The patient has had a sitter for the last several shifts due to elopement threats. Plan: Patient will be continued on his home medication he can have Ativan as needed for agitation. (6) Hypertension Impression: no more hypertension hold BP meds closely monitor pt hypotensive now, change vital to Q4H Patient's blood pressure has been mildly low for his normal and the last reading was 94/62. Patient is on Coreg, Lasix, Aldactone at home. We will continue the patient's home regimen for blood pressure control. Plan: We will monitor vital signs every 4 hours and give scheduled medications. Gentle IV hydration as needed. (7) Anemia Impression: stable, continue home meds, and lab monitor The patient has a history of iron deficiency and anemia and is on iron at home. H/H was 10.8 and 32.0 today. Plan: We will continue to give patient his home dose of iron and monitor labs. (8) Non compliance with medical treatment consult to pt for medical compliance it is one of major issue to pt. Pt had home health RN to monitor pt for medical compliance on the last d/c plan. But it seems not working well to pt pt's state she is difficult to take care of pt more, and request nurse home or SNF for D/C consult social work (9) pressure ulcer continue Keflex dressing change as wound care recommend Q2H turn pt (10) anasarca CT of abdomen reviewed albumin level is 1.9 albumin 25% once Lasix 40 mg PO as home meds daily and vital monitor (11) pneumonia CXR and CT reveal pt has new LLB infiltration. No fever, chill, WBC normal. However pt is high risk for infection to sepsis because of his medical condition Azithyomycin PO follow up blood, daily lab, vital monitor Qualifiers: Hepatic cirrhosis type: alcoholic cirrhosis Qualified Code(s): K70.31 - Alcoholic cirrhosis of liver with ascites
[2017-03-19] MEDS ORDERED: ALBUMIN 25% 12.5 GM/50 ML VIAL IV STA (11:54)
[2017-03-19] MEDS: oxyCODONE 5 MG TABLET PO PRN (12:38)
[2017-03-19] MEDS: AZITHROMYCIN 250 MG TABLET PO SCH (13:21)
[2017-03-19] MEDS: FOLIC ACID 1 MG TABLET PO SCH (14:44)
[2017-03-19] MEDS ORDERED: NEUTRA-PHOS 250 MG TABLET PO SCH (15:00)
[2017-03-19] MEDS: MIRTAZAPINE 15 MG TABLET PO SCH (20:10)
[2017-03-19] MEDS: PRAMIPEXOLE 0.25 MG TABLET PO SCH (20:10)
[2017-03-19] MEDS: NORTRIPTYLINE 25 MG CAPSULE PO SCH (20:11)
[2017-03-20] MEDS: FUROSEMIDE 40 MG TABLET PO SCH ×2 (05:45→14:13)
[2017-03-20 05:48] LABS: BASOPHILS % (AUTO) 0.6 %; EOSINOPHILS # (AUTO) 0.2 10^3/uL (0.0-0.7); EOSINOPHILS % (AUTO) 3.8 %; HCT - HEMATOCRIT 32.8 % (42.0-52.0); LYMPHOCYTES # (AUTO) 1.4 10^3/uL (1.5-3.5); LYMPHOCYTES % (AUTO) 30.8 %; MEAN CORPUSCULAR HEMOGLOBIN 35.5 pg (27.0-31.0); MEAN CORPUSCULAR HGB CONC 33.5 g/dL (32.0-36.0); MEAN CORPUSCULAR VOLUME 106.2 fL (80.0-94.0); MEAN PLATELET VOLUME 9.4 fL (7.4-11.4); MONOCYTES # (AUTO) 0.5 10^3/uL (0.0-1.0); MONOCYTES % (AUTO) 10.6 %; NEUTROPHILS # (AUTO) 2.4 10^3/uL (1.5-6.6); NEUTROPHILS % (AUTO) 54.2 %; NUCLEATED RED BLOOD CELLS AUTO 0.4 /100WBC; RED BLOOD COUNT 3.09 10^6/uL (4.70-6.10); RED CELL DISTRIBUTION WIDTH 18.1 % (12.0-15.0); UNCORRECTED WHITE BLOOD COUNT 4.4 x10^3/uL; WHITE BLOOD COUNT 4.4 x10^3/uL (4.8-10.8)
[2017-03-20] MEDS: SODIUM CHLORIDE FLUSH 0.9% 10 ML SYRINGE IVP SCH ×3 (05:50→20:15)
[2017-03-20 05:52] LABS: INR 1.9 (0.8-1.2); PT - PROTHROMBIN TIME 21.2 secs (9.9-12.6)
[2017-03-20 06:01] LABS: ALBUMIN/GLOBULIN RATIO 0.5 (1.0-2.2); CALCIUM 7.8 mg/dL (8.5-10.3); CREATININE 0.6 mg/dL (0.6-1.2); POTASSIUM 3.3 mmol/L (3.5-5.0)
[2017-03-20] MEDS: PANTOPRAZOLE 40 MG TABLET PO SCH (06:37)
[2017-03-20] MEDS ORDERED: POTASSIUM CHLORIDE 20 MEQ TABLET PO ONE (08:00)
[2017-03-20] MEDS: FERROUS SULFATE 325 MG TABLET PO SCH ×2 (09:00→17:30)
[2017-03-20] MEDS: CALCIUM CITRATE 250 MG TABLET PO SCH ×2 (09:00→09:04)
[2017-03-20] MEDS: POTASSIUM CHLORIDE 20 MEQ TABLET PO SCH (09:01)
[2017-03-20] MEDS: ALPRAZolam 0.25 MG TABLET PO SCH ×2 (09:01→20:09)
[2017-03-20] MEDS: cephALEXin 250 MG CAPSULE PO SCH ×2 (09:02→20:11)
[2017-03-20] MEDS: LACTULOSE 10 GM/15 ML BOTTLE PO SCH ×4 (09:02→20:12)
[2017-03-20] MEDS: FOLIC ACID 1 MG TABLET PO SCH (09:02)
[2017-03-20] MEDS: CARVEDILOL 12.5 MG TABLET PO SCH ×2 (09:02→20:11)
[2017-03-20] MEDS: MUPIROCIN 2% CREAM 30 GM TUBE TOP SCH (09:03)
[2017-03-20] MEDS: rifAXIMin 550 MG TABLET PO SCH ×2 (09:03→20:14)
[2017-03-20] MEDS: POLYETHYLENE GLYCOL 3350 17 GM PACKET PO SCH (09:03)
--- NOTE | 2017-03-20 11:13 | PROVIDER PROGRESS NOTE ---
Subjective - Prog Note Date Prog Note Date: 03/20/17 - Subjective Pt reports feeling: Improved Subjective: pt report he feels better, no behaviours disturbance reported on last night. Pt' s significant partner state she feels difficult to take care of pt more, request nurse facility for d/c replacement. team works hard for replacement. Current Medications - Current Medications Current Medications: Active Medications Albuterol () 2.5 mg INH RTQ4H PRN PRN Reason: Wheezing Albuterol/Ipratropium (Duoneb) 3 ml INH Q4HR PRN PRN Reason: Wheezing Last Admin: 03/19/17 21:55 Dose: 3 ml Alprazolam (Xanax) 2 mg PO BID [facility] Last Admin: 03/20/17 09:01 Dose: 2 mg Alprazolam (Xanax) 2 mg PO BID PRN PRN Reason: Anxiety Azithromycin (Zithromax) 250 mg PO 1400 [facility] Last Admin: 03/19/17 13:21 Dose: 250 mg Calcium Citrate () 250 mg PO DAILY [facility] Last Admin: 03/20/17 09:04 Dose: 250 mg Carvedilol (Coreg) 12.5 mg PO BID [facility] Last Admin: 03/20/17 09:02 Dose: 12.5 mg Cephalexin (Keflex) 500 mg PO Q12H [facility] Last Admin: 03/20/17 09:02 Dose: 500 mg Ferrous Sulfate (Feosol) 325 mg PO BIDWM [facility] Last Admin: 03/20/17 09:00 Dose: 325 mg Folic Acid () 1 mg PO DAILY [facility] Last Admin: 03/20/17 09:02 Dose: 1 mg Furosemide (Lasix) 40 mg PO DAILY [facility] Lactulose (Lactulose) 60 gm PO QID [facility] Last Admin: 03/20/17 09:02 Dose: 60 gm Mirtazapine (Remeron) 15 mg PO QPM [facility] Last Admin: 03/19/17 20:10 Dose: 15 mg Morphine Sulfate () 30 mg PO TID PRN PRN Reason: PAIN Last Admin: 03/19/17 11:42 Dose: 30 mg Mupirocin (Bactroban 2% Cream) 1 applic TOP DAILY [facility] Last Admin: 03/20/17 09:03 Dose: 1 applic Nitroglycerin (Nitrostat) 0.4 mg SL Q5M PRN PRN Reason: Chest Pain Nortriptyline HCl (Pamelor) 150 mg PO QPM [facility] Last Admin: 03/19/17 20:11 Dose: 150 mg Ondansetron HCl (Zofran Inj) 4 mg IVP Q6HR PRN PRN Reason: Nausea / Vomiting Last Admin: 03/15/17 07:05 Dose: 4 mg Oxycodone HCl (Roxicodone) 5 mg PO Q6HR PRN PRN Reason: PAIN Last Admin: 03/19/17 12:38 Dose: 5 mg Pantoprazole Sodium (Protonix) 40 mg PO QDAC [facility] Last Admin: 03/20/17 06:37 Dose: 40 mg Polyethylene Glycol (Miralax) 17 gm PO DAILY [facility] Last Admin: 03/20/17 09:03 Dose: Not Given Potassium Chloride (K-Dur) 60 meq PO DAILYWM [facility] Last Admin: 03/20/17 09:01 Dose: 60 meq Pramipexole Dihydrochloride (Mirapex) 0.25 mg PO QPM [facility] Last Admin: 03/19/17 20:10 Dose: 0.25 mg Prochlorperazine Edisylate (Compazine Inj) 10 mg IVP Q6HR PRN PRN Reason: Nausea / Vomiting Promethazine HCl (Phenergan Inj) 25 mg IM Q6HR PRN PRN Reason: Nausea / Vomiting Rifaximin (Xifaxan) 550 mg PO BID [facility] Last Admin: 03/20/17 09:03 Dose: 550 mg Sodium Chloride (Normal Saline Flush 0.9%) 10 ml IVP PRN PRN PRN Reason: NEEDED PER PROVIDER ORDERS Last Admin: 03/16/17 20:43 Dose: 10 ml Sodium Chloride (Normal Saline Flush 0.9%) 10 ml IVP Q8HR [facility] Last Admin: 03/20/17 05:50 Dose: 10 ml Temazepam (Restoril) 30 mg PO QPM PRN PRN Reason: SLEEP Last Admin: 03/19/17 20:39 Dose: 30 mg Throat Lozenges (Cepacol) 1 lozenge MM Q2HR PRN PRN Reason: Throat pain Last Admin: 03/19/17 05:38 Dose: 1 lozenge ALPRAZolam [Xanax] 2 mg PO BID 06/24/16 Carvedilol 12.5 mg PO BID 06/24/16 Docusate Sodium 250Mg Capsule [Colace 250Mg Capsule] 250 mg PO BID 06/24/16 Furosemide 40 mg PO DAILY 06/24/16 Nortriptyline [Pamelor] 150 mg PO QPM 06/24/16 Omeprazole 20 mg PO QDAC 06/24/16 Pramipexole Di-HCl [Mirapex] 0.25 mg PO QPM 06/24/16 Temazepam 30 mg PO QPM PRN 06/24/16 rifAXIMin [Xifaxan] 550 mg PO BID 12/04/16 Mirtazapine 15 mg PO QPM 01/19/17 Nitroglycerin 0.4 mg SL Q5M PRN 01/20/17 Potassium Chloride 20 meq PO BID 01/20/17 Sennosides [Senna] 17.2 mg PO BID 01/20/17 Albuterol Sulfate [Proventil Hfa Inhaler] 1 puffs INH Q4H PRN 02/21/17 Lactulose 60 gm PO QID 02/21/17 Morphine Sulfate [Morphine Sulfate ER] 30 mg PO TID 02/21/17 oxyCODONE [Roxicodone] 10 mg PO QID 02/21/17 Objective - Vital Signs/Intake & Output Vital Signs: Vital Signs x48h Temp Pulse Resp BP BP Pulse Ox 03/20/17 09:30 70 12 89/53 L 95 03/20/17 05:19 36.4 C L 71 22 95/50 L 94 Intake & Output: Intake & Output 03/17/17 03/18/17 03/19/17 03/20/17 23:59 23:59 23:59 23:59 Intake Total 5037.50 1970 2400 740 Output Total 500 1200 3580 250 Balance 4537.50 770 -1180 490 - Objective General Appearance: positive: No acute distress, Alert. negative: Lethargic Eyes Bilateral: positive: Normal inspection, PERRL, No lid inflammation, Conjunctivae nml ENT: positive: ENT inspection nml, Pharynx nml, No signs of dehydration. negative: Purulent nasal drainage, Pharyngeal erythema, Oral lesions Neck: positive: Nml inspection, Thyroid nml, No JVD, Trachea midline. negative : Thyromegaly, Lymphadenopathy (R), Lymphadenopathy (L), Stiff neck, Kernig's sign, Carotid bruit, Swelling/bruising, Tracheal deviation Respiratory: positive: Chest non-tender, No respiratory distress, Breath sounds nml. negative: Wheezes, Rales, Rhonchi Cardiovascular: positive: Regular rate & rhythm, No murmur, No gallop. negative : Irregularly irregular, Extrasystoles, Tachycardia, Bradycardia, Systolic murmur, Diastolic murmur Peripheral Pulses: 2+ Radial (R), 2+ Radial (L), 2+ Dorsalis pedis (R), 2+ Dorsalis pedis (L) Abdomen: positive: Non-tender, Nml bowel sounds, Hepatomegaly. negative: No distention, Tenderness, Guarding, Rebound, Abnml bowel sounds Back: positive: Nml inspection. negative: CVA tenderness (R), CVA tenderness (L ) Skin: positive: Color nml, No rash, Warm, Dry, Pallor, Decubitus Extremities: positive: Non-tender, Full ROM, Nml appearance. negative: Calf tenderness, Joint swelling, Arthur's sign/cords Neurologic/Psychiatric: positive: Sensation nml, Mood/affect nml, Weakness. negative: Sensory loss, Facial droop, Slurred/abnml speech, Depressed mood/ affect - Lab Results Fish Bones: 03/20/17 05:36 03/20/17 05:36 Other Labs: Lab Results x24hrs 03/20/17 03/20/17 03/20/17 Range/Units 05:36 05:36 05:36 WBC (4.8-10.8) x10^3/uL RBC (4.70-6.10) 10^6/uL Hgb (14.0-18.0) g/dL Hct (42.0-52.0) % MCV (80.0-94.0) fL MCH (27.0-31.0) pg MCHC (32.0-36.0) g/dL RDW (12.0-15.0) % Plt Count (130-450) 10^3/uL MPV (7.4-11.4) fL Neut # (1.5-6.6) 10^3/uL Lymph # (1.5-3.5) 10^3/uL [place] # (0.0-1.0) 10^3/uL Eos # (0.0-0.7) 10^3/uL Baso # (0.0-0.1) 10^3/uL Absolute Nucleated RBC x10^3/uL Nucleated RBC % /100WBC PT 21.2 H (9.9-12.6) secs INR 1.9 H (0.8-1.2) Sodium 139 (135-145) mmol/L Potassium 3.3 L (3.5-5.0) mmol/L Chloride 106 (101-111) mmol/L Carbon Dioxide 26 (21-32) mmol/L Anion Gap 7.0 (6-13) BUN 7 (6-20) mg/dL Creatinine 0.6 (0.6-1.2) mg/dL Estimated GFR (MDRD) 139 (>89) Glucose 87 (70-100) mg/dL Calcium 7.8 L (8.5-10.3) mg/dL Phosphorus 2.0 L (2.5-4.6) mg/dL Total Bilirubin 4.0 H (0.2-1.0) mg/dL AST 124 H (10-42) IU/L ALT 41 (10-60) IU/L Alkaline Phosphatase 112 (42-121) IU/L Ammonia 48.3 H (7-35) umol/L Total Protein 6.0 L (6.7-8.2) g/dL Albumin 2.1 L (3.2-5.5) g/dL Globulin 3.9 (2.1-4.2) g/dL Albumin/Globulin Ratio 0.5 L (1.0-2.2) 03/20/17 Range/Units 05:36 WBC 4.4 L (4.8-10.8) x10^3/uL RBC 3.09 L (4.70-6.10) 10^6/uL Hgb 11.0 L (14.0-18.0) g/dL Hct 32.8 L (42.0-52.0) % MCV 106.2 H (80.0-94.0) fL MCH 35.5 H (27.0-31.0) pg MCHC 33.5 (32.0-36.0) g/dL RDW 18.1 H (12.0-15.0) % Plt Count 68 L (130-450) 10^3/uL MPV 9.4 (7.4-11.4) fL Neut # 2.4 (1.5-6.6) 10^3/uL Lymph # 1.4 L (1.5-3.5) 10^3/uL [place] # 0.5 (0.0-1.0) 10^3/uL Eos # 0.2 (0.0-0.7) 10^3/uL Baso # 0.0 (0.0-0.1) 10^3/uL Absolute Nucleated RBC 0.02 x10^3/uL Nucleated RBC % 0.4 /100WBC PT (9.9-12.6) secs INR (0.8-1.2) Sodium (135-145) mmol/L Potassium (3.5-5.0) mmol/L Chloride (101-111) mmol/L Carbon Dioxide (21-32) mmol/L Anion Gap (6-13) BUN (6-20) mg/dL Creatinine (0.6-1.2) mg/dL Estimated GFR (MDRD) (>89) Glucose (70-100) mg/dL Calcium (8.5-10.3) mg/dL Phosphorus (2.5-4.6) mg/dL Total Bilirubin (0.2-1.0) mg/dL AST (10-42) IU/L ALT (10-60) IU/L Alkaline Phosphatase (42-121) IU/L Ammonia (7-35) umol/L Total Protein (6.7-8.2) g/dL Albumin (3.2-5.5) g/dL Globulin (2.1-4.2) g/dL Albumin/Globulin Ratio (1.0-2.2) Assessment/Plan - Problem List (1) Cirrhosis of liver with ascites Impression: stable, after infusion of albumin, pt's albumin level is up to 2.1 continue lab monitor continue home meds Lasix vital monitor, support CT reveals anasarca. No paracentesis IV of albumin, continue lasix daily lab, vital monitor pt has a significant distended abdomen, and hernia of umbrellium. pt has PT/INR 21/1.9. order cross match of plasma, 2 units of FFP. make sure pt has FFP before paracentesis US with paracentesis, and test to the fluid from paracentesis. vital closely monitor to Q4H (2) Hepatic encephalopathy Impression: Ammonia is down to 48 continue current treatment daily monitor Ammonia, daily lab ammonia level is going up 73. pt did not have lactulose on yesterday because pt' s altered mental status continue Lactulose and Xifime daily ammonia, lab test vital monitor ammonia level is down to 48, good progress. pt is still some confused continue PO lactulose 4 times daily and he will be continued on rifaximin. Monitor ammonia levels and mental status. vital monitor The patient presented with hepatic encephalopathy. This is his third hospitalization in just over a month for hepatic encephalopathy. Patient has a long history of noncompliance with medication. The patient admits to being noncompliant upon admission. Patient became more lethargic and was given narcan x1 due to decreased mental status and difficult to arouse. Plan: PO lactulose 4 times daily and he will be continued on rifaximin. Monitor ammonia levels and mental status. Discharge on hold and case management will assist with possible placement since home health services are intolerable socially. (3) Hypokalemia Impression: replacement of potassium daily lab monitor resolved. chronic hypokalemia Patient presented with a potassium of 2.8. The patient has a history of hypokalemia, and is likely chronically due to diuretic use. Plan: Treat patient's hypokalemia with IV and p.o. potassium replacement. Monitor electrolytes. (4) Cirrhosis Impression: continue lactulose and rifaximin continue lab, and vital monitor The patient has chronic jaundice. LFTs are unstable, but improved since admission. Patient should follow his home medication instructions, but does not. Ammonia level today was 65, which is the patient's high normal range. In this respect he may be appropriate for discharge, but lethargy and agitation have been a barrier. Plan: We will continue to administer lactulose, and diuretics while in the hospital. (5) Anxiety Impression: stable, resume home meds Xanax PRN The patient has history of anxiety and often once he does return to his normal baseline mental status the patient will become agitated and even violent at times. The patient is on nortriptyline and Xanax. The patient has had a sitter for the last several shifts due to elopement threats. Plan: Patient will be continued on his home medication he can have Ativan as needed for agitation. (6) Hypertension Impression: no more hypertension hold BP meds closely monitor pt hypotensive now, change vital to Q4H Patient's blood pressure has been mildly low for his normal and the last reading was 94/62. Patient is on Coreg, Lasix, Aldactone at home. We will continue the patient's home regimen for blood pressure control. Plan: We will monitor vital signs every 4 hours and give scheduled medications. Gentle IV hydration as needed. (7) Anemia Impression: stable, continue home meds, and lab monitor The patient has a history of iron deficiency and anemia and is on iron at home. H/H was 10.8 and 32.0 today. Plan: We will continue to give patient his home dose of iron and monitor labs. (8) Non compliance with medical treatment consult to pt for medical compliance it is one of major issue to pt. Pt had home health RN to monitor pt for medical compliance on the last d/c plan. But it seems not working well to pt pt's state she is difficult to take care of pt more, and request nurse home or SNF for D/C consult social work (9) pressure ulcer continue dressing change continue Keflex dressing change as wound care recommend Q2H turn pt (10) anasarca stable. pt state he feel better daily lab, vital monitor support CT of abdomen reviewed albumin level is 1.9 albumin 25% once Lasix 40 mg PO as home meds daily and vital monitor (11) pneumonia continue Azithyromycin to finish the antibiotics course CXR and CT reveal pt has new LLB infiltration. No fever, chill, WBC normal. However pt is high risk for infection to sepsis because of his medical condition Azithyomycin PO follow up blood, daily lab, vital monitor Qualifiers: Hepatic cirrhosis type: alcoholic cirrhosis Qualified Code(s): K70.31 - Alcoholic cirrhosis of liver with ascites
[2017-03-20] MEDS: AZITHROMYCIN 250 MG TABLET PO SCH (14:13)
[2017-03-20] MEDS: MIRTAZAPINE 15 MG TABLET PO SCH (20:13)
[2017-03-20] MEDS: PRAMIPEXOLE 0.25 MG TABLET PO SCH (20:14)
[2017-03-20] MEDS: NORTRIPTYLINE 25 MG CAPSULE PO SCH (20:42)
[2017-03-20] MEDS: TEMAZEPAM 15 MG CAPSULE PO PRN (23:01)
[2017-03-21] MEDS: oxyCODONE 5 MG TABLET PO PRN (00:31)
[2017-03-21] MEDS: PANTOPRAZOLE 40 MG TABLET PO SCH (06:10)
[2017-03-21 06:42] LABS: BASOPHILS % (AUTO) 0.7 %; EOSINOPHILS # (AUTO) 0.2 10^3/uL (0.0-0.7); EOSINOPHILS % (AUTO) 3.4 %; HCT - HEMATOCRIT 33.9 % (42.0-52.0); HGB - HEMOGLOBIN 11.4 g/dL (14.0-18.0); LYMPHOCYTES # (AUTO) 1.6 10^3/uL (1.5-3.5); LYMPHOCYTES % (AUTO) 32.6 %; MEAN CORPUSCULAR HEMOGLOBIN 35.3 pg (27.0-31.0); MEAN CORPUSCULAR HGB CONC 33.7 g/dL (32.0-36.0); MEAN CORPUSCULAR VOLUME 104.8 fL (80.0-94.0); MONOCYTES # (AUTO) 0.5 10^3/uL (0.0-1.0); MONOCYTES % (AUTO) 10.2 %; NEUTROPHILS # (AUTO) 2.7 10^3/uL (1.5-6.6); NEUTROPHILS % (AUTO) 53.1 %; NUCLEATED RED BLOOD CELLS AUTO 0.1 /100WBC; RED BLOOD COUNT 3.24 10^6/uL (4.70-6.10); RED CELL DISTRIBUTION WIDTH 17.6 % (12.0-15.0)
[2017-03-21 06:54] LABS: ALBUMIN/GLOBULIN RATIO 0.5 (1.0-2.2); BILIRUBIN,TOTAL 4.4 mg/dL (0.2-1.0); CALCIUM 8.3 mg/dL (8.5-10.3); CREATININE 0.7 mg/dL (0.6-1.2); PHOSPHORUS 2.1 mg/dL (2.5-4.6); POTASSIUM 3.3 mmol/L (3.5-5.0); TOTAL PROTEIN 6.6 g/dL (6.7-8.2)
[2017-03-21 06:55] LABS: INR 1.9 (0.8-1.2); PT - PROTHROMBIN TIME 20.6 secs (9.9-12.6)
[2017-03-21] MEDS: FERROUS SULFATE 325 MG TABLET PO SCH ×2 (08:55→17:28)
[2017-03-21] MEDS: POTASSIUM CHLORIDE 20 MEQ TABLET PO ONE ×2 (08:57→08:58)
[2017-03-21] MEDS: POTASSIUM CHLORIDE 20 MEQ TABLET PO SCH (08:58)
[2017-03-21] MEDS: ALPRAZolam 0.25 MG TABLET PO SCH ×2 (08:59→22:01)
[2017-03-21] MEDS: CALCIUM CITRATE 250 MG TABLET PO SCH (08:59)
[2017-03-21] MEDS: CARVEDILOL 12.5 MG TABLET PO SCH ×2 (08:59→22:02)
[2017-03-21] MEDS: LACTULOSE 10 GM/15 ML BOTTLE PO SCH ×5 (09:00→22:02)
[2017-03-21] MEDS: FUROSEMIDE 40 MG TABLET PO SCH (09:00)
[2017-03-21] MEDS: cephALEXin 250 MG CAPSULE PO SCH ×2 (09:00→22:02)
[2017-03-21] MEDS: FOLIC ACID 1 MG TABLET PO SCH (09:00)
[2017-03-21] MEDS: rifAXIMin 550 MG TABLET PO SCH (09:01)
[2017-03-21] MEDS: MUPIROCIN 2% CREAM 30 GM TUBE TOP SCH (09:01)
[2017-03-21] MEDS: POLYETHYLENE GLYCOL 3350 17 GM PACKET PO SCH (09:01)
--- NOTE | 2017-03-21 10:42 | PROVIDER PROGRESS NOTE ---
Subjective - Prog Note Date Prog Note Date: 03/21/17 - Subjective Pt reports feeling: No change Subjective: pt feel ok, and want to be d/c. pt stay quiet on last night, no behaviours disturbance reported on last night. we seek replacement for him Current Medications - Current Medications Current Medications: Active Medications Albuterol () 2.5 mg INH RTQ4H PRN PRN Reason: Wheezing Albuterol/Ipratropium (Duoneb) 3 ml INH Q4HR PRN PRN Reason: Wheezing Last Admin: 03/19/17 21:55 Dose: 3 ml Alprazolam (Xanax) 2 mg PO BID [facility] Last Admin: 03/21/17 08:59 Dose: 2 mg Alprazolam (Xanax) 2 mg PO BID PRN PRN Reason: Anxiety Azithromycin (Zithromax) 250 mg PO 1400 [facility] Last Admin: 03/20/17 14:13 Dose: 250 mg Calcium Citrate () 250 mg PO DAILY [facility] Last Admin: 03/21/17 08:59 Dose: 250 mg Carvedilol (Coreg) 12.5 mg PO BID [facility] Last Admin: 03/21/17 08:59 Dose: 12.5 mg Cephalexin (Keflex) 500 mg PO Q12H [facility] Last Admin: 03/21/17 09:00 Dose: 500 mg Ferrous Sulfate (Feosol) 325 mg PO BIDWM [facility] Last Admin: 03/21/17 08:55 Dose: 325 mg Folic Acid () 1 mg PO DAILY [facility] Last Admin: 03/21/17 09:00 Dose: 1 mg Furosemide (Lasix) 40 mg PO DAILY [facility] Last Admin: 03/21/17 09:00 Dose: 40 mg Lactulose (Lactulose) 60 gm PO QID [facility] Last Admin: 03/21/17 09:00 Dose: 60 gm Mirtazapine (Remeron) 15 mg PO QPM [facility] Last Admin: 03/20/17 20:13 Dose: 15 mg Morphine Sulfate () 30 mg PO TID PRN PRN Reason: PAIN Last Admin: 03/19/17 11:42 Dose: 30 mg Mupirocin (Bactroban 2% Cream) 1 applic TOP DAILY [facility] Last Admin: 03/21/17 09:01 Dose: 1 applic Nitroglycerin (Nitrostat) 0.4 mg SL Q5M PRN PRN Reason: Chest Pain Nortriptyline HCl (Pamelor) 150 mg PO QPM [facility] Last Admin: 03/20/17 20:42 Dose: 150 mg Ondansetron HCl (Zofran Inj) 4 mg IVP Q6HR PRN PRN Reason: Nausea / Vomiting Last Admin: 03/15/17 07:05 Dose: 4 mg Oxycodone HCl (Roxicodone) 5 mg PO Q6HR PRN PRN Reason: PAIN Last Admin: 03/21/17 00:31 Dose: 5 mg Pantoprazole Sodium (Protonix) 40 mg PO QDAC [facility] Last Admin: 03/21/17 06:10 Dose: 40 mg Polyethylene Glycol (Miralax) 17 gm PO DAILY [facility] Last Admin: 03/21/17 09:01 Dose: Not Given Potassium Chloride (K-Dur) 60 meq PO DAILYWM [facility] Last Admin: 03/21/17 08:58 Dose: 60 meq Pramipexole Dihydrochloride (Mirapex) 0.25 mg PO QPM [facility] Last Admin: 03/20/17 20:14 Dose: 0.25 mg Prochlorperazine Edisylate (Compazine Inj) 10 mg IVP Q6HR PRN PRN Reason: Nausea / Vomiting Promethazine HCl (Phenergan Inj) 25 mg IM Q6HR PRN PRN Reason: Nausea / Vomiting Rifaximin (Xifaxan) 550 mg PO DAILY [facility] Last Admin: 03/21/17 09:01 Dose: 550 mg Sodium Chloride (Normal Saline Flush 0.9%) 10 ml IVP PRN PRN PRN Reason: NEEDED PER PROVIDER ORDERS Last Admin: 03/16/17 20:43 Dose: 10 ml Sodium Chloride (Normal Saline Flush 0.9%) 10 ml IVP Q8HR [facility] Last Admin: 03/20/17 20:15 Dose: 10 ml Temazepam (Restoril) 30 mg PO QPM PRN PRN Reason: SLEEP Last Admin: 03/20/17 23:01 Dose: 30 mg Throat Lozenges (Cepacol) 1 lozenge MM Q2HR PRN PRN Reason: Throat pain Last Admin: 03/19/17 05:38 Dose: 1 lozenge ALPRAZolam [Xanax] 2 mg PO BID 06/24/16 Carvedilol 12.5 mg PO BID 06/24/16 Docusate Sodium 250Mg Capsule [Colace 250Mg Capsule] 250 mg PO BID 06/24/16 Furosemide 40 mg PO DAILY 06/24/16 Nortriptyline [Pamelor] 150 mg PO QPM 06/24/16 Omeprazole 20 mg PO QDAC 06/24/16 Pramipexole Di-HCl [Mirapex] 0.25 mg PO QPM 06/24/16 Temazepam 30 mg PO QPM PRN 06/24/16 rifAXIMin [Xifaxan] 550 mg PO BID 12/04/16 Mirtazapine 15 mg PO QPM 01/19/17 Nitroglycerin 0.4 mg SL Q5M PRN 01/20/17 Potassium Chloride 20 meq PO BID 01/20/17 Sennosides [Senna] 17.2 mg PO BID 01/20/17 Albuterol Sulfate [Proventil Hfa Inhaler] 1 puffs INH Q4H PRN 02/21/17 Lactulose 60 gm PO QID 02/21/17 Morphine Sulfate [Morphine Sulfate ER] 30 mg PO TID 02/21/17 oxyCODONE [Roxicodone] 10 mg PO QID 02/21/17 Objective - Vital Signs/Intake & Output Reviewed Vital Signs: Yes Vital Signs: Vital Signs x48h Temp Pulse Resp BP Pulse Ox 03/21/17 08:47 36.8 C 79 12 114/61 94 03/21/17 05:54 36.7 C 77 18 94 Intake & Output: Intake & Output 03/18/17 03/19/17 03/20/17 03/21/17 23:59 23:59 23:59 23:59 Intake Total 1970 2400 1630 750 Output Total 1200 3580 1500 700 Balance 770 -1180 130 50 - Objective General Appearance: positive: No acute distress, Alert. negative: Lethargic Eyes Bilateral: positive: Normal inspection, PERRL, No lid inflammation, Conjunctivae nml ENT: positive: ENT inspection nml, Pharynx nml, No signs of dehydration. negative: Purulent nasal drainage, Pharyngeal erythema, Oral lesions, Dry mucous membranes Neck: positive: Nml inspection, Thyroid nml, No JVD, Trachea midline. negative : Thyromegaly, Lymphadenopathy (R), Lymphadenopathy (L), Stiff neck, Carotid bruit, Swelling/bruising, Tracheal deviation Respiratory: positive: Chest non-tender, No respiratory distress, Breath sounds nml. negative: Wheezes, Rales, Rhonchi Cardiovascular: positive: Regular rate & rhythm, No murmur, No gallop. negative : Irregularly irregular, Extrasystoles, Tachycardia, Bradycardia, Systolic murmur, Diastolic murmur Peripheral Pulses: 2+ Radial (R), 2+ Radial (L), 2+ Dorsalis pedis (R), 2+ Dorsalis pedis (L) Abdomen: positive: Non-tender, Nml bowel sounds. negative: Tenderness, Guarding , Rebound Back: positive: Nml inspection. negative: CVA tenderness (R), CVA tenderness (L ) Skin: positive: Color nml, Warm, Dry, Skin rash, Decubitus. negative: Cyanosis , Diaphoresis Extremities: positive: Non-tender, Full ROM. negative: Calf tenderness, Joint swelling, Arthur's sign/cords Neurologic/Psychiatric: positive: Sensation nml, Weakness. negative: Sensory loss, Facial droop, Slurred/abnml speech, Depressed mood/affect - Lab Results Fish Bones: 03/21/17 06:32 03/21/17 06:36 Other Labs: Lab Results x24hrs 03/21/17 03/21/17 03/21/17 Range/Units 06:36 06:32 06:32 WBC (4.8-10.8) x10^3/uL RBC (4.70-6.10) 10^6/uL Hgb (14.0-18.0) g/dL Hct (42.0-52.0) % MCV (80.0-94.0) fL MCH (27.0-31.0) pg MCHC (32.0-36.0) g/dL RDW (12.0-15.0) % Plt Count (130-450) 10^3/uL MPV (7.4-11.4) fL Neut # (1.5-6.6) 10^3/uL Lymph # (1.5-3.5) 10^3/uL Desha # (0.0-1.0) 10^3/uL Eos # (0.0-0.7) 10^3/uL Baso # (0.0-0.1) 10^3/uL Absolute Nucleated RBC x10^3/uL Nucleated RBC % /100WBC PT 20.6 H (9.9-12.6) secs INR 1.9 H (0.8-1.2) Sodium 139 (135-145) mmol/L Potassium 3.3 L (3.5-5.0) mmol/L Chloride 103 (101-111) mmol/L Carbon Dioxide 27 (21-32) mmol/L Anion Gap 9.0 (6-13) BUN 7 (6-20) mg/dL Creatinine 0.7 (0.6-1.2) mg/dL Estimated GFR (MDRD) 116 (>89) Glucose 99 (70-100) mg/dL Calcium 8.3 L (8.5-10.3) mg/dL Phosphorus 2.1 L (2.5-4.6) mg/dL Total Bilirubin 4.4 H (0.2-1.0) mg/dL AST 127 H (10-42) IU/L ALT 46 (10-60) IU/L Alkaline Phosphatase 122 H (42-121) IU/L Ammonia 39.0 H (7-35) umol/L Total Protein 6.6 L (6.7-8.2) g/dL Albumin 2.1 L (3.2-5.5) g/dL Globulin 4.5 H (2.1-4.2) g/dL Albumin/Globulin Ratio 0.5 L (1.0-2.2) 03/21/17 Range/Units 06:32 WBC 5.0 (4.8-10.8) x10^3/uL RBC 3.24 L (4.70-6.10) 10^6/uL Hgb 11.4 L (14.0-18.0) g/dL Hct 33.9 L (42.0-52.0) % MCV 104.8 H (80.0-94.0) fL MCH 35.3 H (27.0-31.0) pg MCHC 33.7 (32.0-36.0) g/dL RDW 17.6 H (12.0-15.0) % Plt Count 77 L (130-450) 10^3/uL MPV 9.0 (7.4-11.4) fL Neut # 2.7 (1.5-6.6) 10^3/uL Lymph # 1.6 (1.5-3.5) 10^3/uL Desha # 0.5 (0.0-1.0) 10^3/uL Eos # 0.2 (0.0-0.7) 10^3/uL Baso # 0.0 (0.0-0.1) 10^3/uL Absolute Nucleated RBC 0.01 x10^3/uL Nucleated RBC % 0.1 /100WBC PT (9.9-12.6) secs INR (0.8-1.2) Sodium (135-145) mmol/L Potassium (3.5-5.0) mmol/L Chloride (101-111) mmol/L Carbon Dioxide (21-32) mmol/L Anion Gap (6-13) BUN (6-20) mg/dL Creatinine (0.6-1.2) mg/dL Estimated GFR (MDRD) (>89) Glucose (70-100) mg/dL Calcium (8.5-10.3) mg/dL Phosphorus (2.5-4.6) mg/dL Total Bilirubin (0.2-1.0) mg/dL AST (10-42) IU/L ALT (10-60) IU/L Alkaline Phosphatase (42-121) IU/L Ammonia (7-35) umol/L Total Protein (6.7-8.2) g/dL Albumin (3.2-5.5) g/dL Globulin (2.1-4.2) g/dL Albumin/Globulin Ratio (1.0-2.2) Assessment/Plan - Problem List (1) Cirrhosis of liver with ascites Impression: Impression: continue vital monitor, support continue to seek replacement for pt stable, after infusion of albumin, pt's albumin level is up to 2.1 continue lab monitor continue home meds Lasix vital monitor, support CT reveals anasarca. No paracentesis IV of albumin, continue lasix daily lab, vital monitor pt has a significant distended abdomen, and hernia of umbrellium. pt has PT/INR 21/1.9. order cross match of plasma, 2 units of FFP. make sure pt has FFP before paracentesis US with paracentesis, and test to the fluid from paracentesis. vital closely monitor to Q4H (2) Hepatic encephalopathy Impression: pt's ammonia level is down to 39 today no behaviour disturbance reported on last night continue lab test, vital monitor Ammonia is down to 48 continue current treatment daily monitor Ammonia, daily lab ammonia level is going up 73. pt did not have lactulose on yesterday because pt' s altered mental status continue Lactulose and Xifime daily ammonia, lab test vital monitor ammonia level is down to 48, good progress. pt is still some confused continue PO lactulose 4 times daily and he will be continued on rifaximin. Monitor ammonia levels and mental status. vital monitor The patient presented with hepatic encephalopathy. This is his third hospitalization in just over a month for hepatic encephalopathy. Patient has a long history of noncompliance with medication. The patient admits to being noncompliant upon admission. Patient became more lethargic and was given narcan x1 due to decreased mental status and difficult to arouse. Plan: PO lactulose 4 times daily and he will be continued on rifaximin. Monitor ammonia levels and mental status. Discharge on hold and case management will assist with possible placement since home health services are intolerable socially. (3) Hypokalemia Impression: replacement of potassium daily lab monitor resolved. chronic hypokalemia Patient presented with a potassium of 2.8. The patient has a history of hypokalemia, and is likely chronically due to diuretic use. Plan: Treat patient's hypokalemia with IV and p.o. potassium replacement. Monitor electrolytes. (4) Cirrhosis Impression: continue lactulose and rifaximin. Rifaximin is down to daily due to its side effect on liver. continue lab, and vital monitor The patient has chronic jaundice. LFTs are unstable, but improved since admission. Patient should follow his home medication instructions, but does not. Ammonia level today was 65, which is the patient's high normal range. In this respect he may be appropriate for discharge, but lethargy and agitation have been a barrier. Plan: We will continue to administer lactulose, and diuretics while in the hospital. (5) Anxiety Impression: stable, resume home meds Xanax PRN The patient has history of anxiety and often once he does return to his normal baseline mental status the patient will become agitated and even violent at times. The patient is on nortriptyline and Xanax. The patient has had a sitter for the last several shifts due to elopement threats. Plan: Patient will be continued on his home medication he can have Ativan as needed for agitation. (6) Hypertension Impression: no more hypertension hold BP meds closely monitor pt hypotensive now, change vital to Q4H Patient's blood pressure has been mildly low for his normal and the last reading was 94/62. Patient is on Coreg, Lasix, Aldactone at home. We will continue the patient's home regimen for blood pressure control. Plan: We will monitor vital signs every 4 hours and give scheduled medications. Gentle IV hydration as needed. (7) Anemia Impression: stable, continue home meds, and lab monitor The patient has a history of iron deficiency and anemia and is on iron at home. H/H was 10.8 and 32.0 today. Plan: We will continue to give patient his home dose of iron and monitor labs. (8) Non compliance with medical treatment consult to pt for medical compliance it is one of major issue to pt. Pt had home health RN to monitor pt for medical compliance on the last d/c plan. But it seems not working well to pt pt's state she is difficult to take care of pt more, and request nurse home or SNF for D/C consult social work (9) pressure ulcer continue dressing change continue Keflex dressing change as wound care recommend Q2H turn pt (10) anasarca stable. pt state he feel better daily lab, vital monitor support CT of abdomen reviewed albumin level is 1.9 albumin 25% once Lasix 40 mg PO as home meds daily and vital monitor (11) pneumonia no fever, chill, night sweating, cough. SO2 95% with room air continue azithyromycin for another a few days then d/c, due to pt's liver condition continue Azithyromycin to finish the antibiotics course CXR and CT reveal pt has new LLB infiltration. No fever, chill, WBC normal. However pt is high risk for infection to sepsis because of his medical condition Azithyomycin PO follow up blood, daily lab, vital monitor Qualifiers: Hepatic cirrhosis type: alcoholic cirrhosis Qualified Code(s): K70.31 - Alcoholic cirrhosis of liver with ascites
[2017-03-21] MEDS: NICOTINE 14 MG PATCH TOP SCH (12:37)
[2017-03-21] MEDS: AZITHROMYCIN 250 MG TABLET PO SCH (13:25)
[2017-03-21] MEDS ORDERED: POTASSIUM CHLORIDE 20 MEQ TABLET PO SCH (17:00)
[2017-03-21] MEDS: SODIUM CHLORIDE FLUSH 0.9% 10 ML SYRINGE IVP SCH ×3 (17:26→22:03)
[2017-03-21] MEDS: PRAMIPEXOLE 0.25 MG TABLET PO SCH (22:02)
[2017-03-21] MEDS: NORTRIPTYLINE 25 MG CAPSULE PO SCH (22:02)
[2017-03-21] MEDS: MIRTAZAPINE 15 MG TABLET PO SCH (22:02)
[2017-03-22] MEDS: oxyCODONE 5 MG TABLET PO PRN ×4 (00:37→18:42)
[2017-03-22] MEDS: TEMAZEPAM 15 MG CAPSULE PO PRN (00:37)
[2017-03-22] MEDS: SODIUM CHLORIDE FLUSH 0.9% 10 ML SYRINGE IVP SCH ×4 (05:21→20:46)
[2017-03-22] MEDS: PANTOPRAZOLE 40 MG TABLET PO SCH (06:36)
[2017-03-22 06:42] LABS: BASOPHILS % (AUTO) 0.6 %; EOSINOPHILS # (AUTO) 0.1 10^3/uL (0.0-0.7); EOSINOPHILS % (AUTO) 2.6 %; HCT - HEMATOCRIT 30.6 % (42.0-52.0); HGB - HEMOGLOBIN 10.4 g/dL (14.0-18.0); LYMPHOCYTES # (AUTO) 1.8 10^3/uL (1.5-3.5); MEAN CORPUSCULAR HEMOGLOBIN 35.8 pg (27.0-31.0); MEAN CORPUSCULAR HGB CONC 34.1 g/dL (32.0-36.0); MEAN PLATELET VOLUME 8.9 fL (7.4-11.4); MONOCYTES # (AUTO) 0.4 10^3/uL (0.0-1.0); MONOCYTES % (AUTO) 9.2 %; NEUTROPHILS # (AUTO) 2.5 10^3/uL (1.5-6.6); NEUTROPHILS % (AUTO) 50.6 %; RED BLOOD COUNT 2.91 10^6/uL (4.70-6.10); RED CELL DISTRIBUTION WIDTH 17.7 % (12.0-15.0); UNCORRECTED WHITE BLOOD COUNT 4.9 x10^3/uL; WHITE BLOOD COUNT 4.9 x10^3/uL (4.8-10.8)
[2017-03-22 06:46] LABS: INR 1.9 (0.8-1.2); PT - PROTHROMBIN TIME 20.9 secs (9.9-12.6)
[2017-03-22 06:53] LABS: ALBUMIN/GLOBULIN RATIO 0.5 (1.0-2.2); BILIRUBIN,TOTAL 4.4 mg/dL (0.2-1.0); CALCIUM 8.2 mg/dL (8.5-10.3); CREATININE 0.7 mg/dL (0.6-1.2); PHOSPHORUS 2.6 mg/dL (2.5-4.6); POTASSIUM 3.4 mmol/L (3.5-5.0); TOTAL PROTEIN 6.2 g/dL (6.7-8.2)
[2017-03-22] MEDS ORDERED: POTASSIUM CHLORIDE 20 MEQ TABLET PO SCH (08:00)
[2017-03-22] MEDS: ALPRAZolam 0.25 MG TABLET PO SCH (09:57)
[2017-03-22] MEDS: LACTULOSE 10 GM/15 ML BOTTLE PO SCH ×4 (09:58→18:39)
[2017-03-22] MEDS: FOLIC ACID 1 MG TABLET PO SCH (09:59)
[2017-03-22] MEDS: FERROUS SULFATE 325 MG TABLET PO SCH ×2 (09:59→16:02)
[2017-03-22] MEDS: CARVEDILOL 12.5 MG TABLET PO SCH ×2 (09:59→20:45)
[2017-03-22] MEDS: FUROSEMIDE 40 MG TABLET PO SCH (09:59)
[2017-03-22] MEDS: CALCIUM CITRATE 250 MG TABLET PO SCH (09:59)
[2017-03-22] MEDS: rifAXIMin 550 MG TABLET PO SCH (10:00)
[2017-03-22] MEDS: POTASSIUM CHLORIDE 20 MEQ TABLET PO SCH (10:00)
[2017-03-22] MEDS: NICOTINE 14 MG PATCH TOP SCH (10:01)
[2017-03-22] MEDS: MUPIROCIN 2% CREAM 30 GM TUBE TOP SCH (10:02)
[2017-03-22] MEDS: POLYETHYLENE GLYCOL 3350 17 GM PACKET PO SCH (10:02)
[2017-03-22] MEDS: cephALEXin 250 MG CAPSULE PO SCH ×2 (10:06→20:45)
--- NOTE | 2017-03-22 10:20 | PROVIDER PROGRESS NOTE ---
Subjective - Prog Note Date Prog Note Date: 03/22/17 - Subjective Pt reports feeling: No change Subjective: pt keep asking to go to home. Denies other complaints. The significant other state she can not take care of her more. We seek a replacement for pt Current Medications - Current Medications Current Medications: Active Medications Albuterol () 2.5 mg INH RTQ4H PRN PRN Reason: Wheezing Albuterol/Ipratropium (Duoneb) 3 ml INH Q4HR PRN PRN Reason: Wheezing Last Admin: 03/19/17 21:55 Dose: 3 ml Alprazolam (Xanax) 2 mg PO BID [facility] Last Admin: 03/22/17 09:57 Dose: 2 mg Alprazolam (Xanax) 2 mg PO BID PRN PRN Reason: Anxiety Azithromycin (Zithromax) 250 mg PO 1400 [facility] Last Admin: 03/21/17 13:25 Dose: 250 mg Calcium Citrate () 250 mg PO DAILY [facility] Last Admin: 03/22/17 09:59 Dose: 250 mg Carvedilol (Coreg) 12.5 mg PO BID [facility] Last Admin: 03/22/17 09:59 Dose: 12.5 mg Cephalexin (Keflex) 500 mg PO Q12H [facility] Last Admin: 03/22/17 10:06 Dose: 500 mg Ferrous Sulfate (Feosol) 325 mg PO BIDWM [facility] Last Admin: 03/22/17 09:59 Dose: 325 mg Folic Acid () 1 mg PO DAILY [facility] Last Admin: 03/22/17 09:59 Dose: 1 mg Furosemide (Lasix) 40 mg PO DAILY [facility] Last Admin: 03/22/17 09:59 Dose: 40 mg Lactulose (Lactulose) 60 gm PO QID [facility] Last Admin: 03/22/17 09:58 Dose: 60 gm Mirtazapine (Remeron) 15 mg PO QPM [facility] Last Admin: 03/21/17 22:02 Dose: Not Given Morphine Sulfate () 30 mg PO TID PRN PRN Reason: PAIN Last Admin: 03/19/17 11:42 Dose: 30 mg Mupirocin (Bactroban 2% Cream) 1 applic TOP DAILY [facility] Last Admin: 03/22/17 10:02 Dose: 1 applic Nicotine (Nicoderm) 1 patch TOP DAILY [facility] Last Admin: 03/22/17 10:01 Dose: 1 patch Nitroglycerin (Nitrostat) 0.4 mg SL Q5M PRN PRN Reason: Chest Pain Nortriptyline HCl (Pamelor) 150 mg PO QPM [facility] Last Admin: 03/21/17 22:02 Dose: Not Given Ondansetron HCl (Zofran Inj) 4 mg IVP Q6HR PRN PRN Reason: Nausea / Vomiting Last Admin: 03/15/17 07:05 Dose: 4 mg Oxycodone HCl (Roxicodone) 5 mg PO Q6HR PRN PRN Reason: PAIN Last Admin: 03/22/17 00:37 Dose: 5 mg Pantoprazole Sodium (Protonix) 40 mg PO QDAC [facility] Last Admin: 03/22/17 06:36 Dose: Not Given Polyethylene Glycol (Miralax) 17 gm PO DAILY [facility] Last Admin: 03/22/17 10:02 Dose: Not Given Potassium Chloride (K-Dur) 100 meq PO DAILYWM [facility] Last Admin: 03/22/17 10:00 Dose: 100 meq Pramipexole Dihydrochloride (Mirapex) 0.25 mg PO QPM [facility] Last Admin: 03/21/17 22:02 Dose: Not Given Prochlorperazine Edisylate (Compazine Inj) 10 mg IVP Q6HR PRN PRN Reason: Nausea / Vomiting Promethazine HCl (Phenergan Inj) 25 mg IM Q6HR PRN PRN Reason: Nausea / Vomiting Rifaximin (Xifaxan) 550 mg PO DAILY [facility] Last Admin: 03/22/17 10:00 Dose: 550 mg Sodium Chloride (Normal Saline Flush 0.9%) 10 ml IVP PRN PRN PRN Reason: NEEDED PER PROVIDER ORDERS Last Admin: 03/16/17 20:43 Dose: 10 ml Sodium Chloride (Normal Saline Flush 0.9%) 10 ml IVP Q8HR [facility] Last Admin: 03/22/17 05:21 Dose: Not Given Temazepam (Restoril) 30 mg PO QPM PRN PRN Reason: SLEEP Last Admin: 03/22/17 00:37 Dose: 30 mg Throat Lozenges (Cepacol) 1 lozenge MM Q2HR PRN PRN Reason: Throat pain Last Admin: 03/19/17 05:38 Dose: 1 lozenge ALPRAZolam [Xanax] 2 mg PO BID 06/24/16 Carvedilol 12.5 mg PO BID 06/24/16 Docusate Sodium 250Mg Capsule [Colace 250Mg Capsule] 250 mg PO BID 06/24/16 Furosemide 40 mg PO DAILY 06/24/16 Nortriptyline [Pamelor] 150 mg PO QPM 06/24/16 Omeprazole 20 mg PO QDAC 06/24/16 Pramipexole Di-HCl [Mirapex] 0.25 mg PO QPM 06/24/16 Temazepam 30 mg PO QPM PRN 06/24/16 rifAXIMin [Xifaxan] 550 mg PO BID 12/04/16 Mirtazapine 15 mg PO QPM 01/19/17 Nitroglycerin 0.4 mg SL Q5M PRN 01/20/17 Potassium Chloride 20 meq PO BID 01/20/17 Sennosides [Senna] 17.2 mg PO BID 01/20/17 Albuterol Sulfate [Proventil Hfa Inhaler] 1 puffs INH Q4H PRN 02/21/17 Lactulose 60 gm PO QID 02/21/17 Morphine Sulfate [Morphine Sulfate ER] 30 mg PO TID 02/21/17 oxyCODONE [Roxicodone] 10 mg PO QID 02/21/17 Objective - Vital Signs/Intake & Output Reviewed Vital Signs: Yes Vital Signs: Vital Signs x48h Temp Pulse Resp BP Pulse Ox 03/22/17 07:17 36.6 C 81 20 112/61 98 Intake & Output: Intake & Output 03/19/17 03/20/17 03/21/17 03/22/17 23:59 23:59 23:59 23:59 Intake Total 2400 1630 1430 Output Total 3580 1500 4450 700 Balance -1180 130 -3020 -700 - Objective General Appearance: positive: No acute distress, Alert. negative: Lethargic Eyes Bilateral: positive: Normal inspection, PERRL, No lid inflammation, Conjunctivae nml ENT: positive: ENT inspection nml, Pharynx nml, No signs of dehydration. negative: Purulent nasal drainage, Pharyngeal erythema, Oral lesions Neck: positive: Nml inspection, No JVD, Trachea midline. negative: Thyromegaly , Lymphadenopathy (R), Lymphadenopathy (L), Stiff neck, Carotid bruit, Swelling/ bruising, Tracheal deviation Respiratory: positive: Chest non-tender, No respiratory distress, Breath sounds nml. negative: Wheezes, Rales, Rhonchi Cardiovascular: positive: Regular rate & rhythm, No murmur, No gallop. negative : Irregularly irregular, Extrasystoles, Tachycardia, Bradycardia, Systolic murmur, Diastolic murmur Peripheral Pulses: 2+ Radial (R), 2+ Radial (L), 2+ Dorsalis pedis (R), 2+ Dorsalis pedis (L) Abdomen: positive: Non-tender, Nml bowel sounds. negative: Tenderness, Guarding , Rebound Back: positive: Nml inspection. negative: CVA tenderness (R), CVA tenderness (L ) Skin: positive: Color nml, No rash, Warm, Dry, Decubitus. negative: Cyanosis, Diaphoresis, Pallor Extremities: positive: Non-tender, Full ROM, Nml appearance. negative: Calf tenderness, Joint swelling, Arthur's sign/cords Neurologic/Psychiatric: positive: Sensation nml. negative: Weakness, Sensory loss, Facial droop, Slurred/abnml speech - Lab Results Fish Bones: 03/22/17 06:28 03/22/17 06:28 Other Labs: Lab Results x24hrs 03/22/17 03/22/17 03/22/17 Range/Units 06:28 06:28 06:28 WBC (4.8-10.8) x10^3/uL RBC (4.70-6.10) 10^6/uL Hgb (14.0-18.0) g/dL Hct (42.0-52.0) % MCV (80.0-94.0) fL MCH (27.0-31.0) pg MCHC (32.0-36.0) g/dL RDW (12.0-15.0) % Plt Count (130-450) 10^3/uL MPV (7.4-11.4) fL Neut # (1.5-6.6) 10^3/uL Lymph # (1.5-3.5) 10^3/uL [place] # (0.0-1.0) 10^3/uL Eos # (0.0-0.7) 10^3/uL Baso # (0.0-0.1) 10^3/uL Absolute Nucleated RBC x10^3/uL Nucleated RBC % /100WBC PT 20.9 H (9.9-12.6) secs INR 1.9 H (0.8-1.2) Sodium 137 (135-145) mmol/L Potassium 3.4 L (3.5-5.0) mmol/L Chloride 106 (101-111) mmol/L Carbon Dioxide 26 (21-32) mmol/L Anion Gap 5.0 L (6-13) BUN 7 (6-20) mg/dL Creatinine 0.7 (0.6-1.2) mg/dL Estimated GFR (MDRD) 116 (>89) Glucose 84 (70-100) mg/dL Calcium 8.2 L (8.5-10.3) mg/dL Phosphorus 2.6 (2.5-4.6) mg/dL Total Bilirubin 4.4 H (0.2-1.0) mg/dL AST 118 H (10-42) IU/L ALT 44 (10-60) IU/L Alkaline Phosphatase 112 (42-121) IU/L Ammonia 36.9 H (7-35) umol/L Total Protein 6.2 L (6.7-8.2) g/dL Albumin 2.0 L (3.2-5.5) g/dL Globulin 4.2 (2.1-4.2) g/dL Albumin/Globulin Ratio 0.5 L (1.0-2.2) 03/22/17 Range/Units 06:28 WBC 4.9 (4.8-10.8) x10^3/uL RBC 2.91 L (4.70-6.10) 10^6/uL Hgb 10.4 L (14.0-18.0) g/dL Hct 30.6 L (42.0-52.0) % MCV 105.0 H (80.0-94.0) fL MCH 35.8 H (27.0-31.0) pg MCHC 34.1 (32.0-36.0) g/dL RDW 17.7 H (12.0-15.0) % Plt Count 75 L (130-450) 10^3/uL MPV 8.9 (7.4-11.4) fL Neut # 2.5 (1.5-6.6) 10^3/uL Lymph # 1.8 (1.5-3.5) 10^3/uL [place] # 0.4 (0.0-1.0) 10^3/uL Eos # 0.1 (0.0-0.7) 10^3/uL Baso # 0.0 (0.0-0.1) 10^3/uL Absolute Nucleated RBC 0.00 x10^3/uL Nucleated RBC % 0.0 /100WBC PT (9.9-12.6) secs INR (0.8-1.2) Sodium (135-145) mmol/L Potassium (3.5-5.0) mmol/L Chloride (101-111) mmol/L Carbon Dioxide (21-32) mmol/L Anion Gap (6-13) BUN (6-20) mg/dL Creatinine (0.6-1.2) mg/dL Estimated GFR (MDRD) (>89) Glucose (70-100) mg/dL Calcium (8.5-10.3) mg/dL Phosphorus (2.5-4.6) mg/dL Total Bilirubin (0.2-1.0) mg/dL AST (10-42) IU/L ALT (10-60) IU/L Alkaline Phosphatase (42-121) IU/L Ammonia (7-35) umol/L Total Protein (6.7-8.2) g/dL Albumin (3.2-5.5) g/dL Globulin (2.1-4.2) g/dL Albumin/Globulin Ratio (1.0-2.2) Assessment/Plan - Problem List (1) Cirrhosis of liver with ascites Impression: stable, continue Lasix PO support daily lab and vital monitor continue vital monitor, support continue to seek replacement for pt stable, after infusion of albumin, pt's albumin level is up to 2.1 continue lab monitor continue home meds Lasix vital monitor, support CT reveals anasarca. No paracentesis IV of albumin, continue lasix daily lab, vital monitor pt has a significant distended abdomen, and hernia of umbrellium. pt has PT/INR 21/1.9. order cross match of plasma, 2 units of FFP. make sure pt has FFP before paracentesis US with paracentesis, and test to the fluid from paracentesis. vital closely monitor to Q4H (2) Hepatic encephalopathy Impression: pt's ammonia level is down to 36.9. but pt is still some confusion and agitated to go home, but his significant other cannot take care of him, pt needs replacement. we are looking for continue Lactulose, and daily lab and vital monitor pt's ammonia level is down to 39 today no behaviour disturbance reported on last night continue lab test, vital monitor Ammonia is down to 48 continue current treatment daily monitor Ammonia, daily lab ammonia level is going up 73. pt did not have lactulose on yesterday because pt' s altered mental status continue Lactulose and Xifime daily ammonia, lab test vital monitor ammonia level is down to 48, good progress. pt is still some confused continue PO lactulose 4 times daily and he will be continued on rifaximin. Monitor ammonia levels and mental status. vital monitor The patient presented with hepatic encephalopathy. This is his third hospitalization in just over a month for hepatic encephalopathy. Patient has a long history of noncompliance with medication. The patient admits to being noncompliant upon admission. Patient became more lethargic and was given narcan x1 due to decreased mental status and difficult to arouse. Plan: PO lactulose 4 times daily and he will be continued on rifaximin. Monitor ammonia levels and mental status. Discharge on hold and case management will assist with possible placement since home health services are intolerable socially. (3) Hypokalemia Impression: replacement with 100 Meq Potassium, recheck potassium level replacement of potassium daily lab monitor resolved. chronic hypokalemia Patient presented with a potassium of 2.8. The patient has a history of hypokalemia, and is likely chronically due to diuretic use. Plan: Treat patient's hypokalemia with IV and p.o. potassium replacement. Monitor electrolytes. (4) Cirrhosis Impression: continue lactulose and rifaximin. Rifaximin is down to daily due to its side effect on liver. continue lab, and vital monitor The patient has chronic jaundice. LFTs are unstable, but improved since admission. Patient should follow his home medication instructions, but does not. Ammonia level today was 65, which is the patient's high normal range. In this respect he may be appropriate for discharge, but lethargy and agitation have been a barrier. Plan: We will continue to administer lactulose, and diuretics while in the hospital. (5) Anxiety Impression: stable, resume home meds Xanax PRN The patient has history of anxiety and often once he does return to his normal baseline mental status the patient will become agitated and even violent at times. The patient is on nortriptyline and Xanax. The patient has had a sitter for the last several shifts due to elopement threats. Plan: Patient will be continued on his home medication he can have Ativan as needed for agitation. (6) Hypertension Impression: no more hypertension hold BP meds closely monitor pt hypotensive now, change vital to Q4H Patient's blood pressure has been mildly low for his normal and the last reading was 94/62. Patient is on Coreg, Lasix, Aldactone at home. We will continue the patient's home regimen for blood pressure control. Plan: We will monitor vital signs every 4 hours and give scheduled medications. Gentle IV hydration as needed. (7) Anemia Impression: stable, continue lab monitor stable, continue home meds, and lab monitor The patient has a history of iron deficiency and anemia and is on iron at home. H/H was 10.8 and 32.0 today. Plan: We will continue to give patient his home dose of iron and monitor labs. (8) Non compliance with medical treatment consult to pt for medical compliance it is one of major issue to pt. Pt had home health RN to monitor pt for medical compliance on the last d/c plan. But it seems not working well to pt pt's state she is difficult to take care of pt more, and request nurse home or SNF for D/C consult social work (9) pressure ulcer continue dressing change continue Keflex dressing change as wound care recommend Q2H turn pt (10) anasarca stable. pt state he feel better daily lab, vital monitor support CT of abdomen reviewed albumin level is 1.9 albumin 25% once Lasix 40 mg PO as home meds daily and vital monitor (11) pneumonia after another two more azithyromycin, the antibiotics course is done, will hold no fever, chill, night sweating, cough. SO2 95% with room air continue azithyromycin for another a few days then d/c, due to pt's liver condition Qualifiers: Hepatic cirrhosis type: alcoholic cirrhosis Qualified Code(s): K70.31 - Alcoholic cirrhosis of liver with ascites
[2017-03-22] MEDS: AZITHROMYCIN 250 MG TABLET PO SCH (12:53)
[2017-03-22] MEDS: MIRTAZAPINE 15 MG TABLET PO SCH (20:45)
[2017-03-22] MEDS: NORTRIPTYLINE 25 MG CAPSULE PO SCH (20:46)
[2017-03-22] MEDS: PRAMIPEXOLE 0.25 MG TABLET PO SCH (20:46)
[2017-03-22] MEDS: ALPRAZolam 0.25 MG TABLET PO PRN (20:46)
[2017-03-23 05:09] LABS: BASOPHILS % (AUTO) 0.6 %; EOSINOPHILS # (AUTO) 0.2 10^3/uL (0.0-0.7); EOSINOPHILS % (AUTO) 3.8 %; HCT - HEMATOCRIT 32.1 % (42.0-52.0); HGB - HEMOGLOBIN 10.8 g/dL (14.0-18.0); LYMPHOCYTES # (AUTO) 1.4 10^3/uL (1.5-3.5); LYMPHOCYTES % (AUTO) 29.3 %; MEAN CORPUSCULAR HEMOGLOBIN 35.4 pg (27.0-31.0); MEAN CORPUSCULAR HGB CONC 33.8 g/dL (32.0-36.0); MEAN CORPUSCULAR VOLUME 104.7 fL (80.0-94.0); MONOCYTES # (AUTO) 0.5 10^3/uL (0.0-1.0); MONOCYTES % (AUTO) 10.1 %; NEUTROPHILS # (AUTO) 2.7 10^3/uL (1.5-6.6); NEUTROPHILS % (AUTO) 56.2 %; RED BLOOD COUNT 3.06 10^6/uL (4.70-6.10); RED CELL DISTRIBUTION WIDTH 17.5 % (12.0-15.0); UNCORRECTED WHITE BLOOD COUNT 4.7 x10^3/uL; WHITE BLOOD COUNT 4.7 x10^3/uL (4.8-10.8)
[2017-03-23 05:20] LABS: ALBUMIN/GLOBULIN RATIO 0.5 (1.0-2.2); CALCIUM 8.4 mg/dL (8.5-10.3); CREATININE 0.7 mg/dL (0.6-1.2); INR 1.8 (0.8-1.2); PHOSPHORUS 2.7 mg/dL (2.5-4.6); POTASSIUM 3.5 mmol/L (3.5-5.0); PT - PROTHROMBIN TIME 20.4 secs (9.9-12.6); TOTAL PROTEIN 6.2 g/dL (6.7-8.2)
[2017-03-23] MEDS: SODIUM CHLORIDE FLUSH 0.9% 10 ML SYRINGE IVP SCH ×3 (06:01→15:36)
--- NOTE | 2017-03-23 08:53 | PROVIDER PROGRESS NOTE ---
Subjective - Prog Note Date Prog Note Date: 03/23/17 - Subjective Pt reports feeling: No change Subjective: pt is comfortable sleep in the bed, no behaviours disturbance reported. Seek replacement for pt Current Medications - Current Medications Current Medications: Active Medications Albuterol () 2.5 mg INH RTQ4H PRN PRN Reason: Wheezing Albuterol/Ipratropium (Duoneb) 3 ml INH Q4HR PRN PRN Reason: Wheezing Last Admin: 03/19/17 21:55 Dose: 3 ml Alprazolam (Xanax) 2 mg PO BID PRN PRN Reason: Anxiety Last Admin: 03/22/17 20:46 Dose: 2 mg Azithromycin (Zithromax) 250 mg PO 1400 [facility] Last Admin: 03/22/17 12:53 Dose: 250 mg Calcium Citrate () 250 mg PO DAILY [facility] Last Admin: 03/22/17 09:59 Dose: 250 mg Carvedilol (Coreg) 12.5 mg PO BID [facility] Last Admin: 03/22/17 20:45 Dose: 12.5 mg Cephalexin (Keflex) 500 mg PO Q12H [facility] Last Admin: 03/22/17 20:45 Dose: 500 mg Ferrous Sulfate (Feosol) 325 mg PO BIDWM [facility] Last Admin: 03/22/17 16:02 Dose: 325 mg Folic Acid () 1 mg PO DAILY [facility] Last Admin: 03/22/17 09:59 Dose: 1 mg Furosemide (Lasix) 40 mg PO DAILY [facility] Last Admin: 03/22/17 09:59 Dose: 40 mg Lactulose (Lactulose) 60 gm PO QID [facility] Last Admin: 03/22/17 18:39 Dose: 60 gm Mirtazapine (Remeron) 15 mg PO QPM [facility] Last Admin: 03/22/17 20:45 Dose: 15 mg Morphine Sulfate () 30 mg PO TID PRN PRN Reason: PAIN Last Admin: 03/19/17 11:42 Dose: 30 mg Mupirocin (Bactroban 2% Cream) 1 applic TOP DAILY [facility] Last Admin: 03/22/17 10:02 Dose: 1 applic Nicotine (Nicoderm) 1 patch TOP DAILY [facility] Last Admin: 03/22/17 10:01 Dose: 1 patch Nitroglycerin (Nitrostat) 0.4 mg SL Q5M PRN PRN Reason: Chest Pain Nortriptyline HCl (Pamelor) 150 mg PO QPM [facility] Last Admin: 03/22/17 20:46 Dose: 150 mg Ondansetron HCl (Zofran Inj) 4 mg IVP Q6HR PRN PRN Reason: Nausea / Vomiting Last Admin: 03/15/17 07:05 Dose: 4 mg Oxycodone HCl (Roxicodone) 5 mg PO Q6HR PRN PRN Reason: PAIN Last Admin: 03/22/17 18:42 Dose: 5 mg Pantoprazole Sodium (Protonix) 40 mg PO QDAC [facility] Last Admin: 03/22/17 06:36 Dose: Not Given Polyethylene Glycol (Miralax) 17 gm PO DAILY [facility] Last Admin: 03/22/17 10:02 Dose: Not Given Potassium Chloride (K-Dur) 100 meq PO DAILYWM [facility] Last Admin: 03/22/17 10:00 Dose: 100 meq Pramipexole Dihydrochloride (Mirapex) 0.25 mg PO QPM [facility] Last Admin: 03/22/17 20:46 Dose: 0.25 mg Prochlorperazine Edisylate (Compazine Inj) 10 mg IVP Q6HR PRN PRN Reason: Nausea / Vomiting Promethazine HCl (Phenergan Inj) 25 mg IM Q6HR PRN PRN Reason: Nausea / Vomiting Rifaximin (Xifaxan) 550 mg PO BID [facility] Sodium Chloride (Normal Saline Flush 0.9%) 10 ml IVP PRN PRN PRN Reason: NEEDED PER PROVIDER ORDERS Last Admin: 03/16/17 20:43 Dose: 10 ml Sodium Chloride (Normal Saline Flush 0.9%) 10 ml IVP Q8HR [facility] Last Admin: 03/23/17 06:01 Dose: Not Given Temazepam (Restoril) 30 mg PO QPM PRN PRN Reason: SLEEP Last Admin: 03/22/17 00:37 Dose: 30 mg Throat Lozenges (Cepacol) 1 lozenge MM Q2HR PRN PRN Reason: Throat pain Last Admin: 03/19/17 05:38 Dose: 1 lozenge ALPRAZolam [Xanax] 2 mg PO BID 06/24/16 Carvedilol 12.5 mg PO BID 06/24/16 Docusate Sodium 250Mg Capsule [Colace 250Mg Capsule] 250 mg PO BID 06/24/16 Furosemide 40 mg PO DAILY 06/24/16 Nortriptyline [Pamelor] 150 mg PO QPM 06/24/16 Omeprazole 20 mg PO QDAC 06/24/16 Pramipexole Di-HCl [Mirapex] 0.25 mg PO QPM 06/24/16 Temazepam 30 mg PO QPM PRN 06/24/16 rifAXIMin [Xifaxan] 550 mg PO BID 12/04/16 Mirtazapine 15 mg PO QPM 01/19/17 Nitroglycerin 0.4 mg SL Q5M PRN 01/20/17 Potassium Chloride 20 meq PO BID 01/20/17 Sennosides [Senna] 17.2 mg PO BID 01/20/17 Albuterol Sulfate [Proventil Hfa Inhaler] 1 puffs INH Q4H PRN 02/21/17 Lactulose 60 gm PO QID 02/21/17 Morphine Sulfate [Morphine Sulfate ER] 30 mg PO TID 02/21/17 oxyCODONE [Roxicodone] 10 mg PO QID 02/21/17 Objective - Vital Signs/Intake & Output Reviewed Vital Signs: Yes Intake & Output: Intake & Output 03/20/17 03/21/17 03/22/17 03/23/17 23:59 23:59 23:59 23:59 Intake Total 1630 1430 626 Output Total 1500 4450 1400 Balance 130 -3020 -774 - Objective General Appearance: positive: No acute distress, Alert. negative: Lethargic Eyes Bilateral: positive: Normal inspection, PERRL, No lid inflammation, Conjunctivae nml ENT: positive: ENT inspection nml, Pharynx nml, No signs of dehydration. negative: Purulent nasal drainage, Pharyngeal erythema, Oral lesions Neck: positive: Nml inspection, Thyroid nml, No JVD, Trachea midline. negative : Thyromegaly, Lymphadenopathy (R), Lymphadenopathy (L), Stiff neck, Carotid bruit, Swelling/bruising, Tracheal deviation Respiratory: positive: Chest non-tender, No respiratory distress, Breath sounds nml. negative: Wheezes, Rales, Rhonchi Cardiovascular: positive: Regular rate & rhythm, No murmur, No gallop. negative : Irregularly irregular, Extrasystoles, Tachycardia, Bradycardia, Systolic murmur, Diastolic murmur Peripheral Pulses: 2+ Radial (R), 2+ Radial (L), 2+ Dorsalis pedis (R), 2+ Dorsalis pedis (L) Abdomen: positive: Non-tender, Nml bowel sounds. negative: Tenderness, Guarding , Rebound Back: positive: Nml inspection. negative: CVA tenderness (R), CVA tenderness (L ) Skin: positive: Color nml, No rash, Warm, Dry, Decubitus. negative: Cyanosis, Diaphoresis, Pallor Extremities: positive: Non-tender, Full ROM. negative: Calf tenderness, Joint swelling, Arthur's sign/cords Neurologic/Psychiatric: positive: Motor nml, Sensation nml. negative: Sensory loss, Facial droop, Slurred/abnml speech - Lab Results Fish Bones: 03/23/17 04:59 03/23/17 04:59 Other Labs: Lab Results x24hrs 03/23/17 03/23/17 03/23/17 Range/Units 04:59 04:59 04:59 WBC (4.8-10.8) x10^3/uL RBC (4.70-6.10) 10^6/uL Hgb (14.0-18.0) g/dL Hct (42.0-52.0) % MCV (80.0-94.0) fL MCH (27.0-31.0) pg MCHC (32.0-36.0) g/dL RDW (12.0-15.0) % Plt Count (130-450) 10^3/uL MPV (7.4-11.4) fL Neut # (1.5-6.6) 10^3/uL Lymph # (1.5-3.5) 10^3/uL Nelson # (0.0-1.0) 10^3/uL Eos # (0.0-0.7) 10^3/uL Baso # (0.0-0.1) 10^3/uL Absolute Nucleated RBC x10^3/uL Nucleated RBC % /100WBC PT 20.4 H (9.9-12.6) secs INR 1.8 H (0.8-1.2) Sodium 138 (135-145) mmol/L Potassium 3.5 (3.5-5.0) mmol/L Chloride 105 (101-111) mmol/L Carbon Dioxide 25 (21-32) mmol/L Anion Gap 8.0 (6-13) BUN 6 (6-20) mg/dL Creatinine 0.7 (0.6-1.2) mg/dL Estimated GFR (MDRD) 116 (>89) Glucose 91 (70-100) mg/dL Calcium 8.4 L (8.5-10.3) mg/dL Phosphorus 2.7 (2.5-4.6) mg/dL Total Bilirubin 3.0 H (0.2-1.0) mg/dL AST 122 H (10-42) IU/L ALT 50 (10-60) IU/L Alkaline Phosphatase 119 (42-121) IU/L Ammonia 49.3 H (7-35) umol/L Total Protein 6.2 L (6.7-8.2) g/dL Albumin 2.0 L (3.2-5.5) g/dL Globulin 4.2 (2.1-4.2) g/dL Albumin/Globulin Ratio 0.5 L (1.0-2.2) 03/23/17 Range/Units 04:59 WBC 4.7 L (4.8-10.8) x10^3/uL RBC 3.06 L (4.70-6.10) 10^6/uL Hgb 10.8 L (14.0-18.0) g/dL Hct 32.1 L (42.0-52.0) % MCV 104.7 H (80.0-94.0) fL MCH 35.4 H (27.0-31.0) pg MCHC 33.8 (32.0-36.0) g/dL RDW 17.5 H (12.0-15.0) % Plt Count 72 L (130-450) 10^3/uL MPV 9.0 (7.4-11.4) fL Neut # 2.7 (1.5-6.6) 10^3/uL Lymph # 1.4 L (1.5-3.5) 10^3/uL Nelson # 0.5 (0.0-1.0) 10^3/uL Eos # 0.2 (0.0-0.7) 10^3/uL Baso # 0.0 (0.0-0.1) 10^3/uL Absolute Nucleated RBC 0.00 x10^3/uL Nucleated RBC % 0.0 /100WBC PT (9.9-12.6) secs INR (0.8-1.2) Sodium (135-145) mmol/L Potassium (3.5-5.0) mmol/L Chloride (101-111) mmol/L Carbon Dioxide (21-32) mmol/L Anion Gap (6-13) BUN (6-20) mg/dL Creatinine (0.6-1.2) mg/dL Estimated GFR (MDRD) (>89) Glucose (70-100) mg/dL Calcium (8.5-10.3) mg/dL Phosphorus (2.5-4.6) mg/dL Total Bilirubin (0.2-1.0) mg/dL AST (10-42) IU/L ALT (10-60) IU/L Alkaline Phosphatase (42-121) IU/L Ammonia (7-35) umol/L Total Protein (6.7-8.2) g/dL Albumin (3.2-5.5) g/dL Globulin (2.1-4.2) g/dL Albumin/Globulin Ratio (1.0-2.2) Assessment/Plan - Problem List (1) Cirrhosis of liver with ascites Impression: Impression: stable, continue lasix PO daily seek replacement for pt stable, continue Lasix PO support daily lab and vital monitor continue vital monitor, support continue to seek replacement for pt stable, after infusion of albumin, pt's albumin level is up to 2.1 continue lab monitor continue home meds Lasix vital monitor, support CT reveals anasarca. No paracentesis IV of albumin, continue lasix daily lab, vital monitor pt has a significant distended abdomen, and hernia of umbrellium. pt has PT/INR 21/1.9. order cross match of plasma, 2 units of FFP. make sure pt has FFP before paracentesis US with paracentesis, and test to the fluid from paracentesis. vital closely monitor to Q4H (2) Hepatic encephalopathy Impression: Pt's ammonia level is slight increase, because per nurse report, pt decline to take Lactulose. encourage pt take the medications as the schedule continue lab test, vital monitor pt's ammonia level is down to 36.9. but pt is still some confusion and agitated to go home, but his significant other cannot take care of him, pt needs replacement. we are looking for continue Lactulose, and daily lab and vital monitor pt's ammonia level is down to 39 today no behaviour disturbance reported on last night continue lab test, vital monitor Ammonia is down to 48 continue current treatment daily monitor Ammonia, daily lab ammonia level is going up 73. pt did not have lactulose on yesterday because pt' s altered mental status continue Lactulose and Xifime daily ammonia, lab test vital monitor ammonia level is down to 48, good progress. pt is still some confused continue PO lactulose 4 times daily and he will be continued on rifaximin. Monitor ammonia levels and mental status. vital monitor The patient presented with hepatic encephalopathy. This is his third hospitalization in just over a month for hepatic encephalopathy. Patient has a long history of noncompliance with medication. The patient admits to being noncompliant upon admission. Patient became more lethargic and was given narcan x1 due to decreased mental status and difficult to arouse. Plan: PO lactulose 4 times daily and he will be continued on rifaximin. Monitor ammonia levels and mental status. Discharge on hold and case management will assist with possible placement since home health services are intolerable socially. (3) Hypokalemia Impression: resolved continue replacement recheck potassium level replacement with 100 Meq Potassium, recheck potassium level replacement of potassium daily lab monitor resolved. chronic hypokalemia Patient presented with a potassium of 2.8. The patient has a history of hypokalemia, and is likely chronically due to diuretic use. Plan: Treat patient's hypokalemia with IV and p.o. potassium replacement. Monitor electrolytes. (4) Cirrhosis Impression: continue lactulose and rifaximin. Rifaximin is down to daily due to its side effect on liver. continue lab, and vital monitor The patient has chronic jaundice. LFTs are unstable, but improved since admission. Patient should follow his home medication instructions, but does not. Ammonia level today was 65, which is the patient's high normal range. In this respect he may be appropriate for discharge, but lethargy and agitation have been a barrier. Plan: We will continue to administer lactulose, and diuretics while in the hospital. (5) Anxiety Impression: stable, resume home meds Xanax PRN The patient has history of anxiety and often once he does return to his normal baseline mental status the patient will become agitated and even violent at times. The patient is on nortriptyline and Xanax. The patient has had a sitter for the last several shifts due to elopement threats. Plan: Patient will be continued on his home medication he can have Ativan as needed for agitation. (6) Hypertension Impression: no more hypertension hold BP meds closely monitor pt hypotensive now, change vital to Q4H Patient's blood pressure has been mildly low for his normal and the last reading was 94/62. Patient is on Coreg, Lasix, Aldactone at home. We will continue the patient's home regimen for blood pressure control. Plan: We will monitor vital signs every 4 hours and give scheduled medications. Gentle IV hydration as needed. (7) Anemia Impression: stable, continue lab monitor stable, continue home meds, and lab monitor The patient has a history of iron deficiency and anemia and is on iron at home. H/H was 10.8 and 32.0 today. Plan: We will continue to give patient his home dose of iron and monitor labs. (8) Non compliance with medical treatment consult to pt for medical compliance it is one of major issue to pt. Pt had home health RN to monitor pt for medical compliance on the last d/c plan. But it seems not working well to pt pt's state she is difficult to take care of pt more, and request nurse home or SNF for D/C consult social work (9) pressure ulcer continue wound dressing change continue Keflex continue dressing change continue Keflex dressing change as wound care recommend Q2H turn pt (10) anasarca stable. pt state he feel better daily lab, vital monitor support CT of abdomen reviewed albumin level is 1.9 albumin 25% once Lasix 40 mg PO as home meds daily and vital monitor (11) pneumonia pt is room air with SO2 97%, plan D/C antibiotics tomorrow no fever, chill, cough. after another two more azithyromycin, the antibiotics course is done, will hold no fever, chill, night sweating, cough. SO2 95% with room air continue azithyromycin for another a few days then d/c, due to pt's liver condition Qualifiers: Hepatic cirrhosis type: alcoholic cirrhosis Qualified Code(s): K70.31 - Alcoholic cirrhosis of liver with ascites
[2017-03-23] MEDS: FERROUS SULFATE 325 MG TABLET PO SCH ×2 (09:47→16:44)
[2017-03-23] MEDS: CALCIUM CITRATE 250 MG TABLET PO SCH (09:47)
[2017-03-23] MEDS: PANTOPRAZOLE 40 MG TABLET PO SCH (09:47)
[2017-03-23] MEDS: cephALEXin 250 MG CAPSULE PO SCH ×2 (09:47→21:32)
[2017-03-23] MEDS: POTASSIUM CHLORIDE 20 MEQ TABLET PO SCH (09:47)
[2017-03-23] MEDS: FOLIC ACID 1 MG TABLET PO SCH (09:47)
[2017-03-23] MEDS: rifAXIMin 550 MG TABLET PO SCH ×2 (09:47→21:31)
[2017-03-23] MEDS: CARVEDILOL 12.5 MG TABLET PO SCH ×2 (09:47→21:32)
[2017-03-23] MEDS: FUROSEMIDE 40 MG TABLET PO SCH (09:47)
[2017-03-23] MEDS: NICOTINE 14 MG PATCH TOP SCH (09:51)
[2017-03-23] MEDS: LACTULOSE 10 GM/15 ML BOTTLE PO SCH ×4 (09:55→21:32)
[2017-03-23] MEDS: MUPIROCIN 2% CREAM 30 GM TUBE TOP SCH (09:55)
[2017-03-23] MEDS: POLYETHYLENE GLYCOL 3350 17 GM PACKET PO SCH (09:55)
[2017-03-23] MEDS: AZITHROMYCIN 250 MG TABLET PO SCH (13:33)
[2017-03-23] MEDS: MORPHINE ER 15 MG TABLET PO PRN (16:44)
[2017-03-23] MEDS: ALPRAZolam 0.25 MG TABLET PO PRN (16:44)
[2017-03-23] MEDS: PRAMIPEXOLE 0.25 MG TABLET PO SCH (21:31)
[2017-03-23] MEDS: NORTRIPTYLINE 25 MG CAPSULE PO SCH (21:32)
[2017-03-23] MEDS: MIRTAZAPINE 15 MG TABLET PO SCH (21:32)
[2017-03-24] MEDS: TEMAZEPAM 15 MG CAPSULE PO PRN ×2 (00:45→21:16)
[2017-03-24] MEDS: MORPHINE ER 15 MG TABLET PO PRN (00:45)
[2017-03-24] MEDS: SODIUM CHLORIDE FLUSH 0.9% 10 ML SYRINGE IVP SCH ×3 (05:18→21:16)
[2017-03-24 05:41] LABS: INR 1.9 (0.8-1.2); PT - PROTHROMBIN TIME 20.8 secs (9.9-12.6)
[2017-03-24 05:42] LABS: BASOPHILS % (AUTO) 0.8 %; EOSINOPHILS # (AUTO) 0.2 10^3/uL (0.0-0.7); EOSINOPHILS % (AUTO) 3.2 %; HCT - HEMATOCRIT 30.2 % (42.0-52.0); HGB - HEMOGLOBIN 10.3 g/dL (14.0-18.0); LYMPHOCYTES # (AUTO) 1.5 10^3/uL (1.5-3.5); LYMPHOCYTES % (AUTO) 26.8 %; MEAN CORPUSCULAR HGB CONC 34.1 g/dL (32.0-36.0); MEAN CORPUSCULAR VOLUME 105.6 fL (80.0-94.0); MEAN PLATELET VOLUME 9.2 fL (7.4-11.4); MONOCYTES # (AUTO) 0.5 10^3/uL (0.0-1.0); MONOCYTES % (AUTO) 9.5 %; NEUTROPHILS # (AUTO) 3.4 10^3/uL (1.5-6.6); NEUTROPHILS % (AUTO) 59.7 %; RED BLOOD COUNT 2.86 10^6/uL (4.70-6.10); RED CELL DISTRIBUTION WIDTH 17.6 % (12.0-15.0); UNCORRECTED WHITE BLOOD COUNT 5.8 x10^3/uL; WHITE BLOOD COUNT 5.8 x10^3/uL (4.8-10.8)
[2017-03-24 05:52] LABS: ALBUMIN/GLOBULIN RATIO 0.5 (1.0-2.2); BILIRUBIN,TOTAL 3.1 mg/dL (0.2-1.0); CREATININE 0.8 mg/dL (0.6-1.2); POTASSIUM 3.2 mmol/L (3.5-5.0); TOTAL PROTEIN 5.8 g/dL (6.7-8.2)
[2017-03-24] MEDS: PANTOPRAZOLE 40 MG TABLET PO SCH (06:02)
--- NOTE | 2017-03-24 09:28 | PROVIDER PROGRESS NOTE ---
Subjective - Prog Note Date Prog Note Date: 03/24/17 - Subjective Pt reports feeling: Improved Subjective: pt is comfortably sleeping, no behaviour disturbance reported for last night. Current Medications - Current Medications Current Medications: Active Medications Albuterol () 2.5 mg INH RTQ4H PRN PRN Reason: Wheezing Albuterol/Ipratropium (Duoneb) 3 ml INH Q4HR PRN PRN Reason: Wheezing Last Admin: 03/19/17 21:55 Dose: 3 ml Alprazolam (Xanax) 2 mg PO BID PRN PRN Reason: Anxiety Last Admin: 03/23/17 16:44 Dose: 2 mg Azithromycin (Zithromax) 250 mg PO 1400 [facility] Last Admin: 03/23/17 13:33 Dose: 250 mg Calcium Citrate () 250 mg PO DAILY [facility] Last Admin: 03/23/17 09:47 Dose: 250 mg Carvedilol (Coreg) 12.5 mg PO BID [facility] Last Admin: 03/23/17 21:32 Dose: 12.5 mg Cephalexin (Keflex) 500 mg PO Q12H [facility] Last Admin: 03/23/17 21:32 Dose: 500 mg Ferrous Sulfate (Feosol) 325 mg PO BIDWM [facility] Last Admin: 03/23/17 16:44 Dose: 325 mg Folic Acid () 1 mg PO DAILY [facility] Last Admin: 03/23/17 09:47 Dose: 1 mg Furosemide (Lasix) 40 mg PO DAILY [facility] Last Admin: 03/23/17 09:47 Dose: 40 mg Lactulose (Lactulose) 60 gm PO QID [facility] Last Admin: 03/23/17 21:32 Dose: 60 gm Mirtazapine (Remeron) 15 mg PO QPM [facility] Last Admin: 03/23/17 21:32 Dose: 15 mg Morphine Sulfate () 30 mg PO TID PRN PRN Reason: PAIN Last Admin: 03/24/17 00:45 Dose: 30 mg Mupirocin (Bactroban 2% Cream) 1 applic TOP DAILY [facility] Last Admin: 03/23/17 09:55 Dose: 1 applic Nicotine (Nicoderm) 1 patch TOP DAILY [facility] Last Admin: 03/23/17 09:51 Dose: 1 patch Nitroglycerin (Nitrostat) 0.4 mg SL Q5M PRN PRN Reason: Chest Pain Nortriptyline HCl (Pamelor) 150 mg PO QPM [facility] Last Admin: 03/23/17 21:32 Dose: 150 mg Ondansetron HCl (Zofran Inj) 4 mg IVP Q6HR PRN PRN Reason: Nausea / Vomiting Last Admin: 03/15/17 07:05 Dose: 4 mg Oxycodone HCl (Roxicodone) 5 mg PO Q6HR PRN PRN Reason: PAIN Last Admin: 03/22/17 18:42 Dose: 5 mg Pantoprazole Sodium (Protonix) 40 mg PO QDAC [facility] Last Admin: 03/24/17 06:02 Dose: 40 mg Polyethylene Glycol (Miralax) 17 gm PO DAILY [facility] Last Admin: 03/23/17 09:55 Dose: Not Given Potassium Chloride (K-Dur) 100 meq PO DAILYWM [facility] Last Admin: 03/23/17 09:47 Dose: 100 meq Potassium Chloride (K-Dur) 20 meq PO ONCE ONE Stop: 03/24/17 12:01 Potassium Chloride (K-Dur) 20 meq PO ONCE ONE Stop: 03/24/17 16:01 Pramipexole Dihydrochloride (Mirapex) 0.25 mg PO QPM [facility] Last Admin: 03/23/17 21:31 Dose: 0.25 mg Prochlorperazine Edisylate (Compazine Inj) 10 mg IVP Q6HR PRN PRN Reason: Nausea / Vomiting Promethazine HCl (Phenergan Inj) 25 mg IM Q6HR PRN PRN Reason: Nausea / Vomiting Rifaximin (Xifaxan) 550 mg PO BID [facility] Last Admin: 03/23/17 21:31 Dose: 550 mg Sodium Chloride (Normal Saline Flush 0.9%) 10 ml IVP PRN PRN PRN Reason: NEEDED PER PROVIDER ORDERS Last Admin: 03/16/17 20:43 Dose: 10 ml Sodium Chloride (Normal Saline Flush 0.9%) 10 ml IVP Q8HR [facility] Last Admin: 03/24/17 05:18 Dose: Not Given Temazepam (Restoril) 30 mg PO QPM PRN PRN Reason: SLEEP Last Admin: 03/24/17 00:45 Dose: 30 mg Throat Lozenges (Cepacol) 1 lozenge MM Q2HR PRN PRN Reason: Throat pain Last Admin: 03/19/17 05:38 Dose: 1 lozenge ALPRAZolam [Xanax] 2 mg PO BID 06/24/16 Carvedilol 12.5 mg PO BID 06/24/16 Docusate Sodium 250Mg Capsule [Colace 250Mg Capsule] 250 mg PO BID 06/24/16 Furosemide 40 mg PO DAILY 06/24/16 Nortriptyline [Pamelor] 150 mg PO QPM 06/24/16 Omeprazole 20 mg PO QDAC 06/24/16 Pramipexole Di-HCl [Mirapex] 0.25 mg PO QPM 06/24/16 Temazepam 30 mg PO QPM PRN 06/24/16 rifAXIMin [Xifaxan] 550 mg PO BID 12/04/16 Mirtazapine 15 mg PO QPM 01/19/17 Nitroglycerin 0.4 mg SL Q5M PRN 01/20/17 Potassium Chloride 20 meq PO BID 01/20/17 Sennosides [Senna] 17.2 mg PO BID 01/20/17 Albuterol Sulfate [Proventil Hfa Inhaler] 1 puffs INH Q4H PRN 02/21/17 Lactulose 60 gm PO QID 02/21/17 Morphine Sulfate [Morphine Sulfate ER] 30 mg PO TID 02/21/17 oxyCODONE [Roxicodone] 10 mg PO QID 02/21/17 Objective - Vital Signs/Intake & Output Reviewed Vital Signs: Yes Intake & Output: Intake & Output 03/21/17 03/22/17 03/23/17 03/24/17 23:59 23:59 23:59 23:59 Intake Total 9286 630 5189 300 Output Total 4450 1400 460 Balance -3020 -774 1390 300 - Objective General Appearance: positive: No acute distress, Alert. negative: Lethargic Eyes Bilateral: positive: Normal inspection, PERRL, No lid inflammation, Conjunctivae nml ENT: positive: ENT inspection nml, Pharynx nml, No signs of dehydration. negative: Purulent nasal drainage, Pharyngeal erythema, Oral lesions Neck: positive: Nml inspection, Thyroid nml, No JVD, Trachea midline. negative : Thyromegaly, Lymphadenopathy (R), Lymphadenopathy (L), Stiff neck, Carotid bruit, Swelling/bruising, Tracheal deviation Respiratory: positive: Chest non-tender, No respiratory distress, Breath sounds nml. negative: Wheezes, Rales, Rhonchi Cardiovascular: positive: Regular rate & rhythm, No murmur, No gallop. negative : Irregularly irregular, Extrasystoles, Tachycardia, Bradycardia, Systolic murmur, Diastolic murmur Peripheral Pulses: 2+ Radial (R), 2+ Radial (L), 2+ Dorsalis pedis (R), 2+ Dorsalis pedis (L) Abdomen: positive: Non-tender, Nml bowel sounds, No distention. negative: Tenderness, Guarding, Rebound Back: positive: Nml inspection. negative: CVA tenderness (R), CVA tenderness (L ) Skin: positive: Color nml, Warm, Dry, Decubitus. negative: Cyanosis, Diaphoresis, Pallor Extremities: positive: Non-tender, Full ROM, Nml appearance. negative: Calf tenderness, Joint swelling, Arthur's sign/cords Neurologic/Psychiatric: positive: Sensation nml. negative: Sensory loss, Facial droop, Slurred/abnml speech - Lab Results Fish Bones: 03/24/17 05:27 03/24/17 05:27 Other Labs: Lab Results x24hrs 03/24/17 03/24/17 03/24/17 Range/Units 05:27 05:27 05:27 WBC (4.8-10.8) x10^3/uL RBC (4.70-6.10) 10^6/uL Hgb (14.0-18.0) g/dL Hct (42.0-52.0) % MCV (80.0-94.0) fL MCH (27.0-31.0) pg MCHC (32.0-36.0) g/dL RDW (12.0-15.0) % Plt Count (130-450) 10^3/uL MPV (7.4-11.4) fL Neut # (1.5-6.6) 10^3/uL Lymph # (1.5-3.5) 10^3/uL [place]wall # (0.0-1.0) 10^3/uL Eos # (0.0-0.7) 10^3/uL Baso # (0.0-0.1) 10^3/uL Absolute Nucleated RBC x10^3/uL Nucleated RBC % /100WBC PT 20.8 H (9.9-12.6) secs INR 1.9 H (0.8-1.2) Sodium 136 (135-145) mmol/L Potassium 3.2 L (3.5-5.0) mmol/L Chloride 106 (101-111) mmol/L Carbon Dioxide 26 (21-32) mmol/L Anion Gap 4.0 L (6-13) BUN 7 (6-20) mg/dL Creatinine 0.8 (0.6-1.2) mg/dL Estimated GFR (MDRD) 100 (>89) Glucose 95 (70-100) mg/dL Calcium 8.0 L (8.5-10.3) mg/dL Phosphorus 4.0 (2.5-4.6) mg/dL Total Bilirubin 3.1 H (0.2-1.0) mg/dL AST 113 H (10-42) IU/L ALT 47 (10-60) IU/L Alkaline Phosphatase 106 (42-121) IU/L Ammonia 33.9 (7-35) umol/L Total Protein 5.8 L (6.7-8.2) g/dL Albumin 2.0 L (3.2-5.5) g/dL Globulin 3.8 (2.1-4.2) g/dL Albumin/Globulin Ratio 0.5 L (1.0-2.2) 03/24/17 Range/Units 05:27 WBC 5.8 (4.8-10.8) x10^3/uL RBC 2.86 L (4.70-6.10) 10^6/uL Hgb 10.3 L (14.0-18.0) g/dL Hct 30.2 L (42.0-52.0) % MCV 105.6 H (80.0-94.0) fL MCH 36.0 H (27.0-31.0) pg MCHC 34.1 (32.0-36.0) g/dL RDW 17.6 H (12.0-15.0) % Plt Count 73 L (130-450) 10^3/uL MPV 9.2 (7.4-11.4) fL Neut # 3.4 (1.5-6.6) 10^3/uL Lymph # 1.5 (1.5-3.5) 10^3/uL [place] # 0.5 (0.0-1.0) 10^3/uL Eos # 0.2 (0.0-0.7) 10^3/uL Baso # 0.0 (0.0-0.1) 10^3/uL Absolute Nucleated RBC 0.00 x10^3/uL Nucleated RBC % 0.0 /100WBC PT (9.9-12.6) secs INR (0.8-1.2) Sodium (135-145) mmol/L Potassium (3.5-5.0) mmol/L Chloride (101-111) mmol/L Carbon Dioxide (21-32) mmol/L Anion Gap (6-13) BUN (6-20) mg/dL Creatinine (0.6-1.2) mg/dL Estimated GFR (MDRD) (>89) Glucose (70-100) mg/dL Calcium (8.5-10.3) mg/dL Phosphorus (2.5-4.6) mg/dL Total Bilirubin (0.2-1.0) mg/dL AST (10-42) IU/L ALT (10-60) IU/L Alkaline Phosphatase (42-121) IU/L Ammonia (7-35) umol/L Total Protein (6.7-8.2) g/dL Albumin (3.2-5.5) g/dL Globulin (2.1-4.2) g/dL Albumin/Globulin Ratio (1.0-2.2) Assessment/Plan - Problem List (1) Cirrhosis of liver with ascites Impression: stable, continue lasix, vital monitor discuss all options for pt's replacement issue with our team, keep seeking for replacement Impression: stable, continue lasix PO daily seek replacement for pt stable, continue Lasix PO support daily lab and vital monitor continue vital monitor, support continue to seek replacement for pt stable, after infusion of albumin, pt's albumin level is up to 2.1 continue lab monitor continue home meds Lasix vital monitor, support CT reveals anasarca. No paracentesis IV of albumin, continue lasix daily lab, vital monitor pt has a significant distended abdomen, and hernia of umbrellium. pt has PT/INR 21/1.9. order cross match of plasma, 2 units of FFP. make sure pt has FFP before paracentesis US with paracentesis, and test to the fluid from paracentesis. vital closely monitor to Q4H (2) Hepatic encephalopathy Impression: pt's ammonia level is in the normal arrange, continue Lactulose and Rifaximin daily continue monitor daily lab and vital Pt's ammonia level is slight increase, because per nurse report, pt decline to take Lactulose. encourage pt take the medications as the schedule continue lab test, vital monitor pt's ammonia level is down to 36.9. but pt is still some confusion and agitated to go home, but his significant other cannot take care of him, pt needs replacement. we are looking for continue Lactulose, and daily lab and vital monitor pt's ammonia level is down to 39 today no behaviour disturbance reported on last night continue lab test, vital monitor Ammonia is down to 48 continue current treatment daily monitor Ammonia, daily lab ammonia level is going up 73. pt did not have lactulose on yesterday because pt' s altered mental status continue Lactulose and Xifime daily ammonia, lab test vital monitor ammonia level is down to 48, good progress. pt is still some confused continue PO lactulose 4 times daily and he will be continued on rifaximin. Monitor ammonia levels and mental status. vital monitor The patient presented with hepatic encephalopathy. This is his third hospitalization in just over a month for hepatic encephalopathy. Patient has a long history of noncompliance with medication. The patient admits to being noncompliant upon admission. Patient became more lethargic and was given narcan x1 due to decreased mental status and difficult to arouse. Plan: PO lactulose 4 times daily and he will be continued on rifaximin. Monitor ammonia levels and mental status. Discharge on hold and case management will assist with possible placement since home health services are intolerable socially. (3) Hypokalemia Impression: replacement of potassium daily test resolved continue replacement recheck potassium level replacement with 100 Meq Potassium, recheck potassium level replacement of potassium daily lab monitor resolved. chronic hypokalemia Patient presented with a potassium of 2.8. The patient has a history of hypokalemia, and is likely chronically due to diuretic use. Plan: Treat patient's hypokalemia with IV and p.o. potassium replacement. Monitor electrolytes. (4) Cirrhosis Impression: continue lactulose and rifaximin. Rifaximin is down to daily due to its side effect on liver. continue lab, and vital monitor The patient has chronic jaundice. LFTs are unstable, but improved since admission. Patient should follow his home medication instructions, but does not. Ammonia level today was 65, which is the patient's high normal range. In this respect he may be appropriate for discharge, but lethargy and agitation have been a barrier. Plan: We will continue to administer lactulose, and diuretics while in the hospital. (5) Anxiety Impression: stable, resume home meds Xanax PRN The patient has history of anxiety and often once he does return to his normal baseline mental status the patient will become agitated and even violent at times. The patient is on nortriptyline and Xanax. The patient has had a sitter for the last several shifts due to elopement threats. Plan: Patient will be continued on his home medication he can have Ativan as needed for agitation. (6) Hypertension Impression: stable. hold BP meds no more hypertension hold BP meds closely monitor pt hypotensive now, change vital to Q4H Patient's blood pressure has been mildly low for his normal and the last reading was 94/62. Patient is on Coreg, Lasix, Aldactone at home. We will continue the patient's home regimen for blood pressure control. Plan: We will monitor vital signs every 4 hours and give scheduled medications. Gentle IV hydration as needed. (7) Anemia Impression: stable, continue lab monitor stable, continue home meds, and lab monitor The patient has a history of iron deficiency and anemia and is on iron at home. H/H was 10.8 and 32.0 today. Plan: We will continue to give patient his home dose of iron and monitor labs. (8) Non compliance with medical treatment consult to pt for medical compliance it is one of major issue to pt. Pt had home health RN to monitor pt for medical compliance on the last d/c plan. But it seems not working well to pt pt's state she is difficult to take care of pt more, and request nurse home or SNF for D/C consult social work (9) pressure ulcer continue wound dressing change continue Keflex continue dressing change continue Keflex dressing change as wound care recommend Q2H turn pt (10) anasarca continue Lasix stable. pt state he feel better daily lab, vital monitor support CT of abdomen reviewed albumin level is 1.9 albumin 25% once Lasix 40 mg PO as home meds daily and vital monitor (11) pneumonia continue one more day azithyromycin pt is room air with SO2 97%, plan D/C antibiotics tomorrow no fever, chill, cough. Qualifiers: Hepatic cirrhosis type: alcoholic cirrhosis Qualified Code(s): K70.31 - Alcoholic cirrhosis of liver with ascites
[2017-03-24] MEDS ORDERED: POTASSIUM CHLORIDE 20 MEQ TABLET PO ONE ×2 (12:00→16:00)
[2017-03-24] MEDS: CARVEDILOL 12.5 MG TABLET PO SCH ×2 (13:36→20:56)
[2017-03-24] MEDS: CALCIUM CITRATE 250 MG TABLET PO SCH (13:36)
[2017-03-24] MEDS: FERROUS SULFATE 325 MG TABLET PO SCH ×2 (13:36→17:39)
[2017-03-24] MEDS: POTASSIUM CHLORIDE 20 MEQ TABLET PO SCH (13:36)
[2017-03-24] MEDS: cephALEXin 250 MG CAPSULE PO SCH ×2 (13:36→20:56)
[2017-03-24] MEDS: AZITHROMYCIN 250 MG TABLET PO SCH (13:43)
[2017-03-24] MEDS: FOLIC ACID 1 MG TABLET PO SCH (13:43)
[2017-03-24] MEDS: FUROSEMIDE 40 MG TABLET PO SCH (13:43)
[2017-03-24] MEDS: LACTULOSE 10 GM/15 ML BOTTLE PO SCH ×4 (13:43→21:02)
[2017-03-24] MEDS: MUPIROCIN 2% CREAM 30 GM TUBE TOP SCH (13:43)
[2017-03-24] MEDS: POLYETHYLENE GLYCOL 3350 17 GM PACKET PO SCH (13:43)
[2017-03-24] MEDS: rifAXIMin 550 MG TABLET PO SCH ×2 (13:43→21:15)
[2017-03-24 14:14] LABS: ABG ANALYSIS TIME 1400; ABG BASE EXCESS 1.2 mmol/L (-2.0-3.0); ABG HCO3 27.1 mmol/L (22.0-26.0); ABG PCO2 48 mmHg (34-45); ABG PH 7.37 (7.35-7.45); ABG PO2 58 mmHg (80-100); ABG TCO2 28.6 MMOL/L (21.0-29.0)
[2017-03-24 14:15] LABS: ABG OXYGEN SATURATION 90 % (94-98); ABG SATURATION PULSE OXIMETRY% 96 %; ABG SITE OF DRAW RIGHT RADIAL; ALLEN TEST POSITIVE
[2017-03-24] MEDS: NICOTINE 14 MG PATCH TOP SCH (14:21)
[2017-03-24] MEDS: PRAMIPEXOLE 0.25 MG TABLET PO SCH (20:56)
[2017-03-24] MEDS: NORTRIPTYLINE 25 MG CAPSULE PO SCH (21:13)
[2017-03-24] MEDS: MIRTAZAPINE 15 MG TABLET PO SCH (21:16)
[2017-03-25] MEDS: SODIUM CHLORIDE FLUSH 0.9% 10 ML SYRINGE IVP SCH (04:05)
[2017-03-25 05:57] LABS: BASOPHILS % (AUTO) 0.7 %; EOSINOPHILS # (AUTO) 0.2 10^3/uL (0.0-0.7); EOSINOPHILS % (AUTO) 4.5 %; HCT - HEMATOCRIT 30.6 % (42.0-52.0); HGB - HEMOGLOBIN 10.4 g/dL (14.0-18.0); LYMPHOCYTES # (AUTO) 1.5 10^3/uL (1.5-3.5); LYMPHOCYTES % (AUTO) 30.6 %; MEAN CORPUSCULAR HEMOGLOBIN 35.7 pg (27.0-31.0); MEAN CORPUSCULAR HGB CONC 33.9 g/dL (32.0-36.0); MEAN CORPUSCULAR VOLUME 105.3 fL (80.0-94.0); MEAN PLATELET VOLUME 9.3 fL (7.4-11.4); MONOCYTES # (AUTO) 0.6 10^3/uL (0.0-1.0); NEUTROPHILS # (AUTO) 2.6 10^3/uL (1.5-6.6); NEUTROPHILS % (AUTO) 52.2 %; NUCLEATED RED BLOOD CELLS AUTO 0.1 /100WBC; RED CELL DISTRIBUTION WIDTH 18.2 % (12.0-15.0)
[2017-03-25] MEDS: oxyCODONE 5 MG TABLET PO PRN (06:03)
[2017-03-25] MEDS: PANTOPRAZOLE 40 MG TABLET PO SCH (06:03)
[2017-03-25 06:13] LABS: ALBUMIN/GLOBULIN RATIO 0.5 (1.0-2.2); BILIRUBIN,TOTAL 2.4 mg/dL (0.2-1.0); CREATININE 0.8 mg/dL (0.6-1.2); POTASSIUM 3.5 mmol/L (3.5-5.0)
[2017-03-25] MEDS: NICOTINE 14 MG PATCH TOP SCH (09:51)
[2017-03-25] MEDS: FUROSEMIDE 40 MG TABLET PO SCH (09:53)
[2017-03-25] MEDS: rifAXIMin 550 MG TABLET PO SCH (09:53)
[2017-03-25] MEDS: CARVEDILOL 12.5 MG TABLET PO SCH (09:53)
[2017-03-25] MEDS: cephALEXin 250 MG CAPSULE PO SCH (09:53)
[2017-03-25] MEDS: FERROUS SULFATE 325 MG TABLET PO SCH (09:53)
[2017-03-25] MEDS: FOLIC ACID 1 MG TABLET PO SCH (09:53)
[2017-03-25] MEDS: CALCIUM CITRATE 250 MG TABLET PO SCH (09:54)
[2017-03-25] MEDS: POTASSIUM CHLORIDE 20 MEQ TABLET PO SCH (09:54)
[2017-03-25 11:08] VITALS: BP 105/57
[2017-03-25] MEDS ORDERED: ALPRAZolam 0.25 MG TABLET PO SCH (12:16)
--- NOTE | 2017-03-25 13:28 | PROVIDER PROGRESS NOTE ---
Subjective - Prog Note Date Prog Note Date: 03/25/17 Prog Note Time: 13:26 - Subjective Pt reports feeling: Worse Subjective: Sienna states, "I am going to hang myself, they director counseling bureau the door way so that I cannot leave". Patient cannot state any details surrounding his current medical condition. Efforts are being pursued to ensure a safe discharge with Guardianship paper work being filed, etc. Patient denies SOB, chest pain, N/V or a new cough. Patient appears agitated but medically improved from last week. Tele Psych ordered and pending. Current Medications - Current Medications Current Medications: Active Medications Albuterol () 2.5 mg INH RTQ4H PRN PRN Reason: Wheezing Albuterol/Ipratropium (Duoneb) 3 ml INH Q4HR PRN PRN Reason: Wheezing Last Admin: 03/19/17 21:55 Dose: 3 ml Alprazolam (Xanax) 2 mg PO BID PRN PRN Reason: Anxiety Last Admin: 03/23/17 16:44 Dose: 2 mg Azithromycin (Zithromax) 250 mg PO 1400 [facility] Last Admin: 03/24/17 13:43 Dose: Not Given Calcium Citrate () 250 mg PO DAILY [facility] Last Admin: 03/25/17 09:54 Dose: 250 mg Carvedilol (Coreg) 12.5 mg PO BID [facility] Last Admin: 03/25/17 09:53 Dose: 12.5 mg Cephalexin (Keflex) 500 mg PO Q12H [facility] Last Admin: 03/25/17 09:53 Dose: 500 mg Ferrous Sulfate (Feosol) 325 mg PO BIDWM [facility] Last Admin: 03/25/17 09:53 Dose: 325 mg Folic Acid () 1 mg PO DAILY [facility] Last Admin: 03/25/17 09:53 Dose: 1 mg Furosemide (Lasix) 40 mg PO DAILY [facility] Last Admin: 03/25/17 09:53 Dose: 40 mg Lactulose (Lactulose) 60 gm PO QID [facility] Last Admin: 03/24/17 21:02 Dose: 60 gm Mirtazapine (Remeron) 15 mg PO QPM [facility] Last Admin: 03/24/17 21:16 Dose: 15 mg Morphine Sulfate () 30 mg PO TID PRN PRN Reason: PAIN Last Admin: 03/24/17 00:45 Dose: 30 mg Mupirocin (Bactroban 2% Cream) 1 applic TOP DAILY [facility] Last Admin: 03/24/17 13:43 Dose: Not Given Nicotine (Nicoderm) 1 patch TOP DAILY [facility] Last Admin: 03/25/17 09:51 Dose: 1 patch Nitroglycerin (Nitrostat) 0.4 mg SL Q5M PRN PRN Reason: Chest Pain Nortriptyline HCl (Pamelor) 150 mg PO QPM [facility] Last Admin: 03/24/17 21:13 Dose: 150 mg Ondansetron HCl (Zofran Inj) 4 mg IVP Q6HR PRN PRN Reason: Nausea / Vomiting Last Admin: 03/15/17 07:05 Dose: 4 mg Oxycodone HCl (Roxicodone) 5 mg PO Q6HR PRN PRN Reason: PAIN Last Admin: 03/25/17 06:03 Dose: 5 mg Pantoprazole Sodium (Protonix) 40 mg PO QDAC [facility] Last Admin: 03/25/17 06:03 Dose: 40 mg Polyethylene Glycol (Miralax) 17 gm PO DAILY [facility] Last Admin: 03/24/17 13:43 Dose: Not Given Potassium Chloride (K-Dur) 100 meq PO DAILYWM [facility] Last Admin: 03/25/17 09:54 Dose: 100 meq Pramipexole Dihydrochloride (Mirapex) 0.25 mg PO QPM [facility] Last Admin: 03/24/17 20:56 Dose: 0.25 mg Prochlorperazine Edisylate (Compazine Inj) 10 mg IVP Q6HR PRN PRN Reason: Nausea / Vomiting Promethazine HCl (Phenergan Inj) 25 mg IM Q6HR PRN PRN Reason: Nausea / Vomiting Rifaximin (Xifaxan) 550 mg PO BID [facility] Last Admin: 03/25/17 09:53 Dose: 550 mg Sodium Chloride (Normal Saline Flush 0.9%) 10 ml IVP PRN PRN PRN Reason: NEEDED PER PROVIDER ORDERS Last Admin: 03/16/17 20:43 Dose: 10 ml Sodium Chloride (Normal Saline Flush 0.9%) 10 ml IVP Q8HR [facility] Last Admin: 03/25/17 04:05 Dose: Not Given Temazepam (Restoril) 30 mg PO QPM PRN PRN Reason: SLEEP Last Admin: 03/24/17 21:16 Dose: 30 mg Throat Lozenges (Cepacol) 1 lozenge MM Q2HR PRN PRN Reason: Throat pain Last Admin: 03/19/17 05:38 Dose: 1 lozenge ALPRAZolam [Xanax] 2 mg PO BID 06/24/16 Carvedilol 12.5 mg PO BID 06/24/16 Docusate Sodium 250Mg Capsule [Colace 250Mg Capsule] 250 mg PO BID 06/24/16 Furosemide 40 mg PO DAILY 06/24/16 Nortriptyline [Pamelor] 150 mg PO QPM 06/24/16 Omeprazole 20 mg PO QDAC 06/24/16 Pramipexole Di-HCl [Mirapex] 0.25 mg PO QPM 06/24/16 Temazepam 30 mg PO QPM PRN 06/24/16 rifAXIMin [Xifaxan] 550 mg PO BID 12/04/16 Mirtazapine 15 mg PO QPM 01/19/17 Nitroglycerin 0.4 mg SL Q5M PRN 01/20/17 Potassium Chloride 20 meq PO BID 01/20/17 Sennosides [Senna] 17.2 mg PO BID 01/20/17 Albuterol Sulfate [Proventil Hfa Inhaler] 1 puffs INH Q4H PRN 02/21/17 Lactulose 60 gm PO QID 02/21/17 Morphine Sulfate [Morphine Sulfate ER] 30 mg PO TID 02/21/17 oxyCODONE [Roxicodone] 10 mg PO QID 02/21/17 Objective - Vital Signs/Intake & Output Reviewed Vital Signs: Yes Vital Signs: Vital Signs x48h Temp Pulse Resp BP Pulse Ox 03/25/17 11:07 36.6 C 81 16 105/57 L 94 Intake & Output: Intake & Output 03/22/17 03/23/17 03/24/17 03/25/17 23:59 23:59 23:59 23:59 Intake Total 626 1850 1020 990 Output Total 1400 460 Balance -774 1390 1020 990 - Objective General Appearance: positive: Moderate distress, Anxious Eyes Bilateral: positive: Normal inspection ENT: positive: ENT inspection nml, Pharynx nml, Dry mucous membranes Neck: positive: Nml inspection, Thyroid nml, No JVD, Trachea midline Respiratory: positive: Chest non-tender, No respiratory distress, Wheezes Cardiovascular: positive: Irregularly irregular, Systolic murmur Abdomen: positive: Guarding, Rebound, Hepatomegaly, Splenomegaly, Abnml bowel sounds Back: positive: Nml inspection Skin: positive: Decubitus (left hip) Extremities: positive: Pedal edema (+2-3) Neurologic/Psychiatric: positive: Disoriented to place, Disoriented to time, Weakness, Sensory loss, Depressed mood/affect (talks about suicidal ideation ( plans to "hang himself")) Reflexes: Bicep (R): 2+, Bicep (L): 2+ - Lab Results Fish Bones: 03/25/17 05:09 03/25/17 05:09 Other Labs: Lab Results x24hrs 03/25/17 03/25/17 03/24/17 Range/Units 05:09 05:09 14:00 WBC 5.0 (4.8-10.8) x10^3/uL RBC 2.90 L (4.70-6.10) 10^6/uL Hgb 10.4 L (14.0-18.0) g/dL Hct 30.6 L (42.0-52.0) % MCV 105.3 H (80.0-94.0) fL MCH 35.7 H (27.0-31.0) pg MCHC 33.9 (32.0-36.0) g/dL RDW 18.2 H (12.0-15.0) % Plt Count 73 L (130-450) 10^3/uL MPV 9.3 (7.4-11.4) fL Neut # 2.6 (1.5-6.6) 10^3/uL Lymph # 1.5 (1.5-3.5) 10^3/uL [place] # 0.6 (0.0-1.0) 10^3/uL Eos # 0.2 (0.0-0.7) 10^3/uL Baso # 0.0 (0.0-0.1) 10^3/uL Absolute Nucleated RBC 0.01 x10^3/uL Nucleated RBC % 0.1 /100WBC Bld Gas Analysis Time 1400 Sample Site RIGHT RADIAL ABG pH 7.37 (7.35-7.45) ABG pCO2 48 H (34-45) mmHg ABG pO2 58 L (80-100) mmHg ABG HCO3 27.1 H (22.0-26.0) mmol/L ABG Total CO2 28.6 (21.0-29.0) MMOL/L ABG O2 Saturation 90 L (94-98) % ABG Oximetry Spot Check 96 % ABG Base Excess 1.2 (-2.0-3.0) mmol/L Juan Test POSITIVE Sodium 135 (135-145) mmol/L Potassium 3.5 (3.5-5.0) mmol/L Chloride 101 (101-111) mmol/L Carbon Dioxide 27 (21-32) mmol/L Anion Gap 7.0 (6-13) BUN 6 (6-20) mg/dL Creatinine 0.8 (0.6-1.2) mg/dL Estimated GFR (MDRD) 100 (>89) Glucose 105 H (70-100) mg/dL Calcium 8.0 L (8.5-10.3) mg/dL Total Bilirubin 2.4 H (0.2-1.0) mg/dL AST 135 H (10-42) IU/L ALT 54 (10-60) IU/L Alkaline Phosphatase 114 (42-121) IU/L Total Protein 6.0 L (6.7-8.2) g/dL Albumin 1.9 L (3.2-5.5) g/dL Globulin 4.1 (2.1-4.2) g/dL Albumin/Globulin Ratio 0.5 L (1.0-2.2) - Diagnostic Imaging Diagnostic Imaging Results: positive: Final report reviewed Assessment/Plan - Problem List (1) Hepatic encephalopathy Impression: The patient presented with hepatic encephalopathy. This is his third hospitalization in just over a month for hepatic encephalopathy. Patient has a long history of noncompliance with medication. The patient admits to being noncompliant upon admission. Patient became more lethargic and was given narcan x1 due to decreased mental status and difficult to arouse. Plan: PO lactulose 4 times daily and he will be continued on rifaximin. Monitor ammonia levels and mental status. Discharge on hold and case management will assist with possible placement since home health services are intolerable socially. (2) Hypokalemia Impression: Patient presented with a potassium of 2.8. The patient has a history of hypokalemia, and is likely chronic due to diuretic use. Potassium today was normalized at 3.5. Plan: Treat patient's hypokalemia with IV and p.o. potassium replacement. Monitor electrolytes. (3) Cirrhosis Impression: Patient has a calculated MELD score of 19 which measures severity of end-stage liver disease. Plan: Continue current treatment of Lactulose, monitor labs. Qualifiers: Hepatic cirrhosis type: unspecified hepatic cirrhosis (4) Anxiety Impression: The patient has history of anxiety and often once he does return to his normal baseline mental status the patient will become agitated and even violent at times. The patient is on nortriptyline and Xanax. The patient has had a sitter for the last several shifts due to elopement threats. Plan: Patient will be continued on his home medication he can have Ativan as needed for agitation. (5) Hypertension Impression: Patient's blood pressure has been mildly low for his normal and the last reading was 105/57. Patient is on Coreg, Lasix, Aldactone at home. We will continue the patient's home regimen for blood pressure control. Plan: We will monitor vital signs every 4 hours and give scheduled medications. Gentle IV hydration as needed. Qualifiers: Hypertension type: essential hypertension Qualified Code(s): I10 - Essential (primary) hypertension (6) Anemia Impression: The patient has a history of iron deficiency and anemia and is on iron at home. H/H was 10.4 and 30.6 today. Plan: We will continue to give patient his home dose of iron and monitor labs. Qualifiers: Anemia type: iron deficiency (7) Non compliance with medical treatment Impression: Patient has a known history of frequent hospital stays, in addition, leaves against medical advice frequently. Plan: We will continue patient teaching and contact as needed for support.
--- NOTE | 2017-03-25 15:03 | Discharge Plan ---
Discharge Plan Disposition: 07 Against Medical Advice Condition: Good Prescriptions: Potassium Chloride [K-Dur] 20 meq PO DAILYWM #30 tablet Diet: Cardiac Activity Restrictions: No Restrictions Shower Restrictions: No Driving Restrictions: Yes (chronic driving restrictions) Weight Bearing: Full Weight Additional Instructions or Follow Up instructions: You have had several problems this year with getting behind on your lactulose which leads to a horrible consequence of hepatic encephalopathy. When your ammonia levels become high this affects the way you think. When this happens too much within 6 months or less, it can cause permanent problems with your thinking! During your hospital stay, we did the usual with IV support, giving you the lactulose and monitoring labs. It is entirely possible to stay clear of the hospital by just taking your lactulose as directed. You were medically cleared for discharge, although you needed more help with a place to stay. Please see your primary care provider early next week as a follow up to this hospital stay. Take all of your medications as they are prescribed, in addition to potassium that I have recommended. Please rest if you are tired. No Smoking: If you smoke, Please STOP! Call for help. Follow-up with: DAMION HART [Primary Care Provider] -
--- NOTE | 2017-03-25 19:15 | DISCHARGE SUMMARY ---
"Discharge Summary Admit Date: 03/13/17 Discharge Date: 03/25/17 Discharging Provider: ROOSEVELT Morocho Primary Care Provider: Mikal Escudero Condition at Discharge: Good Discharge Disposition: 07 Against Medical Advice - DIAGNOSES Admission Diagnoses: (1) Hepatic encephalopathy (2) Hypokalemia (3) Cirrhosis (4) Anxiety (5) Hypertension (6) Anemia (7) Back pain Discharge Diagnoses with Status of Each Condition: Hepatic encephalopathy (K72.90) -Chronic, controlled. Non compliance with medical treatment (Z91.19)-ongoing, likelihood of reoccurrence is high. Hypokalemia (E87.6)- resolved. Cirrhosis (K74.60)- ongoing, chronic. Anxiety (F41.9)-ongoing, chronic. Hypertension (I10)- chronic, controlled. Anemia (D64.9)- chronic, controlled. - HPI History of Present Illness: HPI per Dr. Barlow: Patient is a 56-year-old gentleman with a past medical history significant for liver cirrhosis secondary to alcohol abuse, coronary artery disease, hypertension, hyperlipidemia and COPD who has been admitted to the hospital 2 times in the last 6 weeks for hepatic encephalopathy and presents again to the hospital today with altered mental status. The patient has a long history of noncompliance with lactulose. Many efforts have been made in the past 2 attempts to get the patient home health and even to place him in a custodial facility however despite all of our efforts the patient continues to go back home with his and due to noncompliance returns very frequently to the hospital for hepatic encephalopathy. The patient is not accompanied by his today but like most of his recent hospitalizations the patient presents with altered mental status. The patient has a decreased level of consciousness on presentation he does state to the nurse that he has not been taking his lactulose and when asked why he states it tastes terrible. The patient has no apparent fevers, cough, abdominal pain or tenderness to suggest any other etiology for his encephalopathy other than hepatic encephalopathy from noncompliance with medication. The patient has also not been having any recent bloody or black stools. He has not been having any hematemesis. The patient continues to doze off when asked questions and cannot appropriately provide an adequate history or inadequate review of systems. On presentation to the emergency department the patient is afebrile is mildly tachycardic with a heart rate of 104 his blood pressure is stable and his respiratory rate is normal. The patient was saturating well on room air and did not appear to be in any significant distress but was very lethargic and did not answer questions appropriately when aroused. The patient's lab work did not reveal any leukocytosis, it did reveal a chronic anemia, chronic thrombocytopenia, chronic hyperbilirubinemia and an elevated ammonia level of 87. The patient also was found to have a low potassium of 2.8. Given the patient's presentation and previous presentations with the same the patient did not undergo extensive infectious workup and was admitted to the hospital for treatment of hepatic encephalopathy with lactulose and rifaximin. If the patient does show any signs of infection such as fever, elevated WBC, cough, abdominal pain or any other symptoms we will do a more extensive workup for infection at that time. - CONSULTS | PROCEDURES Consultations: Tele Psych-cancelled. - HOSPITAL COURSE Hospital Course: Patient admitted for confusion and AMS as a consequence of hepatic encephalopathy. Ammonia levels were elevated to dangerous levels, likely due to non-compliance with taking home lactulose. During hospital stay, patient was given IV support, lactulose, and close laboratory monitoring. Patient was combative and used profane language, although improved medically. The patient was cleared medically for discharge, although needed more help with a place to stay and daily cares. Patient became so agitated and threatening to our staff and stated he just wanted to hang himself, so Tele Psych was consulted. In the process of waiting for an available consult room (located in ED), the patient likely convinced staff to let him wait in that room, which was the the usual. Consequently, despite certified alcohol drug counselor from medical staff, the patient increased his need to leave the hospital, and left AMA. He did sign appropriate paper-work. Case management involved for this process. - ALLERGIES Allergies/Adverse Reactions: Allergies Allergy/AdvReac Type Severity Reaction Status Date / Time No Known Drug Allergies Allergy Verified 03/13/17 18:59 - MEDICATIONS Home Medications: Ambulatory Orders Medication Instructions Recorded Confirmed ALPRAZolam [Xanax] 2 mg PO BID 06/24/16 03/14/17 Carvedilol 12.5 mg PO BID 06/24/16 03/14/17 Docusate Sodium 250Mg Capsule 250 mg PO BID 06/24/16 03/14/17 [Colace 250Mg Capsule] Furosemide 40 mg PO DAILY 06/24/16 03/14/17 Nortriptyline [Pamelor] 150 mg PO QPM 06/24/16 03/14/17 Omeprazole 20 mg PO QDAC 06/24/16 03/14/17 Pramipexole Di-HCl [Mirapex] 0.25 mg PO QPM 06/24/16 03/14/17 Temazepam 30 mg PO QPM PRN 06/24/16 03/14/17 Ferrous Sulfate [Feosol] 325 mg PO BIDWM #60 tablet 06/28/16 03/14/17 rifAXIMin [Xifaxan] 550 mg PO BID 12/04/16 03/14/17 Mirtazapine 15 mg PO QPM 01/19/17 03/14/17 Nitroglycerin 0.4 mg SL Q5M PRN 01/20/17 03/14/17 Potassium Chloride 20 meq PO BID 01/20/17 03/14/17 Sennosides [Senna] 17.2 mg PO BID 01/20/17 03/14/17 Albuterol Sulfate [Proventil Hfa 1 puffs INH Q4H PRN 02/21/17 03/14/17 Inhaler] Lactulose 60 gm PO QID 02/21/17 03/14/17 Morphine Sulfate [Morphine Sulfate 30 mg PO TID 02/21/17 03/14/17 ER] oxyCODONE [Roxicodone] 10 mg PO QID 02/21/17 03/14/17 Mupirocin Calcium [Bactroban] 15 gm TP DAILY #2 cream..g. 02/24/17 03/14/17 Potassium Chloride [K-Dur] 20 meq PO DAILYWM #30 tablet 03/15/17 - PHYSICAL EXAM AT DISCHARGE General Appearance: positive: No acute distress, Anxious Eyes Bilateral: positive: Normal inspection ENT: positive: ENT inspection nml, Pharynx nml, Dry mucous membranes Neck: positive: Nml inspection, Thyroid nml, No JVD, Trachea midline Respiratory: positive: Chest non-tender, No respiratory distress, Wheezes ( diminished.) Cardiovascular: positive: Regular rate & rhythm, Systolic murmur, Gallop/S3 Peripheral Pulses: positive: 1+ Abdomen: positive: Guarding, Rebound, Hepatomegaly, Splenomegaly Back: positive: Nml inspection Skin: positive: Color nml, No rash, Warm, Dry, Other (mild jaundice.) Extremities: positive: Pedal edema Neurologic/Psychiatric: positive: Disoriented to time, Weakness, Sensory loss Reflexes: Bicep (R): 3+, Bicep (L): 3+ - LABS Result Diagrams: 03/25/17 05:09 03/25/17 05:09 - DIAGNOSTIC IMAGING Diagnostic Imaging Results: Final report reviewed - FOLLOW UP Follow Up: Medically cleared for discharge, although needed more assistance with a place to stay and daily cares. Primary care provider early next week as a follow up to this hospital stay. Take all medications as they are prescribed, in addition to potassium. - TIME SPENT Time Spent in Discharge (Minutes): 70"
== END 2017-03-25 15:15 | disposition left against medical advice (07) | DRG 432 ==
LOC: EDUNIT# → ED 18:54 → MS3 20:45
PROVIDERS: ADMIT Internal Medicine; ATTEND Nurse Practitioner
DX: K70.40 Alcoholic hepatic failure without coma (principal); J18.9 Pneumonia, unspecified organism; K70.31 Alcoholic cirrhosis of liver with ascites; F10.10 Alcohol abuse, uncomplicated; E87.6 Hypokalemia; D50.9 Iron deficiency anemia, unspecified; D69.6 Thrombocytopenia, unspecified; T47.3X6A Underdosing of saline and osmotic laxatives, initial encounter; Z91.128 Patient's intentional underdosing of medication regimen for other reason; Z91.19 Patient's noncompliance with other medical treatment and regimen; J44.9 Chronic obstructive pulmonary disease, unspecified; F17.210 Nicotine dependence, cigarettes, uncomplicated; L89.212 Pressure ulcer of right hip, stage 2; G89.29 Other chronic pain; M54.9 Dorsalgia, unspecified; F41.9 Anxiety disorder, unspecified; F32.9 Major depressive disorder, single episode, unspecified; I11.0 Hypertensive heart disease with heart failure; I50.9 Heart failure, unspecified; I25.119 Atherosclerotic heart disease of native coronary artery with unspecified angina pectoris; E78.5 Hyperlipidemia, unspecified; K21.9 Gastro-esophageal reflux disease without esophagitis; Z72.89 Other problems related to lifestyle; I25.2 Old myocardial infarction; Z79.51 Long term (current) use of inhaled steroids; Z79.891 Long term (current) use of opiate analgesic; Z79.899 Other long term (current) drug therapy
CPT/HCPCS: 36415; 36600; 71010; 74176; 76705; 80048; 80053; 81001; 81003; 82140; 82607; 82746; 82803; 83690; 83735; 84100; 85025; 85610; 86900; 86901; 87086; 93005; 93306; 94640; 94664; 99284; 99285

== ENCOUNTER 2017-04-03 21:57 | Outpatient (CLI) | payer MEDICAID | END 2017-04-03 21:58 | disposition short-term general hospital (02) | LOC: EMS 21:57 | PROVIDERS: ATTEND Surgery | DX: R41.82 Altered mental status, unspecified (principal) | CPT/HCPCS: A0425; A0429; A0888 ==